=== PATIENT | female | born 1950 | race African-American/Black ===

== ENCOUNTER 2016-11-13 21:00 | Emergency (ER) | payer MEDICARE, MEDICAID ==
[2016-11-13 21:49] LABS: ABSOLUTE BASOPHILS # (AUTO) 0.1 10^3/uL (0.0-0.2); ABSOLUTE EOSINOPHILS # (AUTO) 0.1 10^3/uL (0.0-0.6); ABSOLUTE LYMPHOCYTES (AUTO) 2.6 10^3/uL (0.5-4.7); ABSOLUTE MONOCYTES (AUTO) 0.8 10^3/uL (0.1-1.4); ABSOLUTE NEUT (AUTO) 6.1 10^3/uL (1.7-8.2); BASOPHILS % (AUTO) 0.7 % (0-2); EOSINOPHILS % (AUTO) 1.4 % (0-6); HEMATOCRIT 36.4 % (36.0-47.0); HEMOGLOBIN 11.8 g/dL (12.0-15.5); LYMPHOCYTES % (AUTO) 27.2 % (13-45); MEAN CORPUSCULAR HEMOGLOBIN 26.7 pg (27.0-33.4); MEAN CORPUSCULAR HGB CONC 32.3 g/dL (32.0-36.0); MEAN CORPUSCULAR VOLUME 83 fl (80-97); MONOCYTES % (AUTO) 8.3 % (3-13); RED BLOOD COUNT 4.41 10^6/uL (3.72-5.28); RED CELL DISTRIBUTION WIDTH 15.8 % (11.5-14.0); SEGMENTED NEUTROPHILS % (AUTO) 62.4 % (42-78); WHITE BLOOD COUNT 9.7 10^3/uL (4.0-10.5)
[2016-11-13 21:55] LABS: ALANINE AMINOTRANSFERASE 22 U/L (9-52); ALBUMIN 4.6 g/dL (3.5-5.0); ALKALINE PHOSPHATASE 133 U/L (38-126); ANION GAP 15 (5-19); ASPARTATE AMINO TRANSFERASE 21 U/L (14-36); BILIRUBIN,DIRECT 0.2 mg/dL (0.0-0.4); BILIRUBIN,TOTAL 0.4 mg/dL (0.2-1.3); BLOOD UREA NITROGEN 21 mg/dL (7-20); CALCIUM 9.9 mg/dL (8.4-10.2); CARBON DIOXIDE 26 mmol/L (22-30); CHLORIDE 106 mmol/L (98-107); CREATINE KINASE 192 U/L (30-135); CREATININE RESULT 0.78 mg/dL (0.52-1.25); GLUCOSE 86 mg/dL (75-110); POTASSIUM 3.9 mmol/L (3.6-5.0); SODIUM 146.6 mmol/L (137-145); TOTAL PROTEIN 7.6 g/dL (6.3-8.2)
[2016-11-13 22:06] LABS: CREATINE KINASE MB 1.55 ng/mL (<4.55)
[2016-11-13 22:20] LABS: TROPONIN I < 0.012 ng/mL
[2016-11-13 22:25] LABS: APPEARANCE,URINE SLIGHTLY-CLOUDY; BILIRUBIN,URINE NEGATIVE (NEGATIVE); GLUCOSE, URINE NEGATIVE (NEGATIVE); KETONES,URINE NEGATIVE (NEGATIVE); LEUKOCYTE ESTERASE,URINE NEGATIVE (NEGATIVE); NITRITE,URINE NEGATIVE (NEGATIVE); PROTEIN,URINE NEGATIVE (NEGATIVE); UROBILINOGEN,URINE NEGATIVE mg/dL (<2.0)
[2016-11-13 22:37] LABS: URINE BARBITURATES SCREEN NEGATIVE; URINE METHADONE SCREEN NEGATIVE; URINE OPIATES LOW UNCONFIRMED POSITIVE; URINE PHENCYCLIDINE SCREEN NEGATIVE
[2016-11-13] MEDS ORDERED: CLONIDINE HCL 0.1 MG TABLET PO ONE (23:54)
--- NOTE | 2016-11-13 23:58 | ER Document Report ---
ED Cardiac - General Chief Complaint: Chest Pain > 30 Stated Complaint: CHEST PAIN Time seen by provider: 21:15 Information source: Patient Notes: Patient is a 66-year-old female who comes in complaining of some chest pressure and tightness. Patient also had a little bit of difficulty breathing. Patient has no history of coronary artery disease. Per records, patient has a history of fibromyalgia, gastritis, and schizophrenia. Patient was given aspirin and nitroglycerin prior to arrival. Patient also states that she is very anxious prior to arrival. TRAVEL OUTSIDE OF THE [place] IN LAST 30 DAYS: No - HPI Patient complains to provider of: Chest tightness Was the onset of pain: Gradual Is the pain a: Chronic problem Chest pain radiation location: None Severity now: None Severity at worst: Mild Associated symptoms: None Exacerbated by: Denies Relieved by: Rest Similar symptoms previously: Yes Recently seen / treated by doctor: Yes - Related Data Allergies/Adverse Reactions: lisinopril [Lisinopril] Allergy (Severe, Verified 11/13/16 23:14) Edema phenytoin sodium extended [From Dilantin] Allergy (Severe, Verified 11/13/16 23: 14) Unknown reaction risperidone [From Risperdal] Allergy (Intermediate, Verified 11/13/16 23:14) Hives venlafaxine HCl [From Effexor] Allergy (Intermediate, Verified 11/13/16 23:14) Hives Past Medical History - General Information source: Patient - Social History Smoking Status: Never Smoker Chew tobacco use (# tins/day): No Frequency of alcohol use: None Drug Abuse: None Family History: Reviewed & Not Pertinent - Past Medical History Cardiac Medical History: Reports: Hx Hypercholesterolemia, Hx Hypertension Denies: Hx Heart Attack Pulmonary Medical History: Reports: Hx Asthma, Hx COPD, Hx Pneumonia Denies: Hx Tuberculosis Neurological Medical History: Reports: Hx Seizures - 18-19 YEARS AGO. Denies: Hx Cerebrovascular Accident Endocrine Medical History: Reports: Hx Diabetes Mellitus Type 2 GI Medical History: Reports: Hx Gastroesophageal Reflux Disease. Denies: Hx Hepatitis, Hx Hiatal Hernia, Hx Ulcer Musculoskeltal Medical History: Reports Hx Arthritis, Reports Hx Fibromyalgia Psychiatric Medical History: Reports: Hx Depression - cybalta, Hx Post Traumatic Stress Disorder, Hx Schizophrenia Infectious Medical History: Denies: Hx Hepatitis Past Surgical History: Reports: Hx Section, Hx Cholecystectomy. Denies : Hx Mastectomy, Hx Open Heart Surgery, Hx Pacemaker - Immunizations Hx Diphtheria, Pertussis, Tetanus Vaccination: Yes Review of Systems - Review of Systems Constitutional: No symptoms reported EENT: No symptoms reported Cardiovascular: No symptoms reported Respiratory: See HPI Gastrointestinal: No symptoms reported Genitourinary: No symptoms reported Female Genitourinary: No symptoms reported Musculoskeletal: No symptoms reported Skin: No symptoms reported Hematologic/Lymphatic: No symptoms reported Neurological/Psychological: No symptoms reported Physical Exam - Vital signs Vitals: Resp BP Pulse Ox 25 H 144/99 H 100 11/13/16 21:19 11/13/16 21:19 11/13/16 21:19 Interpretation: Normal - General General appearance: Appears well, Alert - HEENT Head: Normocephalic, Atraumatic Eyes: Normal Pupils: PERRL - Respiratory Respiratory status: No respiratory distress Chest status: Nontender Breath sounds: Normal Chest palpation: Normal - Cardiovascular Rhythm: Regular Heart sounds: Normal auscultation Murmur: No - Abdominal Inspection: Normal Distension: No distension Bowel sounds: Normal Tenderness: Nontender Organomegaly: No organomegaly - Back Back: Normal, Nontender - Extremities General upper extremity: Normal inspection, Nontender, Normal color, Normal ROM , Normal temperature General lower extremity: Normal inspection, Nontender, Normal color, Normal ROM , Normal temperature, Normal weight bearing. No: Genesis's sign - Neurological Neuro grossly intact: Yes Cognition: Normal Orientation: AAOx4 Alec Coma Scale Eye Opening: Spontaneous Alec Coma Scale Verbal: Oriented Dodge Coma Scale Motor: Obeys Commands Alec Coma Scale Total: 15 Speech: Normal Motor strength normal: LUE, RUE, LLE, RLE Sensory: Normal - Psychological Associated symptoms: Normal affect, Normal mood - Skin Skin Temperature: Warm Skin Moisture: Dry Skin Color: Normal Course - Re-evaluation Re-evalutation: 11/13/16 Patient is a 66-year-old female who has a history of high blood pressure but no history of coronary artery disease. Patient had some chest tightness prior to arrival. Patient was very upset initially able to move herself onto the bed and then stated that she is very tired. Asked to evaluate patient by nurse. Patient states that she is tired but she is neurovascularly intact. Patient's speech is intact and she moves everything well. Patient's neighbor came to offer information and thinks that the patient was taking something at home. Patient is upset and told the neighbor to leave. Tells me that she does not take any pills that she is not supposed to and she only came in because she did not feel well. States that she has a lot to do and she wants to go home if everything looks normal. Per old records, The patient had a negative stress test and cardiac catheterization last year. 11/13/16 23:57 Patient's initial blood work and EKG within normal limits. Discussed with son states that the patient appears at her baseline. Patient does not have any chest pain at this time. Difficulty breathing. Vitals are stable except for some mild elevation of blood pressure. Patient is a little bit anxious. Will be given clonidine for both blood pressure and anxiety. Patient will be discharged home after second troponin. Patient is to follow-up with her doctor next week. - Vital Signs Vital signs: Temp Pulse Resp BP Pulse Ox 97.7 F 20 168/102 H 100 11/13/16 21:50 11/13/16 23:01 11/13/16 23:01 11/13/16 23:01 - Laboratory Result Diagrams: 11/13/16 21:25 11/13/16 21:25 Laboratory results interpreted by me: 11/13/16 11/13/16 11/13/16 21:25 21:25 22:00 Hgb 11.8 L MCH 26.7 L RDW 15.8 H Sodium 146.6 H BUN 21 H Alkaline Phosphatase 133 H Creatine Kinase 192 H Urine Blood SMALL H - Diagnostic Test Radiology reviewed: Reports reviewed - EKG Interpretation by Me EKG shows normal: Sinus rhythm Rate: Normal Rhythm: NSR Discharge - Discharge Clinical Impression: Atypical chest pain Condition: Stable Disposition: HOME, SELF-CARE Instructions: Chest Pain of Unclear Cause ([facility]) Additional Instructions: Please follow-up with your doctor next week. Forms: Elevated Blood Pressure
[2016-11-14 02:08] VITALS: BP 154/84
--- NOTE | 2016-11-14 09:12 | EKG REPORT ---
SEVERITY:- NORMAL ECG - SINUS RHYTHM : Confirmed by: Srinath Kwon MD 14-Nov-2016 09:11:48
== END 2016-11-14 02:00 | disposition home or self-care (01) ==
LOC: ER 21:00
DX: R07.9 Chest pain, unspecified (principal); R06.02 Shortness of breath
CPT/HCPCS: 93005; 99285; 36415; 82553; 82550; 84443; 85025; 80053; 81001; 84484; 80307; 71010; 93010; A9270

== ENCOUNTER 2016-12-26 04:55 | Emergency (ER) | payer MEDICARE, MEDICAID ==
[2016-12-26 05:38] LABS: ABSOLUTE EOSINOPHILS # (AUTO) 0.1 10^3/uL (0.0-0.6); ABSOLUTE LYMPHOCYTES (AUTO) 1.9 10^3/uL (0.5-4.7); ABSOLUTE MONOCYTES (AUTO) 0.6 10^3/uL (0.1-1.4); BASOPHILS % (AUTO) 0.3 % (0-2); EOSINOPHILS % (AUTO) 1.7 % (0-6); HEMATOCRIT 36.1 % (36.0-47.0); HEMOGLOBIN 11.9 g/dL (12.0-15.5); HGB HCT DIFFERENCE -0.4; LYMPHOCYTES % (AUTO) 22.2 % (13-45); MEAN CORPUSCULAR HEMOGLOBIN 27.4 pg (27.0-33.4); MEAN CORPUSCULAR VOLUME 83 fl (80-97); MONOCYTES % (AUTO) 6.7 % (3-13); RED BLOOD COUNT 4.34 10^6/uL (3.72-5.28); RED CELL DISTRIBUTION WIDTH 15.7 % (11.5-14.0); SEGMENTED NEUTROPHILS % (AUTO) 69.1 % (42-78); WHITE BLOOD COUNT 8.6 10^3/uL (4.0-10.5)
[2016-12-26 05:51] LABS: ALANINE AMINOTRANSFERASE 37 U/L (9-52); ALBUMIN 3.9 g/dL (3.5-5.0); ALKALINE PHOSPHATASE 123 U/L (38-126); ANION GAP 9 (5-19); ASPARTATE AMINO TRANSFERASE 89 U/L (14-36); BILIRUBIN,DIRECT 0.4 mg/dL (0.0-0.4); BILIRUBIN,TOTAL 0.6 mg/dL (0.2-1.3); BLOOD UREA NITROGEN 20 mg/dL (7-20); CALCIUM 9.6 mg/dL (8.4-10.2); CARBON DIOXIDE 30 mmol/L (22-30); CHLORIDE 105 mmol/L (98-107); CREATINE KINASE 136 U/L (30-135); GLUCOSE 140 mg/dL (75-110); POTASSIUM 3.5 mmol/L (3.6-5.0); SODIUM 143.8 mmol/L (137-145); TOTAL PROTEIN 6.8 g/dL (6.3-8.2)
[2016-12-26 06:02] LABS: CREATINE KINASE MB 1.21 ng/mL (<4.55)
[2016-12-26 06:03] LABS: TROPONIN I < 0.012 ng/mL
--- NOTE | 2016-12-26 06:06 | RADIOLOGY REPORT (SQ) ---
EXAM DESCRIPTION: CHEST SINGLE VIEW COMPLETED DATE/TIME: 12/26/2016 5:48 am REASON FOR STUDY: Chest pain COMPARISON: 11/13/2016 EXAM PARAMETERS: NUMBER OF VIEWS: One view. TECHNIQUE: Single frontal radiographic view of the chest acquired. RADIATION DOSE: NA LIMITATIONS: None. FINDINGS: LUNGS AND PLEURA: No opacities, masses or pneumothorax. No pleural effusion. MEDIASTINUM AND HILAR STRUCTURES: No masses. Contour normal. HEART AND VASCULAR STRUCTURES: Heart normal in size. Normal vasculature. BONES: No acute findings. HARDWARE: None in the chest. OTHER: No other significant finding. IMPRESSION: NO ACUTE RADIOGRAPHIC FINDING IN THE CHEST. TECHNICAL DOCUMENTATION: JOB ID: [id number]
[2016-12-26] MEDS ORDERED: NORMAL SALINE 1000 ML 1,000 ML IV ONE (08:05)
--- NOTE | 2016-12-26 08:46 | RADIOLOGY REPORT (SQ) ---
EXAM DESCRIPTION: CTA CHEST COMPLETED DATE/TIME: 12/26/2016 8:26 am REASON FOR STUDY: sob COMPARISON: 10/16/2015. TECHNIQUE: CT scan of the chest performed using helical scanning technique with dynamic intravenous contrast injection. Images reviewed with lung, soft tissue and bone windows. Reconstructed coronal and sagittal MPR images reviewed. Additional 3 dimensional post-processing performed to develop Maximal Intensity Projection images (NE P). All images stored on PACS. All CT scanners at this facility use dose modulation, iterative reconstruction, and/or weight based d osing when appropriate to reduce radiation dose to as low as reasonably achievable (ALARA). [facility]: Dose Right [facility]: CareDose [facility]: Dose Right [facility]: Teradose 4D [facility]: [email or web address] CONTRAST TYPE AND DOSE: 75 mL Isovue 370- low osmolar. RENAL FUNCTION: BUN 20 creatinine 0.8. RADIATION DOSE: 31.05 mGy. LIMITATIONS: None. FINDINGS: LUNGS AND PLEURA: Minimal pleural effusions. Scattered subpleural interstitial densities. No lobar infiltrates. No pneumothorax AORTA AND GREAT VESSELS: No aneurysm or dissection. HEART: No pericardial effusion. PULMONARY ARTERIES: No emboli visualized in the main pulmonary arteries or the segmental branches. HILAR AND MEDIASTINAL STRUCTURES: No identified masses or abnormal nodes. HARDWARE: None in the chest. UPPER ABDOMEN: No significant findings. Limited exam. THYROID AND OTHER SOFT TISSUES: No masses. No adenopathy. BONES: No acute or significant finding. 3D MIPS: Confirm above findings. OTHER: No other significant finding. IMPRESSION: 1. NORMAL CTA OF THE CHEST. NO PULMONARY EMBOLI. 2. MINIMAL PLEURAL EFFUSIONS WITH MILD ATELECTASIS/SCARRING. TECHNICAL DOCUMENTATION: JOB ID: [id number] Quality ID # [id number]: Final reports with documentation of one or more dose reduction techniques (e.g., Au tomated exposure control, adjustment of the mA and/or kV according to patient size, use of iterative reconstruction technique) 2010 [employer]- All Rights Reserved
--- NOTE | 2016-12-26 09:24 | EKG REPORT ---
SEVERITY:- NORMAL ECG - SINUS RHYTHM : Confirmed by: Srinath Kwon MD 26-Dec-2016 09:24:02
--- NOTE | 2016-12-26 10:21 | ER Document Report ---
ED General - General Chief Complaint: Chest Pain Stated Complaint: CHEST PAIN UNDER LEFT BREAST Time Seen by Provider: 12/26/16 06:14 TRAVEL OUTSIDE OF THE [place] IN LAST 30 DAYS: No - HPI Patient complains to provider of: Chest pain Notes: Patient is coming in for evaluation of chest pain. Patient apparently woke up this morning around 3:00 having chest pain. Patient states she was wearing her CPAP at the time. Patient was transported EMS. Patient states chest pain similar to chest pain she had prior patient was recently seen her corporate recycling manager office and has a scheduled stress test for January 04. Patient states negative stress test approximately 2 years ago also negative gastric catheterization 2 years ago. Patient states compliance with medications. Patient denies any drug abuse. Patient currently is chest pain-free. - Related Data Allergies/Adverse Reactions: lisinopril [Lisinopril] Allergy (Severe, Verified 12/26/16 05:57) Edema phenytoin sodium extended [From Dilantin] Allergy (Severe, Verified 12/26/16 05: 57) Unknown reaction risperidone [From Risperdal] Allergy (Intermediate, Verified 12/26/16 05:57) Hives venlafaxine HCl [From Effexor] Allergy (Intermediate, Verified 12/26/16 05:57) Hives Past Medical History - Social History Smoking Status: Unknown if Ever Smoked Chew tobacco use (# tins/day): No Frequency of alcohol use: None Drug Abuse: None Family History: Reviewed & Not Pertinent - Past Medical History Cardiac Medical History: Reports: Hx Hypercholesterolemia, Hx Hypertension Denies: Hx Heart Attack Pulmonary Medical History: Reports: Hx Asthma, Hx COPD, Hx Pneumonia Denies: Hx Tuberculosis Neurological Medical History: Reports: Hx Seizures - 18-19 YEARS AGO. Denies: Hx Cerebrovascular Accident Endocrine Medical History: Reports: Hx Diabetes Mellitus Type 2 GI Medical History: Reports: Hx Gastroesophageal Reflux Disease. Denies: Hx Hepatitis, Hx Hiatal Hernia, Hx Ulcer Musculoskeltal Medical History: Reports Hx Arthritis, Reports Hx Fibromyalgia Psychiatric Medical History: Reports: Hx Depression - cymbalta, Hx Post Traumatic Stress Disorder, Hx Schizophrenia Infectious Medical History: Denies: Hx Hepatitis Past Surgical History: Reports: Hx Section, Hx Cholecystectomy. Denies : Hx Mastectomy, Hx Open Heart Surgery, Hx Pacemaker - Immunizations Hx Diphtheria, Pertussis, Tetanus Vaccination: Yes Review of Systems - Review of Systems Constitutional: No symptoms reported EENT: No symptoms reported Cardiovascular: Chest pain Respiratory: No symptoms reported Gastrointestinal: No symptoms reported Genitourinary: No symptoms reported Female Genitourinary: No symptoms reported Musculoskeletal: No symptoms reported Skin: No symptoms reported Hematologic/Lymphatic: No symptoms reported Neurological/Psychological: No symptoms reported Physical Exam - Vital signs Vitals: Temp 97.7 F 12/26/16 05:00 Interpretation: Normal - General General appearance: Appears well, Alert - HEENT Head: Normocephalic, Atraumatic Eyes: Normal Pupils: PERRL - Respiratory Respiratory status: No respiratory distress Chest status: Nontender Breath sounds: Normal Chest palpation: Normal - Cardiovascular Rhythm: Regular Heart sounds: Normal auscultation Murmur: No - Abdominal Inspection: Normal Distension: No distension Bowel sounds: Normal Tenderness: Nontender Organomegaly: No organomegaly - Back Back: Normal, Nontender - Extremities General upper extremity: Normal inspection, Nontender, Normal color, Normal ROM , Normal temperature General lower extremity: Normal inspection, Nontender, Normal color, Normal ROM , Normal temperature, Normal weight bearing. No: Genesis's sign - Neurological Neuro grossly intact: Yes Cognition: Normal Orientation: AAOx4 Alec Coma Scale Eye Opening: Spontaneous Alec Coma Scale Verbal: Oriented Alec Coma Scale Motor: Obeys Commands Alec Coma Scale Total: 15 Speech: Normal Motor strength normal: LUE, RUE, LLE, RLE Sensory: Normal - Psychological Associated symptoms: Normal affect, Normal mood - Skin Skin Temperature: Warm Skin Moisture: Dry Skin Color: Normal Course - Re-evaluation Re-evalutation: 12/26/16 15:24 The patient has atypical chest pain as the patient's chest pain is not suggestive of pulmonary embolus, cardiac ischemia, aortic dissection, or other serious etiology. Given the extremely low risk of these diagnoses further testing and evaluation for these possibilities does not appear to be indicated at this time. The patient has been instructed to return if the symptoms worsen or change in any way. Discussed with corporate recycling manager and Talha Ott. Agrees with assessment and plan agrees with discharge home recommend starting patient on Imdur and to the patient has her stress test. Patient agrees with this plan troponins negative 2 no signs of critical etiology will be discharged - Vital Signs Vital signs: Temp Pulse Resp BP Pulse Ox 97.5 F 18 154/78 H 98 12/26/16 11:08 12/26/16 11:08 12/26/16 11:08 12/26/16 11:08 - Laboratory Result Diagrams: 12/26/16 05:28 12/26/16 05:28 Laboratory results interpreted by me: 12/26/16 12/26/16 12/26/16 05:28 05:28 05:28 Hgb 11.9 L RDW 15.7 H D-Dimer 0.56 H Potassium 3.5 L Glucose 140 H AST 89 H Creatine Kinase 136 H Discharge - Discharge Clinical Impression: Chest pain Qualifiers: Chest pain type: unspecified Qualified Code(s): R07.9 - Chest pain, unspecified Condition: Good Disposition: HOME, SELF-CARE Instructions: Chest Wall Pain ([facility]), Chest Pain of Unclear Cause ([facility]) Additional Instructions: Your workup here today shows a normal EKG and normal lab work and a normal CAT scan of her chest. I discussed her case with your corporate recycling manager elvira and Talha Ott. Recommended that we start you on Imdur 30 mg a day. We make sure that she follow-up for your stress test on the sixth. Return to the ER if any changes continue to take your previously prescribed medication. Prescriptions: Isosorbide Mononitrate [Imdur 30 mg Tablet.er] 30 mg PO DAILY #14 tab.er.24h Forms: Return to Work
[2016-12-26] MEDS ORDERED: POTASSIUM CHLORIDE 10 MEQ TABLET.SA PO ONE (10:41)
[2016-12-26 11:16] VITALS: BP 154/78
== END 2016-12-26 11:28 | disposition home or self-care (01) ==
LOC: ER 04:55
DX: R07.9 Chest pain, unspecified (principal)
CPT/HCPCS: 93005; 99285; 96360; 36415; 82553; 82550; 83735; 85025; 80053; 84484; 85379; 71010; 71275; 93010; J7030; A9270

== ENCOUNTER → 2017-01-03 | Outpatient (CLI) | payer MEDICARE, MEDICAID ==
--- NOTE | 2017-01-04 15:07 | CAROTID DOPPLER PRO FEE REPORT ---
CAROTID DUPLEX DOPPLER REPORT PATIENT NAME: KORY GALLO ROOM#: DATE OF STUDY: 01/03/2017 DATE OF : 1950 REFERRING MD: LINDSEY ABARCA M.D. ORDER NO: [id number] TECHNOLOGIST: Prasanth Norton INDICATION: CVA. STUDY: The color carotid duplex scan was performed with real time images and real time Doppler velocity measurements. Real time images indicated no plaque formation, either right or left carotid artery. Doppler velocity measurements were as follows: MEASUREMENT: RIGHT LEFT CCA PSV (prox/mid) 136 cm/sec 210 cm/sec CCA PSV (distal) 92 cm/sec 101 cm/sec CCA EDV (prox/mid) 19 cm/sec 36 cm/sec CCA EDV (distal) 24 cm/sec 20 cm/sec ICA PSV (proximal) 101 cm/sec 71 cm/sec ICA PSV (distal) 136 cm/sec 78 cm/sec ICA EDV (proximal) 26 cm/sec 19 cm/sec ICA EDV (distal) 40 cm/sec 23 cm/sec ECA 69 cm/sec 81 cm/sec ICA/CCA RATIO: 1.5 on the right and 0.7 on the left. Vertebrals are patent. Flow is cephalad. FINAL IMPRESSION: NO PLAQUE FORMATION, LESS THAN 50% STENOSIS. INTERPRETING PHYSICIAN: LINDSEY ABARCA M.D. /: NAGA TT: 1504 ID: [id number] /: [id number] TD: 1550 JOB: [id number] cc:LINDSEY ABARCA M.D. >
== END ==
LOC: SP 09:47
PROVIDERS: ATTEND Specialist
DX: I63.9 Cerebral infarction, unspecified (principal)
CPT/HCPCS: 93880

== ENCOUNTER 2017-04-06 20:21 | Emergency (ER) | payer MEDICARE, MEDICAID ==
[2017-04-06] MEDS ORDERED: NORMAL SALINE 500 ML IV ONE (22:53)
[2017-04-07 00:01] LABS: ABSOLUTE BASOPHILS # (AUTO) 0.1 10^3/uL (0.0-0.2); ABSOLUTE EOSINOPHILS # (AUTO) 0.3 10^3/uL (0.0-0.6); ABSOLUTE LYMPHOCYTES (AUTO) 1.8 10^3/uL (0.5-4.7); ABSOLUTE MONOCYTES (AUTO) 0.5 10^3/uL (0.1-1.4); ABSOLUTE NEUT (AUTO) 5.1 10^3/uL (1.7-8.2); EOSINOPHILS % (AUTO) 3.9 % (0-6); HEMATOCRIT 36.8 % (36.0-47.0); HEMOGLOBIN 12.2 g/dL (12.0-15.5); HGB HCT DIFFERENCE -0.2; MEAN CORPUSCULAR HEMOGLOBIN 27.9 pg (27.0-33.4); MEAN CORPUSCULAR HGB CONC 33.1 g/dL (32.0-36.0); MEAN CORPUSCULAR VOLUME 85 fl (80-97); MONOCYTES % (AUTO) 6.8 % (3-13); RED BLOOD COUNT 4.36 10^6/uL (3.72-5.28); RED CELL DISTRIBUTION WIDTH 15.9 % (11.5-14.0); SEGMENTED NEUTROPHILS % (AUTO) 65.3 % (42-78); WHITE BLOOD COUNT 7.8 10^3/uL (4.0-10.5)
--- NOTE | 2017-04-07 00:35 | RADIOLOGY REPORT (SQ) ---
EXAM DESCRIPTION: CT HEAD WITHOUT COMPLETED DATE/TIME: 04/07/2017 12:21 am REASON FOR STUDY: headache, R SIDE WEAKNESS COMPARISON: CT brain 04/09/2016, 07/11/2011. TECHNIQUE: Axial images acquired through the brain without intravenous contrast. Images reviewed wi th bone, brain and subdural windows. Images stored on PACS. All CT scanners at this facility use dose modulation, iterative reconstruction, and/or weight based d osing when appropriate to reduce radiation dose to as low as reasonably achievable (ALARA). [facility]: Dose Right [facility]: CareDose [facility]: Dose Right [facility]: Teradose 4D [facility]: [employer] RADIATION DOSE: Up-to-date CT equipment and radiation dose reduction techniques were employed. CTDIv ol: 67.0 mGy. DLP: 1316 mGy-cm. mGy. LIMITATIONS: None. FINDINGS: VENTRICLES: Normal size and contour. CEREBRUM: No mass effect. No hemorrhage. No midline shift. Normal beltran/white matter differentiatio n. No evidence for acute territorial infarction. CEREBELLUM: No mass effect. No hemorrhage. No alteration of density. No evidence for acute infarct ion. EXTRAAXIAL SPACES: No fluid collections. ORBITS AND GLOBE: Symmetrical contour of the globes. CALVARIUM: No depressed skull fracture. PARANASAL SINUSES: No air-fluid level. SOFT TISSUES: No hematoma. IMPRESSION: No acute intracranial hemorrhage or acute territorial infarct. COMMENT: Quality ID # [id number]: Final reports with documentation of one or more dose reduction techniques (e.g., Automated exposure control, adjustment of the mA and/or kV according to patient size, use of iterative reconstruction technique) TECHNICAL DOCUMENTATION: JOB ID: [id number] [place]-64 [employer]- All Rights Reserved
[2017-04-07 00:48] LABS: ANION GAP 11 (5-19); BLOOD UREA NITROGEN 14 mg/dL (7-20); CALCIUM 9.4 mg/dL (8.4-10.2); CARBON DIOXIDE 28 mmol/L (22-30); CHLORIDE 106 mmol/L (98-107); CREATININE RESULT 0.72 mg/dL (0.52-1.25); GLUCOSE 86 mg/dL (75-110); POTASSIUM 3.9 mmol/L (3.6-5.0); SODIUM 144.8 mmol/L (137-145)
--- NOTE | 2017-04-07 02:22 | RADIOLOGY REPORT (SQ) ---
EXAM DESCRIPTION: CTA HEAD COMPLETED DATE/TIME: 04/07/2017 2:08 am REASON FOR STUDY: headache COMPARISON: Noncontrast CT head 04/07/2017. TECHNIQUE: Post IV contrast scanning, thin section axial imaging through the brain to evaluate the a rterial structures. Source and MIP images are saved and reviewed on PACS. Advanced 3D imaging as volume-rendering, MIPs, SSD performed? yes All CT scanners at this facility use dose modulation, iterative reconstruction, and/or weight based d osing when appropriate to reduce radiation dose to as low as reasonably achievable (ALARA). [facility]: Dose Right [facility]: CareDose [facility]: Dose Right [facility]: Teradose 4D [facility]: [employer] CONTRAST TYPE AND DOSE: contrast/concentration: Isovue 370.00 mg/ml; Total Contrast Delivered: 80.0 ml; Total Saline Delivered: 63.9 ml RENAL FUNCTION: Creatinine 0.71 LIMITATIONS: None. FINDINGS: [place] RESERVATION OF FRIED[place]: The anterior, middle, posterior cerebral arteries are all patent. No ev idence of aneurysm or focal stenosis. POSTERIOR CIRCULATION: The distal vertebral arteries are patent as is the basilar artery. No aneurysm . BRAIN: No enhancing lesions visualized. BONES: No depressed calvarial fracture. SINUSES: No air-fluid level. IMPRESSION: No CTA evidence of stenosis or aneurysm of the hoopa of [place]. TECHNICAL DOCUMENTATION: JOB ID: [id number] [place]- Quality ID # [id number]: Final reports with documentation of one or more dose reduction techniques (e.g., Au tomated exposure control, adjustment of the mA and/or kV according to patient size, use of iterative reconstruction technique) 2010 [employer]- All Rights Reserved
[2017-04-07] MEDS ORDERED: METOCLOPRAMIDE HCL INJ/PF 10 MG/2 ML SDV IV ONE (02:28)
[2017-04-07] MEDS ORDERED: DIPHENHYDRAMINE HCL 50 MG/ML VIAL IV ONE (02:29)
--- NOTE | 2017-04-07 02:50 | ER Document Report ---
ED General - General Chief Complaint: Headache <24 hrs old Stated Complaint: HEADACHE Time Seen by Provider: 04/06/17 22:40 Notes: Patient is a 66-year-old female presents with complaint of a headache. Patient says headaches been ongoing since early afternoon. She says it gradually started come on when [place] the mall. Gradually worsened and now is more severe. She says she typically does not get headaches. Says that pain is mainly over the top of her head. Some slight pain going into her neck. Some nausea but no vomiting. No diarrhea. No fevers. No trauma. No focal weakness or numbness. No other complaints at this time. TRAVEL OUTSIDE OF THE [place] IN LAST 30 DAYS: No - Related Data Allergies/Adverse Reactions: lisinopril [Lisinopril] Allergy (Severe, Verified 04/06/17 20:53) Edema phenytoin sodium extended [From Dilantin] Allergy (Severe, Verified 04/06/17 20: 53) Unknown reaction risperidone [From Risperdal] Allergy (Intermediate, Verified 04/06/17 20:53) Hives venlafaxine HCl [From Effexor] Allergy (Intermediate, Verified 04/06/17 20:53) Hives Past Medical History - Social History Smoking Status: Never Smoker Chew tobacco use (# tins/day): No Frequency of alcohol use: None Drug Abuse: None Family History: Reviewed & Not Pertinent - Past Medical History Cardiac Medical History: Reports: Hx Hypercholesterolemia, Hx Hypertension Denies: Hx Heart Attack Pulmonary Medical History: Reports: Hx Asthma, Hx COPD, Hx Pneumonia Denies: Hx Tuberculosis Neurological Medical History: Reports: Hx Seizures - 18-19 YEARS AGO. Denies: Hx Cerebrovascular Accident Endocrine Medical History: Reports: Hx Diabetes Mellitus Type 2 Renal/ Medical History: Denies: Hx Peritoneal Dialysis GI Medical History: Reports: Hx Gastroesophageal Reflux Disease. Denies: Hx Hepatitis, Hx Hiatal Hernia, Hx Ulcer Musculoskeltal Medical History: Reports Hx Arthritis, Reports Hx Fibromyalgia Psychiatric Medical History: Reports: Hx Depression - cymbalta, Hx Post Traumatic Stress Disorder, Hx Schizophrenia Infectious Medical History: Denies: Hx Hepatitis Past Surgical History: Reports: Hx Section, Hx Cholecystectomy. Denies : Hx Mastectomy, Hx Open Heart Surgery, Hx Pacemaker - Immunizations Hx Diphtheria, Pertussis, Tetanus Vaccination: Yes Review of Systems - Review of Systems Notes: My Normal Review Basic REVIEW OF SYSTEMS: CONSTITUTIONAL : Denies fever, chills, or sweats. Denies recent illness.. RESPIRATORY: Denies cough, cold, or chest congestion. Denies shortness of breath, difficulty breathing, or wheezing. MUSCULOSKELETAL: Denies neck or back pain or joint pain or swelling. SKIN: Denies rash or skin lesions. NEUROLOGICAL: Denies altered mental status or loss of consciousness. Has a headache. Denies weakness or paralysis or loss of use of either side. Denies problems with gait or speech. Denies sensory or motor loss. ALL OTHER SYSTEMS REVIEWED AND NEGATIVE. Physical Exam - Vital signs Vitals: Temp Pulse Resp BP Pulse Ox 97.6 F 60 20 155/68 H 97 04/06/17 20:54 04/06/17 20:54 04/06/17 20:54 04/06/17 20:54 04/06/17 20:54 - Notes Notes: General Appearance: Well nourished, alert, cooperative, no acute distress, mild obvious discomfort. Vitals: reviewed, See vital signs table. Head: no swelling or tenderness to the head Eyes: PERRL, EOMI, Conjuctiva clear Mouth: No decreasd moisture Throat: No tonsillar inflammation, No airway obstruction, No lymphadenopathy Neck: Supple, no neck tenderness Lungs: No wheezing, No rales, No rhonci, No accessory muscle use, good air exchange bilaterally. Heart: Normal rate, Regular rythm, No murmur, no rub Abdomen: Normal BS, soft, No rigidity, No abdominal tenderness, No guarding, no rebound, no abdominal masses, no organomegaly Extremities: strength 5/5 in all extremities, good pulses in all extremities, no swelling or tenderness in the extremities, no edema. Skin: warm, dry, appropriate color, no rash Neuro: speech clear, oriented x 3, normal affect, responds appropriately to questions. Cranial nerves II through XII are intact. Distal sensation intact. Patient moves all extremities without difficulty. Normal gait. Course - Re-evaluation Re-evalutation: 04/07/17 06:24 Headache is now completely resolved. She is feeling improved. I did discuss with her the options of CTA versus lumbar puncture. We did do the CTA. I informed her that the CTA is sensitive for cerebral aneurysms but is not 100% and picking up subarachnoid hemorrhage. I informed her that the only test that would be 100% would be a lumbar puncture. At this time she is comfortable with the sensitivity of the CTA and does not want a lumbar puncture performed. After that discussion with her I did give her Benadryl and Reglan. Headache was completely resolved with that. She feels well and looks well. Patient will be discharged home but strongly encouraged to return to ER if she has recurrent headaches, headaches are sudden and severe in onset, or she feels unwell. Patient agrees with plan and was discharged home. Dictation of this chart was performed using voice recognition software; therefore, there may be some unintended grammatical errors. - Vital Signs Vital signs: Temp Pulse Resp BP Pulse Ox 97.6 F 57 L 18 143/68 H 97 04/06/17 20:54 04/06/17 23:48 04/07/17 05:01 04/07/17 05:01 04/07/17 05:01 - Laboratory Result Diagrams: 04/06/17 23:47 04/07/17 00:28 Laboratory results interpreted by me: 04/06/17 23:47 RDW 15.9 H - Transfer of Care Notes: 04/07/17 02:48 She says her headache is starting to improve. After a CT of her head I did discuss the option of lumbar puncture. At the time of discussion are not yet given her any type of sedating medications as I did not want this to affect her judgment. Informed the patient that a CTA is very sensitive for picking up cerebral aneurysms however it is not 100% sensitive in picking up subarachnoid bleeds. I informed her that the only thing is 100% sensitive would be a lumbar puncture. I did review with a lumbar puncture is with her and she is actually familiar with the procedure. She says that she does not want a lumbar puncture. She states she is comfortable with the CT alone. I will treat the patient with Benadryl and Reglan. I will reassess her to make sure that her headache is improving. Discharge - Discharge Clinical Impression: Headache Qualifiers: Headache type: unspecified Headache chronicity pattern: acute headache Intractability: not intractable Qualified Code(s): R51 - Headache Condition: Good Disposition: HOME, SELF-CARE Additional Instructions: Your headache improved with medication called Reglan. I have written a prescription for this medication. When you take i, please take it with 25 mg of Benadryl. Do not drive after taking this medication as it can make you sleepy. We did obtain a CT angiogram gram of your brain. This showed no evidence of cerebral aneurysm. This test is very sensitive for picking up cerebral aneurysms but as discussed with you it is not 100% and ruling out subarachnoid hemorrhage. If you develop any recurrent headaches or feel unwell then please return to ER so we can reevaluate you and discuss again the option of a lumbar puncture. Prescriptions: Metoclopramide HCl [Reglan 10 mg Tablet] 1 tab PO ASDIR PRN #25 tablet PRN Reason: Referrals: SELIN WATTS MD [Primary Care Provider] - Follow up in 3-5 days
[2017-04-07 05:25] VITALS: BP 143/68
== END 2017-04-07 05:25 | disposition home or self-care (01) ==
LOC: ER 20:21
DX: R51 Headache (principal); M54.2 Cervicalgia; R11.0 Nausea
CPT/HCPCS: 99284; 96361; 96374; 96375; 36415; 85025; 80048; 70450; 70496; J1200; J2765; J7040

== ENCOUNTER 2017-04-22 12:52 | Observation (INO) | payer MEDICARE, MEDICAID ==
[2017-04-22] MEDS ORDERED: ASPIRIN 81 MG TABLET, CHEWABLE PO ONE (12:58)
[2017-04-22 13:19] LABS: ABSOLUTE EOSINOPHILS # (AUTO) 0.1 10^3/uL (0.0-0.6); ABSOLUTE LYMPHOCYTES (AUTO) 1.6 10^3/uL (0.5-4.7); ABSOLUTE MONOCYTES (AUTO) 0.6 10^3/uL (0.1-1.4); ABSOLUTE NEUT (AUTO) 4.8 10^3/uL (1.7-8.2); BASOPHILS % (AUTO) 0.3 % (0-2); EOSINOPHILS % (AUTO) 1.1 % (0-6); HEMATOCRIT 33.1 % (36.0-47.0); HEMOGLOBIN 11.4 g/dL (12.0-15.5); HGB HCT DIFFERENCE 1.1; LYMPHOCYTES % (AUTO) 22.8 % (13-45); MEAN CORPUSCULAR HEMOGLOBIN 28.6 pg (27.0-33.4); MEAN CORPUSCULAR HGB CONC 34.4 g/dL (32.0-36.0); MEAN CORPUSCULAR VOLUME 83 fl (80-97); MONOCYTES % (AUTO) 9.1 % (3-13); RED BLOOD COUNT 3.98 10^6/uL (3.72-5.28); RED CELL DISTRIBUTION WIDTH 15.3 % (11.5-14.0); SEGMENTED NEUTROPHILS % (AUTO) 66.7 % (42-78); WHITE BLOOD COUNT 7.2 10^3/uL (4.0-10.5)
[2017-04-22 13:46] LABS: CREATINE KINASE MB 1.16 ng/mL (<4.55)
[2017-04-22 13:50] LABS: TROPONIN I < 0.012 ng/mL
[2017-04-22 14:06] LABS: ALANINE AMINOTRANSFERASE 22 U/L (9-52); ALBUMIN 3.9 g/dL (3.5-5.0); ALKALINE PHOSPHATASE 110 U/L (38-126); ANION GAP 9 (5-19); ASPARTATE AMINO TRANSFERASE 19 U/L (14-36); BILIRUBIN,DIRECT 0.3 mg/dL (0.0-0.4); BILIRUBIN,TOTAL 0.5 mg/dL (0.2-1.3); BLOOD UREA NITROGEN 13 mg/dL (7-20); CALCIUM 9.6 mg/dL (8.4-10.2); CARBON DIOXIDE 27 mmol/L (22-30); CHLORIDE 106 mmol/L (98-107); CREATINE KINASE 119 U/L (30-135); CREATININE RESULT 0.87 mg/dL (0.52-1.25); GLUCOSE 75 mg/dL (75-110); SODIUM 142.4 mmol/L (137-145); TOTAL PROTEIN 6.6 g/dL (6.3-8.2)
--- NOTE | 2017-04-22 14:24 | RADIOLOGY REPORT (SQ) ---
EXAM DESCRIPTION: CHEST SINGLE VIEW COMPLETED DATE/TIME: 04/22/2017 2:14 pm REASON FOR STUDY: cp COMPARISON: 12/26/2016 EXAM PARAMETERS: NUMBER OF VIEWS: One view. TECHNIQUE: Single frontal radiographic view of the chest acquired. RADIATION DOSE: NA LIMITATIONS: None. FINDINGS: LUNGS AND PLEURA: No opacities, masses or pneumothorax. No pleural effusion. MEDIASTINUM AND HILAR STRUCTURES: No masses. Contour normal. HEART AND VASCULAR STRUCTURES: Heart normal in size. Normal vasculature. BONES: No acute findings. HARDWARE: None in the chest. OTHER: No other significant finding. IMPRESSION: NO ACUTE RADIOGRAPHIC FINDING IN THE CHEST. TECHNICAL DOCUMENTATION: JOB ID: [id number]
--- NOTE | 2017-04-22 15:12 | ER Document Report ---
ED General - General Chief Complaint: Chest Pain Stated Complaint: CHEST PAIN Time Seen by Provider: 04/22/17 12:58 TRAVEL OUTSIDE OF THE [place] IN LAST 30 DAYS: No - HPI Patient complains to provider of: Chest pain Notes: Patient coming in for intermittent chest pain worse just prior to arrival states intermittent for the last 24 hours worse prior to arrival patient states relieved with nitro and nitro paste. Patient currently is asymptomatic. Patient states left-sided chest pain going down the left arm. States also is having nausea. Patient states that she called her medical records manager Dr. Hancock and Talha Ott was told to come to the nearest ER. Patient states last catheterization was approximately 3 years ago that was negative patient states she has had other cardiac testing however is unclear how recent this has been. Patient denies history of stents denies history of bypass surgery. Patient does state hypertension diabetes. Patient denies any trauma recent travel. Patient does endorse some shortness of breath with the short chest pain. Denies fevers chills vomiting diarrhea - Related Data Allergies/Adverse Reactions: lisinopril [Lisinopril] Allergy (Severe, Verified 04/06/17 20:53) Edema phenytoin sodium extended [From Dilantin] Allergy (Severe, Verified 04/06/17 20: 53) Unknown reaction risperidone [From Risperdal] Allergy (Intermediate, Verified 04/06/17 20:53) Hives venlafaxine HCl [From Effexor] Allergy (Intermediate, Verified 04/06/17 20:53) Hives Past Medical History - Social History Smoking Status: Former Smoker Chew tobacco use (# tins/day): No Frequency of alcohol use: None Drug Abuse: None Family History: Reviewed & Not Pertinent - Past Medical History Cardiac Medical History: Reports: Hx Hypercholesterolemia, Hx Hypertension Denies: Hx Heart Attack Pulmonary Medical History: Reports: Hx Asthma, Hx COPD, Hx Pneumonia Denies: Hx Tuberculosis Neurological Medical History: Reports: Hx Seizures - 18-19 YEARS AGO. Denies: Hx Cerebrovascular Accident Endocrine Medical History: Reports: Hx Diabetes Mellitus Type 2 Renal/ Medical History: Denies: Hx Peritoneal Dialysis GI Medical History: Reports: Hx Gastroesophageal Reflux Disease. Denies: Hx Hepatitis, Hx Hiatal Hernia, Hx Ulcer Musculoskeltal Medical History: Reports Hx Arthritis, Reports Hx Fibromyalgia Psychiatric Medical History: Reports: Hx Depression - cymbalta, Hx Post Traumatic Stress Disorder, Hx Schizophrenia Infectious Medical History: Denies: Hx Hepatitis Past Surgical History: Reports: Hx Section, Hx Cholecystectomy. Denies : Hx Mastectomy, Hx Open Heart Surgery, Hx Pacemaker - Immunizations Hx Diphtheria, Pertussis, Tetanus Vaccination: Yes Review of Systems - Review of Systems Constitutional: No symptoms reported EENT: No symptoms reported Cardiovascular: Chest pain Respiratory: No symptoms reported Gastrointestinal: No symptoms reported Genitourinary: No symptoms reported Female Genitourinary: No symptoms reported Musculoskeletal: No symptoms reported Skin: No symptoms reported Hematologic/Lymphatic: No symptoms reported Neurological/Psychological: No symptoms reported Physical Exam - Vital signs Vitals: Pulse Ox 100 04/22/17 12:58 Interpretation: Normal - General General appearance: Appears well, Alert - HEENT Head: Normocephalic, Atraumatic Eyes: Normal Pupils: PERRL - Respiratory Respiratory status: No respiratory distress Chest status: Nontender Breath sounds: Normal Chest palpation: Normal - Cardiovascular Rhythm: Regular Heart sounds: Normal auscultation Murmur: No - Abdominal Inspection: Normal Distension: No distension Bowel sounds: Normal Tenderness: Nontender Organomegaly: No organomegaly - Back Back: Normal, Nontender - Extremities General upper extremity: Normal inspection, Nontender, Normal color, Normal ROM , Normal temperature General lower extremity: Normal inspection, Nontender, Normal color, Normal ROM , Normal temperature, Normal weight bearing. No: Genesis's sign - Neurological Neuro grossly intact: Yes Cognition: Normal Orientation: AAOx4 Alec Coma Scale Eye Opening: Spontaneous Alec Coma Scale Verbal: Oriented [place] Coma Scale Motor: Obeys Commands Alec Coma Scale Total: 15 Speech: Normal Motor strength normal: LUE, RUE, LLE, RLE Sensory: Normal - Psychological Associated symptoms: Normal affect, Normal mood - Skin Skin Temperature: Warm Skin Moisture: Dry Skin Color: Normal Course - Vital Signs Vital signs: Temp Pulse Resp BP Pulse Ox 97.9 F 24 H 140/77 H 100 04/22/17 13:04 04/22/17 13:04 04/22/17 13:04 04/22/17 13:04 - Laboratory Result Diagrams: 04/22/17 13:02 04/22/17 13:02 Laboratory results interpreted by me: 04/22/17 13:02 Hgb 11.4 L Hct 33.1 L RDW 15.3 H Discharge - Discharge Clinical Impression: Chest pain Qualifiers: Chest pain type: unspecified Qualified Code(s): R07.9 - Chest pain, unspecified Condition: Good Disposition: ADMITTED OBSERVATION Admitting Provider: [facility] Admitted: Telemetry
--- NOTE | 2017-04-22 15:20 | RADIOLOGY REPORT (SQ) ---
EXAM DESCRIPTION: CTA CHEST COMPLETED DATE/TIME: 04/22/2017 3:01 pm REASON FOR STUDY: sob cp COMPARISON: 12/26/2016 TECHNIQUE: CT scan of the chest performed using helical scanning technique with dynamic intravenous contrast injection. Images reviewed with lung, soft tissue and bone windows. Reconstructed coronal and sagittal MPR images reviewed. Additional 3 dimensional post-processing performed to develop Maximal Intensity Projection images (NC P). All images stored on PACS. All CT scanners at this facility use dose modulation, iterative reconstruction, and/or weight based d osing when appropriate to reduce radiation dose to as low as reasonably achievable (ALARA). [facility]: Dose Right [facility]: CareDose [facility]: Dose Right [facility]: Teradose 4D [facility]: Luxodo CONTRAST TYPE AND DOSE: contrast/concentration: Isovue 370.00 mg/ml; Total Contrast Delivered: 69.0 ml; Total Saline Delivered: 104.0 ml Contrast bolus optimized for the pulmonary arteries. Not diagnostic for the aorta. RENAL FUNCTION: Creatinine 0.7 BUN 14 RADIATION DOSE: Up-to-date CT equipment and radiation dose reduction techniques were employed. CTDIv ol: 7.5 - 11.9 mGy. DLP: 426 mGy-cm. . LIMITATIONS: None. FINDINGS: LUNGS AND PLEURA: No masses, infiltrates, pneumothorax. No pleural effusions, calcificati ons. AORTA AND GREAT VESSELS: No aneurysm. Contrast bolus not optimized for the aorta. HEART: No pericardial effusion. No significant coronary artery calcifications. PULMONARY ARTERIES: No emboli visualized in the main pulmonary arteries or the segmental branches. HILAR AND MEDIASTINAL STRUCTURES: No identified masses or abnormal nodes. HARDWARE: None in the chest. UPPER ABDOMEN: No significant findings. Limited exam. THYROID AND OTHER SOFT TISSUES: There is a 12 mm cyst or low-density nodule in right lobe of the thyr oid. BONES: No acute or significant finding. 3D MIPS: Confirm above findings. OTHER: No other significant finding. IMPRESSION: 1. There is no evidence of pulmonary emboli. 2. There is a 12 mm lesion in the right lobe of the thyroid gland. COMMENT: Quality ID # [id number]: Final reports with documentation of one or more dose reduction techniques (e.g., Automated exposure control, adjustment of the mA and/or kV according to patient size, use of iterative reconstruction technique) TECHNICAL DOCUMENTATION: JOB ID: [id number]- All Rights Reserved
[2017-04-22] MEDS ORDERED: ONDANSETRON 4 MG TAB.RAPDIS PO PRN (16:24)
[2017-04-22] MEDS ORDERED: ACETAMINOPHEN 325 MG TABLET PO PRN (16:24)
[2017-04-22] MEDS ORDERED: NITROGLYCERIN 0.4 MG/TAB 25 TAB/BOTTLE SL PRN (17:10)
[2017-04-22] MEDS ORDERED: HYDRALAZINE HCL 50 MG TABLET PO PRN (17:12)
[2017-04-22] MEDS ORDERED: DEXTROSE 50%-WATER 25 GM/50 ML DISP.SYRIN IV PRN ×2 (17:18)
[2017-04-22] MEDS ORDERED: INSULIN LISPRO 100 UNIT/ML 3 ML VIAL SUBCUT PRN (17:18)
[2017-04-22] MEDS ORDERED: GLUCAGON,HUMAN RECOMB 1 MG INJ IM PRN (17:18)
[2017-04-22] MEDS ORDERED: DEXTROSE 40% GEL 15 GM TUBE PO PRN ×2 (17:18)
--- NOTE | 2017-04-22 17:32 | PDOC H&P ---
History of Present Illness Admission Date/PCP: 04/22/17 15:54 Patient complains of: Chest Pain History of Present Illness: KORY GALLO is a 66 year old female present with complaint of chest pain. Pt states that she had intermittent chest pain which started yesterday. Pt states that the pain was a 8 - 10. Pt states that she had shortness of breath and elevated blood pressure at home. Pt states that she took nitroglycerin at home which helped with her chest pain and blood pressure. Pt states that she had a stress test which was neg. Pt states that she was cathed 3-4 years which did not demonstrate any abnormalities. 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 Pt states that she has been having headaches at home and has felt nauseated. Pt states that she had sweating episode with chest pain last night. Past Medical History Cardiac Medical History: Reports: Hyperlipidema, Hypertension Denies: Myocardial Infarction Pulmonary Medical History: Reports: Asthma, Chronic Obstructive Pulmonary Disease (COPD), Pneumonia Denies: Tuberculosis Neurological Medical History: Reports: Seizures - 18-19 YEARS AGO Endocrine Medical History: Reports: Diabetes Mellitus Type 2 GI Medical History: Reports: Gastroesophageal Reflux Disease Denies: Hepatitis, Hiatal Hernia Musculoskeltal Medical History: Reports: Arthritis, Fibromyalgia Psychiatric Medical History: Reports: Depression - cymbalta, Post Traumatic Stress Disorder Hematology: Reports: Anemia Denies: Sickle Cell Disease Past Surgical History Past Surgical History: Reports: Section, Cholecystectomy Denies: Amputation, Mastectomy, Pacemaker Social History Smoking Status: Former Smoker Frequency of Alcohol Use: None Hx Recreational Drug Use: No Drugs: None Hx Prescription Drug Abuse: No Family History Family History: Reviewed & Not Pertinent Parental Family History Reviewed: Yes Children Family History Reviewed: Yes Sibling(s) Family History Reviewed.: Yes Medication/Allergy Home Medications: Amlodipine Besylate [Norvasc 5 mg Tablet] 5 mg PO DAILY 04/22/17 Aspirin [Ecotrin] 325 mg PO DAILY 04/22/17 Clonidine HCl [Catapres 0.1 mg Tablet] 0.1 mg PO Q12 04/22/17 Cyanocobalamin (Vitamin B-12) [Vitamin B-12 1000 mcg Tablet] 1,000 mcg PO SUTH@ 1000 04/22/17 Duloxetine HCl [Cymbalta] 60 mg PO DAILY 04/22/17 Ergocalciferol (Vitamin D2) [Drisdol 50,000 unit (1.25MG) Capsule] 50,000 unit PO MO@1000 04/22/17 Gabapentin [Neurontin 300 mg Capsule] 900 mg PO MEALS 04/22/17 Hydrocodone/Acetaminophen [Hydrocodon-Acetaminophen 5-325] 1 tab PO BIDPCBS Metoprolol Succinate [Toprol Xl 50 mg Tab.sr] 50 mg PO QHS 04/22/17 Montelukast Sodium [Singulair 10 mg Tablet] 10 mg PO QHS 04/22/17 Nitroglycerin [Nitrostat] 0.4 mg SL Q5MP PRN 04/22/17 Omeprazole 20 mg PO QHS 04/22/17 Pravastatin Sodium [Pravachol] 40 mg PO QPM 04/22/17 Prazosin HCl [Minipress] 2 mg PO QHS 04/22/17 Tizanidine HCl [Zanaflex] 2 mg PO Q8 04/22/17 Allergies/Adverse Reactions: lisinopril [Lisinopril] Allergy (Severe, Verified 04/06/17 20:53) Edema phenytoin sodium extended [From Dilantin] Allergy (Severe, Verified 04/06/17 20: 53) Unknown reaction risperidone [From Risperdal] Allergy (Intermediate, Verified 04/06/17 20:53) Hives venlafaxine HCl [From Effexor] Allergy (Intermediate, Verified 04/06/17 20:53) Hives Review of Systems Constitutional: ABSENT: chills, fever(s), headache(s), weight gain, weight loss Eyes: ABSENT: visual disturbances Ears: ABSENT: hearing changes Cardiovascular: PRESENT: chest pain, other - hypertension Respiratory: ABSENT: cough, hemoptysis Gastrointestinal: ABSENT: abdominal pain, constipation, diarrhea, hematemesis, hematochezia, nausea, vomiting Genitourinary: ABSENT: dysuria, hematuria Musculoskeletal: ABSENT: joint swelling Integumentary: ABSENT: rash, wounds Neurological: ABSENT: abnormal gait, abnormal speech, confusion, dizziness, focal weakness, syncope Psychiatric: ABSENT: anxiety, depression, homidical ideation, suicidal ideation Endocrine: ABSENT: cold intolerance, heat intolerance, polydipsia, polyuria Physical Exam Vital Signs: Temp Pulse Resp BP Pulse Ox 97.9 F 24 H 140/77 H 100 04/22/17 13:04 04/22/17 13:04 04/22/17 13:04 04/22/17 13:04 General appearance: PRESENT: no acute distress, well-developed, well-nourished Head exam: PRESENT: atraumatic, normocephalic Eye exam: PRESENT: conjunctiva pink, EOMI. ABSENT: scleral icterus Ear exam: PRESENT: normal external ear exam Mouth exam: PRESENT: moist, tongue midline Neck exam: ABSENT: carotid bruit, JVD, lymphadenopathy, thyromegaly Respiratory exam: PRESENT: clear to auscultation princess. ABSENT: rales, rhonchi, wheezes Cardiovascular exam: PRESENT: RRR. ABSENT: diastolic murmur, rubs, systolic murmur Pulses: PRESENT: normal dorsalis pedis pul Vascular exam: PRESENT: normal capillary refill GI/Abdominal exam: PRESENT: normal bowel sounds, soft. ABSENT: distended, guarding, mass, organolmegaly, rebound, tenderness Rectal exam: PRESENT: deferred Extremities exam: PRESENT: full ROM. ABSENT: calf tenderness, clubbing, pedal edema Neurological exam: PRESENT: alert, awake, oriented to person, oriented to place , oriented to time, oriented to situation, CN II-XII grossly intact. ABSENT: motor sensory deficit Psychiatric exam: PRESENT: appropriate affect, normal mood. ABSENT: homicidal ideation, suicidal ideation Skin exam: PRESENT: dry, intact, warm. ABSENT: cyanosis, rash Results Impressions: Chest X-Ray 04/22/17 12:58 IMPRESSION: NO ACUTE RADIOGRAPHIC FINDING IN THE CHEST. Chest/Abdomen CTA 04/22/17 13:20 IMPRESSION: 1. There is no evidence of pulmonary emboli. 2. There is a 12 mm lesion in the right lobe of the thyroid gland. Assessment & Plan - Diagnosis (1) Chest pain Qualifiers: Chest pain type: unspecified Qualified Code(s): R07.9 - Chest pain, unspecified Is this a current diagnosis for this admission?: Yes Plan: Will consult Cardiology. Will check troponins, EKG, Lipid profile, TSH, Free T4 , and HgbA1C. (2) Essential hypertension Is this a current diagnosis for this admission?: Yes Plan: Will continue pt's home medications. Pt has IRINA inhibitor allergy angioedema. (3) Diabetes mellitus Qualifiers: Diabetes mellitus type: type 2 Is this a current diagnosis for this admission?: Yes Plan: SSI. HgbA1C. (4) GERD (gastroesophageal reflux disease) Is this a current diagnosis for this admission?: Yes Plan: PPI (5) Obesity (BMI 30-39.9) Is this a current diagnosis for this admission?: Yes Plan: Discussed dietary changes. (6) Asthma Is this a current diagnosis for this admission?: Yes Plan: PRN breathing treatments (7) Fibromyalgia Is this a current diagnosis for this admission?: Yes Plan: Supportive care. (8) IBS (irritable bowel syndrome) Is this a current diagnosis for this admission?: Yes Plan: Supportive care. - Time Time Spent: 30 to 50 Minutes Anticipated discharge: Home
[2017-04-22 17:39] LABS: CREATINE KINASE MB 1.23 ng/mL (<4.55)
[2017-04-22 17:44] LABS: TROPONIN I < 0.012 ng/mL
[2017-04-22 17:47] LABS: APPEARANCE,URINE CLEAR; BILIRUBIN,URINE NEGATIVE (NEGATIVE); GLUCOSE, URINE NEGATIVE (NEGATIVE); KETONES,URINE NEGATIVE (NEGATIVE); LEUKOCYTE ESTERASE,URINE NEGATIVE (NEGATIVE); NITRITE,URINE NEGATIVE (NEGATIVE); PROTEIN,URINE NEGATIVE (NEGATIVE); URINE SPECIFIC GRAVITY 1.013
[2017-04-22] MEDS ORDERED: (PENDING PHARMACY ID) (Pravastatin Sodium [Pravachol] 40 MG) PO SCH (18:00)
[2017-04-22 18:01] LABS: URINE BARBITURATES SCREEN NEGATIVE; URINE METHADONE SCREEN NEGATIVE; URINE OPIATES LOW NEGATIVE; URINE PHENCYCLIDINE SCREEN NEGATIVE
--- NOTE | 2017-04-22 19:34 | EKG REPORT ---
SEVERITY:- ABNORMAL ECG - SINUS RHYTHM LEFT VENTRICULAR HYPERTROPHY : Confirmed by: Srinath Kwon MD 22-Apr-2017 19:33:40
--- NOTE | 2017-04-22 19:52 | PDOC CONSULTATION ---
Consultation Consult Date: 04/22/17 Attending physician:: SARA COLEMAN Consult reason:: Chest pain and shortness of breath History of Present Illness Admission Date/PCP: 04/22/17 16:24 Patient complains of: Chest pain and shortness of breath History of Present Illness: KORY GALLO is a 66 year old female present with complaint of chest pain. Pt states that she had intermittent chest pain which started yesterday. Pt states that the pain was a 8 - 10. Pt states that she had shortness of breath and elevated blood pressure at home. Pt states that she took nitroglycerin at home which helped with her chest pain and blood pressure. Pt states that she had a stress test which was neg. Pt states that she was cathed 3-4 years which did not demonstrate any abnormalities. Pt states that Dr. Hancock is her Bottom Presser. Pt states that she has been having headaches at home and has felt nauseated. Pt states that she had sweating episode with chest pain last night. So far cardiac enzymes has been negative. CTA chest negative for pulmonary embolism. 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 Patient main symptoms now is fatigue and tiredness and also some chest pain and shortness of breath. This history was reviewed, supplemented and confirmed. Patient's son to be interviewed later on when present. Past Medical History Cardiac Medical History: Reports: Hyperlipidema, Hypertension Denies: Myocardial Infarction Pulmonary Medical History: Reports: Asthma, Chronic Obstructive Pulmonary Disease (COPD), Pneumonia Denies: Tuberculosis Neurological Medical History: Reports: Seizures - 18-19 YEARS AGO Endocrine Medical History: Reports: Diabetes Mellitus Type 2 GI Medical History: Reports: Gastroesophageal Reflux Disease Denies: Hepatitis, Hiatal Hernia Musculoskeltal Medical History: Reports: Arthritis, Fibromyalgia Psychiatric Medical History: Reports: Depression, Post Traumatic Stress Disorder Hematology: Reports: Anemia Denies: Sickle Cell Disease Past Surgical History Past Surgical History: Reports: Section, Cholecystectomy Denies: Amputation, Mastectomy, Pacemaker Social History Information Source: Patient Smoking Status: Never Smoker Frequency of Alcohol Use: None Hx Recreational Drug Use: No Drugs: None Hx Prescription Drug Abuse: No - Advance Directive Resuscitation Status: Full Code Surrogate healthcare decision maker:: Patient's son is the surrogate decision-maker Family History Family History: Hypertension Parental Family History Reviewed: Yes Children Family History Reviewed: Yes Sibling(s) Family History Reviewed.: Yes Medication/Allergy Home Medications: Amlodipine Besylate [Norvasc 5 mg Tablet] 5 mg PO DAILY 04/22/17 Aspirin [Ecotrin] 325 mg PO DAILY 04/22/17 Clonidine HCl [Catapres 0.1 mg Tablet] 0.1 mg PO Q12 04/22/17 Cyanocobalamin (Vitamin B-12) [Vitamin B-12 1000 mcg Tablet] 1,000 mcg PO SUTH@ 1000 04/22/17 Duloxetine HCl [Cymbalta] 60 mg PO DAILY 04/22/17 Ergocalciferol (Vitamin D2) [Drisdol 50,000 unit (1.25MG) Capsule] 50,000 unit PO MO@1000 04/22/17 Gabapentin [Neurontin 300 mg Capsule] 900 mg PO MEALS 04/22/17 Hydrocodone/Acetaminophen [Hydrocodon-Acetaminophen 5-325] 1 tab PO BIDPCBS Metoprolol Succinate [Toprol Xl 50 mg Tab.sr] 50 mg PO QHS 04/22/17 Montelukast Sodium [Singulair 10 mg Tablet] 10 mg PO QHS 04/22/17 Nitroglycerin [Nitrostat] 0.4 mg SL Q5MP PRN 04/22/17 Omeprazole 20 mg PO QHS 04/22/17 Pravastatin Sodium [Pravachol] 40 mg PO QPM 04/22/17 Prazosin HCl [Minipress] 2 mg PO QHS 04/22/17 Tizanidine HCl [Zanaflex] 2 mg PO Q8 04/22/17 Allergies/Adverse Reactions: lisinopril [Lisinopril] Allergy (Severe, Verified 04/06/17 20:53) Edema phenytoin sodium extended [From Dilantin] Allergy (Severe, Verified 04/06/17 20: 53) Unknown reaction risperidone [From Risperdal] Allergy (Intermediate, Verified 04/06/17 20:53) Hives venlafaxine HCl [From Effexor] Allergy (Intermediate, Verified 04/06/17 20:53) Hives Review of Systems Review of Systems: Please see history of present illness and past medical history as wall. Constitutional: No fever or chills reported. Head : No recent chronic headaches, recent head injury. Eyes: No recent eye pain, diplopia, redness, discharge, acute visual changes. Ears: No recent chronic ear pain, acute hearing loss, ear discharge. Oral cavity: No recent ulcerations, bleeding, oral cavity discomfort. Neck: No recent acute neck pain reported. Hematologic: No recent easy bruising or bleeding or hematologic malignancy reported. Lymphatic: No recent lymphatic malignancy, chronic lymphadenopathy reported yet Cardiovascular system review: See history of present illness. Respiratory system review: No recent chronic cough, hemoptysis, blood clots in the lungs reported. Mild Shortness of breath on exertion Gastrointestinal system review: Negative for any recent acute or chronic abdominal pain, hematemesis, melena, recent change in bowel habits. Genitourinary system review: No recent acute or chronic hematuria, flank pain, UTI etc. reported. Skin system review: Negative for any recent abnormal bruising, no rash, no pruritus reported. Neurologic: Positive for history of strokes, mini strokes, negative for seizure disorder. Psychologic: No history of major psychosis or major depression reported. Patient does describe history of mild anxiety and depression. Musculoskeletal: Minor aches and pains reported. No acute joint swelling reported. Endocrine: No recent polyuria, polydipsia, recent heat or cold intolerance. Physical Exam Vital Signs: Temp Pulse Resp BP Pulse Ox 98.5 F 79 18 129/66 H 100 04/22/17 18:11 04/22/17 18:11 04/22/17 18:11 04/22/17 18:11 04/22/17 18:11 Intake & Output 04/21/17 04/22/17 04/23/17 06:59 06:59 06:59 Weight 83.9 kg Exam: GENERAL: well-nourished and in no acute distress. Alert and oriented x3 HEAD: Atraumatic, normocephalic. EYES: Pupils equal round and reactive to light, extraocular movements intact, sclera anicteric, conjunctiva are normal. ENT: TMs normal, nares patent, oropharynx clear without exudates. Moist mucous membranes. No oral ulcerations or bleeding gums noted NECK: supple without lymphadenopathy. Trachea is central. No cervical or axillary lymphadenopathy noted. Carotids are 2+, JVD WNL LUNGS: Respiration seems nonlabored, no significant accessory muscle action noted. Breath sounds clear to auscultation bilaterally and equal noted. No wheezes rales or rhonchi noted. No significant dullness noted on percussion. CHEST: Palpation of the chest wall shows no significant chest wall tenderness. No other significant abnormalities noted. 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 ABDOMEN: Soft, no significant tenderness appreciated, normoactive bowel sounds. No guarding, no rebound. No rigidity noted . No masses appreciated. EXTREMITIES: Pedal pulses are 1-2+, no calf tenderness noted. No clubbing or cyanosis.trace to 1+ pedal edema noted NEUROLOGICAL: Focused neurological exam showed no significant neurologic deficit. Normal speech, Slight dysphasia noted. Slight right upper extremity weakness noted PSYCH: Normal mood, normal affect. Judgment and insight within normal limits. SKIN: No significant ecchymosis, rash, ulcerations or signs of pruritus noted. MUSCULOSKELETAL EXAM: No significant joint swelling noted. Results Laboratory Results: 04/22/17 16:27 Urine Color YELLOW Urine Appearance CLEAR Urine pH 7.0 Ur Specific [place] 1.013 Urine Protein NEGATIVE Urine Glucose (UA) NEGATIVE Urine Ketones NEGATIVE Urine Blood NEGATIVE Urine Nitrite NEGATIVE Ur Leukocyte Esterase NEGATIVE Urine WBC (Auto) 1 04/22/17 16:55 CK-MB (CK-2) 1.23 Troponin I < 0.012 EKG Comments: Sinus rhythm, minor nonspecific T-wave changes noted Impressions: Chest X-Ray 04/22/17 12:58 IMPRESSION: NO ACUTE RADIOGRAPHIC FINDING IN THE CHEST. Chest/Abdomen CTA 04/22/17 13:20 IMPRESSION: 1. There is no evidence of pulmonary emboli. 2. There is a 12 mm lesion in the right lobe of the thyroid gland. Assessment & Plan - Diagnosis (1) Chest pain Qualifiers: Chest pain type: unspecified Qualified Code(s): R07.9 - Chest pain, unspecified Is this a current diagnosis for this admission?: Yes (2) Diabetes mellitus Qualifiers: Diabetes mellitus type: type 2 Is this a current diagnosis for this admission?: Yes (3) Essential hypertension Is this a current diagnosis for this admission?: Yes (4) Fibromyalgia Is this a current diagnosis for this admission?: Yes (5) GERD (gastroesophageal reflux disease) Is this a current diagnosis for this admission?: Yes (6) Obesity (BMI 30-39.9) Is this a current diagnosis for this admission?: Yes - Notes Notes: Chest pain: There are multiple differential diagnosis. This includes cardiac ischemic discomfort, musculoskeletal, gastroesophageal reflux, anxiety panic disorder. Patient describes having a stress test within the last 1 year. Will try reviewed that. Patient CTA reviewed. Diabetes: Recommend good control of blood sugar. However should avoid any hypoglycemia. Patient being expertly managed by primary care MJannieD. Hypertension: Reasonably well controlled. Blood pressure goal in this patient is 135/85 or less. This was discussed with the patient. Currently blood pressure under reasonable control. Better medication for this patient are IRINA inhibitor/ARB/beta dale etc. discussed side effects of uncontrolled hypertension and also severe hypotension. Fibromyalgia: This could be because of patient chest pain. Discussed that treatment of sleep apnea often helps fibromyalgia. Gastroesophageal reflux disease: Recommend double dose proton pump therapy. Obesity patient encouraged in weight loss. - Time Time Spent: 50 to 70 Minutes - CODE STATUS was discussed, patient remains full code. Surrogate decision-maker unchanged. Multiple medical problems were addressed. More than 50% of the time spent coordinating care, discussing management plans with involved caregivers. Management plans discussed with involved personnels. Medical decision making was of moderate to high complexity , patient's has multiple comorbidities. Medications reviewed and adjusted accordingly: Yes
[2017-04-22] MEDS ORDERED: (PENDING PHARMACY ID) (Prazosin Hcl [Minipress] 2 MG) PO SCH (22:00)
[2017-04-22] MEDS ORDERED: (PENDING PHARMACY ID) (Tizanidine Hcl [Zanaflex] 2 MG) PO SCH (22:00)
[2017-04-22] MEDS: GABAPENTIN 300 MG CAPSULE PO SCH (22:11)
[2017-04-22] MEDS: METOPROLOL SUCCINATE 50 MG TAB.SR.24H PO SCH (22:11)
[2017-04-22] MEDS: MONTELUKAST SODIUM 10 MG TABLET PO SCH (22:11)
[2017-04-22] MEDS: LANSOPRAZOLE 15 MG TAB.RAP.DR PO SCH (22:12)
[2017-04-22] MEDS: CLONIDINE HCL 0.1 MG TABLET PO SCH (22:12)
[2017-04-22] MEDS: NORMAL SALINE 1000 ML 1,000 ML IV PRN (22:12)
[2017-04-22] MEDS: HEPARIN SOD (PORCINE) 5,000 UNIT/ML 1 ML SYRINGE SUBCUT SCH (22:12)
[2017-04-22] MEDS: ATORVASTATIN CALCIUM 10 MG TABLET PO SCH (22:12)
[2017-04-22] MEDS: TIZANIDINE HCL 4 MG TABLET PO SCH (22:13)
[2017-04-22 23:16] LABS: CREATINE KINASE MB 1.19 ng/mL (<4.55)
[2017-04-22 23:23] LABS: TROPONIN I < 0.012 ng/mL
[2017-04-23 05:21] LABS: ABSOLUTE EOSINOPHILS # (AUTO) 0.2 10^3/uL (0.0-0.6); ABSOLUTE LYMPHOCYTES (AUTO) 1.8 10^3/uL (0.5-4.7); ABSOLUTE MONOCYTES (AUTO) 0.5 10^3/uL (0.1-1.4); ABSOLUTE NEUT (AUTO) 3.7 10^3/uL (1.7-8.2); BASOPHILS % (AUTO) 0.6 % (0-2); EOSINOPHILS % (AUTO) 3.1 % (0-6); HEMATOCRIT 34.3 % (36.0-47.0); HEMOGLOBIN 11.4 g/dL (12.0-15.5); HGB HCT DIFFERENCE -0.1; LYMPHOCYTES % (AUTO) 29.4 % (13-45); MEAN CORPUSCULAR HEMOGLOBIN 28.1 pg (27.0-33.4); MEAN CORPUSCULAR HGB CONC 33.3 g/dL (32.0-36.0); MEAN CORPUSCULAR VOLUME 84 fl (80-97); MONOCYTES % (AUTO) 7.8 % (3-13); RED BLOOD COUNT 4.07 10^6/uL (3.72-5.28); RED CELL DISTRIBUTION WIDTH 15.4 % (11.5-14.0); SEGMENTED NEUTROPHILS % (AUTO) 59.1 % (42-78); WHITE BLOOD COUNT 6.2 10^3/uL (4.0-10.5)
[2017-04-23 05:38] LABS: ALANINE AMINOTRANSFERASE 21 U/L (9-52); ALBUMIN 3.6 g/dL (3.5-5.0); ALKALINE PHOSPHATASE 112 U/L (38-126); ANION GAP 8 (5-19); ASPARTATE AMINO TRANSFERASE 16 U/L (14-36); BILIRUBIN,DIRECT 0.3 mg/dL (0.0-0.4); BILIRUBIN,TOTAL 0.4 mg/dL (0.2-1.3); BLOOD UREA NITROGEN 12 mg/dL (7-20); CALCIUM 9.2 mg/dL (8.4-10.2); CARBON DIOXIDE 29 mmol/L (22-30); CHLORIDE 109 mmol/L (98-107); CHOLESTEROL 138.85 mg/dL (0-200); CREATININE RESULT 0.81 mg/dL (0.52-1.25); Direct HDL 49 mg/dL (>40); GLUCOSE 100 mg/dL (75-110); POTASSIUM 4.4 mmol/L (3.6-5.0); SODIUM 146.3 mmol/L (137-145); TOTAL PROTEIN 6.2 g/dL (6.3-8.2); TRIGLYCERIDES 79 mg/dL (<150)
[2017-04-23 05:44] LABS: CREATINE KINASE MB 0.98 ng/mL (<4.55)
[2017-04-23 05:47] LABS: TROPONIN I < 0.012 ng/mL
[2017-04-23 05:49] LABS: DIRECT LDL 76 mg/dL (<100)
[2017-04-23] MEDS: HEPARIN SOD (PORCINE) 5,000 UNIT/ML 1 ML SYRINGE SUBCUT SCH ×3 (05:55→21:17)
[2017-04-23] MEDS: TIZANIDINE HCL 4 MG TABLET PO SCH ×3 (05:55→21:18)
[2017-04-23] MEDS: GABAPENTIN 300 MG CAPSULE PO SCH ×3 (05:55→21:17)
[2017-04-23] MEDS: LANSOPRAZOLE 30 MG TAB.RAP.DR PO SCH (05:55)
[2017-04-23 06:09] LABS: THYROID STIMULATING HORMONE 0.61 uIU/mL (0.47-4.68)
--- NOTE | 2017-04-23 06:18 | EKG REPORT ---
SEVERITY:- ABNORMAL ECG - SINUS RHYTHM LEFT VENTRICULAR HYPERTROPHY NONSPECIFIC T INVERSION ANTERIOR WALL. : Confirmed by: Srinath Kwon MD 23-Apr-2017 06:18:19
[2017-04-23] MEDS: HYDROCODONE/ACETAMINOPHEN 5-325 MG TABLET PO SCH ×3 (06:33→18:30)
[2017-04-23] MEDS: CLONIDINE HCL 0.1 MG TABLET PO SCH ×2 (09:40→23:56)
[2017-04-23] MEDS: DULOXETINE HCL 30 MG CAPSULE.DR PO SCH (09:43)
[2017-04-23] MEDS: AMLODIPINE BESYLATE 5 MG TABLET PO SCH (09:44)
[2017-04-23] MEDS: ASPIRIN 325 MG TABLET, ENT COATED PO SCH (09:45)
[2017-04-23] MEDS: NORMAL SALINE 1000 ML 1,000 ML IV PRN (09:50)
--- NOTE | 2017-04-23 15:39 | PDOC PROGRESS REPORT ---
Subjective Progress Note for:: 04/23/17 Subjective:: Nursing states that pt complained of chest pain at 6 am this morning. Pt states that her chest pain was left sided. Pt states that otherwise she has been doing well. Physical Exam Vital Signs: Temp Pulse Resp BP Pulse Ox 98.2 F 55 L 18 128/55 H 99 04/23/17 11:31 04/23/17 11:31 04/23/17 11:31 04/23/17 11:31 04/23/17 11:31 Intake & Output 04/22/17 04/23/17 04/24/17 06:59 06:59 06:59 Intake Total 240 Output Total 0 Balance 240 Weight 83.9 kg General appearance: PRESENT: no acute distress, well-developed, well-nourished Head exam: PRESENT: atraumatic, normocephalic Eye exam: PRESENT: conjunctiva pink, EOMI, PERRLA. ABSENT: scleral icterus Ear exam: PRESENT: normal external ear exam Mouth exam: PRESENT: moist, tongue midline Neck exam: ABSENT: carotid bruit, JVD, lymphadenopathy, thyromegaly Respiratory exam: PRESENT: clear to auscultation princess. ABSENT: rales, rhonchi, wheezes Cardiovascular exam: PRESENT: RRR. ABSENT: diastolic murmur, rubs, systolic murmur Pulses: PRESENT: normal dorsalis pedis pul Vascular exam: PRESENT: normal capillary refill GI/Abdominal exam: PRESENT: normal bowel sounds, soft. ABSENT: distended, guarding, mass, organolmegaly, rebound, tenderness Rectal exam: PRESENT: deferred Extremities exam: PRESENT: full ROM. ABSENT: calf tenderness, clubbing, pedal edema Neurological exam: PRESENT: alert, awake, oriented to person, oriented to place , oriented to time, oriented to situation, CN II-XII grossly intact. ABSENT: motor sensory deficit Psychiatric exam: PRESENT: appropriate affect, normal mood. ABSENT: homicidal ideation, suicidal ideation Skin exam: PRESENT: dry, intact, warm. ABSENT: cyanosis, rash Results Laboratory Results: 04/23/17 04:45 04/23/17 04:45 04/22/17 04/23/17 04/23/17 16:27 04:45 04:45 WBC 6.2 RBC 4.07 Hgb 11.4 L Hct 34.3 L MCV 84 MCH 28.1 MCHC 33.3 RDW 15.4 H Plt Count 230 Seg Neutrophils % 59.1 Lymphocytes % 29.4 Monocytes % 7.8 Eosinophils % 3.1 Basophils % 0.6 Absolute Neutrophils 3.7 Absolute Lymphocytes 1.8 Absolute Monocytes 0.5 Absolute Eosinophils 0.2 Absolute Basophils 0.0 Sodium 146.3 H Potassium 4.4 Chloride 109 H Carbon Dioxide 29 Anion Gap 8 BUN 12 Creatinine 0.81 Est GFR ( Amer) > 60 Est GFR (Non-Af Amer) > 60 Glucose 100 Calcium 9.2 Total Bilirubin 0.4 AST 16 ALT 21 Alkaline Phosphatase 112 Total Protein 6.2 L Albumin 3.6 Triglycerides 79 Cholesterol 138.85 LDL Cholesterol Direct 76 VLDL Cholesterol 16.0 HDL Cholesterol 49 TSH Free T4 Urine Color YELLOW Urine Appearance CLEAR Urine pH 7.0 Ur Specific [place] 1.013 Urine Protein NEGATIVE Urine Glucose (UA) NEGATIVE Urine Ketones NEGATIVE Urine Blood NEGATIVE Urine Nitrite NEGATIVE Ur Leukocyte Esterase NEGATIVE Urine WBC (Auto) 1 04/23/17 04:45 WBC RBC Hgb Hct MCV MCH MCHC RDW Plt Count Seg Neutrophils % Lymphocytes % Monocytes % Eosinophils % Basophils % Absolute Neutrophils Absolute Lymphocytes Absolute Monocytes Absolute Eosinophils Absolute Basophils Sodium Potassium Chloride Carbon Dioxide Anion Gap BUN Creatinine Est GFR ( Amer) Est GFR (Non-Af Amer) Glucose Calcium Total Bilirubin AST ALT Alkaline Phosphatase Total Protein Albumin Triglycerides Cholesterol LDL Cholesterol Direct VLDL Cholesterol HDL Cholesterol TSH 0.61 Free T4 0.82 Urine Color Urine Appearance Urine pH Ur Specific [place] Urine Protein Urine Glucose (UA) Urine Ketones Urine Blood Urine Nitrite Ur Leukocyte Esterase Urine WBC (Auto) 04/22/17 04/22/17 04/23/17 16:55 22:47 04:45 CK-MB (CK-2) 1.23 1.19 0.98 Troponin I < 0.012 < 0.012 < 0.012 Impressions: Chest X-Ray 04/22/17 12:58 IMPRESSION: NO ACUTE RADIOGRAPHIC FINDING IN THE CHEST. Chest/Abdomen CTA 04/22/17 13:20 IMPRESSION: 1. There is no evidence of pulmonary emboli. 2. There is a 12 mm lesion in the right lobe of the thyroid gland. Assessment & Plan - Diagnosis (1) Chest pain Qualifiers: Chest pain type: unspecified Qualified Code(s): R07.9 - Chest pain, unspecified Is this a current diagnosis for this admission?: Yes Plan: Troponins neg. Stress test scheduled for tomorrow. (2) Essential hypertension Is this a current diagnosis for this admission?: Yes Plan: Continue current medication. (3) Diabetes mellitus Qualifiers: Diabetes mellitus type: type 2 Is this a current diagnosis for this admission?: Yes Plan: SSI. HgbA1C 5.6 (4) GERD (gastroesophageal reflux disease) Is this a current diagnosis for this admission?: Yes Plan: PPI (5) Obesity (BMI 30-39.9) Is this a current diagnosis for this admission?: Yes Plan: Discussed dietary changes. (6) Asthma Is this a current diagnosis for this admission?: Yes Plan: PRN breathing treatments (7) Fibromyalgia Is this a current diagnosis for this admission?: Yes Plan: Supportive care. (8) IBS (irritable bowel syndrome) Is this a current diagnosis for this admission?: Yes Plan: Supportive care. - Time Time Spent with patient: 15-24 minutes
--- NOTE | 2017-04-23 19:13 | PDOC PROGRESS REPORT ---
Subjective Progress Note for:: 04/23/17 Subjective:: Patient seems to be doing better with gradual improvement. Pt is denying any chest arm or neck discomfort. Patient denying any PND, orthopnea. Patient denied any sustained palpitations, dizziness, syncope, near syncope. Patient denying any fever chills. Patient denying any other significant discomfort. Patient is maintaining sinus rhythm. Review of systems: Rest review of systems negative. Medications: Medications have been reviewed. Physical Exam Vital Signs: Temp Pulse Resp BP Pulse Ox 98.2 F 55 L 18 128/55 H 99 04/23/17 11:31 04/23/17 11:31 04/23/17 11:31 04/23/17 11:31 04/23/17 11:31 Intake & Output 04/22/17 04/23/17 04/24/17 06:59 06:59 06:59 Intake Total 240 Output Total 0 Balance 240 Weight 83.9 kg Exam: GENERAL: well-nourished and in no acute distress. Alert and oriented x3 HEAD: Atraumatic, normocephalic. EYES: Pupils equal round and reactive to light, extraocular movements intact, sclera anicteric, conjunctiva are normal. ENT: TMs normal, nares patent, oropharynx clear without exudates. Moist mucous membranes. No oral ulcerations or bleeding gums noted NECK: supple without lymphadenopathy. Trachea is central. No cervical or axillary lymphadenopathy noted. Carotids are 2+, JVD WNL LUNGS: Respiration seems nonlabored, no significant accessory muscle action noted. Breath sounds clear to auscultation bilaterally and equal noted. No wheezes rales or rhonchi noted. No significant dullness noted on percussion. CHEST: Palpation of the chest wall shows no significant chest wall tenderness. No other significant abnormalities noted. 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 ABDOMEN: Soft, no significant tenderness appreciated, normoactive bowel sounds. No guarding, no rebound. No rigidity noted . No masses appreciated. EXTREMITIES: Pedal pulses are 1-2+, no calf tenderness noted. No clubbing or cyanosis.trace to 1+ pedal edema noted NEUROLOGICAL: Focused neurological exam showed no significant neurologic deficit. Mild dysphasia noted, minimal right upper extremity weakness noted. PSYCH: Normal mood, normal affect. Judgment and insight within normal limits. SKIN: No significant ecchymosis, rash, ulcerations or signs of pruritus noted. MUSCULOSKELETAL EXAM: No significant joint swelling noted. Results Laboratory Results: 04/23/17 04:45 04/23/17 04:45 04/22/17 04/23/17 04/23/17 16:27 04:45 04:45 WBC 6.2 RBC 4.07 Hgb 11.4 L Hct 34.3 L MCV 84 MCH 28.1 MCHC 33.3 RDW 15.4 H Plt Count 230 Seg Neutrophils % 59.1 Lymphocytes % 29.4 Monocytes % 7.8 Eosinophils % 3.1 Basophils % 0.6 Absolute Neutrophils 3.7 Absolute Lymphocytes 1.8 Absolute Monocytes 0.5 Absolute Eosinophils 0.2 Absolute Basophils 0.0 Sodium 146.3 H Potassium 4.4 Chloride 109 H Carbon Dioxide 29 Anion Gap 8 BUN 12 Creatinine 0.81 Est GFR ( Amer) > 60 Est GFR (Non-Af Amer) > 60 Glucose 100 Calcium 9.2 Total Bilirubin 0.4 AST 16 ALT 21 Alkaline Phosphatase 112 Total Protein 6.2 L Albumin 3.6 Triglycerides 79 Cholesterol 138.85 LDL Cholesterol Direct 76 VLDL Cholesterol 16.0 HDL Cholesterol 49 TSH Free T4 Urine Color YELLOW Urine Appearance CLEAR Urine pH 7.0 Ur Specific [place] 1.013 Urine Protein NEGATIVE Urine Glucose (UA) NEGATIVE Urine Ketones NEGATIVE Urine Blood NEGATIVE Urine Nitrite NEGATIVE Ur Leukocyte Esterase NEGATIVE Urine WBC (Auto) 1 04/23/17 04:45 WBC RBC Hgb Hct MCV MCH MCHC RDW Plt Count Seg Neutrophils % Lymphocytes % Monocytes % Eosinophils % Basophils % Absolute Neutrophils Absolute Lymphocytes Absolute Monocytes Absolute Eosinophils Absolute Basophils Sodium Potassium Chloride Carbon Dioxide Anion Gap BUN Creatinine Est GFR ( Amer) Est GFR (Non-Af Amer) Glucose Calcium Total Bilirubin AST ALT Alkaline Phosphatase Total Protein Albumin Triglycerides Cholesterol LDL Cholesterol Direct VLDL Cholesterol HDL Cholesterol TSH 0.61 Free T4 0.82 Urine Color Urine Appearance Urine pH Ur Specific [place] Urine Protein Urine Glucose (UA) Urine Ketones Urine Blood Urine Nitrite Ur Leukocyte Esterase Urine WBC (Auto) 04/22/17 04/22/17 04/23/17 16:55 22:47 04:45 CK-MB (CK-2) 1.23 1.19 0.98 Troponin I < 0.012 < 0.012 < 0.012 Impressions: Chest X-Ray 04/22/17 12:58 IMPRESSION: NO ACUTE RADIOGRAPHIC FINDING IN THE CHEST. Chest/Abdomen CTA 04/22/17 13:20 IMPRESSION: 1. There is no evidence of pulmonary emboli. 2. There is a 12 mm lesion in the right lobe of the thyroid gland. Assessment & Plan - Diagnosis (1) Chest pain Qualifiers: Chest pain type: unspecified Qualified Code(s): R07.9 - Chest pain, unspecified Is this a current diagnosis for this admission?: Yes (2) Diabetes mellitus Qualifiers: Diabetes mellitus type: type 2 Is this a current diagnosis for this admission?: Yes (3) Essential hypertension Is this a current diagnosis for this admission?: Yes (4) Fibromyalgia Is this a current diagnosis for this admission?: Yes (5) GERD (gastroesophageal reflux disease) Is this a current diagnosis for this admission?: Yes (6) Obesity (BMI 30-39.9) Is this a current diagnosis for this admission?: Yes - Notes Notes: Patient's son in the room. We had a long discussion about further evaluation and management. They insist on having a stress test tomorrow. This was scheduled and will be performed. Other differential diagnosis of chest pain discussed. This could well be fibromyalgia, anxiety panic disorder, gastroesophageal reflux etc. Will also recommend a 2D echo to be done. But can be done as an outpatient. Discussed good control of diabetes, hypertension and other risk factor assessment. Discussed that fibromyalgia can get better with sleep apnea therapy. They are going to see me for this sleep apnea therapy as an outpatient. Patient also encouraged in regular exercise and weight loss. - Time Time with patient: 15-25 minutes - CODE STATUS was discussed, patient remains full code. Surrogate decision-maker unchanged. Multiple medical problems were addressed. More than 50% of the time spent coordinating care, discussing management plans with involved caregivers. Management plans discussed with involved personnels. Medical decision making was of moderate to high complexity , patient's has multiple comorbidities.
[2017-04-23] MEDS: MONTELUKAST SODIUM 10 MG TABLET PO SCH (21:17)
[2017-04-23] MEDS: LANSOPRAZOLE 15 MG TAB.RAP.DR PO SCH (21:18)
[2017-04-23] MEDS: ATORVASTATIN CALCIUM 10 MG TABLET PO SCH (21:18)
[2017-04-23] MEDS: METOPROLOL SUCCINATE 50 MG TAB.SR.24H PO SCH (23:56)
[2017-04-24] MEDS: TIZANIDINE HCL 4 MG TABLET PO SCH ×3 (05:38→22:30)
[2017-04-24] MEDS: GABAPENTIN 300 MG CAPSULE PO SCH ×3 (05:38→22:30)
[2017-04-24] MEDS: LANSOPRAZOLE 30 MG TAB.RAP.DR PO SCH (05:38)
[2017-04-24] MEDS: HEPARIN SOD (PORCINE) 5,000 UNIT/ML 1 ML SYRINGE SUBCUT SCH ×3 (05:38→22:30)
[2017-04-24] MEDS ORDERED: CYANOCOBALAMIN (VITAMIN B-12) 1,000 MCG TABLET PO SCH (10:00)
[2017-04-24] MEDS: HYDROCODONE/ACETAMINOPHEN 5-325 MG TABLET PO SCH ×2 (10:37→18:36)
[2017-04-24] MEDS: ASPIRIN 325 MG TABLET, ENT COATED PO SCH (10:38)
[2017-04-24] MEDS: AMLODIPINE BESYLATE 5 MG TABLET PO SCH (10:38)
[2017-04-24] MEDS: CLONIDINE HCL 0.1 MG TABLET PO SCH ×2 (10:38→22:30)
[2017-04-24] MEDS: DULOXETINE HCL 30 MG CAPSULE.DR PO SCH (10:39)
[2017-04-24] MEDS ORDERED: AMINOPHYLLINE INJ/PF 250 MG/10 ML SDV IV ONE (11:15)
[2017-04-24] MEDS ORDERED: REGADENOSON INJ 0.4 MG/5 ML DISP.SYRIN IV ONE (11:15)
--- NOTE | 2017-04-24 11:42 | DRAGON STRESS TEST REPORT ---
INTRAVENOUS LEXISCAN CARDIOLITE STRESS TEST USING SINGLE PHOTON EMMISION COMPUTERIZED TOMOGRAPHIC. DATE OF PROCEDURE: April 24, 2017 INDICATION : Chest pain CARDIAC RISK FACTORS: Diabetes, hypertension, dyslipidemia, family history of CAD RESTING EKG: Sinus rhythm without any baseline ST-T wave changes. STRESS EKG: No significant changes noted with LexiScan bolus REASON FOR TERMINATION: Protocol. PROCEDURE REPORT: Baseline heart rate 54 beats per minute with blood pressure of 128/61. Patient had no significant complaints. Heart rate at 2 minutes post bolus 96 with a blood pressure of 135/49. 3 minutes post bolus heart rate 72 with blood pressure of 140/54. No significant EKG changes were noted. Patient had no significant complaints during the procedure or postprocedure. Patient injected with Aminophyllin 75 mg at 3 minutes or later after Lexiscan bolus. CONCLUSIONS: Normal EKG and hemodynamic response to IV LexiScan. NUCLEAR DATA: At rest the patient was given 12.30 millicuries of technetium 99 sestamibi injected intravenously. As per protocol rest gated SPECT images were obtained. Subsequently the patient was given intravenous LexiScan at a dose of 0.4 mg in 5 mL intravenously, followed by flush with normal saline. Subsequently the stress dose of 35.9 millicuries of technetium 99 sestamibi was injected intravenously. As per protocol stress gated images were obtained. NUCLEAR INTERPRETATION: Both raw and processed data were used for interpretation. Visual, qualitative, computer-generated quantitative data was used. There was good myocardial uptake of technetium compound. Motion artifact and soft tissue attenuations were noted. Increased visceral uptake was noted. No definitive areas of transient perfusion defect noted except for borderline decreased uptake in the distal lateral wall. No definitive areas of fixed perfusion defect or scars noted. EKG gated imaging showed LV EF at 60 %, rest and stress gated EF similar visually. T. I D. ratio was 1.33. Lung heart ratio noted to be within normal limits 0.37. No significant extracardiac and abnormal radiotracer activities were noted. RV free wall uptake was noted to be WNL. IMPRESSION: Also refer to comments under nuclear interpretation. Also test results needs to be interpreted in the context of pretest probability. 1. Borderline decreased uptake noted in the distal lateral wall consistent with probable mild ischemia. SDS score at most is 1. 2. There is no definitive scintigraphic evidence of myocardial infarction/scar. 3. EKG gated imaging shows left ventricular ejection fraction of approximately 60 %. 4. Transient ischemic dilatation is noted, however could be related to LVH, microvascular ischemia. Most recent literature review does not suggest increased cardiovascular event risk in the absence of significant perfusion abnormalities. RECOMMENDATIONS: Aggressive risk factor modification, medical therapy optimization. If failure of medical therapy, may consider heart catheterization. Clinical correlation with echocardiogram derived ejection fraction. Inability to exercise by itself can lead to increased cardiovascular event risks. Consider cardiology consultation and or follow-up if clinically indicated. I AM AVAILABLE FOR CARDIOLOGY CONSULTATION AND FOLLOWUP IF REQUESTED BY PMD Pedrito Moon M.D., [employer]er staffing consultant, Board certified in cardiovascular diseases, Nuclear cardiology, Echocardiography Cardiac CT and cardiac MRI Ph. [phone] [facility] INSANERaad
--- NOTE | 2017-04-24 11:50 | PDOC PROGRESS REPORT ---
Subjective Progress Note for:: 04/24/17 Subjective:: Patient seems to be doing better with gradual improvement. Pt is denying any chest arm or neck discomfort. Patient denying any PND, orthopnea. Patient denied any sustained palpitations, dizziness, syncope, near syncope. Patient denying any fever chills. Patient denying any other significant discomfort. Patient is maintaining sinus rhythm. Patient did complain of some shortness of breath on exertion but she has been free of chest pain. Review of systems: Rest review of systems negative. Medications: Medications have been reviewed. Physical Exam Vital Signs: Temp Pulse Resp BP Pulse Ox 97.9 F 58 L 16 142/57 H 99 04/24/17 07:19 04/24/17 07:19 04/24/17 07:19 04/24/17 07:19 04/24/17 07:19 Intake & Output 04/23/17 04/24/17 04/25/17 06:59 06:59 06:59 Intake Total 240 1760 Output Total 0 Balance 240 1760 Weight 83.9 kg 88.5 kg Exam: GENERAL: well-nourished and in no acute distress. Alert and oriented x3 HEAD: Atraumatic, normocephalic. EYES: Pupils equal round and reactive to light, extraocular movements intact, sclera anicteric, conjunctiva are normal. ENT: TMs normal, nares patent, oropharynx clear without exudates. Moist mucous membranes. No oral ulcerations or bleeding gums noted NECK: supple without lymphadenopathy. Trachea is central. No cervical or axillary lymphadenopathy noted. Carotids are 2+, JVD WNL LUNGS: Respiration seems nonlabored, no significant accessory muscle action noted. Breath sounds clear to auscultation bilaterally and equal noted. No wheezes rales or rhonchi noted. No significant dullness noted on percussion. CHEST: Palpation of the chest wall shows no significant chest wall tenderness. No other significant abnormalities noted. 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 ABDOMEN: Soft, no significant tenderness appreciated, normoactive bowel sounds. No guarding, no rebound. No rigidity noted . No masses appreciated. EXTREMITIES: Pedal pulses are 1-2+, no calf tenderness noted. No clubbing or cyanosis.trace to 1+ pedal edema noted NEUROLOGICAL: Focused neurological exam showed no significant neurologic deficit. Slight dysphasia noted, slight right upper extremity weakness appreciated. PSYCH: Normal mood, normal affect. Judgment and insight within normal limits. SKIN: No significant ecchymosis, rash, ulcerations or signs of pruritus noted. MUSCULOSKELETAL EXAM: No significant joint swelling noted. Results Laboratory Results: 04/23/17 04:45 04/23/17 04:45 04/22/17 04/22/17 04/23/17 16:55 22:47 04:45 CK-MB (CK-2) 1.23 1.19 0.98 Troponin I < 0.012 < 0.012 < 0.012 EKG Comments: Telemetry strips reviewed shows mild sinus bradycardia Impressions: Chest X-Ray 04/22/17 12:58 IMPRESSION: NO ACUTE RADIOGRAPHIC FINDING IN THE CHEST. Chest/Abdomen CTA 04/22/17 13:20 IMPRESSION: 1. There is no evidence of pulmonary emboli. 2. There is a 12 mm lesion in the right lobe of the thyroid gland. Assessment & Plan - Diagnosis (1) Chest pain Qualifiers: Chest pain type: unspecified Qualified Code(s): R07.9 - Chest pain, unspecified Is this a current diagnosis for this admission?: Yes (2) Diabetes mellitus Qualifiers: Diabetes mellitus type: type 2 Is this a current diagnosis for this admission?: Yes (3) Essential hypertension Is this a current diagnosis for this admission?: Yes (4) Fibromyalgia Is this a current diagnosis for this admission?: Yes (5) GERD (gastroesophageal reflux disease) Is this a current diagnosis for this admission?: Yes (6) Obesity (BMI 30-39.9) Is this a current diagnosis for this admission?: Yes - Notes Notes: Chest pain: This was evaluated with a nuclear stress test. An area of borderline decreased uptake noted in the distal lateral wall. Mild transient ischemic dilatation was noted. Patient does have prior history of stroke. Troponin I's were all negative. Presented medical management and close cardiology follow-up as the preferred option given everything together to the patient. Patient encouraged to ambulate and see how she does. Discussed that should she fail medical management and heart catheterization would be a consideration but does carry a very a very small but distinct risk of stroke. Patient currently trying to decide. Diabetes mellitus: Have added Ranexa for better management of diabetes may also help if patient has some microvascular angina. Hypertension: Blood pressure intermittently elevated. Discussed that treatment of sleep apnea may help with both fibromyalgia and better control of blood pressure. Gastroesophageal reflux: Patient encouraged in weight loss, double dose proton pump inhibitor. Obesity: Currently stable Coronary artery disease: Patient is noted to have some calcification of the coronaries. Have recommended treatment with beta blockers, aspirin/Plavix or combination, nystatin statins, IRINA inhibitor/ARB's.. - Time Time with patient: Greater than 35 minutes - CODE STATUS was discussed, patient remains full code. Surrogate decision-maker unchanged. Multiple medical problems were addressed. More than 50% of the time spent coordinating care, discussing management plans with involved caregivers. Management plans discussed with involved personnels. Medical decision making was of moderate to high complexity, patient's has multiple comorbidities. Nuclear stress test results discussed in detail. Risk factor modifications discussed. Medical management of CAD optimized. Stress test results discussed in detail. Total time spent was approximately 45 minutes. Medications reviewed and adjusted accordingly: Yes
[2017-04-24] MEDS ORDERED: RANOLAZINE 500 MG TAB.SR.12H PO ONE (12:30)
--- NOTE | 2017-04-24 17:33 | PDOC PROGRESS REPORT ---
Subjective Progress Note for:: 04/24/17 Subjective:: Try to evaluate patient before stress test however patient was off floor. Patient was seen later during the day after her stress test. Has spoken to cardiology prior to see a patient who is stated that her stress test did demonstrate borderline decreased uptake of the distal lateral wall consistent with probable mild ischemia and transient ischemic dilatation which could be related to left ventricular hypertrophy or microvascular ischemia. Patient reported having mild chest pain during my encounter. Patient's son was present. Physical Exam Vital Signs: Temp Pulse Resp BP Pulse Ox 98.0 F 55 L 16 142/62 H 99 04/24/17 15:24 04/24/17 15:24 04/24/17 15:24 04/24/17 15:24 04/24/17 15:24 Intake & Output 04/23/17 04/24/17 04/25/17 06:59 06:59 06:59 Intake Total 240 1760 Output Total 0 Balance 240 1760 Weight 83.9 kg 88.5 kg General appearance: PRESENT: no acute distress, well-developed, well-nourished Head exam: PRESENT: atraumatic, normocephalic Eye exam: PRESENT: conjunctiva pink, EOMI. ABSENT: scleral icterus Ear exam: PRESENT: normal external ear exam Mouth exam: PRESENT: moist, tongue midline Neck exam: ABSENT: carotid bruit, JVD, lymphadenopathy, thyromegaly Respiratory exam: PRESENT: clear to auscultation princess. ABSENT: rales, rhonchi, wheezes Cardiovascular exam: PRESENT: RRR. ABSENT: diastolic murmur, rubs, systolic murmur Pulses: PRESENT: normal dorsalis pedis pul Vascular exam: PRESENT: normal capillary refill GI/Abdominal exam: PRESENT: normal bowel sounds, soft. ABSENT: distended, guarding, mass, organolmegaly, rebound, tenderness Rectal exam: PRESENT: deferred Extremities exam: PRESENT: full ROM. ABSENT: calf tenderness, clubbing, pedal edema Neurological exam: PRESENT: alert, awake, oriented to person, oriented to place , oriented to time, oriented to situation, CN II-XII grossly intact. ABSENT: motor sensory deficit Psychiatric exam: PRESENT: appropriate affect, normal mood. ABSENT: homicidal ideation, suicidal ideation Skin exam: PRESENT: dry, intact, warm. ABSENT: cyanosis, rash Results Laboratory Results: 04/23/17 04:45 04/23/17 04:45 04/22/17 04/22/17 04/23/17 16:55 22:47 04:45 CK-MB (CK-2) 1.23 1.19 0.98 Troponin I < 0.012 < 0.012 < 0.012 Impressions: Chest X-Ray 04/22/17 12:58 IMPRESSION: NO ACUTE RADIOGRAPHIC FINDING IN THE CHEST. Chest/Abdomen CTA 04/22/17 13:20 IMPRESSION: 1. There is no evidence of pulmonary emboli. 2. There is a 12 mm lesion in the right lobe of the thyroid gland. Assessment & Plan - Diagnosis (1) Chest pain Qualifiers: Chest pain type: unspecified Qualified Code(s): R07.9 - Chest pain, unspecified Is this a current diagnosis for this admission?: Yes Plan: stress test demonstrated distal lateral wall decreased uptake consistent with probable mild ischemia and transient ischemic dilatation noted which could be related to left ventricle hypertrophy or microvascular ischemia: Patient was placed on Ranexa and will continue medical management. If patient's chest pain continues will transfer patient to outside facility for evaluation for cardiac cath. (2) Essential hypertension Is this a current diagnosis for this admission?: Yes Plan: Continue current medication. (3) Diabetes mellitus Qualifiers: Diabetes mellitus type: type 2 Is this a current diagnosis for this admission?: Yes Plan: SSI. HgbA1C 5.6 (4) GERD (gastroesophageal reflux disease) Is this a current diagnosis for this admission?: Yes Plan: PPI (5) Obesity (BMI 30-39.9) Is this a current diagnosis for this admission?: Yes Plan: Discussed dietary changes. (6) Asthma Is this a current diagnosis for this admission?: Yes Plan: PRN breathing treatments (7) Fibromyalgia Is this a current diagnosis for this admission?: Yes Plan: Supportive care. (8) IBS (irritable bowel syndrome) Is this a current diagnosis for this admission?: Yes Plan: Supportive care. - Time Time Spent with patient: 15-24 minutes - This patient has chest pain tomorrow after being on Ranexa will transfer to outside facility for cardiac cath.
[2017-04-24] MEDS: RANOLAZINE 500 MG TAB.SR.12H PO SCH (22:30)
[2017-04-24] MEDS: MONTELUKAST SODIUM 10 MG TABLET PO SCH (22:30)
[2017-04-24] MEDS: METOPROLOL SUCCINATE 50 MG TAB.SR.24H PO SCH (22:30)
[2017-04-24] MEDS: LANSOPRAZOLE 15 MG TAB.RAP.DR PO SCH (22:30)
[2017-04-24] MEDS: ATORVASTATIN CALCIUM 10 MG TABLET PO SCH (22:30)
[2017-04-25 05:04] LABS: HEMATOCRIT 35.2 % (36.0-47.0); HEMOGLOBIN 11.8 g/dL (12.0-15.5); HGB HCT DIFFERENCE 0.2; MEAN CORPUSCULAR HEMOGLOBIN 27.8 pg (27.0-33.4); MEAN CORPUSCULAR HGB CONC 33.5 g/dL (32.0-36.0); MEAN CORPUSCULAR VOLUME 83 fl (80-97); RED BLOOD COUNT 4.25 10^6/uL (3.72-5.28); RED CELL DISTRIBUTION WIDTH 15.2 % (11.5-14.0)
[2017-04-25 05:17] LABS: ANION GAP 10 (5-19); BLOOD UREA NITROGEN 16 mg/dL (7-20); CALCIUM 9.2 mg/dL (8.4-10.2); CARBON DIOXIDE 26 mmol/L (22-30); CHLORIDE 109 mmol/L (98-107); CREATININE RESULT 0.89 mg/dL (0.52-1.25); GLUCOSE 116 mg/dL (75-110); POTASSIUM 4.2 mmol/L (3.6-5.0); SODIUM 144.8 mmol/L (137-145)
[2017-04-25] MEDS: TIZANIDINE HCL 4 MG TABLET PO SCH (05:59)
[2017-04-25] MEDS: HEPARIN SOD (PORCINE) 5,000 UNIT/ML 1 ML SYRINGE SUBCUT SCH (05:59)
[2017-04-25] MEDS: LANSOPRAZOLE 30 MG TAB.RAP.DR PO SCH (06:00)
[2017-04-25] MEDS: GABAPENTIN 300 MG CAPSULE PO SCH (06:00)
[2017-04-25] MEDS: CLONIDINE HCL 0.1 MG TABLET PO SCH (09:49)
[2017-04-25] MEDS: RANOLAZINE 500 MG TAB.SR.12H PO SCH (09:49)
[2017-04-25] MEDS: DULOXETINE HCL 30 MG CAPSULE.DR PO SCH (09:50)
[2017-04-25] MEDS: ASPIRIN 325 MG TABLET, ENT COATED PO SCH (09:51)
[2017-04-25] MEDS: HYDROCODONE/ACETAMINOPHEN 5-325 MG TABLET PO SCH (09:51)
[2017-04-25] MEDS: AMLODIPINE BESYLATE 5 MG TABLET PO SCH (09:54)
[2017-04-25] MEDS ORDERED: ERGOCALCIFEROL (VITAMIN D2) 50000 UNIT (1.25 MG) CAPSULE PO SCH (10:00)
[2017-04-25 12:47] VITALS: BP 141/61
--- NOTE | 2017-04-25 12:53 | XCELERA REPORT ---
[address] [address] Transthoracic Echocardiogram Report Name: KORY GALLO Age: 66 yrs Gender: Female : 1950 Patient Status: Inpatient Patient Location: [address] [place] [address] Study Date: 04/25/2017 10:04 AM Height: 63 in Weight: 195 lb BSA: 1.9 m2 Procedure: A complete two-dimensional transthoracic echocardiogram was performed (2D, M-mode, spectral and color flow Doppler). The study was technically adequate with some images being suboptimal in quality. Reason For Study: Chest pain Ordering Physician: SARA COLEMAN Performed By: Fanny Mon Interpretation Summary The left ventricular ejection fraction is normal. Doppler measurements suggest pseudonormalized left ventricular relaxation, which is associated with grade II/IV or mild to moderate diastolic dysfunction There is mild concentric left ventricular hypertrophy. The left ventricle is grossly normal size. Wall motion cannot be accurately commented on, but no definite regional wall motion abnormalities noted. The right ventricle is mildly dilated. The right ventricular systolic function is normal. The left atrium is mildly dilated. The right atrium is mildly dilated. There is a mild to moderate amount of mitral regurgitation There is no mitral valve stenosis. There is no aortic valve stenosis No aortic regurgitation is present. There is a mild to moderate amount of tricuspid regurgitation Right ventricular systolic pressure is estimated to be elevated at 50- 60mmHg. There is moderate pulmonary hypertension by echo There is no pericardial effusion. MMode/2D Measurements & Calculations RVDd: 3.4 cm LVIDd: 4.8 cm FS: 30.3 % Ao root diam: 2.6 cm IVSd: 0.95 cm LVIDs: 3.4 cm EDV(Teich): 109.7 ml LVPWd: 0.87 cm ESV(Teich): 46.6 ml Ao root area: 5.2 cm2 EF(Teich): 57.5 % Doppler Measurements & Calculations MV E max lidia: MV dec slope: Ao V2 max: LV V1 max P.8 cm/sec 123.9 cm/sec 3.6 mmHg MV A max lidia: 386.4 cm/sec2 Ao max PG: LV V1 max: 51.9 cm/sec MV dec time: 6.1 mmHg 95.1 cm/sec MV E/A: 1.7 0.22 sec MR max lidia: PA V2 max: PI end-d lidia: TR max lidia: 523.5 cm/sec 75.7 cm/sec 91.7 cm/sec 323.3 cm/sec MR max PG: PA max P.3 mmHg TR max P.6 mmHg 42.5 mmHg Left Ventricle The left ventricle is grossly normal size. There is mild concentric left ventricular hypertrophy. The left ventricular ejection fraction is normal. Doppler measurements suggest pseudonormalized left ventricular relaxation, which is associated with grade II/IV or mild to moderate diastolic dysfunction. Wall motion cannot be accurately commented on, but no definite regional wall motion abnormalities noted. Right Ventricle The right ventricle is mildly dilated. There is normal right ventricular wall thickness. The right ventricular systolic function is normal. Atria The right atrium is mildly dilated. The left atrium is mildly dilated. Interarterial septum not well visualized and not well dopplered. Cannot comment on ASD/PFO presence. Mitral Valve The mitral valve leaflets are sclerotic, but show no functional abnormalities. There is no mitral valve stenosis. There is a mild to moderate amount of mitral regurgitation. Aortic Valve The aortic valve is grossly normal. There is no aortic valve stenosis. No aortic regurgitation is present. Tricuspid Valve The tricuspid valve is not well visualized, but is grossly normal. There is no tricuspid stenosis. There is a mild to moderate amount of tricuspid regurgitation. There is moderate pulmonary hypertension by echo. Right ventricular systolic pressure is estimated to be elevated at 50-60mmHg. Pulmonic Valve The pulmonic valve is not well visualized. Great Vessels The aortic root is not well visualized but is probably normal size. The inferior vena cava appeared normal and decreased > 50% with respiration (RAP 5-10 mmHg). Effusions There is no pericardial effusion. : SARA COLEMAN > Pedrito Moon
[2017-04-25] MEDS ORDERED: ONDANSETRON 4 MG TAB.RAPDIS PO PRN (13:00)
--- NOTE | 2017-04-25 13:14 | PDOC DISCHARGE SUMMARY ---
General - Admit/Disc Date/PCP Admission Date/Primary Care Provider: 04/22/17 16:24 Discharge Date: 04/25/17 - Discharge Diagnosis (1) Chest pain Is this a current diagnosis for this admission?: Yes Summary: Nuclear stress test demonstrated distal lateral wall decreased uptake consistent with probable mild ischemia and transient ischemic dilatation noted which could be related to left ventricular hypertrophy or micro-vascular ischemia: Cardiology recommended placing patient on Ranexa patient has been chest pain-free after starting Ranexa. Patient has been instructed to follow with Dr. Hancock in [place] for continuation of care. She was also told that if she has chest pain again to return to the hospital. (2) Essential hypertension Is this a current diagnosis for this admission?: Yes Summary: Continue home medication. (3) Diabetes mellitus Is this a current diagnosis for this admission?: Yes Summary: DENICE globin A1c of 5.6 (4) GERD (gastroesophageal reflux disease) Is this a current diagnosis for this admission?: Yes Summary: Cardiology recommended increasing patient's PPI to twice daily. (5) Obesity (BMI 30-39.9) Is this a current diagnosis for this admission?: Yes Summary: Encourage dietary changes (6) Asthma Is this a current diagnosis for this admission?: Yes Summary: Continue patient's home medications. (7) Fibromyalgia Is this a current diagnosis for this admission?: Yes Summary: Supportive care. (8) IBS (irritable bowel syndrome) Is this a current diagnosis for this admission?: Yes (9) Right thyroid nodule Is this a current diagnosis for this admission?: Yes Summary: Patient will need to follow-up with PCP for further evaluation of 12 mm lesion in the right lobe of thyroid gland. - Additional Information Resuscitation Status: Full Code Discharge Diet: Cardiac, Diabetic Discharge Activity: Activity As Tolerated Home Medications: Amlodipine Besylate [Norvasc 5 mg Tablet] 5 mg PO DAILY 04/22/17 Aspirin [Ecotrin] 325 mg PO DAILY 04/22/17 Clonidine HCl [Catapres 0.1 mg Tablet] 0.1 mg PO Q12 04/22/17 Cyanocobalamin (Vitamin B-12) [Vitamin B-12 1000 mcg Tablet] 1,000 mcg PO SUTH@ 1000 04/22/17 Duloxetine HCl [Cymbalta] 60 mg PO DAILY 04/22/17 Ergocalciferol (Vitamin D2) [Drisdol 50,000 unit (1.25MG) Capsule] 50,000 unit PO MO@1000 04/22/17 Gabapentin [Neurontin 300 mg Capsule] 900 mg PO MEALS 04/22/17 Hydrocodone/Acetaminophen [Hydrocodon-Acetaminophen 5-325] 1 tab PO BIDPCBS Metoprolol Succinate [Toprol Xl 50 mg Tab.sr] 50 mg PO QHS 04/22/17 Montelukast Sodium [Singulair 10 mg Tablet] 10 mg PO QHS 04/22/17 Nitroglycerin [Nitrostat] 0.4 mg SL Q5MP PRN 04/22/17 Pravastatin Sodium [Pravachol] 40 mg PO QPM 04/22/17 Prazosin HCl [Minipress] 2 mg PO QHS 04/22/17 Tizanidine HCl [Zanaflex] 2 mg PO Q8 04/22/17 Omeprazole 20 mg PO QHS #60 capsule. 04/25/17 Ranolazine [Ranexa 500 mg Tab.sr] 500 mg PO Q12 #60 tab.sr.12h 04/25/17 History of Present Illness Patient complains of: Chest pain History of Present Illness: KORY GALLO is a 66 year old female present with complaint of chest pain. Pt states that she had intermittent chest pain which started yesterday. Pt states that the pain was a 8 - 10. Pt states that she had shortness of breath and elevated blood pressure at home. Pt states that she took nitroglycerin at home which helped with her chest pain and blood pressure. Pt states that she had a stress test which was neg. Pt states that she was cathed 3-4 years which did not demonstrate any abnormalities. Pt states that Dr. Hancock is her [employer]. Pt states that she has been having headaches at home and has felt nauseated. Pt states that she had sweating episode with chest pain last night. Hospital Course Hospital Course: Patient is a 66-year-old female that was admitted to our hospital due to complaint of chest pain. Patient underwent a nuclear stress test that demonstrated distal lateral wall decreased uptake consistent with probable mild ischemia and transient ischemic dilation which could be related to patient's left ventricular hypertrophy or microvascular ischemia. Cardiology recommended that patient be placed on Ranexa. Patient was monitored in the hospital to see if she had any recurrence of chest pain and on morning of discharge patient denied chest pain. Patient did have a CTA that demonstrated no evidence of PE however on CTA the noted a 12 mm lesion of the right lobe of the thyroid gland. This will need to be evaluated further as outpatient by PCP. Physical Exam Vital Signs: Temp Pulse Resp BP Pulse Ox 97.6 F 55 L 16 117/59 L 100 04/25/17 07:29 04/25/17 07:29 04/25/17 07:29 04/25/17 07:29 04/25/17 07:29 Intake & Output 04/24/17 04/25/17 04/26/17 06:59 06:59 06:59 Intake Total 1760 2545 Balance 1760 2545 Weight 88.5 kg 89.2 kg General appearance: PRESENT: no acute distress, well-developed, well-nourished Head exam: PRESENT: atraumatic, normocephalic Eye exam: PRESENT: conjunctiva pink, EOMI. ABSENT: scleral icterus Ear exam: PRESENT: normal external ear exam Mouth exam: PRESENT: moist, tongue midline Neck exam: ABSENT: carotid bruit, JVD, lymphadenopathy, thyromegaly Respiratory exam: PRESENT: clear to auscultation princess. ABSENT: rales, rhonchi, wheezes Cardiovascular exam: PRESENT: RRR. ABSENT: diastolic murmur, rubs, systolic murmur Pulses: PRESENT: normal dorsalis pedis pul Vascular exam: PRESENT: normal capillary refill GI/Abdominal exam: PRESENT: normal bowel sounds, soft. ABSENT: distended, guarding, mass, organolmegaly, rebound, tenderness Rectal exam: PRESENT: deferred Extremities exam: PRESENT: full ROM. ABSENT: calf tenderness, clubbing, pedal edema Neurological exam: PRESENT: alert, awake, oriented to person, oriented to place , oriented to time, oriented to situation, CN II-XII grossly intact. ABSENT: motor sensory deficit Psychiatric exam: PRESENT: appropriate affect, normal mood. ABSENT: homicidal ideation, suicidal ideation Skin exam: PRESENT: dry, intact, warm. ABSENT: cyanosis, rash Results Laboratory Results: 04/25/17 04:35 04/25/17 04:35 04/25/17 04/25/17 04:35 04:35 WBC 7.0 RBC 4.25 Hgb 11.8 L Hct 35.2 L MCV 83 MCH 27.8 MCHC 33.5 RDW 15.2 H Plt Count 211 Sodium 144.8 Potassium 4.2 Chloride 109 H Carbon Dioxide 26 Anion Gap 10 BUN 16 Creatinine 0.89 Est GFR ( Amer) > 60 Est GFR (Non-Af Amer) > 60 Glucose 116 H Calcium 9.2 04/22/17 04/22/17 04/23/17 16:55 22:47 04:45 CK-MB (CK-2) 1.23 1.19 0.98 Troponin I < 0.012 < 0.012 < 0.012 04/25/17 04:35 CK-MB (CK-2) Troponin I < 0.012 Impressions: Chest X-Ray 04/22/17 12:58 IMPRESSION: NO ACUTE RADIOGRAPHIC FINDING IN THE CHEST. Chest/Abdomen CTA 04/22/17 13:20 IMPRESSION: 1. There is no evidence of pulmonary emboli. 2. There is a 12 mm lesion in the right lobe of the thyroid gland.
--- NOTE | 2017-04-25 19:59 | PDOC PROGRESS REPORT ---
Subjective Progress Note for:: 04/25/17 Subjective:: Patient seems to be doing better with gradual improvement. Pt is denying any chest arm or neck discomfort. Patient denying any PND, orthopnea. Patient denied any sustained palpitations, dizziness, syncope, near syncope. Patient denying any fever chills. Patient denying any other significant discomfort. Patient is maintaining sinus rhythm. Patient did complain of some shortness of breath on exertion but she has been free of chest pain. Patient generally feels better and is looking forward to be discharged. Review of systems: Rest review of systems negative. Medications: Medications have been reviewed. Physical Exam Vital Signs: Temp Pulse Resp BP Pulse Ox 97.6 F 55 L 16 145/61 H 100 04/25/17 12:25 04/25/17 12:25 04/25/17 12:25 04/25/17 12:25 04/25/17 12:25 Intake & Output 04/24/17 04/25/17 04/26/17 06:59 06:59 06:59 Intake Total 1760 2545 Balance 1760 2545 Weight 88.5 kg 89.2 kg Exam: GENERAL: well-nourished and in no acute distress. Alert and oriented x3 HEAD: Atraumatic, normocephalic. EYES: Pupils equal round and reactive to light, extraocular movements intact, sclera anicteric, conjunctiva are normal. ENT: TMs normal, nares patent, oropharynx clear without exudates. Moist mucous membranes. No oral ulcerations or bleeding gums noted NECK: supple without lymphadenopathy. Trachea is central. No cervical or axillary lymphadenopathy noted. Carotids are 2+, JVD WNL LUNGS: Respiration seems nonlabored, no significant accessory muscle action noted. Breath sounds clear to auscultation bilaterally and equal noted. No wheezes rales or rhonchi noted. No significant dullness noted on percussion. CHEST: Palpation of the chest wall shows no significant chest wall tenderness. No other significant abnormalities noted. HEART: [place] [employer], No PSH, 1/6 LEEANN aortic area, 1/6 burrows systolic murmur mitral area, no rubs, no gallops. ABDOMEN: Soft, no significant tenderness appreciated, normoactive bowel sounds. No guarding, no rebound. No rigidity noted . No masses appreciated. EXTREMITIES: Pedal pulses are 1-2+, no calf tenderness noted. No clubbing or cyanosis.trace to 1+ pedal edema noted NEUROLOGICAL: Focused neurological exam showed no significant neurologic deficit. Minimal dysphasia noted, minimal right upper extremity weakness appreciated. PSYCH: Normal mood, normal affect. Judgment and insight within normal limits. SKIN: No significant ecchymosis, rash, ulcerations or signs of pruritus noted. MUSCULOSKELETAL EXAM: No significant joint swelling noted. Results Laboratory Results: 04/25/17 04:35 04/25/17 04:35 04/25/17 04/25/17 04:35 04:35 WBC 7.0 RBC 4.25 Hgb 11.8 L Hct 35.2 L MCV 83 MCH 27.8 MCHC 33.5 RDW 15.2 H Plt Count 211 Sodium 144.8 Potassium 4.2 Chloride 109 H Carbon Dioxide 26 Anion Gap 10 BUN 16 Creatinine 0.89 Est GFR ( Amer) > 60 Est GFR (Non-Af Amer) > 60 Glucose 116 H Calcium 9.2 04/22/17 04/22/17 04/23/17 16:55 22:47 04:45 CK-MB (CK-2) 1.23 1.19 0.98 Troponin I < 0.012 < 0.012 < 0.012 04/25/17 04:35 CK-MB (CK-2) Troponin I < 0.012 Impressions: Chest X-Ray 04/22/17 12:58 IMPRESSION: NO ACUTE RADIOGRAPHIC FINDING IN THE CHEST. Chest/Abdomen CTA 04/22/17 13:20 IMPRESSION: 1. There is no evidence of pulmonary emboli. 2. There is a 12 mm lesion in the right lobe of the thyroid gland. Assessment & Plan - Diagnosis (1) Chest pain Qualifiers: Chest pain type: unspecified Qualified Code(s): R07.9 - Chest pain, unspecified Is this a current diagnosis for this admission?: Yes (2) Diabetes mellitus Qualifiers: Diabetes mellitus type: type 2 Is this a current diagnosis for this admission?: Yes (3) Essential hypertension Is this a current diagnosis for this admission?: Yes (4) Fibromyalgia Is this a current diagnosis for this admission?: Yes (5) GERD (gastroesophageal reflux disease) Is this a current diagnosis for this admission?: Yes (6) Obesity (BMI 30-39.9) Is this a current diagnosis for this admission?: Yes - Notes Notes: Chest pain: There has been no recurrence. Patient tolerating Ranexa. Patient may have single-vessel disease. Medical management is currently working. Therefore will continue with it. Informed that should medical management fails then heart catheterization may become indicated but there was some increased risk because of prior history of stroke. Diabetes: Currently stable. Hypertension: Currently stable. Fibromyalgia: Discussed association of fibromyalgia with sleep apnea and insomnia. Patient has been recommended to undergo a sleep study especially also in view of prior history of stroke. Obesity: Patient has been encouraged in regular walking program and weight loss. Nuclear stress test results were reviewed. 2D echocardiogram obtained today, results were noted to be satisfactory. Discussed with patient, her son and hospitalist. Patient does wish to follow-up with me for her sleep related issues. - Time Time with patient: Greater than 35 minutes - CODE STATUS was discussed, patient remains full code. Surrogate decision-maker unchanged. Multiple medical problems were addressed. More than 50% of the time spent coordinating care, discussing management plans with involved caregivers. Management plans discussed with involved personnels. Medical decision making was of moderate to high complexity, patient's has multiple comorbidities. Medications reviewed and adjusted accordingly: Yes
[2017-04-25] MEDS ORDERED: RANOLAZINE 500 MG TAB.SR.12H PO SCH (22:00)
== END 2017-04-25 13:30 | disposition home or self-care (01) ==
LOC: ER 12:52 → EH 15:54 → UNDOADMOB 15:54 → EH 16:24 → 5 18:07
DX: R07.9 Chest pain, unspecified (principal); I10 Essential (primary) hypertension; E11.9 Type 2 diabetes mellitus without complications; K21.9 Gastro-esophageal reflux disease without esophagitis; E66.9 Obesity, unspecified; J45.909 Unspecified asthma, uncomplicated; M79.7 Fibromyalgia; K58.9 Irritable bowel syndrome, unspecified; E04.1 Nontoxic single thyroid nodule; R51 Headache; R53.83 Other fatigue; I69.328 Other speech and language deficits following cerebral infarction; I69.351 Hemiplegia and hemiparesis following cerebral infarction affecting right dominant side; F32.9 Major depressive disorder, single episode, unspecified; R00.1 Bradycardia, unspecified; R47.02 Dysphasia; Z87.891 Personal history of nicotine dependence; Z79.82 Long term (current) use of aspirin; Z79.899 Other long term (current) drug therapy; Z90.49 Acquired absence of other specified parts of digestive tract; Z82.49 Family history of ischemic heart disease and other diseases of the circulatory system; Z88.8 Allergy status to other drugs, medicaments and biological substances; Z68.34 Body mass index [BMI] 34.0-34.9, adult
CPT/HCPCS: 36415; 71010; 71275; 78452; 80048; 80053; 80061; 80307; 81001; 82550; 82553; 82962; 83036; 83880; 84439; 84443; 84484; 85025; 85027; 93005; 93010; 93017; 93306; 99285; A9500; G0378; J0280; J1644; J2785; J3490; J7030; Q9969; S0119

== ENCOUNTER 2017-09-26 14:58 | Emergency (ER) | payer MEDICARE, MEDICAID ==
[2017-09-26 15:03] VITALS: BP 139/102
== END 2017-09-26 16:00 | disposition left against medical advice (07) ==
LOC: ER 14:58
DX: Z53.21 Procedure and treatment not carried out due to patient leaving prior to being seen by health care provider (principal)

== ENCOUNTER 2017-09-26 16:33 | Emergency (ER) | payer MEDICARE, MEDICAID ==
[2017-09-26] MEDS ORDERED: MAG HYDROX/AL HYDROX/SIMETH SUSP 30 ML UDCUP PO STA (17:22)
--- NOTE | 2017-09-26 17:24 | ER Document Report ---
ED Medical Screen (RME) - General Chief Complaint: Abdominal Pain Stated Complaint: ABDOMINAL PAIN Time Seen by Provider: 09/26/17 16:46 Notes: sent from urgent care with bilat chest pressure. had neg cath one yr ago. pt believes she may have flu TRAVEL OUTSIDE OF THE [place] IN LAST 30 DAYS: No - Related Data Allergies/Adverse Reactions: lisinopril [Lisinopril] Allergy (Severe, Verified 09/26/17 16:35) Edema phenytoin sodium extended [From Dilantin] Allergy (Severe, Verified 09/26/17 16: 35) Unknown reaction risperidone [From Risperdal] Allergy (Intermediate, Verified 09/26/17 16:35) Hives venlafaxine HCl [From Effexor] Allergy (Intermediate, Verified 09/26/17 16:35) Hives Past Medical History - Social History Chew tobacco use (# tins/day): No Frequency of alcohol use: None Drug Abuse: None - Past Medical History Cardiac Medical History: Reports: Hx Hypercholesterolemia, Hx Hypertension Denies: Hx Heart Attack Pulmonary Medical History: Reports: Hx Asthma, Hx COPD, Hx Pneumonia Denies: Hx Tuberculosis Neurological Medical History: Reports: Hx Seizures - 18-19 YEARS AGO. Denies: Hx Cerebrovascular Accident Endocrine Medical History: Reports: Hx Diabetes Mellitus Type 2 Renal/ Medical History: Denies: Hx Peritoneal Dialysis GI Medical History: Reports: Hx Gastroesophageal Reflux Disease. Denies: Hx Hepatitis, Hx Hiatal Hernia, Hx Ulcer Musculoskeltal Medical History: Reports Hx Arthritis, Reports Hx Fibromyalgia Psychiatric Medical History: Reports: Hx Depression, Hx Post Traumatic Stress Disorder, Hx Schizophrenia Infectious Medical History: Denies: Hx Hepatitis Past Surgical History: Reports: Hx Section, Hx Cholecystectomy, Hx Orthopedic Surgery - Toe. Denies: Hx Mastectomy, Hx Open Heart Surgery, Hx Pacemaker - Immunizations Hx Diphtheria, Pertussis, Tetanus Vaccination: Yes Physical Exam - Vital signs Vitals: Temp Pulse Resp BP Pulse Ox 98.5 F 60 18 147/69 H 99 09/26/17 16:37 09/26/17 16:37 09/26/17 16:37 09/26/17 16:37 09/26/17 16:37 Course - Vital Signs Vital signs: Temp Pulse Resp BP Pulse Ox 98.5 F 60 18 147/69 H 99 09/26/17 16:37 09/26/17 16:37 09/26/17 16:37 09/26/17 16:37 09/26/17 16:37
--- NOTE | 2017-09-26 18:48 | RADIOLOGY REPORT (SQ) ---
EXAM DESCRIPTION: CHEST PA/LAT COMPLETED DATE/TIME: 09/26/2017 5:49 pm REASON FOR STUDY: bilat cp COMPARISON: 10/24/2015 EXAM PARAMETERS: NUMBER OF VIEWS: two views TECHNIQUE: Digital Frontal and Lateral radiographic views of the chest acquired. RADIATION DOSE: NA LIMITATIONS: none FINDINGS: LUNGS AND PLEURA: No opacities, masses or pneumothorax. No pleural effusion. MEDIASTINUM AND HILAR STRUCTURES: No masses or contour abnormalities. HEART AND VASCULAR STRUCTURES: Heart normal size. No evidence for failure. BONES: No acute findings. HARDWARE: None in the chest. OTHER: No other significant finding. IMPRESSION: NO SIGNIFICANT RADIOGRAPHIC FINDING IN THE CHEST. TECHNICAL DOCUMENTATION: JOB ID: [id number] [employer]- All Rights Reserved Reading location - IP/workstation name: [email or web address]
--- NOTE | 2017-09-26 19:15 | EKG REPORT ---
SEVERITY:- NORMAL ECG - SINUS RHYTHM : Confirmed by: Srinath Kwon MD 26-Sep-2017 19:15:06
[2017-09-26 19:23] LABS: ABSOLUTE EOSINOPHILS # (AUTO) 0.2 10^3/uL (0.0-0.6); ABSOLUTE LYMPHOCYTES (AUTO) 2.2 10^3/uL (0.5-4.7); ABSOLUTE MONOCYTES (AUTO) 0.6 10^3/uL (0.1-1.4); ABSOLUTE NEUT (AUTO) 5.6 10^3/uL (1.7-8.2); BASOPHILS % (AUTO) 0.4 % (0-2); EOSINOPHILS % (AUTO) 2.7 % (0-6); HEMATOCRIT 33.7 % (36.0-47.0); HEMOGLOBIN 11.5 g/dL (12.0-15.5); LYMPHOCYTES % (AUTO) 25.3 % (13-45); MEAN CORPUSCULAR HEMOGLOBIN 28.5 pg (27.0-33.4); MEAN CORPUSCULAR HGB CONC 34.1 g/dL (32.0-36.0); MEAN CORPUSCULAR VOLUME 84 fl (80-97); MONOCYTES % (AUTO) 7.3 % (3-13); PLATELET COUNT 243 10^3/uL (150-450); RED BLOOD COUNT 4.04 10^6/uL (3.72-5.28); SEGMENTED NEUTROPHILS % (AUTO) 64.3 % (42-78); TOTAL CELLS COUNTED % (AUTO) 100 %; WHITE BLOOD COUNT 8.6 10^3/uL (4.0-10.5)
[2017-09-26 19:52] LABS: ALANINE AMINOTRANSFERASE 18 U/L (9-52); ALBUMIN 4.1 g/dL (3.5-5.0); ALKALINE PHOSPHATASE 106 U/L (38-126); ANION GAP 11 (5-19); ASPARTATE AMINO TRANSFERASE 19 U/L (14-36); BILIRUBIN,DIRECT 0.1 mg/dL (0.0-0.4); BILIRUBIN,TOTAL 0.2 mg/dL (0.2-1.3); BLOOD UREA NITROGEN 14 mg/dL (7-20); CALCIUM 9.5 mg/dL (8.4-10.2); CARBON DIOXIDE 29 mmol/L (22-30); CHLORIDE 104 mmol/L (98-107); GLUCOSE 115 mg/dL (75-110); LIPASE 60.4 U/L (23-300); POTASSIUM 3.8 mmol/L (3.6-5.0); SODIUM 143.7 mmol/L (137-145); TOTAL PROTEIN 6.5 g/dL (6.3-8.2)
[2017-09-26] MEDS ORDERED: FAMOTIDINE 20 MG TABLET PO ONE (20:03)
--- NOTE | 2017-09-26 20:06 | ER Document Report ---
ED General - General Chief Complaint: Abdominal Pain Stated Complaint: ABDOMINAL PAIN Time Seen by Provider: 09/26/17 16:46 Notes: Patient is a 67-year-old female with a past medical history of hypertension, hyperlipidemia, diabetes who presents with epigastric abdominal discomfort with intermittent radiation into her lower chest. Patient states the symptoms started shortly after waking this morning and have been unchanged since that time. She has not tried anything to improve the symptoms and nothing seems to worsen them. She describes it as a burning, throbbing pain that starts in the central abdomen and radiates underneath her rib cages bilaterally. She notes that there has been associated nausea and burping of a acid-like substance in her mouth. She notes that she has a history of esophageal reflux disease and does believe that this is an exacerbation of the underlying illness. She denies any distinct chest pain, shortness of breath, or pain radiating into her arms, jaw or back. She has not seen her primary doctor regarding today's concerns. At time of my assessment the patient states she feels well and would like to go home. TRAVEL OUTSIDE OF THE [place] IN LAST 30 DAYS: No - Related Data Allergies/Adverse Reactions: lisinopril [Lisinopril] Allergy (Severe, Verified 09/26/17 16:35) Edema phenytoin sodium extended [From Dilantin] Allergy (Severe, Verified 09/26/17 16: 35) Unknown reaction risperidone [From Risperdal] Allergy (Intermediate, Verified 09/26/17 16:35) Hives venlafaxine HCl [From Effexor] Allergy (Intermediate, Verified 09/26/17 16:35) Hives Past Medical History - General Information source: Patient - Social History Smoking Status: Never Smoker Chew tobacco use (# tins/day): No Frequency of alcohol use: None Drug Abuse: None Lives with: Family Family History: Reviewed & Not Pertinent, Hypertension Patient has suicidal ideation: No Patient has homicidal ideation: No - Past Medical History Cardiac Medical History: Reports: Hx Hypercholesterolemia, Hx Hypertension Denies: Hx Heart Attack Pulmonary Medical History: Reports: Hx Asthma, Hx COPD, Hx Pneumonia Denies: Hx Tuberculosis Neurological Medical History: Reports: Hx Seizures - 18-19 YEARS AGO. Denies: Hx Cerebrovascular Accident Endocrine Medical History: Reports: Hx Diabetes Mellitus Type 2 Renal/ Medical History: Denies: Hx Peritoneal Dialysis GI Medical History: Reports: Hx Gastroesophageal Reflux Disease. Denies: Hx Hepatitis, Hx Hiatal Hernia, Hx Ulcer Musculoskeltal Medical History: Reports Hx Arthritis, Reports Hx Fibromyalgia Psychiatric Medical History: Reports: Hx Depression, Hx Post Traumatic Stress Disorder, Hx Schizophrenia Infectious Medical History: Denies: Hx Hepatitis Past Surgical History: Reports: Hx Section, Hx Cholecystectomy, Hx Orthopedic Surgery - Toe. Denies: Hx Mastectomy, Hx Open Heart Surgery, Hx Pacemaker - Immunizations Hx Diphtheria, Pertussis, Tetanus Vaccination: Yes Review of Systems - Review of Systems Notes: Constitutional: Negative for fever. HENT: Negative for sore throat. Eyes: Negative for visual changes. Cardiovascular: Negative for chest pain. Respiratory: Negative for shortness of breath. Gastrointestinal: Positive for epigastric abdominal pain and nausea Genitourinary: Negative for dysuria. Musculoskeletal: Negative for back pain. Skin: Negative for rash. Neurological: Negative for headaches, weakness or numbness. 10 point ROS negative except as marked above and in HPI. Physical Exam - Vital signs Vitals: Temp Pulse Resp BP Pulse Ox 98.5 F 60 18 147/69 H 99 09/26/17 16:37 09/26/17 16:37 09/26/17 16:37 09/26/17 16:37 09/26/17 16:37 Interpretation: Normal Notes: PHYSICAL EXAMINATION: GENERAL: Well-appearing, well-nourished and in no acute distress. HEAD: Atraumatic, normocephalic. EYES: Pupils equal round and reactive to light, extraocular movements intact, sclera anicteric, conjunctiva are normal. ENT: nares patent, oropharynx clear without exudates. Moist mucous membranes. NECK: Normal range of motion, supple without lymphadenopathy LUNGS: Breath sounds clear to auscultation bilaterally and equal. No wheezes rales or rhonchi. HEART: Regular rate and rhythm without murmurs ABDOMEN: Soft, nontender, normoactive bowel sounds. No guarding, no rebound. No masses appreciated. EXTREMITIES: Normal range of motion, no pitting or edema. No cyanosis. NEUROLOGICAL: No focal neurological deficits. Moves all extremities spontaneously and on command. PSYCH: Normal mood, normal affect. SKIN: Warm, Dry, normal turgor, no rashes or lesions noted. Course - Re-evaluation Re-evalutation: 09/26/17 20:03 Patient presents with epigastric abdominal pain with associated reflux symptoms most consistent with likely gastritis. Patient has no focal abdominal tenderness on examination. Patient status post cholecystectomy. Lipase is normal. No LFT changes. Based on history and exam, I do not suspect ACS, pulmonary embolus, SBO, mesenteric ischemia, acute pancreatitis, biliary pathology, or an abdominal aortic dissection. EKG and troponin are normal. Patient has had improvement of symptoms here with famotidine and a GI cocktail. She is requesting to go home and states she does not wish to remain in the emergency department for additional troponin testing to further exclude ACS. She has capacity and verbalized understanding that this is not a complete workup. She states the reason she would like to go home as she needs go to work in the morning. She understands the risks of this decision including missed NE although I think this is unlikely given history and current workup. At this time will discharge with return precautions and follow-up recommendations. Verbal discharge instructions given a the bedside and opportunity for questions given. Medication warnings reviewed. Patient is in agreement with this plan and has verbalized understanding of return precautions and the need for primary care follow-up in the next 24-72 hours. - Vital Signs Vital signs: Temp Pulse Resp BP Pulse Ox 98.2 F 54 L 18 135/59 H 97 09/26/17 19:54 09/26/17 19:54 09/26/17 20:27 09/26/17 20:27 09/26/17 20:27 - Laboratory Result Diagrams: 09/26/17 19:11 09/26/17 19:11 Laboratory results interpreted by me: 09/26/17 09/26/17 19:11 19:11 Hgb 11.5 L Hct 33.7 L RDW 15.0 H Glucose 115 H - Diagnostic Test Radiology reviewed: Image reviewed, Reports reviewed Radiology results interpreted by me: 09/26/17 20:03 Chest x-ray: No acute infiltrate or pneumothorax - EKG Interpretation by Me Additional EKG results interpreted by me: 09/26/17 20:05 Sinus bradycardia. Rate 52. No ST elevations or depressions. QTC is 406. Discharge - Discharge Clinical Impression: Chest pain Qualifiers: Chest pain type: unspecified Qualified Code(s): R07.9 - Chest pain, unspecified Gastroesophageal reflux Qualifiers: Esophagitis presence: esophagitis presence not specified Qualified Code(s): K21.9 - Gastro-esophageal reflux disease without esophagitis Disposition: HOME, SELF-CARE Additional Instructions: Your symptoms appear to be most consistent with stomach or upper intestinal irritation. Please begin taking famotidine 40 mg in the morning and 40 mg at night. This medicine can be purchased directly [id number]. You may also take medicine such as Pepto-Bismol or Tums to assist with your pain. Please return to emergency department immediately if you have worsening of your pain, shortness of breath, vomiting, become unable to exert yourself due to pain or difficulty breathing, you pass out, or have any pain that radiates into your arms, jaw, or back. Please also return if you have any additional symptoms that are concerning to you. Referrals: RODGER MOROCHO MD [Primary Care Provider] - Follow up as needed
[2017-09-26 20:33] VITALS: BP 135/59
== END 2017-09-26 20:33 | disposition home or self-care (01) ==
LOC: ER 16:33
DX: K21.9 Gastro-esophageal reflux disease without esophagitis (principal); R07.9 Chest pain, unspecified; R10.9 Unspecified abdominal pain; I10 Essential (primary) hypertension; E78.5 Hyperlipidemia, unspecified; E11.9 Type 2 diabetes mellitus without complications; R10.13 Epigastric pain; R11.0 Nausea
CPT/HCPCS: 93005; 99284; 36415; 83690; 85025; 80053; 84484; 71046; 93010; A9270

== ENCOUNTER → 2017-12-21 | Outpatient (CLI) | payer MEDICARE, MEDICAID ==
--- NOTE | 2017-12-21 16:47 | RADIOLOGY REPORT (SQ) ---
EXAM DESCRIPTION: MRI CERVICAL SPINE WITHOUT COMPLETED DATE/TIME: 12/21/2017 4:21 pm REASON FOR STUDY: M54.12 RADICULOPATHY, CERVICAL REGION M54.12 RADICULOPATHY, CERVICAL REGION M54.1 6 RADICULOPATHY, LUMBAR REGION COMPARISON: MRI cervical spine 06/09/2016 Cervical spine plain films 07/29/2010, 04/27/2010 CT cervical spine 02/19/2008 TECHNIQUE: Sagittal and Axial imaging includes T1, T2, STIR and gradient echo sequences. LIMITATIONS: None. FINDINGS: ALIGNMENT: Normal. VERTEBRAE: Intact. BONE MARROW: Normal. No marrow replacement or reactive changes. DISCS: Diffuse decreased T2 weighted intervertebral disc signal. HARDWARE: None in the spine. CORD AND BASE OF BRAIN: Normal in size and signal intensity. SOFT TISSUES: 1.5 cm cyst right lobe thyroid. Ultrasound recommended for further evaluation. C1-C2: No significant spinal stenosis. C2-C3: No significant spinal stenosis or exit foraminal stenosis. C3-C4: Mild diffuse posterior disc bulge and bony spurring is present without central or foraminal st enosis. C4-C5: Minimal posterior disc bulge without central or foraminal stenosis. C5-C6: Minimal posterior disc bulge without central or foraminal stenosis. C6-C7: Mild posterior disc bulging is present without central or right foraminal narrowing. Mild lef t foraminal stenosis from facet and uncovertebral hypertrophy. C7-T1: No significant spinal stenosis or exit foraminal stenosis. OTHER: No other significant finding. IMPRESSION: Mild posterior disc bulging is present without high-grade central or foraminal encroachm ent. Incidental finding of a probable right thyroid cyst 1.5 cm in size for which thyroid ultrasound is re commended for followup TECHNICAL DOCUMENTATION: JOB ID: [id number] All Rights Reserved Reading location - IP/workstation name: [email or web address]
--- NOTE | 2017-12-21 16:53 | RADIOLOGY REPORT (SQ) ---
EXAM DESCRIPTION: MRI LUMBAR SPINE WITHOUT COMPLETED DATE/TIME: 12/21/2017 4:23 pm REASON FOR STUDY: M54.12 RADICULOPATHY, LUMBAR REGION M54.12 RADICULOPATHY, CERVICAL REGION M54.16 RADICULOPATHY, LUMBAR REGION COMPARISON: CT abdomen pelvis 05/27/2014 TECHNIQUE: Sagittal and Axial imaging includes T1, T2, STIR and gradient echo sequences. Coronal T2/ HASTE imaging. LIMITATIONS: None. FINDINGS: VISUALIZED UPPER ABDOMEN: Limited evaluation. No acute or suspicious findings suggested. SEGMENTATION: Small L5-S1 disc space. ALIGNMENT: Anatomic. VERTEBRAE: Intact. BONE MARROW: Hemangioma in the T12 vertebral body. DISC SIGNAL: Decreased T2 weighted intervertebral disc signal at L1-2, L2-3, L3-4, and L4-5 POSTERIOR ELEMENTS: Generally intact. No pars defect evident. HARDWARE: None in the spine. CORD AND CONUS: Normal in size and signal intensity. Conus at the L1-2 level. SOFT TISSUES: No aortic aneurysm seen. No bulky retroperitoneal adenopathy or mass. No paraspinal mas s or fluid. T11-12: At the upper edge of the field of view. No central or foraminal stenosis. T12-L1: No central or foraminal stenosis. L1-L2: No central or foraminal stenosis. Moderate bilateral facet hypertrophy. L2-L3: Mild posterior disc bulging, bulky bilateral facet and ligament hypertrophy cause borderline c entral canal narrowing, best shown on axial T2 image 12. No foraminal stenosis. L3-L4: Mild to moderate central canal stenosis results from broad diffuse posterior disc bulge and ve ry bulky bilateral facet and ligament hypertrophy. Partial effacement of the CSF around the lumbar n erve roots. This is best shown on axial T2 image 19. There is mild bilateral foraminal narrowing wi thout exiting L3 nerve root impingement. L4-L5: Broad diffuse posterior disc bulge and very bulky bilateral facet and ligament hypertrophy cau ses mild central canal narrowing, best shown on axial T2 image 25. Mild bilateral inferior foraminal narrowing without exiting L4 nerve root impingement. Small disc space. Moderate facet hypertrophy. No central or foraminal stenosis. L5-S1: No significant spinal stenosis or exit foraminal stenosis. SACRUM: Visualized upper sacrum intact. OTHER: No other significant findings. IMPRESSION: Multilevel facet arthropathy with [id number] central canal stenosis at L3-4, mild central canal stenosis at L4-5, borderline central canal narrowing at L2-3. TECHNICAL DOCUMENTATION: JOB ID: [id number] [employer]- All Rights Reserved Reading location - IP/workstation name: [facility]
== END ==
LOC: RAD 16:40
PROVIDERS: ATTEND Physician Assistant
DX: M54.12 Radiculopathy, cervical region (principal); M54.16 Radiculopathy, lumbar region
CPT/HCPCS: 72141; 72148

== ENCOUNTER 2018-02-07 19:21 | Emergency (ER) | payer MEDICARE, MEDICAID ==
--- NOTE | 2018-02-07 19:29 | ER Document Report ---
ED Medical Screen (RME) - General Chief Complaint: S/S of Possible Stroke Stated Complaint: RIGHT SIDE PAIN AND MOUTH PAIN Time Seen by Provider: 02/07/18 19:26 Notes: 67-year-old female, past medical history prior CVA with residual mild right- sided arm and leg weakness, presents with increased right arm and leg weakness since 18:45 today. Denies sensory changes, headache or difficulty seeing. PE: 3/5 strength in RUE and RLE. 5/5 strength in LUE and LLE. CN II-XII intact. Sensation intact. Stroke Alert activated, although unclear if her right-sided weakness is acute or chronic. She says it feels more weak than normal. I have greeted and performed a rapid initial assessment of this patient. A comprehensive ED assessment and evaluation of the patient, analysis of test results and completion of the medical decision making process will be conducted by additional ED providers. TRAVEL OUTSIDE OF THE [place] IN LAST 30 DAYS: No - Related Data Allergies/Adverse Reactions: lisinopril [Lisinopril] Allergy (Severe, Verified 09/26/17 16:35) Edema phenytoin sodium extended [From Dilantin] Allergy (Severe, Verified 09/26/17 16: 35) Unknown reaction risperidone [From Risperdal] Allergy (Intermediate, Verified 09/26/17 16:35) Hives venlafaxine HCl [From Effexor] Allergy (Intermediate, Verified 09/26/17 16:35) Hives Past Medical History - Past Medical History Cardiac Medical History: Reports: Hx Hypercholesterolemia, Hx Hypertension Denies: Hx Heart Attack Pulmonary Medical History: Reports: Hx Asthma, Hx COPD, Hx Pneumonia Denies: Hx Tuberculosis Neurological Medical History: Reports: Hx Seizures - 18-19 YEARS AGO. Denies: Hx Cerebrovascular Accident Endocrine Medical History: Reports: Hx Diabetes Mellitus Type 2 Renal/ Medical History: Denies: Hx Peritoneal Dialysis GI Medical History: Reports: Hx Gastroesophageal Reflux Disease. Denies: Hx Hepatitis, Hx Hiatal Hernia, Hx Ulcer Musculoskeltal Medical History: Reports Hx Arthritis, Reports Hx Fibromyalgia Psychiatric Medical History: Reports: Hx Depression, Hx Post Traumatic Stress Disorder, Hx Schizophrenia Infectious Medical History: Denies: Hx Hepatitis Past Surgical History: Reports: Hx Section, Hx Cholecystectomy, Hx Orthopedic Surgery - Toe. Denies: Hx Mastectomy, Hx Open Heart Surgery, Hx Pacemaker - Immunizations Hx Diphtheria, Pertussis, Tetanus Vaccination: Yes Doctor's Discharge - Discharge Referrals: RODGER MOROCHO MD [Primary Care Provider] - Follow up as needed
[2018-02-07 19:47] LABS: ABSOLUTE BASOPHILS # (AUTO) 0.1 10^3/uL (0.0-0.2); ABSOLUTE EOSINOPHILS # (AUTO) 0.3 10^3/uL (0.0-0.6); ABSOLUTE LYMPHOCYTES (AUTO) 2.8 10^3/uL (0.5-4.7); ABSOLUTE MONOCYTES (AUTO) 0.8 10^3/uL (0.1-1.4); ABSOLUTE NEUT (AUTO) 6.6 10^3/uL (1.7-8.2); BASOPHILS % (AUTO) 0.8 % (0-2); EOSINOPHILS % (AUTO) 2.7 % (0-6); HEMATOCRIT 36.1 % (36.0-47.0); HEMOGLOBIN 12.3 g/dL (12.0-15.5); LYMPHOCYTES % (AUTO) 26.4 % (13-45); MEAN CORPUSCULAR HEMOGLOBIN 28.8 pg (27.0-33.4); MEAN CORPUSCULAR HGB CONC 34.1 g/dL (32.0-36.0); MEAN CORPUSCULAR VOLUME 85 fl (80-97); MONOCYTES % (AUTO) 7.7 % (3-13); RED BLOOD COUNT 4.28 10^6/uL (3.72-5.28); RED CELL DISTRIBUTION WIDTH 14.8 % (11.5-14.0); SEGMENTED NEUTROPHILS % (AUTO) 62.4 % (42-78); TOTAL CELLS COUNTED % (AUTO) 100 %; WHITE BLOOD COUNT 10.6 10^3/uL (4.0-10.5)
--- NOTE | 2018-02-07 19:49 | ER Document Report ---
ED General - General Chief Complaint: S/S of Possible Stroke Stated Complaint: RIGHT SIDE PAIN AND MOUTH PAIN Time Seen by Provider: 02/07/18 19:26 Mode of Arrival: Ambulatory Information source: Patient Notes: 67-year-old female with coronary artery disease, COPD, type 2 diabetes, previous CVA presents with complaint of right shoulder pain and pressure that started just prior to arrival as well as lip paresthesias. Patient states that she had a stroke a few years ago which left her with right-sided weakness. She is unsure if she feels weaker at this time. She states over and over that she does not think she is having a stroke. Patient complaining of right upper back and neck pain as well. She denies any recent illness. TRAVEL OUTSIDE OF THE [place] IN LAST 30 DAYS: No - HPI Onset: Just prior to arrival - Related Data Allergies/Adverse Reactions: lisinopril [Lisinopril] Allergy (Severe, Verified 09/26/17 16:35) Edema phenytoin sodium extended [From Dilantin] Allergy (Severe, Verified 09/26/17 16: 35) Unknown reaction risperidone [From Risperdal] Allergy (Intermediate, Verified 09/26/17 16:35) Hives venlafaxine HCl [From Effexor] Allergy (Intermediate, Verified 09/26/17 16:35) Hives Past Medical History - General Information source: Patient, Relative, Emergency Med Personnel, [facility] Records - Social History Smoking Status: Unknown if Ever Smoked Frequency of alcohol use: None Drug Abuse: None Lives with: Family Family History: Reviewed & Not Pertinent, Hypertension - Past Medical History Cardiac Medical History: Reports: Hx Hypercholesterolemia, Hx Hypertension Denies: Hx Heart Attack Pulmonary Medical History: Reports: Hx Asthma, Hx COPD, Hx Pneumonia Denies: Hx Tuberculosis Neurological Medical History: Reports: Hx Seizures - 18-19 YEARS AGO. Denies: Hx Cerebrovascular Accident Endocrine Medical History: Reports: Hx Diabetes Mellitus Type 2 Renal/ Medical History: Denies: Hx Peritoneal Dialysis GI Medical History: Reports: Hx Gastroesophageal Reflux Disease. Denies: Hx Hepatitis, Hx Hiatal Hernia, Hx Ulcer Musculoskeltal Medical History: Reports Hx Arthritis, Reports Hx Fibromyalgia Psychiatric Medical History: Reports: Hx Depression, Hx Post Traumatic Stress Disorder, Hx Schizophrenia Infectious Medical History: Denies: Hx Hepatitis Past Surgical History: Reports: Hx Section, Hx Cholecystectomy, Hx Orthopedic Surgery - Toe. Denies: Hx Mastectomy, Hx Open Heart Surgery, Hx Pacemaker - Immunizations Hx Diphtheria, Pertussis, Tetanus Vaccination: Yes Review of Systems - Review of Systems Constitutional: Weakness. denies: Fever EENT: denies: Blurred vision Cardiovascular: denies: Chest pain, Lightheaded Respiratory: denies: Cough, Short of breath Gastrointestinal: denies: Abdominal pain Genitourinary: denies: Dysuria Female Genitourinary: No symptoms reported Musculoskeletal: Back pain, Joint pain Skin: denies: Rash Hematologic/Lymphatic: No symptoms reported Neurological/Psychological: Weakness, Numbness. denies: Headaches -: Yes All other systems reviewed and negative Physical Exam - Vital signs Vitals: Resp Pulse Ox 18 96 02/07/18 19:43 02/07/18 19:43 - Notes Notes: PHYSICAL EXAMINATION: GENERAL: Well-appearing, well-nourished and in no acute distress. HEAD: Atraumatic, normocephalic. EYES: Pupils equal round and reactive to light, extraocular movements intact, conjunctiva are normal. ENT: Nares patent, oropharynx clear without exudates. Moist mucous membranes. NECK: Normal range of motion, supple without lymphadenopathy LUNGS: Breath sounds clear to auscultation bilaterally and equal. No wheezes rales or rhonchi. HEART: Regular rate and rhythm without murmurs ABDOMEN: Soft, nontender, nondistended abdomen. No guarding, no rebound. No masses appreciated. Female : deferred Musculoskeletal: Normal range of motion, no pitting or edema. No cyanosis. NEUROLOGICAL: Cranial nerves grossly intact. Normal speech, normal gait. Normal sensory, motor exams. NIH-3 for right upper extremity drift and bilateral lower extremity drift PSYCH: Normal mood, normal affect. SKIN: Warm, Dry, normal turgor, no rashes or lesions noted. Course - Re-evaluation Re-evalutation: Laboratory 02/07/18 02/07/18 02/07/18 19:35 19:35 19:35 WBC 10.6 H RBC 4.28 Hgb 12.3 Hct 36.1 MCV 85 MCH 28.8 MCHC 34.1 RDW 14.8 H Plt Count 283 Seg Neutrophils % 62.4 Lymphocytes % 26.4 Monocytes % 7.7 Eosinophils % 2.7 Basophils % 0.8 Absolute Neutrophils 6.6 Absolute Lymphocytes 2.8 Absolute Monocytes 0.8 Absolute Eosinophils 0.3 Absolute Basophils 0.1 PT 12.7 INR 0.91 APTT 26.9 Sodium 144.0 Potassium 4.4 Chloride 103 Carbon Dioxide 26 Anion Gap 15 BUN 17 Creatinine 0.78 Est GFR ( Amer) > 60 Est GFR (Non-Af Amer) > 60 Glucose 101 Calcium 9.7 Total Bilirubin 0.4 Direct Bilirubin 0.4 Neonat Total Bilirubin Not Reportable Neonat Direct Bilirubin Not Reportable Neonat Indirect Bili Not Reportable AST 23 ALT 21 Alkaline Phosphatase 123 Creatine Kinase 131 CK-MB (CK-2) Troponin I Total Protein 8.0 Albumin 4.5 02/07/18 19:35 WBC RBC Hgb Hct MCV MCH MCHC RDW Plt Count Seg Neutrophils % Lymphocytes % Monocytes % Eosinophils % Basophils % Absolute Neutrophils Absolute Lymphocytes Absolute Monocytes Absolute Eosinophils Absolute Basophils PT INR APTT Sodium Potassium Chloride Carbon Dioxide Anion Gap BUN Creatinine Est GFR ( Amer) Est GFR (Non-Af Amer) Glucose Calcium Total Bilirubin Direct Bilirubin Neonat Total Bilirubin Neonat Direct Bilirubin Neonat Indirect Bili AST ALT Alkaline Phosphatase Creatine Kinase CK-MB (CK-2) 1.31 Troponin I < 0.012 Total Protein Albumin Chest X-Ray 02/07/18 19:26 IMPRESSION: Borderline cardiomegaly without failure. Cannot exclude very limited left lower lobe infiltrate. Head CT 02/07/18 19:26 IMPRESSION: NORMAL BRAIN CT WITHOUT CONTRAST. EVIDENCE OF ACUTE STROKE: NO. Head MRI 02/07/18 19:58 IMPRESSION: There is a small area of abnormal diffusion in the right temporal lobe. This spares the cortex. Cannot entirely exclude acute infarction. EVIDENCE OF ACUTE STROKE: Possible 67-year-old female with coronary artery disease, COPD, type 2 diabetes, previous CVA presents with complaint of right shoulder pain and pressure that started just prior to arrival as well as lip paresthesias. Patient states that she had a stroke a few years ago which left her with right-sided weakness. She is unsure if she feels weaker at this time. She states over and over that she does not think she is having a stroke. Patient complaining of right upper back and neck pain as well. She denies any recent illness. Patient was seen by myself upon arrival. Vital signs were reviewed. Patient is afebrile, normotensive and not hypoxic. Patient does not appear toxic or dehydrated. They are in no acute distress. Previous medical records and nursing notes reviewed. Patient's initial NIH stroke scale is 3 for right upper extremity drift and bilateral lower extremity drift. 02/07/18 23:03 [facility] contacted for neurology consult. 02/07/18 23:[address] Marmolejo neurology from [facility] and discussed the MRI findings. He agrees that the patient should not receive TPA with an improving NIH score which is now 2. 02/07/18 23:44 02/08/18 00:[address] Renee neurologist at [facility] 02/08/18 00:16 Contacted the patient's son Julius Ramos to make him aware that his mother will be transferred. [phone] 02/08/18 03:18 02/08/18 03:18 - Vital Signs Vital signs: Temp Pulse Resp BP Pulse Ox 97.8 F 57 L 28 H 168/80 H 96 02/08/18 01:01 02/08/18 01:21 02/08/18 01:21 02/08/18 01:21 02/08/18 01:21 - Laboratory Result Diagrams: 02/07/18 19:35 02/07/18 19:35 Laboratory results interpreted by me: 02/07/18 19:35 WBC 10.6 H RDW 14.8 H - Diagnostic Test Radiology reviewed: Image reviewed, Reports reviewed Discharge - Discharge Clinical Impression: Numbness around mouth CVA (cerebral vascular accident) Qualifiers: CVA mechanism: unspecified Qualified Code(s): I63.9 - Cerebral infarction, unspecified Condition: Good Disposition: [facility] Referrals: RODGER MOROCHO MD [Primary Care Provider] - Follow up as needed ED NIH Stroke Scale - NIH Stroke Scale When completed:: Before Alteplase *: 1. NIH scale should be completed with appropriate accompanying assessment tools. *: 2. The NIH should reflect what the patient is capable of doing and should not be coached by the clinician. 1a. Level of Consciousness: 0=Alert;keenly responsive -: 1=Drowsy -: 2=Obtunded -: 3=Coma/unresponsive or reflex to noxious stimuli. 1a. Responses: 0 1b. Orientation Questions: a. What month is it? -: b. How old are you? -: 0=Answers both questions correctly. -: 1=Answers one question correctly or patient is intubated or has orotracheal trauma. -: 2=Answers neither question correctly. 1b. Responses: 0 1c. Response to commands: a. Open and close eyes? -: b. Electrical Project Manager and release hand? -: Credit is given despite weakness. Demonstration of task is permitted. Substitute command if hands cannot be used. -: 0=Performs both tasks correctly -: 1=Performs one task correctly -: 2=Performs neither task correctly 1c. Responses: 0 2. Gaze: Establish eye contact and instruct patient to "Follow my finger" -: 0=Normal -: 1=Partial gaze palsy. Gaze is abnormal in one or both eyes, but where forced deviation or total gaze paresis is not present. -: 2=Forced deviation or total gaze paresis. 2. Responses: 0 3. Visual Grimes: Sees fingers in all four quadrants. -: 0=No visual loss. -: 1=Partial hemianopsia. -: 2=Complete hemianopsia. -: 3=Bilateral hemianopsia (including Cortical blindness) 3. Responses: 0 4. Facial Movement: Instruct patient to: -: a. Show me your teeth -: b. Raise your eyebrows -: c. Close your eyes -: d. Smile -: 0=Normal symmetrical movement -: 1=Minor paralysis (flattened nasolabial fold, asymmetry on smiling). -: 2=Partial paralysis (total or near total paralysis of lower face). -: 3=Complete paralysis of upper and lower face 4. Responses: 0 5. Motor functions (left arm): Alternate sides and extend each arm with palms down (90 degrees if sitting or 45 degrees for supine). -: 0=No drift;limb holds for full 10 seconds. -: 1=Drift; limb holds but drifts down before full 10 seconds, but does not hit bed. -: 2=Some effort against gravity; limb cannot get to or maintain position. -: 3=No effort against gravity; limb falls. -: 4=No movement. -: UN=Amputation, joint fusion, explain in comments. 5. Responses (left arm): 0 5. Motor Functions (right arm): Alternate sides and extend each arm with palms down (90 degrees if sitting or 45 degrees for supine). -: 0=No drift;limb holds for full 10 seconds. -: 1=Drift; limb holds but drifts down before full 10 seconds, but does not hit bed. -: 2=Some effort against gravity; limb cannot get to or maintain position. -: 3=No effort against gravity; limb falls. -: 4=No movement. -: UN=Amputation, joint fusion, explain in comments. 5. Responses (right arm): 0 6. Motor Functions (left leg): With patient lying supine, alternate sides and extend each leg (30 degrees always while supine). -: 0=No drift, leg holds position for full 5 seconds -: 1=Drift; leg falls before full 5 seconds but does not hit bed. -: 2=Some effort against gravity, leg falls to bed but some effort against gravity. -: 3=No effort against gravity, leg falls to bed immediately. -: 4=No movement. -: UN=Amputation, joint fusion; explain in comments. 6. Responses (left leg): 0 6. Motor Functions (right leg): With patient lying supine, alternate sides and extend each leg (30 degrees always while supine). -: 0=No drift, leg holds position for full 5 seconds -: 1=Drift; leg falls before full 5 seconds but does not hit bed. -: 2=Some effort against gravity, leg falls to bed but some effort against gravity. -: 3=No effort against gravity, leg falls to bed immediately. -: 4=No movement. -: UN=Amputation, joint fusion; explain in comments. 6. Responses (right leg): 0 7. Limb Ataxia: With eyes open instruct patient to: -: a. "Touch your finger to your nose". -: b. "Touch your heel to your king" -: 0=Absent -: 1=Present in one limb. -: 2=Present in two limbs. -: UN=Amputation or joint fusion; explain in comments. 7. Responses: 0 8. Sensory: Test sensation using pinprick or noxious stimuli. Test as many body parts as possible. -: 0=Normal;no sensory loss -: 1=Mile to moderate sensory loss (patient feels pin prick but is less sharp on affected side). -: 2=Severe or total sensory loss. 8. Responses: 0 9. Best Language: Instruct patient to: -: a. "Describe what you see in this picture." -: b. "Name the items in this picture." -: c. "Read these sentences." -: 0=No aphasia, normal -: 1=Mild to moderate aphasia. -: 2=Severe aphasia -: 3=Mute, global aphasia, no usable speech or auditory comprehension. 10. Articulation, Dysarthia: Instruct patient to: -: "Read these words" or "Repeat these words" -: 0=Normal -: 1=Mild to moderate; patient may slur some words but can be understood without difficulty. -: 2=Severe; patients speech so slurred as to be unintelligible in the absence of dysphasia. -: UN=Intubated or other physical barrier, explain in comments. 11. Extinction or inattention: 0=No abnormality -: 1= Visual, tactile, auditory, spatial, or personal inattention or extinction to bilateral simulation in one or the sensory modalities. -: 2=Profound jacquelyn-inattention or jacquelyn-inattention to more than one modality; does not recognize own hand. Total Score: 0
[2018-02-07 19:51] LABS: INTERNATIONAL RATION (INR) 0.91; PROTHROMBIN TIME 12.7 SEC (11.4-15.4)
[2018-02-07 19:52] LABS: PARTIAL THROMBOPLASTIN TIME 26.9 SEC (23.5-35.8)
--- NOTE | 2018-02-07 19:59 | RADIOLOGY REPORT (SQ) ---
EXAM DESCRIPTION: CT HEAD WITHOUT COMPLETED DATE/TIME: 02/07/2018 7:34 pm REASON FOR STUDY: right-sided weakness COMPARISON: 04/07/2017 TECHNIQUE: Axial images acquired through the brain without intravenous contrast. Images reviewed wi th bone, brain and subdural windows. Additional sagittal and coronal reconstructions were generated. Images stored on PACS. All CT scanners at this facility use dose modulation, iterative reconstruction, and/or weight based d osing when appropriate to reduce radiation dose to as low as reasonably achievable (ALARA). [facility]: Dose Right [facility]: CareDose [facility]: Dose Right [facility]: Teradose 4D [facility]: Smart Sossee RADIATION DOSE: CT Rad equipment meets quality standard of care and radiation dose reduction techniq ues were employed. CTDIvol: 53.2 mGy. DLP: 1529 mGy-cm. mGy. LIMITATIONS: None. FINDINGS: VENTRICLES: Normal size and contour. CEREBRUM: No masses. No hemorrhage. No midline shift. No evidence for acute infarction. Normal gra y/white matter differentiation. No areas of low density in the white matter. CEREBELLUM: No masses. No hemorrhage. No alteration of density. No evidence for acute infarction. EXTRAAXIAL SPACES: No fluid collections. No masses. ORBITS AND GLOBE: No intra- or extraconal masses. Normal contour of globe without masses. CALVARIUM: No fracture. PARANASAL SINUSES: No fluid or mucosal thickening. SOFT TISSUES: No mass or hematoma. OTHER: No other significant finding. IMPRESSION: NORMAL BRAIN CT WITHOUT CONTRAST. EVIDENCE OF ACUTE STROKE: NO. COMMENT: Findings were discussed with the ordering physician at 1954 hours on this date. Quality ID # [id number]: Final reports with documentation of one or more dose reduction techniques (e.g., Au tomated exposure control, adjustment of the mA and/or kV according to patient size, use of iterative reconstruction technique) TECHNICAL DOCUMENTATION: JOB ID: [id number] [employer]- All Rights Reserved Reading location - IP/workstation name: [email or web address]
--- NOTE | 2018-02-07 20:01 | RADIOLOGY REPORT (SQ) ---
EXAM DESCRIPTION: CHEST SINGLE VIEW COMPLETED DATE/TIME: 02/07/2018 7:35 pm REASON FOR STUDY: right-sided weakness COMPARISON: 09/26/2017 EXAM PARAMETERS: NUMBER OF VIEWS: One view. TECHNIQUE: Single frontal radiographic view of the chest acquired. RADIATION DOSE: NA LIMITATIONS: None. FINDINGS: LUNGS AND PLEURA: There is slight haziness in the left base is slightly blurs the left hem idiaphragm. MEDIASTINUM AND HILAR STRUCTURES: No masses. Contour normal. HEART AND VASCULAR STRUCTURES: Heart size is borderline. No evidence of failure. BONES: No acute findings. HARDWARE: None in the chest. OTHER: No other significant finding. IMPRESSION: Borderline cardiomegaly without failure. Cannot exclude very limited left lower lobe in filtrate. TECHNICAL DOCUMENTATION: JOB ID: [id number] [employer]- All Rights Reserved Reading location - IP/workstation name: [email or web address]
[2018-02-07 20:07] LABS: ALANINE AMINOTRANSFERASE 21 U/L (9-52); ALBUMIN 4.5 g/dL (3.5-5.0); ALKALINE PHOSPHATASE 123 U/L (38-126); ANION GAP 15 (5-19); ASPARTATE AMINO TRANSFERASE 23 U/L (14-36); BILIRUBIN,DIRECT 0.4 mg/dL (0.0-0.4); BILIRUBIN,TOTAL 0.4 mg/dL (0.2-1.3); BLOOD UREA NITROGEN 17 mg/dL (7-20); CALCIUM 9.7 mg/dL (8.4-10.2); CARBON DIOXIDE 26 mmol/L (22-30); CHLORIDE 103 mmol/L (98-107); CREATINE KINASE 131 U/L (30-135); GLUCOSE 101 mg/dL (75-110); PLATELET COUNT 283 10^3/uL (150-450); POTASSIUM 4.4 mmol/L (3.6-5.0)
[2018-02-07 20:17] LABS: CREATINE KINASE MB 1.31 ng/mL (<4.55)
[2018-02-07 20:18] LABS: TROPONIN I < 0.012 ng/mL
--- NOTE | 2018-02-07 20:45 | EKG REPORT ---
SEVERITY:- BORDERLINE ECG - SINUS RHYTHM LVH BY VOLTAGE : Confirmed by: Doris Yeboah MD 07-Feb-2018 20:44:30
--- NOTE | 2018-02-07 22:27 | RADIOLOGY REPORT (SQ) ---
EXAM DESCRIPTION: MRI HEAD WITHOUT COMPLETED DATE/TIME: 02/07/2018 9:33 pm REASON FOR STUDY: oral parasthesia COMPARISON: None. TECHNIQUE: Multiplanar imaging includes non-contrasted T1, T2, FLAIR, and diffusion with ADC map seq uences. Images stored on PACS. LIMITATIONS: None. FINDINGS: ANATOMY: No anomalies. Normal vascular flow voids. Pituitary fossa normal. CSF SPACES: Normal in size and contour. No hemorrhage. CEREBRUM: Sulci and gyri normal in size and contour. Normal white matter signal on FLAIR imaging. No evidence of hemorrhage, mass, or extraaxial fluid collection. POSTERIOR FOSSA: No signal alteration. No hemorrhage. No edema, masses or mass effect. Internal twyla tory canals, cerebello-pontine angles, mastoids normal. DIFFUSION IMAGING: There is a small area abnormal diffusion in the right temporal lobe. ORBITS: No masses. Globes normal. PARANASAL SINUSES: No fluid levels. Mucosa normal. OTHER: No other significant finding. IMPRESSION: There is a small area of abnormal diffusion in the right temporal lobe. This spares the cortex. Cannot entirely exclude acute infarction. EVIDENCE OF ACUTE STROKE: Possible COMMENT: Findings were discussed with the ordering physician at 2221 hours on this date. TECHNICAL DOCUMENTATION: JOB ID: [id number] [employer]- All Rights Reserved Reading location - IP/workstation name: [email or web address]
[2018-02-07] MEDS ORDERED: OXYCODONE-ACETAMINOPHEN 5-325 MG TABLET PO ONE (23:36)
[2018-02-08 02:02] VITALS: BP 163/75
== END 2018-02-08 01:35 | disposition short-term general hospital (02) ==
LOC: ER 19:21
DX: I63.9 Cerebral infarction, unspecified (principal); R20.0 Anesthesia of skin; I69.351 Hemiplegia and hemiparesis following cerebral infarction affecting right dominant side; I10 Essential (primary) hypertension; I25.10 Atherosclerotic heart disease of native coronary artery without angina pectoris; E11.9 Type 2 diabetes mellitus without complications; J44.9 Chronic obstructive pulmonary disease, unspecified; M25.511 Pain in right shoulder; M54.89 Other dorsalgia; M54.2 Cervicalgia; Z88.8 Allergy status to other drugs, medicaments and biological substances
CPT/HCPCS: 93005; 99285; 36415; 82553; 82550; 85025; 85610; 85730; 80053; 84484; 70551; 71045; 70450; 93010; A9270

== ENCOUNTER 2018-02-16 18:56 | Observation (INO) | payer MEDICARE, MEDICAID ==
[~2018-02-16 18:56] MED LIST: REGADENOSON INJ 0.4 MG/5 ML DISP.SYRIN IV ONE
--- NOTE | 2018-02-16 19:21 | RADIOLOGY REPORT (SQ) ---
EXAM DESCRIPTION: CHEST SINGLE VIEW COMPLETED DATE/TIME: 02/16/2018 7:12 pm REASON FOR STUDY: bed 10 cp COMPARISON: 02/07/2018 EXAM PARAMETERS: NUMBER OF VIEWS: One view. TECHNIQUE: Single frontal radiographic view of the chest acquired. RADIATION DOSE: NA LIMITATIONS: None. FINDINGS: LUNGS AND PLEURA: No acute opacities, masses or pneumothorax. No pleural effusion. MEDIASTINUM AND HILAR STRUCTURES: State HEART AND VASCULAR STRUCTURES: Heart upper limits of normal in size. Normal vasculature. BONES: No acute findings. HARDWARE: None in the chest. OTHER: No other significant finding. IMPRESSION: NO ACUTE RADIOGRAPHIC FINDING IN THE CHEST. TECHNICAL DOCUMENTATION: JOB ID: [id number] [employer]- All Rights Reserved Reading location - IP/workstation name: [email or web address]
--- NOTE | 2018-02-16 19:28 | ER Document Report ---
ED General - General Stated Complaint: CHEST PAIN Time Seen by Provider: 02/16/18 19:21 Mode of Arrival: Medic Information source: Patient Notes: 67-year-old female who had recent CVA and was admitted at [facility] presents with complaints of chest pressure sensation. Patient notes she had a stress test 1 years ago denies any previous chest pain syndromes denies having a heart cath, patient denies any fevers or chills notes it is a pressure sensation midsternal radiating to her back. She denies any nausea or vomiting associated with it EMS on the rhythm strip had a possible Mepry-Onhdqnboh-Kmusb syndrome however that strip is now missing TRAVEL OUTSIDE OF THE [place] IN LAST 30 DAYS: No - HPI Onset: Just prior to arrival Onset/Duration: Sudden Quality of pain: Pressure Severity: Mild Pain Level: 1 Associated symptoms: Chest pain Exacerbated by: Denies Relieved by: Denies Similar symptoms previously: No Recently seen / treated by doctor: Yes - Related Data Allergies/Adverse Reactions: lisinopril [Lisinopril] Allergy (Severe, Verified 09/26/17 16:35) Edema phenytoin sodium extended [From Dilantin] Allergy (Severe, Verified 09/26/17 16: 35) Unknown reaction risperidone [From Risperdal] Allergy (Intermediate, Verified 09/26/17 16:35) Hives venlafaxine HCl [From Effexor] Allergy (Intermediate, Verified 09/26/17 16:35) Hives Past Medical History - Social History Smoking Status: Never Smoker Cigarette use (# per day): No Chew tobacco use (# tins/day): No Smoking Education Provided: No Family History: Reviewed & Not Pertinent, Hypertension - Past Medical History Cardiac Medical History: Reports: Hx Hypercholesterolemia, Hx Hypertension Denies: Hx Heart Attack Pulmonary Medical History: Reports: Hx Asthma, Hx COPD, Hx Pneumonia Denies: Hx Tuberculosis Neurological Medical History: Reports: Hx Seizures - 18-19 YEARS AGO. Denies: Hx Cerebrovascular Accident Endocrine Medical History: Reports: Hx Diabetes Mellitus Type 2 Renal/ Medical History: Denies: Hx Peritoneal Dialysis GI Medical History: Reports: Hx Gastroesophageal Reflux Disease. Denies: Hx Hepatitis, Hx Hiatal Hernia, Hx Ulcer Musculoskeletal Medical History: Reports Hx Arthritis, Reports Hx Fibromyalgia Psychiatric Medical History: Reports: Hx Depression, Hx Post Traumatic Stress Disorder, Hx Schizophrenia Infectious Medical History: Denies: Hx Hepatitis Past Surgical History: Reports: Hx Section, Hx Cholecystectomy, Hx Orthopedic Surgery - Toe. Denies: Hx Mastectomy, Hx Open Heart Surgery, Hx Pacemaker - Immunizations Hx Diphtheria, Pertussis, Tetanus Vaccination: Yes Review of Systems - Review of Systems Notes: REVIEW OF SYSTEMS: CONSTITUTIONAL : Denies fever, chills, or sweats. Denies recent illness. EENT: Denies eye, ear, throat, or mouth pain or symptoms. Denies nasal or sinus congestion or discharge. Denies throat, tongue, or mouth swelling or difficulty swallowing. CARDIOVASCULAR: Admits chest pain RESPIRATORY: Denies cough, cold, or chest congestion. Denies shortness of breath, difficulty breathing, or wheezing. GASTROINTESTINAL: Denies abdominal pain or distention. Denies nausea, vomiting , or diarrhea. Denies blood in vomitus, stools, or per rectum. Denies black, tarry stools. Denies constipation. GENITOURINARY: Denies difficulty urinating, painful urination, burning, frequency, blood in urine, or discharge. FEMALE GENITOURINARY: Denies vaginal bleeding, heavy or abnormal periods, irregular periods. Denies vaginal discharge or odor. MUSCULOSKELETAL: Denies back or neck pain or stiffness. Denies joint pain or swelling. SKIN: Denies rash, lesions or sores. HEMATOLOGIC : Denies easy bruising or bleeding. LYMPHATIC: Denies swollen, enlarged glands. NEUROLOGICAL: Denies confusion or altered mental status. Denies passing out or loss of consciousness. Denies dizziness or lightheadedness. Denies headache. Denies weakness or paralysis or loss of use of either side. Denies problems with gait or speech. Denies sensory loss, numbness, or tingling. Denies seizures. PSYCHIATRIC: Denies anxiety or stress. Denies depression, suicidal ideation, or homicidal ideation. ALL OTHER SYSTEMS REVIEWED AND NEGATIVE. PHYSICAL EXAMINATION: GENERAL: Well-appearing, well-nourished and in no acute distress. HEAD: Atraumatic, normocephalic. EYES: Pupils equal round and reactive to light, extraocular movements intact, conjunctiva are normal. ENT: Nares patent, oropharynx clear without exudates. Moist mucous membranes. NECK: Normal range of motion, supple without lymphadenopathy LUNGS: Breath sounds clear to auscultation bilaterally and equal. No wheezes rales or rhonchi. HEART: Regular rate and rhythm without murmurs ABDOMEN: Soft, nontender, nondistended abdomen. No guarding, no rebound. No masses appreciated. Female : deferred Musculoskeletal: Normal range of motion, no pitting or edema. No cyanosis. NEUROLOGICAL: Cranial nerves grossly intact. Normal speech, normal gait. Normal sensory, motor exams PSYCH: Normal mood, normal affect. SKIN: Warm, Dry, normal turgor, no rashes or lesions noted. Dictation was performed using [employer] Display System voice recognition software Physical Exam - Vital signs Vitals: Resp 16 02/16/18 19:12 Course - Re-evaluation Re-evalutation: 02/16/18 19:34 The nurse was able to find the strip, a delta wave is noted in aVF otherwise I do not see any other signs of Wpesr-Rmyrickqy-Uowvr syndrome, patient overall looks well lab work pending - Vital Signs Vital signs: Temp Pulse Resp BP Pulse Ox 97.8 F 18 130/68 H 97 02/16/18 19:13 02/16/18 19:13 02/16/18 19:13 02/16/18 19:13 - Laboratory Result Diagrams: 02/16/18 20:08 02/16/18 20:08 Laboratory results interpreted by me: 02/16/18 02/16/18 20:08 20:08 Hct 35.0 L RDW 14.8 H Sodium 145.2 H AST 43 H Discharge - Discharge Clinical Impression: Chest pain Qualifiers: Chest pain type: unspecified Qualified Code(s): R07.9 - Chest pain, unspecified Condition: Stable Disposition: ADMITTED OBSERVATION Admitting Provider: Hospitalist Unit Admitted: Telemetry Referrals: RODGER MOROCHO MD [Primary Care Provider] - Follow up as needed
[2018-02-16] MEDS ORDERED: NITROGLYCERIN 0.4 MG/TAB 25 TAB/BOTTLE SL PRN (19:33)
[2018-02-16 20:22] LABS: ABSOLUTE BASOPHILS # (AUTO) 0.1 10^3/uL (0.0-0.2); ABSOLUTE EOSINOPHILS # (AUTO) 0.4 10^3/uL (0.0-0.6); ABSOLUTE LYMPHOCYTES (AUTO) 2.1 10^3/uL (0.5-4.7); ABSOLUTE MONOCYTES (AUTO) 0.8 10^3/uL (0.1-1.4); ABSOLUTE NEUT (AUTO) 7.1 10^3/uL (1.7-8.2); BASOPHILS % (AUTO) 0.9 % (0-2); EOSINOPHILS % (AUTO) 3.8 % (0-6); LYMPHOCYTES % (AUTO) 19.8 % (13-45); MEAN CORPUSCULAR HEMOGLOBIN 28.4 pg (27.0-33.4); MEAN CORPUSCULAR HGB CONC 34.2 g/dL (32.0-36.0); MEAN CORPUSCULAR VOLUME 83 fl (80-97); MONOCYTES % (AUTO) 7.4 % (3-13); RED BLOOD COUNT 4.22 10^6/uL (3.72-5.28); RED CELL DISTRIBUTION WIDTH 14.8 % (11.5-14.0); SEGMENTED NEUTROPHILS % (AUTO) 68.1 % (42-78); TOTAL CELLS COUNTED % (AUTO) 100 %; WHITE BLOOD COUNT 10.4 10^3/uL (4.0-10.5)
[2018-02-16 20:36] LABS: ALANINE AMINOTRANSFERASE 21 U/L (9-52); ALBUMIN 4.2 g/dL (3.5-5.0); ALKALINE PHOSPHATASE 119 U/L (38-126); ANION GAP 10 (5-19); ASPARTATE AMINO TRANSFERASE 43 U/L (14-36); BILIRUBIN,DIRECT 0.4 mg/dL (0.0-0.4); BILIRUBIN,TOTAL 0.4 mg/dL (0.2-1.3); BLOOD UREA NITROGEN 20 mg/dL (7-20); CALCIUM 9.2 mg/dL (8.4-10.2); CARBON DIOXIDE 29 mmol/L (22-30); CHLORIDE 106 mmol/L (98-107); CREATINE KINASE 127 U/L (30-135); GLUCOSE 98 mg/dL (75-110); POTASSIUM 3.9 mmol/L (3.6-5.0); SODIUM 145.2 mmol/L (137-145); TOTAL PROTEIN 7.9 g/dL (6.3-8.2)
[2018-02-16 20:39] LABS: PLATELET COUNT 291 10^3/uL (150-450)
[2018-02-16 20:47] LABS: CREATINE KINASE MB 1.17 ng/mL (<4.55)
[2018-02-16 20:48] LABS: TROPONIN I < 0.012 ng/mL
--- NOTE | 2018-02-16 23:10 | EKG REPORT ---
SEVERITY:- NORMAL ECG - SINUS RHYTHM : Confirmed by: Pedrito Moon 16-Feb-2018 23:09:30
[2018-02-17] MEDS ORDERED: DEXTROSE 40% GEL 15 GM TUBE PO PRN ×2 (00:02)
[2018-02-17] MEDS ORDERED: ONDANSETRON HCL INJ/PF 4 MG/2 ML SDV IV PRN (00:02)
[2018-02-17] MEDS ORDERED: ACETAMINOPHEN 325 MG TABLET PO PRN (00:02)
[2018-02-17] MEDS ORDERED: GLUCAGON,HUMAN RECOMB 1 MG INJ SUBCUT PRN (00:02)
[2018-02-17] MEDS ORDERED: DEXTROSE 50%-WATER 25 GM/50 ML DISP.SYRIN IV PRN ×2 (00:02)
[2018-02-17] MEDS ORDERED: MAG HYDROX/AL HYDROX/SIMETH SUSP 30 ML UDCUP PO PRN (00:02)
[2018-02-17] MEDS ORDERED: NORMAL SALINE 1000 ML 1,000 ML IV PRN (00:02)
[2018-02-17] MEDS ORDERED: MAGNESIUM HYDROXIDE SUSP 30 ML UDCUP PO PRN (00:02)
[2018-02-17 02:50] LABS: ABSOLUTE BASOPHILS # (AUTO) 0.1 10^3/uL (0.0-0.2); ABSOLUTE EOSINOPHILS # (AUTO) 0.3 10^3/uL (0.0-0.6); ABSOLUTE LYMPHOCYTES (AUTO) 1.8 10^3/uL (0.5-4.7); ABSOLUTE MONOCYTES (AUTO) 0.7 10^3/uL (0.1-1.4); ABSOLUTE NEUT (AUTO) 4.8 10^3/uL (1.7-8.2); BASOPHILS % (AUTO) 0.7 % (0-2); EOSINOPHILS % (AUTO) 3.8 % (0-6); HEMATOCRIT 33.8 % (36.0-47.0); HEMOGLOBIN 11.5 g/dL (12.0-15.5); LYMPHOCYTES % (AUTO) 23.6 % (13-45); MEAN CORPUSCULAR HEMOGLOBIN 28.5 pg (27.0-33.4); MEAN CORPUSCULAR VOLUME 84 fl (80-97); MONOCYTES % (AUTO) 9.2 % (3-13); PLATELET COUNT 248 10^3/uL (150-450); RED BLOOD COUNT 4.03 10^6/uL (3.72-5.28); RED CELL DISTRIBUTION WIDTH 14.9 % (11.5-14.0); SEGMENTED NEUTROPHILS % (AUTO) 62.7 % (42-78); TOTAL CELLS COUNTED % (AUTO) 100 %; WHITE BLOOD COUNT 7.7 10^3/uL (4.0-10.5)
[2018-02-17 03:04] LABS: ANION GAP 9 (5-19); BLOOD UREA NITROGEN 18 mg/dL (7-20); CARBON DIOXIDE 30 mmol/L (22-30); CHLORIDE 111 mmol/L (98-107); CREATINE KINASE 97 U/L (30-135); GLUCOSE 95 mg/dL (75-110); LIPASE 92.3 U/L (23-300); POTASSIUM 3.9 mmol/L (3.6-5.0); SODIUM 149.6 mmol/L (137-145)
[2018-02-17 03:16] LABS: CREATINE KINASE MB 0.95 ng/mL (<4.55)
[2018-02-17 03:19] LABS: TROPONIN I < 0.012 ng/mL
[2018-02-17] MEDS: TIZANIDINE HCL 4 MG TABLET PO SCH ×3 (05:27→21:46)
[2018-02-17] MEDS: HYDROCODONE/ACETAMINOPHEN 5-325 MG TABLET PO SCH ×3 (05:27→21:50)
[2018-02-17] MEDS: LANSOPRAZOLE 30 MG TAB.RAP.DR PO SCH (05:28)
--- NOTE | 2018-02-17 05:39 | PDOC H&P ---
History of Present Illness Admission Date/PCP: 02/17/18 00:02 RODGER MOROCHO MD Patient complains of: Chest pain History of Present Illness: KORY GALLO is a 67 year old female with history of multiple medical problems that would be mentioned below presented to the emergency room with acute onset of midsternal chest pain felt as pressure and graded 8/10 in severity with no nausea vomiting or diaphoresis. She admitted to [facility] but did not feel clammy. She denies any dyspnea or palpitations or radiation with her pain. No leg pain or edema or recent travels or surgeries. She was just discharged yesterday from by the [facility] after being admitted there for acute CVA with right-sided hemiparesis for which she was seen here in the ER about a week ago and transferred there. When she came to the emergency room, EKG showed normal sinus rhythm with a rate of 63. She was given 1 sublingual nitroglycerin by EMS with remarkable improvement of her chest pain. Her vital signs were within normal here. Labs were remarkable for minimal height 33 minute and an AST of 43 with negative cardiac enzymes. She takes aspirin for her CVA. Chest x-ray showed no acute cardiopulmonary disease. She will be admitted to an observation telemetry bed for further evaluation and management. Past Medical History Cardiac Medical History: Reports: Hyperlipidema, Hypertension Denies: Myocardial Infarction Pulmonary Medical History: Reports: Asthma, Chronic Obstructive Pulmonary Disease (COPD), Pneumonia Denies: Tuberculosis Neurological Medical History: Reports: Ischemic CVA, Seizures - 18-19 YEARS AGO Endocrine Medical History: Reports: Diabetes Mellitus Type 2 GI Medical History: Reports: Gastroesophageal Reflux Disease Denies: Hepatitis, Hiatal Hernia Musculoskeltal Medical History: Reports: Arthritis, Fibromyalgia Psychiatric Medical History: Reports: Depression, Post Traumatic Stress Disorder Hematology: Reports: Anemia Denies: Sickle Cell Disease Past Surgical History Past Surgical History: Reports: Section, Cholecystectomy, Orthopedic Surgery - Toe Denies: Amputation, Mastectomy, Pacemaker Social History Smoking Status: Never Smoker Frequency of Alcohol Use: None Hx Recreational Drug Use: No Drugs: None Hx Prescription Drug Abuse: No - Advance Directive Resuscitation Status: Full Code Family History Family History: CAD, CVA, DM, Hypertension, Malignancy Parental Family History Reviewed: Yes Children Family History Reviewed: Yes Sibling(s) Family History Reviewed.: Yes Medication/Allergy Home Medications: Amlodipine Besylate [Norvasc 5 mg Tablet] 5 mg PO DAILY 02/16/18 Aspirin [Ecotrin 325 mg EC Tablet] 325 mg PO DAILY 02/16/18 Cephalexin Monohydrate [Keflex 500 mg Capsule] 500 mg PO Q12 02/16/18 Duloxetine HCl [Cymbalta] 60 mg PO DAILY 02/16/18 Gabapentin [Neurontin 400 mg Capsule] 400 mg PO TID 02/16/18 Hydrocodone/Acetaminophen [[place] 5-325 mg Tablet] 1 tab PO Q8 02/16/18 Metoprolol Succinate [Toprol Xl 50 mg Tab.sr] 50 mg PO QHS 02/16/18 Montelukast Sodium [Singulair 10 mg Tablet] 10 mg PO DAILY 02/16/18 Omeprazole 20 mg PO QHS 02/16/18 Pravastatin Sodium [Pravachol] 40 mg PO QHS 02/16/18 Prazosin HCl [Minipress] 2 mg PO QHS 02/16/18 Tizanidine HCl [Zanaflex] 2 mg PO Q8 02/16/18 Allergies/Adverse Reactions: lisinopril [Lisinopril] Allergy (Severe, Verified 09/26/17 16:35) Edema phenytoin sodium extended [From Dilantin] Allergy (Severe, Verified 09/26/17 16: 35) Unknown reaction risperidone [From Risperdal] Allergy (Intermediate, Verified 09/26/17 16:35) Hives venlafaxine HCl [From Effexor] Allergy (Intermediate, Verified 09/26/17 16:35) Hives Review of Systems Review of Systems: As per history of present illness. All pertinent systems were reviewed above. Constitutional, HEENT, cardiovascular, respiratory, GI, , musculoskeletal, neuro, psychiatric, endocrine, integumentary and hematologic systems were reviewed and are otherwise negative/unremarkable except for positive findings mentioned above in the HPI. Physical Exam Vital Signs: Temp Pulse Resp BP Pulse Ox 97.8 F 70 17 132/76 H 97 02/16/18 19:13 02/17/18 02:00 02/16/18 23:01 02/16/18 23:01 02/16/18 23:01 Exam: Generally: Very pleasant elderly -Syrian female in no acute distress Vital signs-as listed Head - atraumatic, normocephalic. Pupils - equal, round and reactive to light and accommodation. Extraocular movements are intact. No scleral icterus. Oropharynx - moist mucous membranes and tongue. No pharyngeal erythema or exudate. Neck - supple. No JVD. Carotid pulses 2+ bilaterally. No carotid bruits. No palpable thyromegaly or lymphadenopathy. Cardiovascular - regular rate and rhythm. Normal S1 and S2. No murmurs, gallops or rubs. Lungs - clear to auscultation bilaterally. Abdomen - soft and nontender. Positive bowel sounds. No palpable organomegaly or masses. Extremities - no pitting edema, clubbing or cyanosis. Neuro -nerves II through XII grossly intact. Muscle strength were 4/5 on the right upper and lower extremities compared to 5/5 in the left upper and lower extremities. Gait was not tested Skin - no rashes. Breast, pelvic and rectal - deferred Results Laboratory Results: 02/17/18 02:30 02/17/18 02:30 02/17/18 02/17/18 02:30 02:30 WBC 7.7 RBC 4.03 Hgb 11.5 L Hct 33.8 L MCV 84 MCH 28.5 MCHC 34.0 RDW 14.9 H Plt Count 248 Seg Neutrophils % 62.7 Lymphocytes % 23.6 Monocytes % 9.2 Eosinophils % 3.8 Basophils % 0.7 Absolute Neutrophils 4.8 Absolute Lymphocytes 1.8 Absolute Monocytes 0.7 Absolute Eosinophils 0.3 Absolute Basophils 0.1 Sodium 149.6 H Potassium 3.9 Chloride 111 H Carbon Dioxide 30 Anion Gap 9 BUN 18 Creatinine 0.93 Est GFR ( Amer) > 60 Est GFR (Non-Af Amer) > 60 Glucose 95 Calcium 9.0 Lipase 92.3 02/16/18 02/17/18 02/17/18 22:40 02:30 02:30 Creatine Kinase 97 CK-MB (CK-2) 0.95 Troponin I < 0.012 < 0.012 Impressions: Chest X-Ray 02/16/18 18:58 IMPRESSION: NO ACUTE RADIOGRAPHIC FINDING IN THE CHEST. Assessment & Plan - Diagnosis (1) Chest pain Qualifiers: Chest pain type: unspecified Qualified Code(s): R07.9 - Chest pain, unspecified Is this a current diagnosis for this admission?: Yes Plan: Chest pain, rule out acute coronary syndrome. The patient will be admitted to an observation telemetry bed. Will follow serial cardiac enzymes and EKGs. We will obtain a cardiology consult in a.m. for further cardiac risk stratification. The patient will be placed on aspirin as well as p.r.n. sublingual nitroglycerin and morphine sulfate for pain. (2) Essential hypertension Is this a current diagnosis for this admission?: Yes Plan: The patient Toprol-XL and Norvasc will be resumed. (3) Recent cerebrovascular accident (CVA) Is this a current diagnosis for this admission?: Yes Plan: The patient will be continued on aspirin as well as aspirin therapy and will continue physical therapy. (4) Type 2 diabetes mellitus Qualifiers: Diabetes mellitus complication detail: with unspecified neuropathy Is this a current diagnosis for this admission?: Yes Plan: The patient will be placed on supplemental coverage with NovoLog and will resume her Neurontin (5) DVT prophylaxis Is this a current diagnosis for this admission?: Yes Plan: Subcutaneous Lovenox - Plan Summary Plan Summary: The plan of care was discussed in details with the patient. I answered all questions. The patient agreed to proceed with the above-mentioned plan. The patient is presumably full code. This note was created by [employer] software and may contain typo errors that may have not been proofread.
[2018-02-17] MEDS ORDERED: INSULIN LISPRO 100 UNIT/ML 3 ML VIAL SUBCUT PRN (05:44)
[2018-02-17 09:01] LABS: CREATINE KINASE MB 0.76 ng/mL (<4.55)
[2018-02-17 09:05] LABS: TROPONIN I < 0.012 ng/mL
[2018-02-17] MEDS: DULOXETINE HCL 30 MG CAPSULE.DR PO SCH (10:24)
[2018-02-17] MEDS: ASPIRIN 325 MG TABLET, ENT COATED PO SCH (10:25)
[2018-02-17] MEDS: GABAPENTIN 400 MG CAPSULE PO SCH ×3 (10:25→17:09)
[2018-02-17] MEDS: MONTELUKAST SODIUM 10 MG TABLET PO SCH (10:25)
[2018-02-17] MEDS: AMLODIPINE BESYLATE 5 MG TABLET PO SCH (10:25)
[2018-02-17] MEDS: ENOXAPARIN SODIUM INJ 40 MG/0.4 ML DISP.SYRIN SUBCUT SCH (10:26)
[2018-02-17 17:02] LABS: CREATINE KINASE MB 0.66 ng/mL (<4.55)
[2018-02-17 17:04] LABS: TROPONIN I < 0.012 ng/mL
--- NOTE | 2018-02-17 20:50 | Progress Note ---
Provider Note Provider Note: This is a 67-year-old woman who was admitted to the hospital with midsternal chest pain/pressure. She has recently been discharged from a local [facility] where she was treated for stroke. She was discharged home for rehab. She had been home for 1 day and then came back into the ER with this chest pain. She had evaluation by dye penetrant testing technician today. She states that she is feeling much better. Youngest son is at her bedside. Has not had recurrence of the chest pain. Does not have any shortness of breath. No nausea vomiting constipation or diarrhea. She reports that her post stroke right-sided weakness is improving. He is able to walk. No dysuria. No abdominal pain. On exam she is awake alert and oriented no acute distress. Regular rate and rhythm without murmurs.'s are clear to auscultation bilaterally. Abdomen is soft nontender nondistended with normal bowel sounds. No lower extremity edema. Assessment/plan: Patient is stable. She has been seen by the dye penetrant testing technician. Echocardiogram and stress test are ordered as troponins 3 are negative. We will continue her aspirin for her recent stroke. If stress test is negative she will be discharged back to home to continue her physical therapy. For now we will continue telemetry medications as ordered.
[2018-02-17] MEDS ORDERED: DOXAZOSIN MESYLATE 4 MG TABLET PO SCH (22:00)
[2018-02-17] MEDS ORDERED: ATORVASTATIN CALCIUM 10 MG TABLET PO SCH (22:00)
--- NOTE | 2018-02-17 22:13 | EKG REPORT ---
SEVERITY:- BORDERLINE ECG - SINUS RHYTHM BORDERLINE T ABNORMALITIES, ANTERIOR LEADS : Confirmed by: Pedrito Moon 17-Feb-2018 22:13:10
[2018-02-18] MEDS: LANSOPRAZOLE 30 MG TAB.RAP.DR PO SCH (06:15)
[2018-02-18] MEDS: HYDROCODONE/ACETAMINOPHEN 5-325 MG TABLET PO SCH ×2 (06:15→11:08)
[2018-02-18] MEDS: TIZANIDINE HCL 4 MG TABLET PO SCH ×2 (06:15→14:30)
--- NOTE | 2018-02-18 09:44 | EKG REPORT ---
SEVERITY:- BORDERLINE ECG - SINUS RHYTHM BORDERLINE T ABNORMALITIES, DIFFUSE LEADS : Confirmed by: Pedrito Moon 18-Feb-2018 09:43:36
[2018-02-18] MEDS: MONTELUKAST SODIUM 10 MG TABLET PO SCH (10:59)
[2018-02-18] MEDS: DULOXETINE HCL 30 MG CAPSULE.DR PO SCH (10:59)
[2018-02-18] MEDS: GABAPENTIN 400 MG CAPSULE PO SCH ×3 (10:59→17:39)
[2018-02-18] MEDS: ENOXAPARIN SODIUM INJ 40 MG/0.4 ML DISP.SYRIN SUBCUT SCH (10:59)
[2018-02-18] MEDS: ASPIRIN 325 MG TABLET, ENT COATED PO SCH (11:00)
[2018-02-18] MEDS: AMLODIPINE BESYLATE 5 MG TABLET PO SCH (11:00)
--- NOTE | 2018-02-18 12:18 | DRAGON STRESS TEST REPORT ---
INTRAVENOUS LEXISCAN CARDIOLITE STRESS TEST USING SINGLE PHOTON EMMISION COMPUTERIZED TOMOGRAPHIC. DATE OF PROCEDURE: February 18, 2018, INDICATION : Chest pain CARDIAC RISK FACTORS: Diabetes, hypertension, dyslipidemia RESTING EKG: Sinus rhythm, no baseline ST-T wave changes noted STRESS EKG: No significant ST segment changes noted with LexiScan bolus REASON FOR TERMINATION: Protocol. PROCEDURE REPORT: Baseline heart rate 67 beats per minute with blood pressure of 140/59. Patient had no significant complaints. Patient was bolused with Lexiscan 0.4 mg intravenously followed by saline bolus. Heart rate at 2 minutes post bolus 111 with a blood pressure of 142/51. 3 minutes post bolus heart rate 103 with blood pressure of 149/55. No significant EKG changes were noted. Patient had no significant complaints during the procedure or postprocedure. CONCLUSIONS: Normal EKG and hemodynamic response to IV LexiScan. NUCLEAR DATA: At rest the patient was given 13.90 millicuries of technetium 99 sestamibi injected intravenously. As per protocol rest gated SPECT images were obtained. On day of stress test, the patient was given intravenous LexiScan at a dose of 0.4 mg in 5 mL intravenously, followed by flush with normal saline. Subsequently the stress dose of 41.2 millicuries of technetium 99 sestamibi was injected intravenously. As per protocol stress gated images were obtained. NUCLEAR INTERPRETATION: Both raw and processed data were used for interpretation. Visual, qualitative, computer-generated quantitative data was used. There was good myocardial uptake of technetium compound. Motion artifact and soft tissue attenuations were noted. Increased visceral uptake was noted. No definitive areas of transient perfusion defect noted, No definitive areas of fixed perfusion defect or scars noted. Borderline decreased uptake was noted in the distal anterior septum, this is felt to be related to soft tissue attenuation/breast attenuation. EKG gated imaging showed LV EF at 65 %, rest and stress gated EF similar visually. T. I D. ratio was 1.28. Lung heart ratio noted to be within normal limits 0.50. No significant extracardiac and abnormal radiotracer activities were noted. RV free wall uptake was noted to be WNL. IMPRESSION: Also refer to comments under nuclear interpretation. Also test results needs to be interpreted in the context of pretest probability. 1. No definitive areas of transient perfusion defect noted. 2. There is no definitive scintigraphic evidence of myocardial infarction/scar. 3. EKG gated imaging shows left ventricular ejection fraction of approx. 65 %. No wall motion abnormalities were noted. 4. Lung uptake was noted to be significantly increased. Consider parenchymal or other lung disease, CHF. Patient also noted to have borderline transient ischemic dilatation. Clinical correlation requested as occasionally single vessel disease or balanced ischemia could be missed. In approximately 10% of the cases Lexiscan may not cause adequate vasodilatory stress. RECOMMENDATIONS: Aggressive risk factor modification and medical management. Further evaluation may be needed if continued symptoms or other high risk indicators are noted on clinical evaluation. Recommend high resolution lung CT / if not allergic to contrast agent may consider CTA of the chest. Close cardiology follow-up is also recommended. Clinical correlation with echocardiogram derived ejection fraction. Inability to exercise by itself can lead to increased cardiovascular event risks. Consider cardiology consultation and or follow-up if clinically indicated. I am available for cardiology evaluation and consultation if requested by the lpn medical assistant, unless patient already has a cloth weigher. Dr. John Moon. MRCP Board certified in cardiology and sleep medicine. Board certified in nuclear cardiology, adult echocardiography. VARINDER
--- NOTE | 2018-02-18 12:53 | XCELERA REPORT ---
[address] [address] Transthoracic Echocardiogram Report Name: KORY GALLO Age: 67 yrs Gender: Female : 1950 Patient Status: Inpatient Patient Location: [address] [place] [address] Study Date: 02/17/2018 03:03 PM Height: 24 in Weight: 192 lb BSA: 0.94 m2 Procedure: A complete two-dimensional transthoracic echocardiogram was performed (2D, M-mode, spectral and color flow Doppler). The study was technically adequate with some images being suboptimal in quality. Reason For Study: chest pain in the ER Ordering Physician: PEDRITO TRUONG Performed By: Mitali Giordano Interpretation Summary The left ventricular ejection fraction is normal. There is borderline concentric left ventricular hypertrophy. The left ventricle is grossly normal size. Doppler measurements suggest pseudonormalized left ventricular relaxation, which is associated with grade II/IV or mild to moderate diastolic dysfunction Wall motion cannot be accurately commented on, but no definite regional wall motion abnormalities noted. The right ventricle is mildly dilated. The right ventricular systolic function is normal. The right atrium is borderline dilated. Borderline left atrial enlargement. There is no mitral valve stenosis. There is a mild amount of mitral regurgitation No aortic regurgitation is present. There is no aortic valve stenosis There is a mild amount of tricuspid regurgitation There is mild pulmonary hypertension by echo Best estimated RVSP is approximately 40 mm/Hg. The aortic root is not well visualized but is probably normal size. The inferior vena cava was not well visualized Minimal pericardial effusion. MMode/2D Measurements & Calculations RVDd: 2.6 cm LVIDd: 5.5 cm FS: 35.8 % Ao root diam: 2.8 cm IVSd: 0.84 cm LVIDs: 3.5 cm EDV(Teich): 145.2 ml LVPWd: 0.89 cm ESV(Teich): 51.1 ml Ao root area: 5.9 cm2 EF(Teich): 64.8 % LA dimension: 3.5 cm Doppler Measurements & Calculations MV E max lidia: MV P1/2t max lidia: Ao V2 max: LV V1 max P.7 cm/sec 79.6 cm/sec 165.3 cm/sec 5.0 mmHg MV A max lidia: MV P1/2t: 70.2 msec Ao max PG: LV V1 max: 95.3 cm/sec 10.9 mmHg 111.9 cm/sec MV E/A: 1.3 MVA(P1/2t): 3.1 cm2 MV dec slope: 332.1 cm/sec2 MV dec time: 0.24 sec PA V2 max: TR max lidia: 107.5 cm/sec 297.4 cm/sec PA max P.7 mmHgTR max P.4 mmHg Left Ventricle The left ventricle is grossly normal size. There is borderline concentric left ventricular hypertrophy. The left ventricular ejection fraction is normal. Doppler measurements suggest pseudonormalized left ventricular relaxation, which is associated with grade II/IV or mild to moderate diastolic dysfunction. Wall motion cannot be accurately commented on, but no definite regional wall motion abnormalities noted. Right Ventricle The right ventricle is mildly dilated. The right ventricular systolic function is normal. Atria The right atrium is borderline dilated. Borderline left atrial enlargement. Interarterial septum not well visualized and not well dopplered. Cannot comment on ASD/PFO presence. Mitral Valve The mitral valve is grossly normal. There is no mitral valve stenosis. There is a mild amount of mitral regurgitation. Aortic Valve The aortic valve is grossly normal. There is no aortic valve stenosis. No aortic regurgitation is present. Tricuspid Valve The tricuspid valve is not well visualized, but is grossly normal. There is no tricuspid stenosis. There is a mild amount of tricuspid regurgitation. There is mild pulmonary hypertension by echo. Best estimated RVSP is approximately 40 mm/Hg. Pulmonic Valve The pulmonic valve is not well visualized. Great Vessels The aortic root is not well visualized but is probably normal size. The inferior vena cava was not well visualized. Effusions Minimal pericardial effusion. : PEDRITO TRUONG > Pedrito Truong
--- NOTE | 2018-02-18 15:50 | PDOC DISCHARGE SUMMARY ---
General - Admit/Disc Date/PCP Admission Date/Primary Care Provider: 02/16/18 21:30 RODGER MOROCHO MD Discharge Date: 02/18/18 - Discharge Diagnosis (1) Chest pain Is this a current diagnosis for this admission?: Yes Summary: Patient was evaluated for substernal chest pain. It has completely resolved. Not entirely clear etiology and Lexiscan was negative for ischemia. Patient had high uptake in the lungs and it was recommended by the lace inspector that she had CT scanning to evaluate for interstitial lung disease. She climbed her CAT scans of the chest today stating that she would have them done as an outpatient with her doctor and her specialist. She is just really tired and wants to get home. She is feeling back to normal. She is being discharged in stable condition. She will speak with her doctor further about possible etiologies of the chest pain. (2) DVT prophylaxis Is this a current diagnosis for this admission?: Yes Summary: Patient was on Lovenox 40 mg subcu daily for DVT prophylaxis. (3) Recent cerebrovascular accident (CVA) Is this a current diagnosis for this admission?: Yes Summary: The day before admission to the hospital for the chest pain patient had been discharged home from a local hospital after having had a stroke. She did not go to rehab for therapy but was going to receive the therapy at home, this has not yet started and I recommended that the patient follow through with the therapy and she plans to do so. She has right-sided weakness at this point. She is able to walk on her own. She has family support. She knows to return to medical care with concerning symptoms. She is on a statin and an aspirin. sHe is also on a beta-lenore. (4) Asthma Is this a current diagnosis for this admission?: Yes Summary: Patient states her asthma is well controlled. She has good outpatient care for this. No changes to be made to her regimen today. (5) Diastolic heart failure Is this a current diagnosis for this admission?: Yes Summary: Patient has been informed about this finding on her echocardiogram. She states that she will follow with her outpatient doctors. She is already on a beta- lenore. She has an IRINA inhibitor allergy with a history of angioedema. - Additional Information Resuscitation Status: Full Code Discharge Diet: Cardiac Discharge Activity: Other - Activity should be guided by post stroke therapy recommendations Home Medications: Amlodipine Besylate [Norvasc 5 mg Tablet] 5 mg PO DAILY 02/16/18 Aspirin [Ecotrin 325 mg EC Tablet] 325 mg PO DAILY 02/16/18 Cephalexin Monohydrate [Keflex 500 mg Capsule] 500 mg PO Q12 02/16/18 Duloxetine HCl [Cymbalta] 60 mg PO DAILY 02/16/18 Gabapentin [Neurontin 400 mg Capsule] 400 mg PO TID 02/16/18 Hydrocodone/Acetaminophen [[place] 5-325 mg Tablet] 1 tab PO Q8 02/16/18 Metoprolol Succinate [Toprol Xl 50 mg Tab.sr] 50 mg PO QHS 02/16/18 Montelukast Sodium [Singulair 10 mg Tablet] 10 mg PO DAILY 02/16/18 Omeprazole 20 mg PO QHS 02/16/18 Pravastatin Sodium [Pravachol] 40 mg PO QHS 02/16/18 Prazosin HCl [Minipress] 2 mg PO QHS 02/16/18 Tizanidine HCl [Zanaflex] 2 mg PO Q8 02/16/18 History of Present Illness History of Present Illness: KORY GALLO is a 67 year old woman with history of multiple medical problems presented to the emergency room with acute onset of midsternal chest pain felt as pressure and graded 8/10 in severity with no nausea vomiting or diaphoresis. She admitted to lightheadedness but did not feel clammy. She denies any dyspnea or palpitations or radiation with her pain. No leg pain or edema or recent travels or surgeries. She was just discharged yesterday from by the [facility] after being admitted there for acute CVA with right-sided hemiparesis for which she was seen here in the ER about a week ago and transferred there. When she came to the emergency room, EKG showed normal sinus rhythm with a rate of 63. She was given 1 sublingual nitroglycerin by EMS with remarkable improvement of her chest pain. Her vital signs were within normal here. Labs were remarkable for minimal height 33 minute and an AST of 43 with negative cardiac enzymes. She takes aspirin for her CVA. Chest x-ray showed no acute cardiopulmonary disease. She was admitted to the hospitalist service, on observation, for chest pain evaluation. Hospital Course Hospital Course: Please see problem list for hospital course. Physical Exam Vital Signs: Temp Pulse Resp BP Pulse Ox 97.8 F 68 16 123/60 98 02/18/18 07:17 02/18/18 07:17 02/18/18 07:17 02/18/18 07:17 02/18/18 07:17 Intake & Output 02/17/18 02/18/18 02/19/18 06:59 06:59 06:59 Intake Total 0 1198 Output Total 850 2500 Balance -850 -1302 Weight 87.1 kg 89.8 kg General appearance: PRESENT: no acute distress, cooperative Head exam: PRESENT: atraumatic, normocephalic Eye exam: ABSENT: conjunctival injection, scleral icterus Ear exam: PRESENT: normal external ear exam Mouth exam: PRESENT: moist Respiratory exam: PRESENT: clear to auscultation princess, unlabored. ABSENT: rales , rhonchi, wheezes Cardiovascular exam: PRESENT: RRR, systolic murmur Pulses: PRESENT: normal radial pulses GI/Abdominal exam: PRESENT: normal bowel sounds, soft. ABSENT: distended, guarding, tenderness Rectal exam: PRESENT: deferred Gentrourinary exam: ABSENT: indwelling catheter Extremities exam: ABSENT: pedal edema Musculoskeletal exam: PRESENT: normal inspection Neurological exam: PRESENT: alert, awake, oriented to person, oriented to place , oriented to situation, other - Patient has right jacquelyn-weakness, 4 out of 5 versus left-sided 5 out of 5 normal strength. She also has very mild dysarthria. Psychiatric exam: PRESENT: appropriate affect. ABSENT: anxious Skin exam: PRESENT: dry, intact, warm Results Laboratory Results: 02/17/18 02:30 02/17/18 02:30 02/16/18 02/17/18 02/17/18 22:40 02:30 02:30 Creatine Kinase 97 CK-MB (CK-2) 0.95 Troponin I < 0.012 < 0.012 02/17/18 02/17/18 02/17/18 08:06 08:06 16:00 Creatine Kinase 92 72 CK-MB (CK-2) 0.76 Troponin I < 0.012 02/17/18 16:00 Creatine Kinase CK-MB (CK-2) 0.66 Troponin I < 0.012 Impressions: Chest X-Ray 02/16/18 18:58 IMPRESSION: NO ACUTE RADIOGRAPHIC FINDING IN THE CHEST. Qualifiers - * PATIENT BEING DISCHARGED WITH ANY OF THE FOLLOWING DIAGNOSIS: Stroke, Heart Failure Stroke Pt being discharged on Anti-thrombolytic therapy?: Yes Stroke Pt being discharged on Anti-coagulation therapy?: No Reason(s) for not prescribing Anti-coagulation therapy:: Not indicated Stroke Pt being discharged on Statins?: Yes HF Pt being discharged on ACEI for LVEF less than 40%?: No Reason(s) for not prescribing ACEI:: Not indicated HF Pt being discharged on ARBS for LVEF less than 40%?: No Reason(s) for not prescribing ARBS:: Not indicated HF Pt with Afib discharged with Warfarin?: No Reason(s) for not prescribing Warfarin:: Not indicated HF Pt discharged on evidence-based Beta Lenore:: Yes
--- NOTE | 2018-02-18 16:50 | PDOC CONSULTATION ---
Consultation Consult Date: 02/17/18 Attending physician:: MONICA SMITH Consult reason:: Chest pain History of Present Illness Admission Date/PCP: 02/16/18 21:30 RODGER MOROCHO MD Patient complains of: Chest pain History of Present Illness: KORY GALLO is a 67 year old female with history of multiple medical problems that would be mentioned below presented to the emergency room with acute onset of midsternal chest pain felt as pressure and graded 8/10 in severity with no nausea vomiting or diaphoresis. She admitted to [facility] but did not feel clammy. She denies any dyspnea or palpitations or radiation with her pain. No leg pain or edema or recent travels or surgeries. [facility] being [facility] for acute CVA with right-sided hemiparesis for which she was seen here in the ER about a week ago and transferred there. When she came to the emergency room, EKG showed normal sinus rhythm with a rate of 63. She was given 1 sublingual nitroglycerin by EMS with remarkable improvement of her chest pain. Her vital signs were within normal here. Labs were remarkable for minimal height 33 minute and an AST of 43 with negative cardiac enzymes. She takes aspirin for her CVA. Chest x-ray showed no acute cardiopulmonary disease. This history was reviewed and confirmed with the patient. Since admission patient has had no chest pain. Patient does describe history of being followed by a patient advocate. She claims she had a heart catheterization 2 years ago which apparently was negative for any significant disease. Discussed evaluation with a nuclear stress test. Patient is agreeable to pursue this. A 2D echocardiogram was also ordered and patient was agreeable. Past Medical History Cardiac Medical History: Reports: Hyperlipidema, Hypertension Denies: Myocardial Infarction Pulmonary Medical History: Reports: Asthma, Chronic Obstructive Pulmonary Disease (COPD), Pneumonia Denies: Tuberculosis Neurological Medical History: Reports: Ischemic CVA, Seizures - 18-19 YEARS AGO Endocrine Medical History: Reports: Diabetes Mellitus Type 2 GI Medical History: Reports: Gastroesophageal Reflux Disease Denies: Hepatitis, Hiatal Hernia Musculoskeltal Medical History: Reports: Arthritis, Fibromyalgia Psychiatric Medical History: Reports: Depression, Post Traumatic Stress Disorder Hematology: Reports: Anemia Denies: Sickle Cell Disease Past Surgical History Past Surgical History: Reports: Section, Cholecystectomy, Orthopedic Surgery - Toe Denies: Amputation, Mastectomy, Pacemaker Social History Information Source: Patient Smoking Status: Never Smoker Frequency of Alcohol Use: None Hx Recreational Drug Use: No Drugs: None Hx Prescription Drug Abuse: No - Advance Directive Resuscitation Status: Full Code Surrogate healthcare decision maker:: Rohan Ramos is the surrogate decision-maker Family History Family History: CAD, CVA, DM, Hypertension, Malignancy Parental Family History Reviewed: Yes Children Family History Reviewed: Yes Sibling(s) Family History Reviewed.: Yes Medication/Allergy Home Medications: Amlodipine Besylate [Norvasc 5 mg Tablet] 5 mg PO DAILY 02/16/18 Aspirin [Ecotrin 325 mg EC Tablet] 325 mg PO DAILY 02/16/18 Cephalexin Monohydrate [Keflex 500 mg Capsule] 500 mg PO Q12 02/16/18 Duloxetine HCl [Cymbalta] 60 mg PO DAILY 02/16/18 Gabapentin [Neurontin 400 mg Capsule] 400 mg PO TID 02/16/18 Hydrocodone/Acetaminophen [[place] 5-325 mg Tablet] 1 tab PO Q8 02/16/18 Metoprolol Succinate [Toprol Xl 50 mg Tab.sr] 50 mg PO QHS 02/16/18 Montelukast Sodium [Singulair 10 mg Tablet] 10 mg PO DAILY 02/16/18 Omeprazole 20 mg PO QHS 02/16/18 Pravastatin Sodium [Pravachol] 40 mg PO QHS 02/16/18 Prazosin HCl [Minipress] 2 mg PO QHS 02/16/18 Tizanidine HCl [Zanaflex] 2 mg PO Q8 02/16/18 Allergies/Adverse Reactions: lisinopril [Lisinopril] Allergy (Severe, Verified 09/26/17 16:35) Edema phenytoin sodium extended [From Dilantin] Allergy (Severe, Verified 09/26/17 16: 35) Unknown reaction risperidone [From Risperdal] Allergy (Intermediate, Verified 09/26/17 16:35) Hives venlafaxine HCl [From Effexor] Allergy (Intermediate, Verified 09/26/17 16:35) Hives Review of Systems Review of Systems: Please see history of present illness and past medical history as wall. Constitutional: No fever or chills reported. Head : No recent chronic headaches, recent head injury. Eyes: No recent eye pain, diplopia, redness, discharge, acute visual changes. Ears: No recent chronic ear pain, acute hearing loss, ear discharge. Oral cavity: No recent ulcerations, bleeding, oral cavity discomfort. Neck: No recent acute neck pain reported. Hematologic: No recent easy bruising or bleeding. Lymphatic: No recent lymph node enlargement reported. Cardiovascular system review: See history of present illness. Respiratory system review: No hemoptysis or blood clots in the lungs reported. Mild Shortness of breath on exertion Gastrointestinal system review: Negative for any recent acute hematemesis, melena. Genitourinary system review: No recent acute or chronic hematuria, flank pain, UTI etc. reported. Skin system review: Negative for any recent abnormal bruising, no rash, no pruritus reported. Neurologic: No prior history of strokes, mini strokes, seizure disorder. Psychologic: No history of major psychosis or major depression reported. Musculoskeletal: Minor aches and pains reported. No acute joint swelling reported. Endocrine: No recent polyuria, polydipsia, recent heat or cold intolerance. Physical Exam Vital Signs: Temp Pulse Resp BP Pulse Ox 98.4 F 73 19 126/51 H 96 02/17/18 15:56 02/17/18 15:56 02/17/18 15:56 02/17/18 15:56 02/17/18 15:56 Intake & Output 02/16/18 02/17/18 02/18/18 06:59 06:59 06:59 Intake Total 0 488 Output Total 850 1200 Balance -850 -712 Weight 87.1 kg Exam: GENERAL: well-nourished and in no acute distress. Alert and oriented x3 HEAD: Atraumatic, normocephalic. EYES: Pupils equal round and reactive to light, extraocular movements intact, sclera anicteric, conjunctiva are normal. ENT: TMs normal, nares patent, oropharynx clear without exudates. Moist mucous membranes. No oral ulcerations or bleeding gums noted NECK: supple without lymphadenopathy. Trachea is central. No cervical or axillary lymphadenopathy noted. Carotids are 2+, JVD WNL LUNGS: Respiration seems nonlabored, no significant accessory muscle action noted. Breath sounds clear to auscultation bilaterally and equal noted. No wheezes rales or rhonchi noted. No significant dullness noted on percussion. CHEST: Palpation of the chest wall shows no significant chest wall tenderness. HEART: [employer], No PSH, 1/6 LEEANN aortic area, 1/6 burrows systolic murmur mitral area, no rubs, no gallops. ABDOMEN: Soft, no significant tenderness appreciated, normoactive bowel sounds. No guarding, no rebound. No rigidity noted . No masses appreciated. EXTREMITIES: Pedal pulses are 1-2+, no calf tenderness noted. No clubbing or cyanosis. negative pedal edema noted NEUROLOGICAL: Focused neurological exam showed no significant neurologic deficit. Normal speech, no focal weakness appreciated. PSYCH: Normal mood, normal affect. Judgment and insight within normal limits. SKIN: No significant ecchymosis, skin is noted to be warm. MUSCULOSKELETAL EXAM: No significant acute joint swelling noted. Results Laboratory Results: 02/17/18 02:30 02/17/18 02:30 02/17/18 02/17/18 02:30 02:30 WBC 7.7 RBC 4.03 Hgb 11.5 L Hct 33.8 L MCV 84 MCH 28.5 MCHC 34.0 RDW 14.9 H Plt Count 248 Seg Neutrophils % 62.7 Lymphocytes % 23.6 Monocytes % 9.2 Eosinophils % 3.8 Basophils % 0.7 Absolute Neutrophils 4.8 Absolute Lymphocytes 1.8 Absolute Monocytes 0.7 Absolute Eosinophils 0.3 Absolute Basophils 0.1 Sodium 149.6 H Potassium 3.9 Chloride 111 H Carbon Dioxide 30 Anion Gap 9 BUN 18 Creatinine 0.93 Est GFR ( Amer) > 60 Est GFR (Non-Af Amer) > 60 Glucose 95 Calcium 9.0 Lipase 92.3 02/16/18 02/17/18 02/17/18 22:40 02:30 02:30 Creatine Kinase 97 CK-MB (CK-2) 0.95 Troponin I < 0.012 < 0.012 02/17/18 02/17/18 02/17/18 08:06 08:06 16:00 Creatine Kinase 92 72 CK-MB (CK-2) 0.76 Troponin I < 0.012 02/17/18 16:00 Creatine Kinase CK-MB (CK-2) 0.66 Troponin I < 0.012 EKG Comments: Sinus rhythm, no acute ST-T wave changes are noted Impressions: Chest X-Ray 02/16/18 18:58 IMPRESSION: NO ACUTE RADIOGRAPHIC FINDING IN THE CHEST. Assessment & Plan - Diagnosis (1) Chest pain Qualifiers: Chest pain type: unspecified Qualified Code(s): R07.9 - Chest pain, unspecified Is this a current diagnosis for this admission?: Yes (2) Type 2 diabetes mellitus Qualifiers: Diabetes mellitus halfway insulin use: unspecified manager intermediate insulin use status Diabetes mellitus complication detail: with unspecified neuropathy Is this a current diagnosis for this admission?: Yes (3) Asthma Qualifiers: Asthma persistence: unspecified Asthma complication type: unspecified Is this a current diagnosis for this admission?: Yes (4) Essential hypertension Is this a current diagnosis for this admission?: Yes (5) Right thyroid nodule Is this a current diagnosis for this admission?: Yes - Notes Notes: Chest pain: Patient has multiple cardiac risk factors. This includes diabetes, hypertension and also her age. Feel that patient will benefit from a nuclear stress test. Risk benefits were discussed and this was scheduled. Diabetes: Recommend good control of blood sugar. However should avoid any hypoglycemia and hyperglycemia. Patient being expertly managed by primary care M.D/hospitalist Asthma: Patient encouraged to avoid first-hand and secondhand smoking. Patient also advised to avoid environmental pollutants. Patient to use bronchodilator and steroid therapy as has been prescribed by PMD and other specialists. This is under satisfactory control. Hypertension: Reasonably well controlled. Blood pressure goal in this patient is 135/85 or less. This was discussed with the patient. Thyroid problems. Patient has a history of right thyroid nodule. Will leave management plans to patient's primary care physician and other specialist. - Time Time Spent: 30 to 50 Minutes - CODE STATUS was discussed, patient remains full code. Surrogate decision-maker unchanged. Multiple medical problems were addressed. More than 50% of the time spent coordinating care, discussing management plans with involved caregivers. Management plans discussed with involved personnels. Medical decision making was of moderate to high complexity , patient's has multiple comorbidities. Medications reviewed and adjusted accordingly: Yes
--- NOTE | 2018-02-18 16:56 | PDOC PROGRESS REPORT ---
Subjective Progress Note for:: 02/18/18 Subjective:: Patient seems to be doing better with gradual improvement. Pt is denying any chest arm or neck discomfort. Patient denying any PND, orthopnea. Patient denied any sustained palpitations, dizziness, syncope, near syncope. Patient denying any fever chills. Patient denying any other significant discomfort. Patient is maintaining sinus rhythm. Review of systems: Rest review of systems negative. Medications: Medications have been reviewed. Reason For Visit: CHEST PAIN Physical Exam Vital Signs: Temp Pulse Resp BP Pulse Ox 97.8 F 68 16 123/60 98 02/18/18 07:17 02/18/18 07:17 02/18/18 07:17 02/18/18 07:17 02/18/18 07:17 Intake & Output 02/17/18 02/18/18 02/19/18 06:59 06:59 06:59 Intake Total 0 1198 Output Total 850 2500 Balance -850 -1302 Weight 87.1 kg 89.8 kg Exam: GENERAL: well-nourished and in no acute distress. Alert and oriented x3 HEAD: Atraumatic, normocephalic. EYES: Pupils equal round and reactive to light, extraocular movements intact, sclera anicteric, conjunctiva are normal. ENT: TMs normal, nares patent, oropharynx clear without exudates. Moist mucous membranes. No oral ulcerations or bleeding gums noted NECK: supple without lymphadenopathy. Trachea is central. No cervical or axillary lymphadenopathy noted. Carotids are 2+, JVD WNL LUNGS: Respiration seems nonlabored, no significant accessory muscle action noted. Breath sounds clear to auscultation bilaterally and equal noted. No wheezes rales or rhonchi noted. No significant dullness noted on percussion. CHEST: Palpation of the chest wall shows no significant chest wall tenderness. HEART: [employer], No PSH, 1/6 LEEANN aortic area, 1/6 burrows systolic murmur mitral area, no rubs, no gallops. ABDOMEN: Soft, no significant tenderness appreciated, normoactive bowel sounds. No guarding, no rebound. No rigidity noted . No masses appreciated. EXTREMITIES: Pedal pulses are 1-2+, no calf tenderness noted. No clubbing or cyanosis. negative pedal edema noted NEUROLOGICAL: Focused neurological exam showed no significant neurologic deficit. Normal speech, no focal weakness appreciated. PSYCH: Normal mood, normal affect. Judgment and insight within normal limits. SKIN: No significant ecchymosis, skin is noted to be warm. MUSCULOSKELETAL EXAM: No significant acute joint swelling noted. Results Laboratory Results: 02/17/18 02:30 02/17/18 02:30 02/16/18 02/17/18 02/17/18 22:40 02:30 02:30 Creatine Kinase 97 CK-MB (CK-2) 0.95 Troponin I < 0.012 < 0.012 02/17/18 02/17/18 02/17/18 08:06 08:06 16:00 Creatine Kinase 92 72 CK-MB (CK-2) 0.76 Troponin I < 0.012 02/17/18 16:00 Creatine Kinase CK-MB (CK-2) 0.66 Troponin I < 0.012 EKG Comments: Twelve-lead EKG shows sinus rhythm without any acute ST-T wave changes. Telemetry strips reviewed showed sinus rhythm, no sustained tachycardia or bradycardia noted. Impressions: Chest X-Ray 02/16/18 18:58 IMPRESSION: NO ACUTE RADIOGRAPHIC FINDING IN THE CHEST. Assessment & Plan - Diagnosis (1) Chest pain Qualifiers: Chest pain type: unspecified Qualified Code(s): R07.9 - Chest pain, unspecified Is this a current diagnosis for this admission?: Yes (2) Type 2 diabetes mellitus Qualifiers: Diabetes mellitus ocean transportation intermediary insulin use: unspecified ocean transportation intermediary insulin use status Diabetes mellitus complication detail: with unspecified neuropathy Is this a current diagnosis for this admission?: Yes (3) Asthma Qualifiers: Asthma persistence: unspecified Asthma complication type: unspecified Is this a current diagnosis for this admission?: Yes (4) Essential hypertension Is this a current diagnosis for this admission?: Yes (5) Right thyroid nodule Is this a current diagnosis for this admission?: Yes (6) Gastroesophageal reflux disease Qualifiers: Esophagitis presence: esophagitis presence not specified Qualified Code(s) : K21.9 - Gastro-esophageal reflux disease without esophagitis Is this a current diagnosis for this admission?: Yes - Notes Notes: Chest pain: This was evaluated with a nuclear stress test. It showed no evidence of ischemia but was noted to show increased lung uptake. This could be related to asthma, COPD, or other parenchymal lung disease. So far other evaluation do not suggest a cardiac cause. Patient however will benefit from close cardiology follow-up as well as pulmonary follow-up. This was recommended. Also recommended that she undergoes a high-resolution CT scan, may be a CTA of the chest but she declined. Diabetes: Recommend good control of blood sugar. However should avoid any hypoglycemia and hyperglycemia. Patient being expertly managed by primary care M.D/hospitalist Asthma: Patient encouraged to avoid first-hand and secondhand smoking. Patient also advised to avoid environmental pollutants. Patient to use bronchodilator and steroid therapy as has been prescribed by PMD and other specialists. This is under satisfactory control. Hypertension: Reasonably well controlled. Blood pressure goal in this patient is 135/85 or less. This was discussed with the patient. Thyroid problems. Patient has a history of right thyroid nodule. Will leave management plans to patient's primary care physician and other specialist. Gastroesophageal reflux disease: This is in the differential diagnosis of chest pain. Patient does have history of sleep apnea. Treatment of sleep apnea tends to have this condition. Patient will also benefit from avoiding food intake within 3 hours of bedtime and with small meals. - Time Time with patient: Greater than 35 minutes - Patient was seen multiple times. Total time exceeds 40 minutes. In the morning nuclear stress test procedure, risks benefits, alternatives were discussed. Patient seen during the stress test. Patient also seen after stress test when results were discussed with the patient in detail. Patient's questions were answered. Nuclear stress test results were discussed with the patient. Patient was informed that no definitive evidence of pharmacologic stress-induced ischemia noted. No definite fixed defects were noted. Patient informed that occasionally significant single vessel disease or balanced ischemia could be missed. However based on the current study results, would recommend aggressive risk factor modification and medical therapy. It may also be worthwhile to consider evaluation or empiric management of other causes of chest pain. Should no other cause be found and if persistent in having chest pain, then cardiac catheterization should be considered. Right now, recommendations are for aggressive risk factor modification and medical management. 2D echo results also reviewed. Medications reviewed and adjusted accordingly: Yes
[2018-02-18 17:32] VITALS: BP 109/47
== END 2018-02-18 18:00 | disposition home or self-care (01) ==
LOC: ER 18:56 → EH 21:30 → 4N 02-17 00:45
PROVIDERS: ADMIT Family Medicine; ATTEND Family Medicine
DX: R07.2 Precordial pain (principal); I69.351 Hemiplegia and hemiparesis following cerebral infarction affecting right dominant side; I69.322 Dysarthria following cerebral infarction; J45.909 Unspecified asthma, uncomplicated; I11.0 Hypertensive heart disease with heart failure; I50.30 Unspecified diastolic (congestive) heart failure; R42 Dizziness and giddiness; E78.5 Hyperlipidemia, unspecified; E11.40 Type 2 diabetes mellitus with diabetic neuropathy, unspecified; E04.1 Nontoxic single thyroid nodule; K21.9 Gastro-esophageal reflux disease without esophagitis; Z79.899 Other long term (current) drug therapy; Z79.82 Long term (current) use of aspirin; Z90.49 Acquired absence of other specified parts of digestive tract; Z82.49 Family history of ischemic heart disease and other diseases of the circulatory system; Z82.3 Family history of stroke
CPT/HCPCS: 93005 ×3; 99285; 36415 ×2; 82553 ×2; 82962 ×2; 82550 ×2; 83690; 85025 ×2; 80048; 80053; 84484 ×2; 93306; 93017; 71045; 78452; 93010 ×3; A9500; J2785; A9270 ×17; J1650 ×2; J7030; Q9969; G0378; J3490

== ENCOUNTER 2018-02-24 16:05 | Emergency (ER) | payer MEDICARE, MEDICAID ==
--- NOTE | 2018-02-24 16:27 | RADIOLOGY REPORT (SQ) ---
EXAM DESCRIPTION: CHEST SINGLE VIEW COMPLETED DATE/TIME: 02/24/2018 4:18 pm REASON FOR STUDY: STROKE ALERT COMPARISON: 02/16/2018 NUMBER OF VIEWS: One view. TECHNIQUE: Single frontal radiographic view of the chest acquired. LIMITATIONS: None. FINDINGS: LUNGS AND PLEURA: No opacities, masses or pneumothorax. Left pleural effusion. MEDIASTINUM AND HILAR STRUCTURES: No masses or contour abnormality. HEART AND VASCULATURE: Cardiac enlargement. Vascular congestion. BONES: No acute findings. HARDWARE: None in the chest. OTHER: No other significant finding. IMPRESSION: CARDIAC ENLARGEMENT. VASCULAR CONGESTION. Left pleural effusion luis TECHNICAL DOCUMENTATION: JOB ID: [id number] [employer]- All Rights Reserved Reading location - IP/workstation name: [email or web address]
--- NOTE | 2018-02-24 16:29 | RADIOLOGY REPORT (SQ) ---
EXAM DESCRIPTION: CT HEAD WITHOUT COMPLETED DATE/TIME: 02/24/2018 4:15 pm REASON FOR STUDY: STROKE COMPARISON: 02/07/2018 TECHNIQUE: Axial images acquired through the brain without intravenous contrast. Images reviewed wi th bone, brain and subdural windows. Images stored on PACS. All CT scanners at this facility use dose modulation, iterative reconstruction, and/or weight based d osing when appropriate to reduce radiation dose to as low as reasonably achievable (ALARA). [facility]: Dose Right [facility]: CareDose [facility]: Dose Right [facility]: Teradose 4D [facility]: [employer] RADIATION DOSE: mGy. LIMITATIONS: None. FINDINGS: VENTRICLES: Normal size and contour. CEREBRUM: No masses. No hemorrhage. No midline shift. No evidence for acute infarction. Normal gra y/white matter differentiation. No areas of low density in the white matter. CEREBELLUM: No masses. No hemorrhage. No alteration of density. No evidence for acute infarction. EXTRAAXIAL SPACES: No fluid collections. No masses. ORBITS AND GLOBE: No intra- or extraconal masses. Normal contour of globe without masses. CALVARIUM: No fracture. PARANASAL SINUSES: No fluid or mucosal thickening. SOFT TISSUES: No mass or hematoma. OTHER: No other significant finding. IMPRESSION: No acute intracranial findings. EVIDENCE OF ACUTE STROKE: NO. COMMENT: Results called to the ordering physician at 1623 hours. Quality ID # [id number]: Final reports with documentation of one or more dose reduction techniques (e.g., Au tomated exposure control, adjustment of the mA and/or kV according to patient size, use of iterative reconstruction technique) TECHNICAL DOCUMENTATION: JOB ID: [id number] [place]-72 2010 [employer]- All Rights Reserved Reading location - IP/workstation name: [email or web address]
--- NOTE | 2018-02-24 16:45 | ER Document Report ---
ED General - General Chief Complaint: S/S of Possible Stroke Stated Complaint: POSSIBLE STROKE Time Seen by Provider: 02/24/18 16:17 Mode of Arrival: Medic Information source: Patient Notes: 67-year-old female who was recently transferred to [facility] for possible CVA presents with complaints of sudden episode of difficulty with speech. Patient notes 30 minutes prior to arrival she had difficulty with her speech. Is also noted the patient just took Haldol 30 minutes ago, TRAVEL OUTSIDE OF THE [place] IN LAST 30 DAYS: No - HPI Onset: Just prior to arrival Onset/Duration: Sudden Quality of pain: No pain Severity: Mild Pain Level: Denies Associated symptoms: Weakness, Other Exacerbated by: Denies Relieved by: Denies Similar symptoms previously: No Recently seen / treated by doctor: No - Related Data Allergies/Adverse Reactions: lisinopril [Lisinopril] Allergy (Severe, Verified 09/26/17 16:35) Edema phenytoin sodium extended [From Dilantin] Allergy (Severe, Verified 09/26/17 16: 35) Unknown reaction risperidone [From Risperdal] Allergy (Intermediate, Verified 09/26/17 16:35) Hives venlafaxine HCl [From Effexor] Allergy (Intermediate, Verified 09/26/17 16:35) Hives Past Medical History - Social History Smoking Status: Never Smoker Cigarette use (# per day): No Chew tobacco use (# tins/day): No Smoking Education Provided: No Family History: CAD, CVA, DM, Hypertension, Malignancy - Past Medical History Cardiac Medical History: Reports: Hx Hypercholesterolemia, Hx Hypertension Denies: Hx Heart Attack Pulmonary Medical History: Reports: Hx Asthma, Hx COPD, Hx Pneumonia Denies: Hx Tuberculosis Neurological Medical History: Reports: Hx Seizures - 18-19 YEARS AGO. Denies: Hx Cerebrovascular Accident Endocrine Medical History: Reports: Hx Diabetes Mellitus Type 2 Renal/ Medical History: Denies: Hx Peritoneal Dialysis GI Medical History: Reports: Hx Gastroesophageal Reflux Disease. Denies: Hx Hepatitis, Hx Hiatal Hernia, Hx Ulcer Musculoskeletal Medical History: Reports Hx Arthritis, Reports Hx Fibromyalgia Psychiatric Medical History: Reports: Hx Depression, Hx Post Traumatic Stress Disorder, Hx Schizophrenia Infectious Medical History: Denies: Hx Hepatitis Past Surgical History: Reports: Hx Section, Hx Cholecystectomy, Hx Orthopedic Surgery - Toe. Denies: Hx Mastectomy, Hx Open Heart Surgery, Hx Pacemaker - Immunizations Hx Diphtheria, Pertussis, Tetanus Vaccination: Yes Review of Systems - Review of Systems Notes: REVIEW OF SYSTEMS: CONSTITUTIONAL : Denies fever, chills, or sweats. Denies recent illness. EENT: Denies eye, ear, throat, or mouth pain or symptoms. Denies nasal or sinus congestion or discharge. Denies throat, tongue, or mouth swelling or difficulty swallowing. CARDIOVASCULAR: Denies chest pain. Denies palpitations or racing or irregular heart beat. Denies ankle edema. RESPIRATORY: Denies cough, cold, or chest congestion. Denies shortness of breath, difficulty breathing, or wheezing. GASTROINTESTINAL: Denies abdominal pain or distention. Denies nausea, vomiting , or diarrhea. Denies blood in vomitus, stools, or per rectum. Denies black, tarry stools. Denies constipation. GENITOURINARY: Denies difficulty urinating, painful urination, burning, frequency, blood in urine, or discharge. FEMALE GENITOURINARY: Denies vaginal bleeding, heavy or abnormal periods, irregular periods. Denies vaginal discharge or odor. MUSCULOSKELETAL: Denies back or neck pain or stiffness. Denies joint pain or swelling. SKIN: Denies rash, lesions or sores. HEMATOLOGIC : Denies easy bruising or bleeding. LYMPHATIC: Denies swollen, enlarged glands. NEUROLOGICAL: Per EMS slurred speech PSYCHIATRIC: Denies anxiety or stress. Denies depression, suicidal ideation, or homicidal ideation. ALL OTHER SYSTEMS REVIEWED AND NEGATIVE. PHYSICAL EXAMINATION: GENERAL: Well-appearing, well-nourished and in no acute distress. HEAD: Atraumatic, normocephalic. EYES: Pupils equal round and reactive to light, extraocular movements intact, conjunctiva are normal. ENT: Nares patent, oropharynx clear without exudates. Moist mucous membranes. NECK: Normal range of motion, supple without lymphadenopathy LUNGS: Breath sounds clear to auscultation bilaterally and equal. No wheezes rales or rhonchi. HEART: Regular rate and rhythm without murmurs ABDOMEN: Soft, nontender, nondistended abdomen. No guarding, no rebound. No masses appreciated. Female : deferred Musculoskeletal: Normal range of motion, no pitting or edema. No cyanosis. NEUROLOGICAL: Patient initially refuses to talk PSYCH: Normal mood, normal affect. SKIN: Warm, Dry, normal turgor, no rashes or lesions noted. Dictation was performed using [employer] voice recognition software Physical Exam - Vital signs Vitals: Pulse Ox 97 02/24/18 16:17 Course - Re-evaluation Re-evalutation: 02/24/18 16:39 [facility] regarding [facility] results from patients transfer for cva , all imaging there noted so signs of CVA. 02/24/18 17:57 Patient symptoms have improved significantly, I again believe this may be more medication related rather than an actual stroke 02/24/18 18:03 MRI pending to rule out CVA 02/24/18 20:06 Patient's MRI was negative, she states she feels better wishes to go home, I do not believe the patient had a CVA at all After performing a Medical Screening Examination, I estimate there is LOW risk for ACUTE GLAUCOMA, TEMPORAL ARTERITIS, MENINGITIS, INCRANIAL HEMORRHAGE, or ISCHEMIC STROKE thus I consider the discharge disposition reasonable. I have reevaluated this patient multiple times and no significant life threatening changes are noted. The patient and I have discussed the diagnosis and risks, and we agree with discharging home with close follow-up with the understanding that symptoms and presentations can change. We also discussed returning to the Emergency Department immediately if new or worsening symptoms occur. We have discussed the symptoms which are most concerning (e.g., changing or worsening symptoms, new numbness or weakness, vomiting, fever) that necessitate immediate return. - Vital Signs Vital signs: Temp Pulse Resp BP Pulse Ox 52 L 11 L 129/66 H 99 02/24/18 17:56 02/24/18 17:56 02/24/18 17:56 02/24/18 17:56 - Laboratory Result Diagrams: 02/24/18 17:10 02/24/18 17:10 Laboratory results interpreted by me: 02/24/18 17:10 Hgb 11.2 L Hct 33.5 L RDW 14.9 H Discharge - Discharge Clinical Impression: Medication reaction Qualifiers: Encounter type: initial encounter Qualified Code(s): T50.905A - Adverse effect of unspecified drugs, medicaments and biological substances, initial encounter Condition: Stable Disposition: HOME, SELF-CARE Additional Instructions: Follow up with your physician tomorrow for further care or return to the ED IMMEDIATELY if symptoms worsen or new concerns occur. If you cannot afford to follow up with your primary care physician a list of low cost clinics have been provided at the end of your discharge papers as well. Referrals: RODGER MOROCHO MD [Primary Care Provider] - Follow up as needed
[2018-02-24 17:26] LABS: ABSOLUTE EOSINOPHILS # (AUTO) 0.2 10^3/uL (0.0-0.6); ABSOLUTE LYMPHOCYTES (AUTO) 1.5 10^3/uL (0.5-4.7); ABSOLUTE MONOCYTES (AUTO) 0.6 10^3/uL (0.1-1.4); ABSOLUTE NEUT (AUTO) 5.1 10^3/uL (1.7-8.2); BASOPHILS % (AUTO) 0.4 % (0-2); EOSINOPHILS % (AUTO) 2.4 % (0-6); HEMATOCRIT 33.5 % (36.0-47.0); HEMOGLOBIN 11.2 g/dL (12.0-15.5); INTERNATIONAL RATION (INR) 0.86; LYMPHOCYTES % (AUTO) 20.4 % (13-45); MEAN CORPUSCULAR HEMOGLOBIN 27.8 pg (27.0-33.4); MEAN CORPUSCULAR HGB CONC 33.4 g/dL (32.0-36.0); MEAN CORPUSCULAR VOLUME 83 fl (80-97); MONOCYTES % (AUTO) 7.8 % (3-13); PLATELET COUNT 243 10^3/uL (150-450); RED BLOOD COUNT 4.02 10^6/uL (3.72-5.28); RED CELL DISTRIBUTION WIDTH 14.9 % (11.5-14.0); TOTAL CELLS COUNTED % (AUTO) 100 %; WHITE BLOOD COUNT 7.3 10^3/uL (4.0-10.5)
[2018-02-24 17:30] LABS: PROTHROMBIN TIME 12.2 SEC (11.4-15.4)
[2018-02-24 17:53] LABS: CREATINE KINASE MB 1.15 ng/mL (<4.55)
[2018-02-24 17:56] LABS: TROPONIN I < 0.012 ng/mL
--- NOTE | 2018-02-24 19:52 | RADIOLOGY REPORT (SQ) ---
EXAM DESCRIPTION: MRI HEAD COMBO COMPLETED DATE/TIME: 02/24/2018 7:32 pm REASON FOR STUDY: stroke rule out COMPARISON: 02/07/2018 TECHNIQUE: Multiplanar imaging includes noncontrasted T1, T2, FLAIR, diffusion with ADC map and post gadolinium contrast T1 sequences. Images stored on PACS. CONTRAST TYPE AND DOSE: Not reported on scanned paperwork RENAL FUNCTION: GFR greater than 60. LIMITATIONS: None. FINDINGS: ANATOMY: No anomalies. Normal vascular flow voids. Pituitary fossa normal. CSF SPACES: Normal in size and contour. No hemorrhage. CEREBRUM: Sulci and gyri normal in size and contour. Normal white matter signal on FLAIR imaging. No evidence of hemorrhage, mass, or extraaxial fluid collection. No abnormal enhancement post contrast. POSTERIOR FOSSA: No signal alteration. No hemorrhage. No edema, masses, or mass effect. Internal twyla tory canals, cerebellopontine angles, mastoids normal. No enhancing lesions. No abnormal enhancement post contrast. DIFFUSION IMAGING: Negative for acute or subacute infarction. ORBITS: No masses. Globes normal. PARANASAL SINUSES: No fluid levels. Mucosa normal. OTHER: No other significant finding. IMPRESSION: NORMAL MRI OF THE BRAIN WITHOUT AND WITH INTRAVENOUS GADOLINIUM CONTRAST. EVIDENCE OF ACUTE STROKE: NO. TECHNICAL DOCUMENTATION: JOB ID: [id number] [employer]- All Rights Reserved Reading location - IP/workstation name: [email or web address]
[2018-02-24 21:02] LABS: ALANINE AMINOTRANSFERASE 19 U/L (9-52); ALBUMIN 3.7 g/dL (3.5-5.0); ALKALINE PHOSPHATASE 112 U/L (38-126); ANION GAP 11 (5-19); ASPARTATE AMINO TRANSFERASE 21 U/L (14-36); BILIRUBIN,DIRECT 0.3 mg/dL (0.0-0.4); BILIRUBIN,TOTAL 0.4 mg/dL (0.2-1.3); BLOOD UREA NITROGEN 13 mg/dL (7-20); CALCIUM 9.2 mg/dL (8.4-10.2); CARBON DIOXIDE 30 mmol/L (22-30); CHLORIDE 108 mmol/L (98-107); CREATINE KINASE 137 U/L (30-135); GLUCOSE 87 mg/dL (75-110); POTASSIUM 4.3 mmol/L (3.6-5.0); SODIUM 148.7 mmol/L (137-145); TOTAL PROTEIN 6.9 g/dL (6.3-8.2)
[2018-02-24 21:22] VITALS: BP 149/74
--- NOTE | 2018-02-24 22:31 | EKG REPORT ---
SEVERITY:- NORMAL ECG - SINUS RHYTHM : Confirmed by: Doris Yeboah MD 24-Feb-2018 22:30:16
== END 2018-02-24 21:21 | disposition home or self-care (01) ==
LOC: ER 16:05
DX: R47.9 Unspecified speech disturbances (principal); T50.905A Adverse effect of unspecified drugs, medicaments and biological substances, initial encounter; R53.1 Weakness; I10 Essential (primary) hypertension; J44.9 Chronic obstructive pulmonary disease, unspecified; E11.9 Type 2 diabetes mellitus without complications; Z88.8 Allergy status to other drugs, medicaments and biological substances
CPT/HCPCS: 36415; 70450; 70553; 71045; 80053; 82550; 82553; 84484; 85025; 85610; 85730; 93005; 93010; 99285

== ENCOUNTER → 2018-03-10 | Outpatient (CLI) | payer MEDICARE, MEDICAID ==
--- NOTE | 2018-03-10 14:25 | RADIOLOGY REPORT (SQ) ---
EXAM DESCRIPTION: U/S RETROPERITON (RENAL/AORTA) COMPLETED DATE/TIME: 03/10/2018 1:11 pm REASON FOR STUDY: R31.29 OTHER MICROSCOPIC HEMATURIA R31.29 OTHER MICROSCOPIC HEMATURIA COMPARISON: 03/16/2014. TECHNIQUE: Dynamic and static grayscale images acquired of the kidneys and bladder and recorded on P ACS. Additional selected color Doppler and spectral images recorded. LIMITATIONS: None. FINDINGS: RIGHT KIDNEY: 9.0 cm. Normal echogenicity. No solid or suspicious masses. No hydronephrosi s. No calcifications. LEFT KIDNEY: 9.0 cm. Normal echogenicity. No solid or suspicious masses. No hydronephrosis. No calci fications. BLADDER: No masses. OTHER FINDINGS: No other significant finding. IMPRESSION: NORMAL RENAL AND BLADDER ULTRASOUND. TECHNICAL DOCUMENTATION: JOB ID: [id number] [employer]- All Rights Reserved Reading location - IP/workstation name: [email or web address]
== END ==
LOC: RAD 12:49
PROVIDERS: ATTEND Urology
DX: R31.29 Other microscopic hematuria (principal)
CPT/HCPCS: 76770

== ENCOUNTER 2018-04-24 00:07 | Emergency (ER) | payer MEDICARE, MEDICAID ==
[2018-04-24] MEDS ORDERED: IPRATROPIUM/ALBUTEROL 0.5-2.5 MG/3 ML AMPUL NEB ONE (00:41)
--- NOTE | 2018-04-24 00:53 | RADIOLOGY REPORT (SQ) ---
EXAM DESCRIPTION: Single view chest CLINICAL HISTORY: 67 years Female sob COMPARISON: 02/24/2018. FINDINGS: The cardiomediastinal silhouette appears stable. No consolidating infiltrates or pleural effusions. No pneumothorax. Atelectasis in the lung bases. IMPRESSION: Small amount of basilar atelectasis Stable cardiac enlargement
--- NOTE | 2018-04-24 01:06 | ER Document Report ---
ED Medical Screen (RME) - General Chief Complaint: Breathing Difficulty Stated Complaint: BREATHING DIFFICULTY Time Seen by Provider: 04/24/18 01:01 Mode of Arrival: Wheelchair Information source: Patient Notes: Patient is a 67-year-old female who presents with multiple complaints today. Patient's primary complaint is shortness of breath and upper abdominal pain/ chest pain. Patient reports history of GERD however she states this feels different. Patient reports she cannot take a full breath. Patient reports that today she has had nausea with vomiting but denies any diarrhea. Exam: No swelling noted in the oropharynx, patient swallowing her saliva without difficulty. Patient speaking in short and choppy sentences. No wheezing noted on auscultation however patient unable to take a deep breath for adequate assessment. I have greeted and performed a rapid initial assessment of this patient. A comprehensive ED assessment and evaluation of the patient, analysis of test results and completion of the medical decision making process will be conducted by additional ED providers. Dictation of this chart was performed using voice recognition software; therefore, there may be some unintended grammatical errors. TRAVEL OUTSIDE OF THE [place] IN LAST 30 DAYS: No - Related Data Allergies/Adverse Reactions: lisinopril [Lisinopril] Allergy (Severe, Verified 09/26/17 16:35) Edema phenytoin sodium extended [From Dilantin] Allergy (Severe, Verified 09/26/17 16: 35) Unknown reaction risperidone [From Risperdal] Allergy (Intermediate, Verified 09/26/17 16:35) Hives venlafaxine HCl [From Effexor] Allergy (Intermediate, Verified 09/26/17 16:35) Hives Past Medical History - Past Medical History Cardiac Medical History: Reports: Hx Hypercholesterolemia, Hx Hypertension Denies: Hx Heart Attack Pulmonary Medical History: Reports: Hx Asthma, Hx COPD, Hx Pneumonia Denies: Hx Tuberculosis Neurological Medical History: Reports: Hx Seizures - 18-19 YEARS AGO. Denies: Hx Cerebrovascular Accident Endocrine Medical History: Reports: Hx Diabetes Mellitus Type 2 Renal/ Medical History: Denies: Hx Peritoneal Dialysis GI Medical History: Reports: Hx Gastroesophageal Reflux Disease. Denies: Hx Hepatitis, Hx Hiatal Hernia, Hx Ulcer Musculoskeltal Medical History: Reports Hx Arthritis, Reports Hx Fibromyalgia Psychiatric Medical History: Reports: Hx Depression, Hx Post Traumatic Stress Disorder, Hx Schizophrenia Infectious Medical History: Denies: Hx Hepatitis Past Surgical History: Reports: Hx Section, Hx Cholecystectomy, Hx Orthopedic Surgery - Toe. Denies: Hx Mastectomy, Hx Open Heart Surgery, Hx Pacemaker - Immunizations Hx Diphtheria, Pertussis, Tetanus Vaccination: Yes Physical Exam - Vital signs Vitals: Temp Pulse BP Pulse Ox 98.6 F 88 162/88 H 99 04/24/18 00:04/24/18 00:04/24/18 00:04/24/18 00:23 Course - Vital Signs Vital signs: Temp Pulse Resp BP Pulse Ox 98.6 F 88 162/88 H 99 04/24/18 00:04/24/18 00:04/24/18 00:23 04/24/18 00:23 Doctor's Discharge - Discharge Referrals: DONATO BOOTH II, MD [Primary Care Provider] - Follow up as needed
[2018-04-24 02:09] LABS: ABSOLUTE BASOPHILS # (AUTO) 0.1 10^3/uL (0.0-0.2); ABSOLUTE EOSINOPHILS # (AUTO) 0.1 10^3/uL (0.0-0.6); ABSOLUTE LYMPHOCYTES (AUTO) 2.2 10^3/uL (0.5-4.7); ABSOLUTE MONOCYTES (AUTO) 0.7 10^3/uL (0.1-1.4); ABSOLUTE NEUT (AUTO) 5.7 10^3/uL (1.7-8.2); BASOPHILS % (AUTO) 1.1 % (0-2); EOSINOPHILS % (AUTO) 1.7 % (0-6); HEMATOCRIT 37.4 % (36.0-47.0); HEMOGLOBIN 12.6 g/dL (12.0-15.5); MEAN CORPUSCULAR HEMOGLOBIN 27.7 pg (27.0-33.4); MEAN CORPUSCULAR HGB CONC 33.7 g/dL (32.0-36.0); MEAN CORPUSCULAR VOLUME 82 fl (80-97); PLATELET COUNT 301 10^3/uL (150-450); RED BLOOD COUNT 4.54 10^6/uL (3.72-5.28); RED CELL DISTRIBUTION WIDTH 15.6 % (11.5-14.0); SEGMENTED NEUTROPHILS % (AUTO) 64.2 % (42-78); TOTAL CELLS COUNTED % (AUTO) 100 %; WHITE BLOOD COUNT 8.9 10^3/uL (4.0-10.5)
[2018-04-24 02:26] LABS: ALANINE AMINOTRANSFERASE 20 U/L (9-52); ALBUMIN 4.5 g/dL (3.5-5.0); ALKALINE PHOSPHATASE 139 U/L (38-126); ANION GAP 9 (5-19); ASPARTATE AMINO TRANSFERASE 40 U/L (14-36); BILIRUBIN,DIRECT 0.5 mg/dL (0.0-0.4); BILIRUBIN,TOTAL 0.6 mg/dL (0.2-1.3); BLOOD UREA NITROGEN 15 mg/dL (7-20); CALCIUM 9.3 mg/dL (8.4-10.2); CARBON DIOXIDE 29 mmol/L (22-30); CHLORIDE 105 mmol/L (98-107); CREATINE KINASE 287 U/L (30-135); GLUCOSE 91 mg/dL (75-110); LIPASE 66.8 U/L (23-300); SODIUM 142.7 mmol/L (137-145); TOTAL PROTEIN 8.1 g/dL (6.3-8.2)
[2018-04-24 02:28] LABS: VENOUS BLOOD BASE EXCESS 2.2 mmol/L; VENOUS BLOOD HCO3 26.4 mmol/L (20-32); VENOUS BLOOD PCO2 39.7 mmHg (35-63); VENOUS BLOOD PH 7.44 (7.30-7.42)
[2018-04-24 02:38] LABS: CREATINE KINASE MB 1.61 ng/mL (<4.55)
[2018-04-24 02:45] LABS: TROPONIN I < 0.012 ng/mL
[2018-04-24] MEDS ORDERED: METHYLPREDNISOLONE INJ 125 MG/2 ML SDV IV ONE (02:47)
[2018-04-24] MEDS ORDERED: MAGNESIUM SULFATE/D5W 1 GM/100 ML RTUPB IV ONE (02:47)
--- NOTE | 2018-04-24 02:53 | ER Document Report ---
ED General - General Chief Complaint: Breathing Difficulty Stated Complaint: BREATHING DIFFICULTY Time Seen by Provider: 04/24/18 01:01 Mode of Arrival: Wheelchair TRAVEL OUTSIDE OF THE [place] IN LAST 30 DAYS: No - HPI Notes: Patient is a 67-year-old female with a history of type 2 diabetes, hypertension , previous CVA, COPD/asthma, mental health disease who presents to the ED complaining of shallow breathing and shortness of breath intermittently chronically. Patient states that her most recent exacerbation began over this past week. Patient states that she does have tightness in her lungs which was improved by a nebulizer treatment at [facility]. Patient denies any previous history of coronary artery disease, [place]. Patient states that she is still eating and drinking without any difficulties. She is urinating normally and having normal bowel movements. Denies any headache, fever, neck pain, URI, sore throat, chest pain, palpitations, syncope, abdominal pain, nausea/vomiting/ diarrhea, urinary retention, dysuria, hematuria, back pain, loss of control of bowel or bladder, numbness/tingling, muscle paralysis/weakness, or rash. - Related Data Allergies/Adverse Reactions: lisinopril [Lisinopril] Allergy (Severe, Verified 09/26/17 16:35) Edema phenytoin sodium extended [From Dilantin] Allergy (Severe, Verified 09/26/17 16: 35) Unknown reaction risperidone [From Risperdal] Allergy (Intermediate, Verified 09/26/17 16:35) Hives venlafaxine HCl [From Effexor] Allergy (Intermediate, Verified 09/26/17 16:35) Hives Past Medical History - General Information source: Patient - Social History Smoking Status: Unknown if Ever Smoked Family History: CAD, CVA, DM, Hypertension, Malignancy - Past Medical History Cardiac Medical History: Reports: Hx Hypercholesterolemia, Hx Hypertension Denies: Hx Heart Attack Pulmonary Medical History: Reports: Hx Asthma, Hx COPD, Hx Pneumonia Denies: Hx Tuberculosis Neurological Medical History: Reports: Hx Seizures - 18-19 YEARS AGO. Denies: Hx Cerebrovascular Accident Endocrine Medical History: Reports: Hx Diabetes Mellitus Type 2 Renal/ Medical History: Denies: Hx Peritoneal Dialysis GI Medical History: Reports: Hx Gastroesophageal Reflux Disease. Denies: Hx Hepatitis, Hx Hiatal Hernia, Hx Ulcer Musculoskeletal Medical History: Reports Hx Arthritis, Reports Hx Fibromyalgia Psychiatric Medical History: Reports: Hx Depression, Hx Post Traumatic Stress Disorder, Hx Schizophrenia Infectious Medical History: Denies: Hx Hepatitis Past Surgical History: Reports: Hx Section, Hx Cholecystectomy, Hx Orthopedic Surgery - Toe. Denies: Hx Mastectomy, Hx Open Heart Surgery, Hx Pacemaker - Immunizations Hx Diphtheria, Pertussis, Tetanus Vaccination: Yes Review of Systems - Review of Systems -: Yes All other systems reviewed and negative Physical Exam - Vital signs Vitals: Temp Pulse BP Pulse Ox 98.6 F 88 162/88 H 99 04/24/18 00:23 04/24/18 00:23 04/24/18 00:23 04/24/18 00:23 - Notes Notes: PHYSICAL EXAMINATION: GENERAL: Well-appearing, well-nourished and in no acute distress. Speaks in 4 word sentences approx. HEAD: Atraumatic, normocephalic. EYES: Pupils equal round and reactive to light, extraocular movements intact, sclera anicteric, conjunctiva are normal. ENT: Nares patent and without discharge. oropharynx clear without exudates. No tonsilar hypertrophy or erythema. Moist mucous membranes. No angioedema or airway compromise. NECK: Normal range of motion, supple without lymphadenopathy. No rigidity/ meningismus. LUNGS: Dec breath sounds b/l. No retractions. HEART: Regular rate and rhythm without murmurs, rubs, gallops. ABDOMEN: Soft, nontender, nondistended abdomen. No guarding, no rebound. No masses appreciated. Normal bowel sounds present. No CVA tenderness bilaterally. Musculoskeletal: FROM to passive/active. Strength 5+/5. Genesis neg. No asymmetry to LE's. Extremities: No cyanosis, clubbing, or edema b/l. Peripheral pulses 2+. Capillary refill less than 3 seconds. NEUROLOGICAL: Normal speech, normal gait. PSYCH: Normal mood, normal affect. SKIN: Warm, Dry, normal turgor, no rashes or lesions noted. Course - Re-evaluation Re-evalutation: 04/24/18 04:00 Reevaluation of patient: Patient states that she is feeling much better and no longer has any dyspnea, shortness of breath s/p breathing treatment. Patient would still like the magnesium, but declines the steroid. Patient is agreeable to the second troponin. 04/24/18 07:03 Patient is an afebrile, well-hydrated 67-year-old female who presents to the ED with dyspnea, suspect secondary to her asthma/copd. Vitals are acceptable without any significant tachycardia, tachypnea, or hypoxia. PE is otherwise unremarkable. Patient is nontoxic-appearing and is tolerating p.o. without any difficulties. Pt is currently asymptomatic. Pt reports feeling much better after the medicine and neb treatment. CBC, CMP, EKG/cardiac enzymes 2, chest x -ray are all unremarkable for any acute pathology. Patient has a heart score of 4, Wells score of 0. I do not suspect a significant cardiac event at this time as her symptoms favor respiratory etiology. Patient does not have any chest pain, dyspnea, or shortness of breath. Patient's presentation and symptomatology creates low suspicion for ACS, PE, pneumothorax, pericarditis, dissection, respiratory compromise, severe dehydration, sepsis, meningitis, or other systemic emergent condition at this time. Patient is aware that this condition can change from initial presentation and she needs to monitor symptoms closely and seek medical attention for any acute changes. Pt is feeling better and would like to go home. Pt does not want to stay with risks/ benefits reviewed. Recommend conservative measures for symptoms. Recheck with your PCM in 1-2 days. Consider consult with Cardiology. Return to the ED with any worsening/concerning symptoms otherwise as reviewed in discharge. Patient is in agreement. - Vital Signs Vital signs: Temp Pulse Resp BP Pulse Ox 98.6 F 88 162/88 H 99 04/24/18 00:23 04/24/18 00:23 04/24/18 00:23 04/24/18 00:23 - Laboratory Result Diagrams: 04/24/18 01:55 04/24/18 01:55 Laboratory results interpreted by me: 04/24/18 04/24/18 04/24/18 01:55 01:55 01:55 RDW 15.6 H VBG pH 7.44 H Direct Bilirubin 0.5 H AST 40 H Alkaline Phosphatase 139 H Creatine Kinase 287 H Discharge - Discharge Clinical Impression: Dyspnea Qualifiers: Dyspnea type: unspecified Qualified Code(s): R06.00 - Dyspnea, unspecified Condition: Stable Disposition: HOME, SELF-CARE Additional Instructions: Maintain adequate fluid and food intake Take home medications as directed Low sodium/fat diet Exercise as able Monitor blood pressure daily and keep a log Monitor symptoms for any acute changes, do not hesitate to return if needed* Recheck with your PCM in 1-2 days Consider a follow-up with cardiology Return to the ED with any worsening symptoms and/or development of fever, headache, chest pain, palpitations, syncope, shortness of breath, trouble breathing, abdominal pain, n/v/d, blood in stool/urine, loss of control of bowel /bladder, urinary retention, muscle weakness/paralysis, numbness/tingling, or other worsening symptoms that are concerning to you. Forms: Elevated Blood Pressure Referrals: LUTHER TRUONG MD [ACTIVE STAFF] - Follow up as needed
[2018-04-24 08:33] VITALS: BP 141/57
--- NOTE | 2018-04-24 08:54 | EKG REPORT ---
SEVERITY:- BORDERLINE ECG - SINUS RHYTHM BORDERLINE T ABNORMALITIES, INFERIOR LEADS : Confirmed by: Doris Yeboah MD 24-Apr-2018 08:54:19
== END 2018-04-24 08:35 | disposition home or self-care (01) ==
LOC: ER 00:07
DX: R06.00 Dyspnea, unspecified (principal); E11.9 Type 2 diabetes mellitus without complications; I10 Essential (primary) hypertension; J44.9 Chronic obstructive pulmonary disease, unspecified; J45.909 Unspecified asthma, uncomplicated; Z86.73 Personal history of transient ischemic attack (TIA), and cerebral infarction without residual deficits; Z90.49 Acquired absence of other specified parts of digestive tract
CPT/HCPCS: 93005; 94640; 99285; 96365; 36415; 82553; 82550; 83690; 85025; 80053; 84484; 82803; 83880; 71045; 93010; J3475; A9270; J2930; J7620

== ENCOUNTER 2018-06-13 14:42 | Emergency (ER) | payer MEDICARE, MEDICAID ==
--- NOTE | 2018-06-13 15:29 | ER Document Report ---
ED Medical Screen (RME) - General Chief Complaint: Shortness Of Breath Stated Complaint: RIGHT BACK PAIN Time Seen by Provider: 06/13/18 15:12 Notes: Patient is a 67-year-old female that presents to the emergency department for chief complaint of right rib pain, cough and shortness of breath. ROS: Other than noted above, the 12 point review of systems was reviewed with the patient and were negative, all pertinent findings are included in the HPI. PHYSICAL EXAMINATION: Vital signs reviewed. GENERAL: Well-appearing, well-nourished and in no acute distress. HEAD: Atraumatic, normocephalic. EYES: Pupils equal round extraocular movements intact, conjunctiva are normal. ENT: Nares patent NECK: Normal range of motion CV: Heart regular rate and rhythm LUNGS: No respiratory distress Musculoskeletal: Normal range of motion NEUROLOGICAL: Normal speech PSYCH: Normal mood, normal affect. MDM: Patient seen and examined for rapid initial assessment. Vital signs reviewed. A comprehensive ED assessment and evaluation of the patient, analysis of test results and completion of the medical decision making process will be conducted by additional ED providers. *Note is created using voice recognition software and may contain spelling, syntax or grammatical errors. TRAVEL OUTSIDE OF THE [place] IN LAST 30 DAYS: No - Related Data Allergies/Adverse Reactions: lisinopril [Lisinopril] Allergy (Severe, Verified 06/13/18 14:43) Edema phenytoin sodium extended [From Dilantin] Allergy (Severe, Verified 06/13/18 14: 43) Unknown reaction risperidone [From Risperdal] Allergy (Intermediate, Verified 06/13/18 14:43) Hives venlafaxine HCl [From Effexor] Allergy (Intermediate, Verified 06/13/18 14:43) Hives Past Medical History - Social History Frequency of alcohol use: None Drug Abuse: None - Past Medical History Cardiac Medical History: Reports: Hx Hypercholesterolemia, Hx Hypertension Denies: Hx Heart Attack Pulmonary Medical History: Reports: Hx Asthma, Hx COPD, Hx Pneumonia Denies: Hx Tuberculosis Neurological Medical History: Reports: Hx Seizures - 18-19 YEARS AGO. Denies: Hx Cerebrovascular Accident Endocrine Medical History: Reports: Hx Diabetes Mellitus Type 2 Renal/ Medical History: Denies: Hx Peritoneal Dialysis GI Medical History: Reports: Hx Gastroesophageal Reflux Disease. Denies: Hx Hepatitis, Hx Hiatal Hernia, Hx Ulcer Musculoskeltal Medical History: Reports Hx Arthritis, Reports Hx Fibromyalgia Psychiatric Medical History: Reports: Hx Depression, Hx Post Traumatic Stress Disorder, Hx Schizophrenia Infectious Medical History: Denies: Hx Hepatitis Past Surgical History: Reports: Hx Section - x2, Hx Cholecystectomy, Hx Orthopedic Surgery - left great toe implant. Denies: Hx Mastectomy, Hx Open Heart Surgery, Hx Pacemaker - Immunizations Hx Diphtheria, Pertussis, Tetanus Vaccination: Yes Physical Exam - Vital signs Vitals: Temp Pulse Resp BP Pulse Ox 98.8 F 75 17 144/67 H 99 06/13/18 14:46 06/13/18 14:46 06/13/18 14:46 06/13/18 14:46 06/13/18 14:46 Course - Vital Signs Vital signs: Temp Pulse Resp BP Pulse Ox 98.8 F 75 17 144/67 H 99 06/13/18 14:46 06/13/18 14:46 06/13/18 14:46 06/13/18 14:46 06/13/18 14:46 Doctor's Discharge - Discharge Referrals: RODGER MOROCHO MD [Primary Care Provider] - Follow up as needed
[2018-06-13 16:18] LABS: ABSOLUTE BASOPHILS # (AUTO) 0.1 10^3/uL (0.0-0.2); ABSOLUTE EOSINOPHILS # (AUTO) 0.1 10^3/uL (0.0-0.6); ABSOLUTE LYMPHOCYTES (AUTO) 1.3 10^3/uL (0.5-4.7); ABSOLUTE MONOCYTES (AUTO) 0.7 10^3/uL (0.1-1.4); ABSOLUTE NEUT (AUTO) 5.4 10^3/uL (1.7-8.2); BASOPHILS % (AUTO) 0.8 % (0-2); EOSINOPHILS % (AUTO) 1.6 % (0-6); HEMATOCRIT 34.1 % (36.0-47.0); HEMOGLOBIN 11.4 g/dL (12.0-15.5); LYMPHOCYTES % (AUTO) 17.3 % (13-45); MEAN CORPUSCULAR HEMOGLOBIN 27.6 pg (27.0-33.4); MEAN CORPUSCULAR HGB CONC 33.4 g/dL (32.0-36.0); MEAN CORPUSCULAR VOLUME 83 fl (80-97); MONOCYTES % (AUTO) 8.7 % (3-13); PLATELET COUNT 263 10^3/uL (150-450); RED BLOOD COUNT 4.12 10^6/uL (3.72-5.28); RED CELL DISTRIBUTION WIDTH 15.4 % (11.5-14.0); SEGMENTED NEUTROPHILS % (AUTO) 71.6 % (42-78); TOTAL CELLS COUNTED % (AUTO) 100 %; WHITE BLOOD COUNT 7.6 10^3/uL (4.0-10.5)
[2018-06-13] MEDS ORDERED: KETOROLAC TROMETHAMINE INJ/PF 30 MG/1 ML SDV IV ONE (16:24)
[2018-06-13] MEDS ORDERED: ALBUTEROL SULFATE 0.083% NEB 2.5 MG/3 ML AMPUL NEB ONE (16:24)
--- NOTE | 2018-06-13 16:38 | ER Document Report ---
ED General - General Chief Complaint: Shortness Of Breath Stated Complaint: RIGHT BACK PAIN Time Seen by Provider: 06/13/18 15:12 Notes: 67-year-old female to the emergency department complaining of right flank pain. No significant shortness of breath. Patient states that it feels like she is having a muscle spasm. No fever, chills, sweats. No change in urine. No blood in her urine. Does not have a gallbladder. Denies any chest pain. Symptoms have been on and off for a couple of days. Does not really want to be here as she says she has a rastafari service to get to here in a little bit but she wants to go TRAVEL OUTSIDE OF THE [place] IN LAST 30 DAYS: No - HPI Onset: Yesterday Onset/Duration: Gradual Quality of pain: Achy Severity: Moderate Pain Level: 3 Associated symptoms: None - Related Data Allergies/Adverse Reactions: lisinopril [Lisinopril] Allergy (Severe, Verified 06/13/18 14:43) Edema phenytoin sodium extended [From Dilantin] Allergy (Severe, Verified 06/13/18 14: 43) Unknown reaction risperidone [From Risperdal] Allergy (Intermediate, Verified 06/13/18 14:43) Hives venlafaxine HCl [From Effexor] Allergy (Intermediate, Verified 06/13/18 14:43) Hives Past Medical History - General Information source: Patient - Social History Smoking Status: Never Smoker Frequency of alcohol use: None Drug Abuse: None Lives with: Family Family History: CAD, CVA, DM, Hypertension, Malignancy Patient has suicidal ideation: No Patient has homicidal ideation: No - Past Medical History Cardiac Medical History: Reports: Hx Hypercholesterolemia, Hx Hypertension Denies: Hx Heart Attack Pulmonary Medical History: Reports: Hx Asthma, Hx COPD, Hx Pneumonia Denies: Hx Tuberculosis Neurological Medical History: Reports: Hx Seizures - 18-19 YEARS AGO. Denies: Hx Cerebrovascular Accident Endocrine Medical History: Reports: Hx Diabetes Mellitus Type 2 Renal/ Medical History: Denies: Hx Peritoneal Dialysis GI Medical History: Reports: Hx Gastroesophageal Reflux Disease. Denies: Hx Hepatitis, Hx Hiatal Hernia, Hx Ulcer Musculoskeletal Medical History: Reports Hx Arthritis, Reports Hx Fibromyalgia Psychiatric Medical History: Reports: Hx Depression, Hx Post Traumatic Stress Disorder, Hx Schizophrenia Infectious Medical History: Denies: Hx Hepatitis Past Surgical History: Reports: Hx Section - x2, Hx Cholecystectomy, Hx Orthopedic Surgery - left great toe implant. Denies: Hx Mastectomy, Hx Open Heart Surgery, Hx Pacemaker - Immunizations Hx Diphtheria, Pertussis, Tetanus Vaccination: Yes Review of Systems - Review of Systems Notes: Constitutional: denies: Chills, Diaphoresis, Fever, Malaise, Weakness EENT: denies: Eye discharge, Blurred vision, Tearing, Double vision, Nose congestion, Nose discharge, Throat swelling, Mouth pain Cardiovascular: denies: Palpitations, Heart racing, Orthopnea, Dyspnea, Chest pain Respiratory: denies: Cough, Hurts to breathe, Wheezing, Shortness of breath Gastrointestinal: denies: Abdominal pain, Diarrhea, Nausea, Vomiting, Black stools, bright red blood in stool Genitourinary: denies: Burning, Dysuria, Discharge, Frequency, Flank pain, Hematuria Musculoskeletal: denies: Joint pain, Joint swelling, Muscle pain, Muscle stiffness,. Does complain of some right posterior chest wall and flank pain. Hematologic/Lymphatic: denies: Anemia, Easy bleeding, Easy bruising, Blood clots Neurological/Psychological: denies: Confusion, Dementia, Depression, Loss of consciousness Skin: No lesions, no masses, no skin breakdown, no abscesses Physical Exam - Vital signs Vitals: Temp Pulse Resp BP Pulse Ox 98.8 F 75 17 144/67 H 99 06/13/18 14:46 06/13/18 14:46 06/13/18 14:46 06/13/18 14:46 06/13/18 14:46 Interpretation: Normal - General General appearance: Appears well, Alert - HEENT Head: Normocephalic, Atraumatic Eyes: Normal Pupils: PERRL - Respiratory Respiratory status: No respiratory distress Chest status: Nontender Breath sounds: Normal Chest palpation: Normal - Cardiovascular Rhythm: Regular Heart sounds: Normal auscultation Murmur: No - Abdominal Inspection: Normal Distension: No distension Bowel sounds: Normal Tenderness: Nontender Organomegaly: No organomegaly - Back Back: Normal, Nontender - Extremities General upper extremity: Normal inspection, Nontender, Normal color, Normal ROM , Normal temperature General lower extremity: Normal inspection, Nontender, Normal color, Normal ROM , Normal temperature, Normal weight bearing. No: Genesis's sign - Neurological Neuro grossly intact: Yes Cognition: Normal Orientation: AAOx4 Alec Coma Scale Eye Opening: Spontaneous [place] Coma Scale Verbal: Oriented [place] Coma Scale Motor: Obeys Commands [place] Coma Scale Total: 15 Speech: Normal Motor strength normal: LUE, RUE, LLE, RLE Sensory: Normal - Psychological Associated symptoms: Normal affect, Normal mood - Skin Skin Temperature: Warm Skin Moisture: Dry Skin Color: Normal Course - Re-evaluation Re-evalutation: 06/13/18 17:57 Patient feeling a bit better after the Toradol. Slightly elevated d-dimer. With the pain being in the right posterior chest and having some mild tachypnea with elevated d-dimer we will get a angiogram at this time. 06/13/18 18:36 Laboratory 06/13/18 06/13/18 06/13/18 16:06 16:06 16:06 WBC 7.6 RBC 4.12 Hgb 11.4 L Hct 34.1 L MCV 83 MCH 27.6 MCHC 33.4 RDW 15.4 H Plt Count 263 Seg Neutrophils % 71.6 Lymphocytes % 17.3 Monocytes % 8.7 Eosinophils % 1.6 Basophils % 0.8 Absolute Neutrophils 5.4 Absolute Lymphocytes 1.3 Absolute Monocytes 0.7 Absolute Eosinophils 0.1 Absolute Basophils 0.1 D-Dimer Sodium Cancelled Potassium Cancelled Chloride Cancelled Carbon Dioxide Cancelled Anion Gap Cancelled BUN Cancelled Creatinine Cancelled Est GFR ( Amer) Cancelled Est GFR (Non-Af Amer) Cancelled Glucose Cancelled Calcium Cancelled Total Bilirubin Cancelled Direct Bilirubin Cancelled Neonat Total Bilirubin Cancelled Neonat Direct Bilirubin Cancelled Neonat Indirect Bili Cancelled AST Cancelled ALT Cancelled Alkaline Phosphatase Cancelled Creatine Kinase Cancelled Troponin I < 0.012 Total Protein Cancelled Albumin Cancelled Lipase 06/13/18 06/13/18 06/13/18 16:06 16:47 17:15 WBC RBC Hgb Hct MCV MCH MCHC RDW Plt Count Seg Neutrophils % Lymphocytes % Monocytes % Eosinophils % Basophils % Absolute Neutrophils Absolute Lymphocytes Absolute Monocytes Absolute Eosinophils Absolute Basophils D-Dimer 0.75 H Sodium 147.1 H Potassium 3.8 Chloride 105 Carbon Dioxide 30 Anion Gap 12 BUN 14 Creatinine 0.82 Est GFR ( Amer) > 60 Est GFR (Non-Af Amer) > 60 Glucose 100 Calcium 9.5 Total Bilirubin 0.6 Direct Bilirubin 0.3 Neonat Total Bilirubin Not Reportable Neonat Direct Bilirubin Not Reportable Neonat Indirect Bili Not Reportable AST 25 ALT 23 Alkaline Phosphatase 138 H Creatine Kinase 191 H Troponin I Total Protein 7.4 Albumin 4.2 Lipase 55.8 Chest X-Ray 06/13/18 15:29 IMPRESSION: NO ACUTE RADIOGRAPHIC FINDING IN THE CHEST. Chest/Abdomen CTA 06/13/18 17:32 IMPRESSION: No emboli visualized in the main pulmonary arteries or the segmental branches. No masses, consolidation, or pneumothorax. Small bilateral pleural effusions. Similar subpleural interstitial changes - small nodularity and bilateral lower lobe pleural calcifications. No obvious pulmonary embolism seen. Labs are fairly unremarkable. Have slightly elevated alkaline phosphatase. Are some slight abnormality seen with in the chest from the CT scan. Small bilateral effusions and some subpleural interstitial nodularities bilaterally in the lower lobes with some pleural calcifications have been seen. Patient will need follow-up with pulmonology. 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 I find nothing further at this time to explain her symptoms. Patient advised to follow-up with her regular doctor and activated sludge operator. Return for any worsening symptoms or concerns. - Vital Signs Vital signs: Temp Pulse Resp BP Pulse Ox 98.8 F 75 19 157/72 H 97 06/13/18 14:46 06/13/18 14:46 06/13/18 17:01 06/13/18 17:01 06/13/18 17:01 - Laboratory Result Diagrams: 06/13/18 16:06 06/13/18 17:15 Laboratory results interpreted by me: 06/13/18 06/13/18 06/13/18 16:06 16:47 17:15 Hgb 11.4 L Hct 34.1 L RDW 15.4 H D-Dimer 0.75 H Sodium 147.1 H Alkaline Phosphatase 138 H Creatine Kinase 191 H - EKG Interpretation by Hi EKG shows normal: Sinus rhythm, Lynch, Intervals, QRS Complexes, ST-T Waves Discharge - Discharge Clinical Impression: Right-sided chest wall pain Condition: Good Disposition: HOME, SELF-CARE Instructions: Anti-Inflammatory Medication ([facility]), Chest Wall Pain ([facility]) Additional Instructions: No significant findings were seen today with the exception of some abnormal findings in the lung. It would be advisable that you follow-up with a activated sludge operator to have this reevaluated. In the event that your symptoms return or get worse please return immediately for repeat evaluation. Prescriptions: Ibuprofen [Motrin 600 Mg Tablet] 600 mg PO TID PRN 5 Days #15 tablet PRN Reason: Referrals: RODGER MOROCHO MD [Primary Care Provider] - Follow up in 3-5 days AMRIT JONES MD [ACTIVE STAFF] - Follow up in 1 week
--- NOTE | 2018-06-13 16:40 | RADIOLOGY REPORT (SQ) ---
EXAM DESCRIPTION: CHEST SINGLE VIEW COMPLETED DATE/TIME: 06/13/2018 4:16 pm REASON FOR STUDY: cough, right rib pain COMPARISON: Chest films 04/24/2018, 02/24/2018, 09/26/2017 EXAM PARAMETERS: NUMBER OF VIEWS: One view. TECHNIQUE: Single frontal radiographic view of the chest acquired. RADIATION DOSE: NA LIMITATIONS: None. FINDINGS: LUNGS AND PLEURA: No opacities, masses or pneumothorax. No pleural effusion. MEDIASTINUM AND HILAR STRUCTURES: No masses. Contour normal. HEART AND VASCULAR STRUCTURES: Heart normal in size. Normal vasculature. BONES: No acute findings. HARDWARE: None in the chest. OTHER: No other significant finding. IMPRESSION: NO ACUTE RADIOGRAPHIC FINDING IN THE CHEST. TECHNICAL DOCUMENTATION: JOB ID: [id number] [employer]- All Rights Reserved Reading location - IP/workstation name: [email or web address]
[2018-06-13 17:45] LABS: ALANINE AMINOTRANSFERASE 23 U/L (9-52); ALBUMIN 4.2 g/dL (3.5-5.0); ALKALINE PHOSPHATASE 138 U/L (38-126); ANION GAP 12 (5-19); ASPARTATE AMINO TRANSFERASE 25 U/L (14-36); BILIRUBIN,DIRECT 0.3 mg/dL (0.0-0.4); BILIRUBIN,TOTAL 0.6 mg/dL (0.2-1.3); BLOOD UREA NITROGEN 14 mg/dL (7-20); CALCIUM 9.5 mg/dL (8.4-10.2); CARBON DIOXIDE 30 mmol/L (22-30); CHLORIDE 105 mmol/L (98-107); CREATINE KINASE 191 U/L (30-135); GLUCOSE 100 mg/dL (75-110); POTASSIUM 3.8 mmol/L (3.6-5.0); SODIUM 147.1 mmol/L (137-145); TOTAL PROTEIN 7.4 g/dL (6.3-8.2)
--- NOTE | 2018-06-13 18:31 | RADIOLOGY REPORT (SQ) ---
EXAM DESCRIPTION: CTA CHEST COMPLETED DATE/TIME: 06/13/2018 6:09 pm REASON FOR STUDY: Right, tachypnea and elevated d-dimer COMPARISON: 04/22/2017 TECHNIQUE: CT scan of the chest performed using helical scanning technique with dynamic intravenous contrast injection. Images reviewed with lung, soft tissue and bone windows. Reconstructed coronal and sagittal MPR images reviewed. Additional 3 dimensional post-processing performed to develop Maximal Intensity Projection images (ND P). All images stored on PACS. All CT scanners at this facility use dose modulation, iterative reconstruction, and/or weight based d osing when appropriate to reduce radiation dose to as low as reasonably achievable (ALARA). [facility]: Dose Right [facility]: CareDose [facility]: Dose Right [facility]: Teradose 4D [facility]: GBS CONTRAST TYPE AND DOSE: contrast/concentration: Isovue 350.00 mg/ml; Total Contrast Delivered: 76.0 ml; Total Saline Delivered: 108.0 ml Contrast bolus optimized for the pulmonary arteries. Not diagnostic for the aorta. RENAL FUNCTION: GFR > 60. RADIATION DOSE: CT Rad equipment meets quality standard of care and radiation dose reduction techniq ues were employed. CTDIvol: 16.8 - 33.1 mGy. DLP: 596 mGy-cm. . LIMITATIONS: None. FINDINGS: LUNGS AND PLEURA: No masses, consolidation, or pneumothorax. Small bilateral pleural effu sions. Similar subpleural interstitial changes - small nodularity and bilateral lower lobe pleural c alcifications. AORTA AND GREAT VESSELS: No aneurysm. Contrast bolus not optimized for the aorta. HEART: No pericardial effusion. Mild coronary artery calcifications. PULMONARY ARTERIES: No emboli visualized in the main pulmonary arteries or the segmental branches. HILAR AND MEDIASTINAL STRUCTURES: No identified masses or abnormal nodes. HARDWARE: None in the chest. UPPER ABDOMEN: No significant findings. Limited exam. THYROID AND OTHER SOFT TISSUES: Similar small thyroid cystic nodules. No adenopathy. BONES: No acute finding. 3D MIPS: Confirm above findings. OTHER: No other significant finding. IMPRESSION: No emboli visualized in the main pulmonary arteries or the segmental branches. No masses, consolidation, or pneumothorax. Small bilateral pleural effusions. Similar subpleural in terstitial changes - small nodularity and bilateral lower lobe pleural calcifications. COMMENT: Quality ID # [id number]: Final reports with documentation of one or more dose reduction techniques (e.g., Automated exposure control, adjustment of the mA and/or kV according to patient size, use of iterative reconstruction technique) TECHNICAL DOCUMENTATION: JOB ID: [id number] [place]-72 2010 [employer]- All Rights Reserved Reading location - IP/workstation name: [email or web address]
[2018-06-13 19:00] VITALS: BP 156/83
[2018-06-13 19:09] LABS: APPEARANCE,URINE CLEAR; BILIRUBIN,URINE NEGATIVE (NEGATIVE); COLOR,URINE COLORLESS; GLUCOSE, URINE NEGATIVE (NEGATIVE); KETONES,URINE NEGATIVE (NEGATIVE); LEUKOCYTE ESTERASE,URINE NEGATIVE (NEGATIVE); NITRITE,URINE NEGATIVE (NEGATIVE); PROTEIN,URINE NEGATIVE (NEGATIVE); URINE SPECIFIC GRAVITY 1.014; UROBILINOGEN,URINE NEGATIVE mg/dL (<2.0)
--- NOTE | 2018-06-14 07:25 | EKG REPORT ---
SEVERITY:- NORMAL ECG - SINUS RHYTHM : Confirmed by: Pedrito Moon 14-Jun-2018 07:24:43
== END 2018-06-13 19:02 | disposition home or self-care (01) ==
LOC: ER 14:42
DX: R07.89 Other chest pain (principal); J90 Pleural effusion, not elsewhere classified; J44.9 Chronic obstructive pulmonary disease, unspecified; R91.8 Other nonspecific abnormal finding of lung field; R74.8 Abnormal levels of other serum enzymes; R06.82 Tachypnea, not elsewhere classified; R79.1 Abnormal coagulation profile; R10.9 Unspecified abdominal pain; I10 Essential (primary) hypertension; E11.9 Type 2 diabetes mellitus without complications; Z88.8 Allergy status to other drugs, medicaments and biological substances; Z82.49 Family history of ischemic heart disease and other diseases of the circulatory system; Z87.01 Personal history of pneumonia (recurrent)
CPT/HCPCS: 93005; 94640; 99285; 96374; 36415; 82550; 83690; 85025; 80053; 81001; 84484; 85379; 71045; 71275; 93010; J1885; A9270

== ENCOUNTER 2018-09-04 20:38 | Emergency (ER) | payer MEDICARE, MEDICAID ==
[2018-09-04 22:02] LABS: ABSOLUTE EOSINOPHILS # (AUTO) 0.1 10^3/uL (0.0-0.6); ABSOLUTE LYMPHOCYTES (AUTO) 1.3 10^3/uL (0.5-4.7); ABSOLUTE MONOCYTES (AUTO) 0.5 10^3/uL (0.1-1.4); BASOPHILS % (AUTO) 0.5 % (0-2); EOSINOPHILS % (AUTO) 1.5 % (0-6); HEMATOCRIT 39.2 % (36.0-47.0); HEMOGLOBIN 13.2 g/dL (12.0-15.5); LYMPHOCYTES % (AUTO) 13.2 % (13-45); MEAN CORPUSCULAR HGB CONC 33.7 g/dL (32.0-36.0); MEAN CORPUSCULAR VOLUME 83 fl (80-97); MONOCYTES % (AUTO) 5.4 % (3-13); PLATELET COUNT 290 10^3/uL (150-450); RED BLOOD COUNT 4.72 10^6/uL (3.72-5.28); RED CELL DISTRIBUTION WIDTH 16.6 % (11.5-14.0); SEGMENTED NEUTROPHILS % (AUTO) 79.4 % (42-78); TOTAL CELLS COUNTED % (AUTO) 100 %; WHITE BLOOD COUNT 10.1 10^3/uL (4.0-10.5)
[2018-09-04 22:05] LABS: APPEARANCE,URINE CLEAR; BILIRUBIN,URINE NEGATIVE (NEGATIVE); COLOR,URINE YELLOW; GLUCOSE, URINE NEGATIVE (NEGATIVE); KETONES,URINE NEGATIVE (NEGATIVE); LEUKOCYTE ESTERASE,URINE NEGATIVE (NEGATIVE); NITRITE,URINE NEGATIVE (NEGATIVE); PROTEIN,URINE NEGATIVE (NEGATIVE); URINE SPECIFIC GRAVITY 1.013
--- NOTE | 2018-09-04 22:48 | ER Document Report ---
ED General - General Chief Complaint: Heart flutter on/off Stated Complaint: SHORTNESS OF BREATH,RIGHT SIDE PAIN,HEART FLUTTER Time Seen by Provider: 09/04/18 22:46 Primary Care Provider: RODGER MOROCHO MD [Primary Care Provider] - 09/06/18 Notes: Patient is a 68-year-old female who presents with complaint of pain over the right back. No abdominal pain. She said this pain several times over the last year. 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 She is followed by Dr. Spivey for this. She supposed to follow-up with him in September for repeat x-ray to reevaluate these tumors. She was seen here in June had a CT PE study which did not show any other concerning findings. She says that she is felt very fatigued over the last few months she feels that is worsening. 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 She says she is constantly moving and busy and does not rest. Patient second complaint is that she occasionally feels her heart "skip a beat". She does have an approximate 4 times over the past week. Happened last few days. No associated chest pain. TRAVEL OUTSIDE OF THE [place] IN LAST 30 DAYS: No - Related Data Allergies/Adverse Reactions: lisinopril [Lisinopril] Allergy (Severe, Verified 06/13/18 14:43) Edema phenytoin sodium extended [From Dilantin] Allergy (Severe, Verified 06/13/18 14:43) Unknown reaction risperidone [From Risperdal] Allergy (Intermediate, Verified 06/13/18 14:43) Hives venlafaxine HCl [From Effexor] Allergy (Intermediate, Verified 06/13/18 14:43) Hives Past Medical History - Social History Smoking Status: Never Smoker Frequency of alcohol use: None Drug Abuse: None Family History: CAD, CVA, DM, Hypertension, Malignancy Patient has suicidal ideation: No Patient has homicidal ideation: No - Past Medical History Cardiac Medical History: Reports: Hx Hypercholesterolemia, Hx Hypertension Denies: Hx Heart Attack Pulmonary Medical History: Reports: Hx Asthma, Hx COPD, Hx Pneumonia Denies: Hx Tuberculosis Neurological Medical History: Reports: Hx Seizures - 18-19 YEARS AGO. Denies: Hx Cerebrovascular Accident Endocrine Medical History: Reports: Hx Diabetes Mellitus Type 2 Renal/ Medical History: Denies: Hx Peritoneal Dialysis GI Medical History: Reports: Hx Gastroesophageal Reflux Disease. Denies: Hx Hepatitis, Hx Hiatal Hernia, Hx Ulcer Musculoskeletal Medical History: Reports Hx Arthritis, Reports Hx Fibromyalgia Psychiatric Medical History: Reports: Hx Depression, Hx Post Traumatic Stress Disorder, Hx Schizophrenia Infectious Medical History: Denies: Hx Hepatitis Past Surgical History: Reports: Hx Section - x2, Hx Cholecystectomy, Hx Orthopedic Surgery - left great toe implant. Denies: Hx Mastectomy, Hx Open Heart Surgery, Hx Pacemaker - Immunizations Hx Diphtheria, Pertussis, Tetanus Vaccination: Yes Review of Systems - Review of Systems Notes: My Normal Review Basic REVIEW OF SYSTEMS: CONSTITUTIONAL : Denies fever, chills, or sweats. Denies recent illness. EENT: Denies eye, ear, throat, or mouth pain or symptoms. Denies nasal or sinus congestion. CARDIOVASCULAR: Denies chest pain. Occasional sensation of skipped heartbeat RESPIRATORY: Denies cough, cold, or chest congestion. Denies shortness of breath, difficulty breathing, or wheezing. GASTROINTESTINAL: Denies abdominal pain. Denies nausea, vomiting, or diarrhea. GENITOURINARY: Denies difficulty urinating, painful urination, burning, frequency, or blood in urine. MUSCULOSKELETAL: Right sided back pain. SKIN: Denies rash or skin lesions. NEUROLOGICAL: Denies altered mental status or loss of consciousness. Denies headache. Denies weakness or paralysis or loss of use of either side. Denies problems with gait or speech. Denies sensory or motor loss. Physical Exam - Vital signs Vitals: Temp Pulse Resp BP Pulse Ox 99.5 F 87 20 186/78 H 98 09/04/18 20:55 09/04/18 20:55 09/04/18 20:55 09/04/18 20:55 09/04/18 20:55 - Notes Notes: General Appearance: Well nourished, alert, cooperative, no acute distress, no obvious discomfort. Well-appearing. Vitals: reviewed, See vital signs table. Head: no swelling or tenderness to the head Eyes: PERRL, EOMI, Conjuctiva clear Mouth: No decreasd moisture Lungs: No wheezing, No rales, No rhonci, No accessory muscle use, good air e xchange bilaterally. Heart: Normal rate, Regular rythm, No murmur, no rub Abdomen: Normal BS, soft, No rigidity, No abdominal tenderness, No guarding, no rebound, no abdominal masses, no organomegaly Back: Some pain to palpation over the right upper lumbar and lower thoracic paraspinal musculature. Extremities: strength 5/5 in all extremities, good pulses in all extremities, no swelling or tenderness in the extremities, no edema. Skin: warm, dry, appropriate color, no rash Neuro: speech clear, oriented x 3, normal affect, responds appropriately to questions. Course - Re-evaluation Re-evalutation: 09/05/18 00:25 On exam the patient's back pain seems to be actually related to the paraspinal musculature of the back itself. She has tenderness to palpation of her lower thoracic paraspinal musculature on the right. She is a reproducible palpation. She is concerned it could be her gallbladder because in the past she is been told she has gallstones; however, her pain is not affected by eating whatsoever. Also this pain has been a chronic recurring thing for many months. She does have a history of tumors in her lungs is followed by digital tech. I did look up her previous CT scan from June and she actually has calcifications and some nodules. I did do a chest x-ray and there is no concerning findings on a chest x-ray today. She complains of some palpitations. She describes these as a sensation of a skipped beat. Said it happened approximately 4 times just over a week ago. She has not had anything like this today or yesterday. She denies any chest pain. Heart enzymes and EKG are negative. She looks well. She complains of fatigue which she says is been worsening over several months. 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 She said that she is constantly doing something throughout the day and never has time to really rest. I informed her that at her age she really does take time to rest and that she needs to cut back some on what she does so that she does not overwork herself. I encouraged her to follow-up closely with her doctor this week for reevaluation. I encouraged her return to ER immediately if she has fevers, worsening pain, vomiting, difficulty breathing, chest pain, or she feels unwell. Patient agrees with plan and will be discharged home. Dictation of this chart was performed using voice recognition software; therefore, there may be some unintended grammatical errors. - Vital Signs Vital signs: Temp Pulse Resp BP Pulse Ox 98.9 F 87 19 148/90 H 100 09/05/18 00:42 09/04/18 20:55 09/05/18 00:01 09/05/18 00:01 09/05/18 00:01 - Laboratory Result Diagrams: 09/04/18 21:52 09/04/18 22:55 Laboratory results interpreted by me: 09/04/18 09/04/18 09/04/18 21:52 21:52 22:55 RDW 16.6 H Seg Neutrophils % 79.4 H Chloride 110 H Alkaline Phosphatase 143 H Urine Urobilinogen 4.0 H - EKG Interpretation by Me Additional EKG results interpreted by me: 09/04/18 22:47 EKG is reviewed and interpreted by me. EKG shows sinus rhythm with rate of [address] segment elevation or depression. No ischemic T wave inversions. DC interval, QRS duration, QT intervals are within normal range. Old EKG for comparison is from June 13, 2018. Discharge - Discharge Clinical Impression: Palpitations Back pain Qualifiers: Back pain location: thoracic back pain Chronicity: chronic Back pain lateral ity: right Qualified Code(s): M54.6 - Pain in thoracic spine Fatigue Qualifiers: Fatigue type: unspecified Qualified Code(s): R53.83 - Other fatigue Condition: Good Disposition: HOME, SELF-CARE Additional Instructions: Please cut back in the amount of activity throughout the day. It is still okay to do some activities throughout the day, but please consider taking more time throughout the day to rest as we do not want you to overwork herself. Please continue take your pain medicine as prescribed for your back. Please follow-up with your doctor in 2-3 days for reevaluation. Return to the ER immediately if you develop chest pain, difficulty breathing, fevers, vomiting, weakness in your legs, numbness in her legs, difficulty urinating, or if you feel that you are worsening in any way. Forms: Return to Work Referrals: RODGER MOROCHO MD [Primary Care Provider] - 09/06/18
[2018-09-04 23:14] LABS: ALANINE AMINOTRANSFERASE 27 U/L (9-52); ALBUMIN 4.2 g/dL (3.5-5.0); ALKALINE PHOSPHATASE 143 U/L (38-126); ANION GAP 9 (5-19); ASPARTATE AMINO TRANSFERASE 20 U/L (14-36); BILIRUBIN,DIRECT 0.1 mg/dL (0.0-0.4); BILIRUBIN,TOTAL 0.3 mg/dL (0.2-1.3); BLOOD UREA NITROGEN 16 mg/dL (7-20); CALCIUM 9.1 mg/dL (8.4-10.2); CARBON DIOXIDE 26 mmol/L (22-30); CHLORIDE 110 mmol/L (98-107); CREATINE KINASE 121 U/L (30-135); GLUCOSE 97 mg/dL (75-110); POTASSIUM 3.9 mmol/L (3.6-5.0); SODIUM 144.6 mmol/L (137-145); TOTAL PROTEIN 6.9 g/dL (6.3-8.2)
[2018-09-04 23:26] LABS: CREATINE KINASE MB 1.31 ng/mL (<4.55)
[2018-09-04 23:33] LABS: TROPONIN I < 0.012 ng/mL
--- NOTE | 2018-09-04 23:41 | RADIOLOGY REPORT (SQ) ---
EXAM DESCRIPTION: XR CHEST 1 VIEW COMPLETED DATE/TME: 09/04/2018 23:16 CLINICAL HISTORY: 68 years, Female, right sided pain COMPARISON: 04/24/2018 chest x-ray NUMBER OF VIEWS: 1 TECHNIQUE: Portable chest LIMITATIONS: None. FINDINGS: The heart size is normal. Osteopenia. Lungs are clear. No pneumothorax IMPRESSION: No acute cardiopulmonary process copyright 2010 [employer]- All Rights Reserved
[2018-09-04] MEDS ORDERED: NORMAL SALINE 1000 ML 1,000 ML IV ONE (23:52)
[2018-09-05 00:30] VITALS: BP 148/90
--- NOTE | 2018-09-05 21:48 | EKG REPORT ---
SEVERITY:- BORDERLINE ECG - SINUS RHYTHM LVH BY VOLTAGE : Confirmed by: Pedrito Moon 05-Sep-2018 21:46:55
== END 2018-09-05 00:42 | disposition home or self-care (01) ==
LOC: ER 20:38
DX: R00.2 Palpitations (principal); M54.6 Pain in thoracic spine; R53.83 Other fatigue; R06.02 Shortness of breath; E78.00 Pure hypercholesterolemia, unspecified; I10 Essential (primary) hypertension; E11.9 Type 2 diabetes mellitus without complications; Z90.49 Acquired absence of other specified parts of digestive tract
CPT/HCPCS: 36415; 71045; 80053; 81001; 82550; 82553; 83690; 84484; 85025; 93005; 93010; 99285

== ENCOUNTER → 2018-10-12 | Outpatient (CLI) | payer MEDICARE, MEDICAID ==
--- NOTE | 2018-10-12 16:34 | RADIOLOGY REPORT (SQ) ---
EXAM DESCRIPTION: CT ABD/PELVIS WITH IV ONLY COMPLETED DATE/TIME: 10/12/2018 3:11 pm REASON FOR STUDY: POSTMENOPAUSAL BLEEDING (N95.0), OTHER SPECIFIED NONINFLAMMATORY DISORDERS N95.0 POSTMENOPAUSAL BLEEDING N85.8 OTHER SPECIFIED NONINFLAMMATORY DISORDERS OF UTERUS COMPARISON: 05/27/2014. TECHNIQUE: CT scan of the abdomen and pelvis performed using helical scanning technique with dynamic intravenous contrast injection. No oral contrast. Images reviewed with lung, soft tissue, and bone windows. Reconstructed coronal and sagittal MPR images reviewed. Delayed images for evaluation of the urinary system also acquired. All images stored on PACS. All CT scanners at this facility use dose modulation, iterative reconstruction, and/or weight based d osing when appropriate to reduce radiation dose to as low as reasonably achievable (ALARA). [facility]: Dose Right [facility]: CareDose [facility]: Dose Right [facility]: Teradose 4D [facility]: Pressy CONTRAST TYPE AND DOSE: contrast/concentration: Isovue 350.00 mg/ml; Total Contrast Delivered: 94.0 ml; Total Saline Delivered: 71.0 ml RENAL FUNCTION: Creatinine 0.9. RADIATION DOSE: CT Rad equipment meets quality standard of care and radiation dose reduction techniq ues were employed. CTDIvol: 9.3 - 10.4 mGy. DLP: 1020 mGy-cm.. LIMITATIONS: None. FINDINGS: LOWER CHEST: Small left pleural effusion. No nodules or infiltrates. LIVER: Normal size. No masses. No dilated ducts. SPLEEN: Normal size. No focal lesions. PANCREAS: No masses. No significant calcifications. No adjacent inflammation or peripancreatic fluid collections. Pancreatic duct not dilated. GALLBLADDER: Surgically absent. ADRENAL GLANDS: No significant masses or asymmetry. RIGHT KIDNEY AND URETER: No solid masses. No significant calcifications. No hydronephrosis or hyd roureter. LEFT KIDNEY AND URETER: No solid masses. No significant calcifications. No hydronephrosis or hydr oureter. AORTA AND VESSELS: No aneurysm. No dissection. Renal arteries, SMA, celiac without stenosis. RETROPERITONEUM: No retroperitoneal adenopathy, hemorrhage or masses. BOWEL AND PERITONEAL CAVITY: No masses or inflammatory changes. No free fluid or peritoneal masses. APPENDIX: Normal. PELVIS: 2.5 cm homogeneous mass involving the anterior uterus, similar to the prior study. No free f luid. Normal bladder. ABDOMINAL WALL: No masses. No hernias. BONES: No significant or acute findings. OTHER: No other significant finding. IMPRESSION: 1. 2.5 CM HOMOGENEOUS MASS INVOLVING THE ANTERIOR UTERUS MOST CONSISTENT WITH UTERINE FIBROID AND UNC HANGED SINCE THE PRIOR STUDY. 2. SMALL LEFT PLEURAL EFFUSION. 3. NO OTHER SIGNIFICANT OR ACUTE FINDING IN THE ABDOMEN OR PELVIS ON CT SCAN WITH IV CONTRAST. TECHNICAL DOCUMENTATION: JOB ID: [id number] Quality ID # [id number]: Final reports with documentation of one or more dose reduction techniques (e.g., Au tomated exposure control, adjustment of the mA and/or kV according to patient size, use of iterative reconstruction technique) 2010 [employer]- All Rights Reserved Reading location - IP/workstation name: [email or web address]
== END ==
LOC: RAD 14:06
PROVIDERS: ATTEND Student in an Organized Health Care Education/Training Program
DX: N95.0 Postmenopausal bleeding (principal); N85.8 Other specified noninflammatory disorders of uterus
CPT/HCPCS: 74177; 82565

== ENCOUNTER → 2019-01-13 | Outpatient (CLI) | payer MEDICARE, MEDICAID ==
--- NOTE | 2019-01-13 14:38 | RADIOLOGY REPORT (SQ) ---
EXAM DESCRIPTION: MRI LUMBAR SPINE WITHOUT COMPLETED DATE/TIME: 01/13/2019 12:33 pm REASON FOR STUDY: (M54.30)SCIATICA, UNSPECIFIED SIDE M54.30 SCIATICA, UNSPECIFIED SIDE COMPARISON: MRI lumbar spine 12/21/2017 CT abdomen pelvis 10/12/2018 TECHNIQUE: Sagittal and Axial imaging includes T1, T2, STIR and gradient echo sequences. Coronal T2/ HASTE imaging. LIMITATIONS: None. FINDINGS: VISUALIZED UPPER ABDOMEN: Limited evaluation. No acute or suspicious findings suggested. SEGMENTATION: No transitional anatomy. The lowest well-developed disc space is labeled L5-S1. ALIGNMENT: Anatomic. VERTEBRAE: Intact. BONE MARROW: Normal. No marrow replacement or reactive changes. DISC SIGNAL: Normal. No significant abnormal signal or loss of height. POSTERIOR ELEMENTS: Generally intact. No pars defect evident. There is bulky diffuse bilateral fac et hypertrophy and diffuse ligamentum flavum thickening throughout the lower lumbar spine. HARDWARE: None in the spine. CORD AND CONUS: Normal in size and signal intensity. Conus at the L1 level level. SOFT TISSUES: No aortic aneurysm seen. No bulky retroperitoneal adenopathy or mass. No paraspinal mas s or fluid. T10-11: At the upper edge of the field of view. Bulky bilateral facet hypertrophy is present with m ild bilateral foraminal narrowing. No central stenosis. T11-12: Mild bilateral facet hypertrophy. No central or foraminal stenosis. T12-L1: Mild bilateral facet hypertrophy. No central or foraminal stenosis. L1-L2: Mild bilateral facet hypertrophy. No central or foraminal stenosis. L2-L3: Mild posterior disc bulging, bulky bilateral facet and ligament hypertrophy cause borderline c entral canal narrowing best shown on axial T2 image 11. No significant foraminal stenosis. L3-L4: [id number] central canal stenosis results from broad diffuse posterior disc bulge and ve ry bulky bilateral facet and ligament hypertrophy. Flattening of the thecal sac into a triangular sh ape with partial effacement of the CSF around the lumbar nerve roots, best shown on axial T2 image 18 . Mild bilateral foraminal narrowing is present without exiting L3 nerve root impingement. L4-L5: Broad diffuse posterior disc bulge and very bulky bilateral facet and ligament hypertrophy cau ses mild central canal narrowing best shown on axial T2 image 24. Mild bilateral inferior foraminal narrowing without exiting L4 nerve root impingement. L5-S1: Mild bilateral facet hypertrophy. SACRUM: Visualized upper sacrum intact. OTHER: No other significant findings. IMPRESSION: Diffuse facet arthropathy and ligamentum flavum thickening with central canal narrowing at L2-3, L3-4, and L4-5 TECHNICAL DOCUMENTATION: JOB ID: [id number] [employer]- All Rights Reserved Reading location - IP/workstation name: [email or web address]
== END ==
LOC: RAD 11:55
PROVIDERS: ATTEND Physician Assistant
DX: M54.30 Sciatica, unspecified side (principal)
CPT/HCPCS: 72148

== ENCOUNTER 2019-04-03 20:26 | Emergency (ER) | payer MEDICARE, MEDICAID ==
--- NOTE | 2019-04-03 21:03 | ER Document Report ---
ED Medical Screen (RME) - General Chief Complaint: Dizziness Stated Complaint: DIZZINESS,BALANCE OFF Time Seen by Provider: 04/03/19 20:56 Primary Care Provider: CARLOS HOSKINS PA [Primary Care Provider] - Follow up as needed Mode of Arrival: Ambulatory Information source: Patient Notes: 68-year-old female presents to ED for complaint of lightheadedness feeling off c entered walking with unsteady gait and feeling like she has a extra weight on her neck for the last 3 to 4 days. She states is been getting worse. Patient is alert oriented respirations regular and unlabored walks with a cane. She states she has a history of high blood pressure cholesterol asthma pneumonia strokes migraine seizures multiple fractures IBS and diabetes. She states she does not smoke drink or use any kind of street drugs. She is answering all questions appropriately. I have greeted and performed a rapid initial assessment of this patient. A comprehensive ED assessment and evaluation of the patient, analysis of test results and completion of medical decision making process will be conducted by an additional ED providers. TRAVEL OUTSIDE OF THE [place] IN LAST 30 DAYS: No - Related Data Allergies/Adverse Reactions: lisinopril [Lisinopril] Allergy (Severe, Verified 06/13/18 14:43) Edema phenytoin sodium extended [From Dilantin] Allergy (Severe, Verified 06/13/18 14:43) Unknown reaction risperidone [From Risperdal] Allergy (Intermediate, Verified 06/13/18 14:43) Hives venlafaxine HCl [From Effexor] Allergy (Intermediate, Verified 06/13/18 14:43) Hives Past Medical History - Past Medical History Cardiac Medical History: Reports: Hx Hypercholesterolemia, Hx Hypertension Denies: Hx Heart Attack Pulmonary Medical History: Reports: Hx Asthma, Hx COPD, Hx Pneumonia Denies: Hx Tuberculosis Neurological Medical History: Reports: Hx Seizures - 18-19 YEARS AGO. Denies: Hx Cerebrovascular Accident Endocrine Medical History: Reports: Hx Diabetes Mellitus Type 2 Renal/ Medical History: Denies: Hx Peritoneal Dialysis GI Medical History: Reports: Hx Gastroesophageal Reflux Disease. Denies: Hx Hepatitis, Hx Hiatal Hernia, Hx Ulcer Musculoskeltal Medical History: Reports Hx Arthritis, Reports Hx Fibromyalgia Psychiatric Medical History: Reports: Hx Depression, Hx Post Traumatic Stress Disorder, Hx Schizophrenia Infectious Medical History: Denies: Hx Hepatitis Past Surgical History: Reports: Hx Section - x2, Hx Cholecystectomy, Hx Orthopedic Surgery - left great toe implant. Denies: Hx Mastectomy, Hx Open Heart Surgery, Hx Pacemaker - Immunizations Hx Diphtheria, Pertussis, Tetanus Vaccination: Yes Physical Exam - Vital signs Vitals: Temp Pulse Resp BP Pulse Ox 97.8 F 74 18 178/71 H 98 04/03/19 20:38 04/03/19 20:38 04/03/19 20:38 04/03/19 20:38 04/03/19 20:38 Course - Vital Signs Vital signs: Temp Pulse Resp BP Pulse Ox 97.8 F 74 18 178/71 H 98 04/03/19 20:38 04/03/19 20:38 04/03/19 20:38 04/03/19 20:38 04/03/19 20:38 Doctor's Discharge - Discharge Referrals: CARLOS HOSKINS PA [Primary Care Provider] - Follow up as needed
--- NOTE | 2019-04-03 21:54 | ER Document Report ---
ED General - General Chief Complaint: Dizziness Stated Complaint: DIZZINESS,BALANCE OFF Time Seen by Provider: 04/03/19 20:56 Primary Care Provider: CARLOS HOSKINS PA [NO LOCAL MD] - Follow up as needed Mode of Arrival: Ambulatory Notes: Patient is a 68-year-old female that comes to the emergency department for chief complaint of unsteady gait and lightheadedness. She states that 4 days ago she started feeling frequently lightheaded, however she states that today she noticed that when she got up and tried to walk that she felt like she was constantly trying not to fall to the side or backwards. She states she started using her cane which she normally does not need all of the time. She states this has not gone away since this morning and she came to be evaluated because she is scared she is going to fall. She denies spinning sensation, nausea, vomiting, headache, focal numbness or weakness, chest pain, shortness of breath. She states she gets lightheaded intermittently when she stands but otherwise she does not have lightheadedness. 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 TRAVEL OUTSIDE OF THE [place] IN LAST 30 DAYS: No - Related Data Allergies/Adverse Reactions: lisinopril [Lisinopril] Allergy (Severe, Verified 06/13/18 14:43) Edema phenytoin sodium extended [From Dilantin] Allergy (Severe, Verified 06/13/18 14:43) Unknown reaction risperidone [From Risperdal] Allergy (Intermediate, Verified 06/13/18 14:43) Hives venlafaxine HCl [From Effexor] Allergy (Intermediate, Verified 06/13/18 14:43) Hives Past Medical History - General Information source: Patient - Social History Smoking Status: Never Smoker Frequency of alcohol use: None Drug Abuse: None Lives with: Family Family History: CAD, CVA, DM, Hypertension, Malignancy Patient has suicidal ideation: No Patient has homicidal ideation: No - Past Medical History Cardiac Medical History: Reports: Hx Hypercholesterolemia, Hx Hypertension Denies: Hx Heart Attack Pulmonary Medical History: Reports: Hx Asthma, Hx COPD, Hx Pneumonia Denies: Hx Tuberculosis Neurological Medical History: Reports: Hx Seizures - 18-19 YEARS AGO. Denies: Hx Cerebrovascular Accident Endocrine Medical History: Reports: Hx Diabetes Mellitus Type 2 Renal/ Medical History: Denies: Hx Peritoneal Dialysis GI Medical History: Reports: Hx Gastroesophageal Reflux Disease. Denies: Hx Hepatitis, Hx Hiatal Hernia, Hx Ulcer Musculoskeletal Medical History: Reports Hx Arthritis, Reports Hx Fibromyalgia Psychiatric Medical History: Reports: Hx Depression, Hx Post Traumatic Stress Disorder, Hx Schizophrenia Infectious Medical History: Denies: Hx Hepatitis Past Surgical History: Reports: Hx Section - x2, Hx Cholecystectomy, Hx Orthopedic Surgery - left great toe implant. Denies: Hx Mastectomy, Hx Open Heart Surgery, Hx Pacemaker - Immunizations Hx Diphtheria, Pertussis, Tetanus Vaccination: Yes Review of Systems - Review of Systems Constitutional: No symptoms reported EENT: No symptoms reported Cardiovascular: See HPI Respiratory: No symptoms reported Gastrointestinal: No symptoms reported Genitourinary: No symptoms reported Female Genitourinary: No symptoms reported Musculoskeletal: No symptoms reported Skin: No symptoms reported Hematologic/Lymphatic: No symptoms reported Neurological/Psychological: See HPI Physical Exam - Vital signs Vitals: Temp Pulse Resp BP Pulse Ox 97.8 F 74 18 178/71 H 98 04/03/19 20:38 04/03/19 20:38 04/03/19 20:38 04/03/19 20:38 04/03/19 20:38 - Notes Notes: GENERAL: Alert, interacts well. No acute distress. HEAD: Normocephalic, atraumatic. EYES: Pupils equal, round, and reactive to light. Extraocular movements intact. ENT: Oral mucosa moist, tongue midline. Oropharynx unremarkable. Airway patent. NECK: Full range of motion. Supple. Trachea midline. LUNGS: Clear to auscultation bilaterally, no wheezes, rales, or rhonchi. No respiratory distress. HEART: Regular rate and rhythm. No murmur ABDOMEN: Soft, non-tender. Non-distended. Bowel sounds present in all 4 quadrants. GENITOURINARY: Deferred EXTREMITIES: Moves all 4 extremities spontaneously. No edema, normal radial and dorsalis pedis pulses bilaterally. No cyanosis. BACK: no cervical, thoracic, lumbar midline tenderness. No saddle anesthesia, normal distal neurovascular exam. Moves all extremities in full range of motion. NEUROLOGICAL: Alert and oriented x3. Normal speech. Ambulates without ataxia using a cane. Cranial nerves II through XII grossly intact. PSYCH: Speaks anxiously, appears to have some anxiety SKIN: Warm, dry, normal turgor. No rashes or lesions noted. Course - Re-evaluation Re-evalutation: Patient initially anxious talking about her symptoms. Otherwise she is very well-appearing. She has no neurological deficits on exam. Mildly hypertensive. CT of the head unremarkable, chest x-ray unremarkable, EKG unremarkable. CBC, chemistry, troponin all unremarkable. Urinalysis unremarkable. I discussed with patient her results. I did get her up out of bed, she did this without assistance, she ambulated around the room without any ataxia. She also denied any dizziness when doing so. She states she feels much better now and s he is requesting to leave. Patient appeared to need some degree of reassurance, regardless based on her work-up and her evaluation I do not suspect CVA or ACS. Patient remained asymptomatic at time of discharge. I did discuss close follow- up and return precautions, patient states satisfaction agreement. - Vital Signs Vital signs: Temp Pulse Resp BP Pulse Ox 97.8 F 71 19 129/58 H 99 04/03/19 20:38 04/03/19 21:35 04/04/19 00:02 04/04/19 00:02 04/03/19 23:00 - Laboratory Result Diagrams: 04/03/19 22:44 04/03/19 22:44 Laboratory results interpreted by me: 04/03/19 04/03/19 04/03/19 22:44 22:44 22:52 Hgb 11.0 L Hct 32.9 L RDW 15.6 H Creatine Kinase 147 H Urine Ascorbic Acid 40 H - EKG Interpretation by Me Additional EKG results interpreted by me: EKG shows sinus rhythm rate of 61, QTC of 423, normal axis. No T wave inversions or ST segment changes in consecutive leads. Discharge - Discharge Clinical Impression: Lightheadedness, Unsteady gait Condition: Stable Disposition: HOME, SELF-CARE Additional Instructions: Your work-up is reassuring at this time including the images of your brain, the blood test, the urine test, the heart evaluation. Your physical examination is reassuring as well. The exact cause of the increasing lightheadedness is uncertain at this time, I do recommend that you follow-up closely with cardiology for additional evaluation of the lightheadedness even though the cause is not obvious. Come back if you worsen including weakness or numbness on one side of your body, headache, chest pain, vomiting, or any other concerning or worsening symptoms. Referrals: CARLOS HOSKINS PA [NO LOCAL MD] - Follow up as needed
--- NOTE | 2019-04-03 22:07 | RADIOLOGY REPORT (SQ) ---
Chest 2 view on 04/03/2019 at 9:36 PM CLINICAL INDICATION: Lightheadedness, loss of balance COMPARISON: 09/04/2018 FINDINGS: The lungs are clear. Cardiac, hilar and mediastinal contours are within normal limits. Pulmonary vascularity is within normal limits. No bony abnormality is noted. IMPRESSION: No active disease.
[2019-04-03 22:53] LABS: ABSOLUTE BASOPHILS # (AUTO) 0.1 10^3/uL (0.0-0.2); ABSOLUTE EOSINOPHILS # (AUTO) 0.1 10^3/uL (0.0-0.6); ABSOLUTE MONOCYTES (AUTO) 0.5 10^3/uL (0.1-1.4); BASOPHILS % (AUTO) 0.8 % (0-2); EOSINOPHILS % (AUTO) 1.8 % (0-6); HEMATOCRIT 32.9 % (36.0-47.0); LYMPHOCYTES % (AUTO) 26.1 % (13-45); MEAN CORPUSCULAR HEMOGLOBIN 27.4 pg (27.0-33.4); MEAN CORPUSCULAR HGB CONC 33.5 g/dL (32.0-36.0); MEAN CORPUSCULAR VOLUME 82 fl (80-97); MONOCYTES % (AUTO) 6.7 % (3-13); PLATELET COUNT 252 10^3/uL (150-450); RED BLOOD COUNT 4.02 10^6/uL (3.72-5.28); RED CELL DISTRIBUTION WIDTH 15.6 % (11.5-14.0); SEGMENTED NEUTROPHILS % (AUTO) 64.6 % (42-78); TOTAL CELLS COUNTED % (AUTO) 100 %; WHITE BLOOD COUNT 7.8 10^3/uL (4.0-10.5)
[2019-04-03 23:05] LABS: APPEARANCE,URINE CLEAR; BILIRUBIN,URINE NEGATIVE (NEGATIVE); COLOR,URINE YELLOW; GLUCOSE, URINE NEGATIVE (NEGATIVE); KETONES,URINE NEGATIVE (NEGATIVE); LEUKOCYTE ESTERASE,URINE NEGATIVE (NEGATIVE); NITRITE,URINE NEGATIVE (NEGATIVE); PROTEIN,URINE NEGATIVE (NEGATIVE); URINE SPECIFIC GRAVITY 1.015; UROBILINOGEN,URINE NEGATIVE mg/dL (<2.0)
[2019-04-03 23:06] LABS: ALBUMIN 4.1 g/dL (3.5-5.0); ALKALINE PHOSPHATASE 117 U/L (38-126); ANION GAP 9 (5-19); ASPARTATE AMINO TRANSFERASE 25 U/L (14-36); BILIRUBIN,DIRECT 0.2 mg/dL (0.0-0.4); BILIRUBIN,TOTAL 0.4 mg/dL (0.2-1.3); BLOOD UREA NITROGEN 17 mg/dL (7-20); CALCIUM 9.2 mg/dL (8.4-10.2); CARBON DIOXIDE 25 mmol/L (22-30); CHLORIDE 107 mmol/L (98-107); CREATINE KINASE 147 U/L (30-135); GLUCOSE 85 mg/dL (75-110); POTASSIUM 3.9 mmol/L (3.6-5.0)
[2019-04-03 23:17] LABS: CREATINE KINASE MB 1.48 ng/mL (<4.55)
[2019-04-03 23:19] LABS: TROPONIN I < 0.012 ng/mL
--- NOTE | 2019-04-03 23:40 | RADIOLOGY REPORT (SQ) ---
EXAM DESCRIPTION: CT HEAD WITHOUT IV CONTRAST COMPLETED DATE/TME: 04/03/2019 21:52 CLINICAL HISTORY: altered gait, imbalance COMPARISON: 02/24/2018 TECHNIQUE: Axial CT of the head obtained from the skull apex to the skull base without contrast. FINDINGS: No acute intracranial hemorrhage identified. No mass, mass effect, shift of the midline, abnormal extra-axial fluid collection or CT evidence of acute ischemic change identified. The ventricular system and sulcal spaces are age appropriate. Scattered areas of hypodensity throughout the supratentorial white matter are nonspecific and may be related to chronic small vessel ischemic change. The visualized paranasal sinuses and the mastoids are clear. Hyperostosis frontalis interna. No skull fracture identified. Visualized orbits and globes are unremarkable. Atherosclerotic calcification of the intracranial internal carotid arteries. DLP: 963.96 mGy-cm IMPRESSION: 1. No acute intracranial abnormality by CT criteria. This exam was performed according to our departmental dose-optimization program, which includes automated exposure control, adjustment of the mA and/or kV according to patient size and/or use of iterative reconstruction technique.
[2019-04-04 00:05] VITALS: BP 129/58
--- NOTE | 2019-04-05 14:23 | EKG REPORT ---
SEVERITY:- NORMAL ECG - SINUS RHYTHM : Confirmed by: Pedrito Moon 05-Apr-2019 14:22:04
== END 2019-04-04 01:07 | disposition home or self-care (01) ==
LOC: ER 20:26
DX: R42 Dizziness and giddiness (principal); R26.9 Unspecified abnormalities of gait and mobility; E78.00 Pure hypercholesterolemia, unspecified; I10 Essential (primary) hypertension; E11.9 Type 2 diabetes mellitus without complications; J44.9 Chronic obstructive pulmonary disease, unspecified; Z90.49 Acquired absence of other specified parts of digestive tract
CPT/HCPCS: 36415; 70450; 71046; 80053; 81001; 82550; 82553; 84484; 85025; 93005; 93010; 99284

== ENCOUNTER 2019-06-10 19:34 | Emergency (ER) | payer MEDICARE, MEDICAID ==
--- NOTE | 2019-06-10 20:09 | ER Document Report ---
ED Medical Screen (RME) - General Chief Complaint: Back Pain Stated Complaint: BACK PAIN Time Seen by Provider: 06/10/19 20:02 Primary Care Provider: RODGER MOROCHO MD [Primary Care Provider] - Follow up as needed Information source: Patient Notes: Patient presents with right thoracic back pain for the past 10 days. Patient reports some nausea and vomiting as well. Patient denies any cough or cold symptoms. Patient denies any urinary symptoms. Patient does take hydrocodone 10 mg 3 times a day for chronic back pain. Patient states this feels different from her usual chronic back pain. I have greeted and performed a rapid initial assessment of this patient. A comprehensive ED assessment and evaluation of the patient, analysis of test results and completion of the medical decision making process will be conducted by additional ED providers. TRAVEL OUTSIDE OF THE [place] IN LAST 30 DAYS: No - Related Data Allergies/Adverse Reactions: lisinopril [Lisinopril] Allergy (Severe, Verified 06/13/18 14:43) Edema phenytoin sodium extended [From Dilantin] Allergy (Severe, Verified 06/13/18 14:43) Unknown reaction risperidone [From Risperdal] Allergy (Intermediate, Verified 06/13/18 14:43) Hives venlafaxine HCl [From Effexor] Allergy (Intermediate, Verified 06/13/18 14:43) Hives Past Medical History - Past Medical History Cardiac Medical History: Reports: Hx Hypercholesterolemia, Hx Hypertension Denies: Hx Heart Attack Pulmonary Medical History: Reports: Hx Asthma, Hx COPD, Hx Pneumonia Denies: Hx Tuberculosis Neurological Medical History: Reports: Hx Seizures - 18-19 YEARS AGO. Denies: Hx Cerebrovascular Accident Endocrine Medical History: Reports: Hx Diabetes Mellitus Type 2 Renal/ Medical History: Denies: Hx Peritoneal Dialysis GI Medical History: Reports: Hx Gastroesophageal Reflux Disease. Denies: Hx Hepatitis, Hx Hiatal Hernia, Hx Ulcer Musculoskeltal Medical History: Reports Hx Arthritis, Reports Hx Fibromyalgia Psychiatric Medical History: Reports: Hx Depression, Hx Post Traumatic Stress Disorder, Hx Schizophrenia Infectious Medical History: Denies: Hx Hepatitis Past Surgical History: Reports: Hx Section - x2, Hx Cholecystectomy, Hx Orthopedic Surgery - left great toe implant. Denies: Hx Mastectomy, Hx Open Heart Surgery, Hx Pacemaker - Immunizations Hx Diphtheria, Pertussis, Tetanus Vaccination: Yes Physical Exam - Vital signs Vitals: Temp Pulse Resp BP Pulse Ox 98.7 F 72 16 141/70 H 98 06/10/19 19:56 06/10/19 19:56 06/10/19 19:56 06/10/19 19:56 06/10/19 19:56 - Back Back: Tender - Right thoracic back tenderness. No: CVA tenderness Course - Vital Signs Vital signs: Temp Pulse Resp BP Pulse Ox 98.7 F 72 16 141/70 H 98 06/10/19 19:56 06/10/19 19:56 06/10/19 19:56 06/10/19 19:56 06/10/19 19:56 Doctor's Discharge - Discharge Referrals: RODGER MOROCHO MD [Primary Care Provider] - Follow up as needed
--- NOTE | 2019-06-10 20:50 | RADIOLOGY REPORT (SQ) ---
XR CHEST 2 VIEWS CLINICAL STATEMENT: r thoracic back pain COMPARISON: 04/03/2019 FINDINGS: Cardiomediastinal silhouette is within normal limits. There is no focal lung consolidation or pleural effusion. No evidence of pulmonary edema or pneumothorax. IMPRESSION: No acute cardiopulmonary disease.
[2019-06-10] MEDS ORDERED: FENTANYL CITRATE INJ/PF 100 MCG/2 ML AMPUL IV ONE (21:14)
[2019-06-10 21:19] LABS: ABSOLUTE BASOPHILS # (AUTO) 0.1 10^3/uL (0.0-0.2); ABSOLUTE EOSINOPHILS # (AUTO) 0.1 10^3/uL (0.0-0.6); ABSOLUTE LYMPHOCYTES (AUTO) 1.8 10^3/uL (0.5-4.7); ABSOLUTE MONOCYTES (AUTO) 0.8 10^3/uL (0.1-1.4); ABSOLUTE NEUT (AUTO) 6.4 10^3/uL (1.7-8.2); BASOPHILS % (AUTO) 0.6 % (0-2); EOSINOPHILS % (AUTO) 1.2 % (0-6); HEMATOCRIT 35.8 % (36.0-47.0); LYMPHOCYTES % (AUTO) 19.5 % (13-45); MEAN CORPUSCULAR HEMOGLOBIN 27.7 pg (27.0-33.4); MEAN CORPUSCULAR HGB CONC 33.4 g/dL (32.0-36.0); MEAN CORPUSCULAR VOLUME 83 fl (80-97); MONOCYTES % (AUTO) 8.7 % (3-13); PLATELET COUNT 268 10^3/uL (150-450); RED BLOOD COUNT 4.32 10^6/uL (3.72-5.28); RED CELL DISTRIBUTION WIDTH 15.4 % (11.5-14.0); TOTAL CELLS COUNTED % (AUTO) 100 %; WHITE BLOOD COUNT 9.1 10^3/uL (4.0-10.5)
[2019-06-10 21:26] LABS: APPEARANCE,URINE CLEAR; BILIRUBIN,URINE NEGATIVE (NEGATIVE); COLOR,URINE YELLOW; GLUCOSE, URINE NEGATIVE (NEGATIVE); KETONES,URINE NEGATIVE (NEGATIVE); PROTEIN,URINE NEGATIVE (NEGATIVE); URINE SPECIFIC GRAVITY 1.015; UROBILINOGEN,URINE NEGATIVE mg/dL (<2.0)
[2019-06-10 21:39] LABS: ALBUMIN 4.7 g/dL (3.5-5.0); ALKALINE PHOSPHATASE 127 U/L (38-126); ANION GAP 13 (5-19); ASPARTATE AMINO TRANSFERASE 22 U/L (14-36); BILIRUBIN,DIRECT 0.1 mg/dL (0.0-0.4); BILIRUBIN,TOTAL 0.6 mg/dL (0.2-1.3); BLOOD UREA NITROGEN 17 mg/dL (7-20); CALCIUM 9.9 mg/dL (8.4-10.2); CARBON DIOXIDE 26 mmol/L (22-30); CHLORIDE 106 mmol/L (98-107); GLUCOSE 97 mg/dL (75-110); TOTAL PROTEIN 8.1 g/dL (6.3-8.2)
[2019-06-10] MEDS ORDERED: NORMAL SALINE 1000 ML 1,000 ML IV ONE (22:47)
[2019-06-10] MEDS ORDERED: KETOROLAC TROMETHAMINE INJ/PF 30 MG/1 ML SDV IV ONE (22:47)
--- NOTE | 2019-06-10 22:53 | ER Document Report ---
ED General - General Chief Complaint: Back Pain Stated Complaint: BACK PAIN Time Seen by Provider: 06/10/19 20:02 Primary Care Provider: RODGER MOROCHO MD [Primary Care Provider] - Follow up as needed Information source: Patient Notes: Ms. Blackwood is a 68-year-old female w/ PMH hypertension, hyperlipidemia, GERD, diabetes, seizure disorder with last seizure more than 20 years ago, nephrolithiasis with last stone approximately 4 years ago, chronic back pain, CVA without any residual deficits presenting to the ED for right-sided thoracic back pain. Patient states she has had this pain for the past 7 to 10 days. She denies any falls, trauma, or lifting any heavy object. She feels that it could be related to a kidney stone. She denies any fever, chills, increased urinary frequency foul-smelling urine, or abdominal pain. She does endorse ongoing nausea for which she has been using Zofran with some relief. No episodes of vomiting or diarrhea. No chest pain, cough or shortness of breath. TRAVEL OUTSIDE OF THE [place] IN LAST 30 DAYS: No - Related Data Allergies/Adverse Reactions: lisinopril [Lisinopril] Allergy (Severe, Verified 06/13/18 14:43) Edema phenytoin sodium extended [From Dilantin] Allergy (Severe, Verified 06/13/18 14:43) Unknown reaction risperidone [From Risperdal] Allergy (Intermediate, Verified 06/13/18 14:43) Hives venlafaxine HCl [From Effexor] Allergy (Intermediate, Verified 06/13/18 14:43) Hives Past Medical History - General Information source: Patient - Social History Smoking Status: Unknown if Ever Smoked Family History: CAD, CVA, DM, Hypertension, Malignancy Patient has suicidal ideation: No Patient has homicidal ideation: No - Past Medical History Cardiac Medical History: Reports: Hx Hypercholesterolemia, Hx Hypertension Denies: Hx Heart Attack Pulmonary Medical History: Reports: Hx Asthma, Hx COPD, Hx Pneumonia Denies: Hx Tuberculosis Neurological Medical History: Reports: Hx Seizures - 18-19 YEARS AGO. Denies: Hx Cerebrovascular Accident Endocrine Medical History: Reports: Hx Diabetes Mellitus Type 2 Renal/ Medical History: Denies: Hx Peritoneal Dialysis GI Medical History: Reports: Hx Gastroesophageal Reflux Disease. Denies: Hx Hepatitis, Hx Hiatal Hernia, Hx Ulcer Musculoskeletal Medical History: Reports Hx Arthritis, Reports Hx Fibromyalgia Psychiatric Medical History: Reports: Hx Depression, Hx Post Traumatic Stress Disorder, Hx Schizophrenia Infectious Medical History: Denies: Hx Hepatitis Past Surgical History: Reports: Hx Section - x2, Hx Cholecystectomy, Hx Orthopedic Surgery - left great toe implant. Denies: Hx Mastectomy, Hx Open Heart Surgery, Hx Pacemaker - Immunizations Hx Diphtheria, Pertussis, Tetanus Vaccination: Yes Review of Systems - Review of Systems Constitutional: See HPI EENT: No symptoms reported Cardiovascular: No symptoms reported Respiratory: No symptoms reported Gastrointestinal: See HPI Genitourinary: See HPI Female Genitourinary: See HPI Musculoskeletal: No symptoms reported Skin: No symptoms reported Hematologic/Lymphatic: No symptoms reported Neurological/Psychological: No symptoms reported Physical Exam - Vital signs Vitals: Temp Pulse Resp BP Pulse Ox 98.7 F 72 16 141/70 H 98 06/10/19 19:56 06/10/19 19:56 06/10/19 19:56 06/10/19 19:56 06/10/19 19:56 Interpretation: Hypertensive - General General appearance: Appears well, Alert - HEENT Head: Normocephalic, Atraumatic Eyes: Normal Pupils: PERRL - Respiratory Respiratory status: No respiratory distress Chest status: Nontender Breath sounds: Normal Chest palpation: Normal - Cardiovascular Rhythm: Regular Heart sounds: Normal auscultation Murmur: No - Abdominal Inspection: Normal Distension: No distension Bowel sounds: Normal Tenderness: Nontender Organomegaly: No organomegaly - Back Back: Normal, Nontender - Unable to re-create the pain with palpation or indirect percussion over the costophrenic angle. Patient states that the pain is deeper.. No: Deformity/step-off, CVA tenderness, Vertebra tenderness, Scoliosis - Extremities General upper extremity: Normal inspection, Nontender, Normal color, Normal ROM, Normal temperature General lower extremity: Normal inspection, Nontender, Normal color, Normal ROM, Normal temperature, Normal weight bearing. No: Genesis's sign - Neurological Neuro grossly intact: Yes Cognition: Normal Orientation: AAOx4 Alec Coma Scale Eye Opening: Spontaneous [place] Coma Scale Verbal: Oriented [place] Coma Scale Motor: Obeys Commands [place] Coma Scale Total: 15 Speech: Normal Motor strength normal: LUE, RUE, LLE, RLE Sensory: Normal - Psychological Associated symptoms: Normal affect, Normal mood - Skin Skin Temperature: Warm Skin Moisture: Dry Skin Color: Normal Course - Re-evaluation Re-evalutation: Patient is generally well-appearing and nontoxic. Initial vitals notable for mildly elevated blood pressure. Differential diagnosis includes nephrolithiasis, pyelonephritis, UTI, muscular strain 06/10/19 22:52 She was already given fentanyl from triage. Labs already resulted by the time I evaluated her. CBC and CMP within normal limits. UA does show evidence of a small amount of blood consistent with possible diagnosis of nephrolithiasis. Chest x-ray is otherwise unremarkable. Will obtain CT noncontrast to assess for possible nephrolithiasis. Patient ordered for Toradol as well as IV fluids. 06/11/19 01:53 Patient feels somewhat improved after Toradol. CT does not show any acute process. She does have bilateral punctate nephrolithiasis. Patient also has diverticulosis without diverticulitis. Patient instructed to stay well-hydrated drink plenty of fluids. Recommended she take 800 mg of ibuprofen as needed. Given return precautions. - Vital Signs Vital signs: Temp Pulse Resp BP Pulse Ox 97.5 F 75 19 142/70 H 96 06/11/19 00:14 06/11/19 00:14 06/11/19 00:14 06/11/19 00:14 06/11/19 00:14 - Laboratory Result Diagrams: 06/10/19 20:55 06/10/19 20:55 Laboratory results interpreted by me: 06/10/19 06/10/19 06/10/19 20:19 20:55 20:55 Hct 35.8 L RDW 15.4 H Est GFR (MDRD) Non-Af 53 L Alkaline Phosphatase 127 H Urine Blood SMALL H Discharge - Discharge Clinical Impression: Bilateral nephrolithiasis, Right flank pain Condition: Good Disposition: HOME, SELF-CARE Instructions: Kidney Stone ([facility]) Additional Instructions: It is important that you you make sure that you drink plenty of water throughout the day and stay well-hydrated. I would also recommend you take 800 mg of ibuprofen every 6-8 hours as needed for pain control. If you have breakthrough pain in between, you can use Tylenol. Follow-up with your primary care doctor as needed. If you develop fever, unable to keep down food or drink, or any other concerning symptoms, return to the ED for further evaluation. Referrals: RODGER MOROCHO MD [Primary Care Provider] - Follow up as needed
--- NOTE | 2019-06-11 00:41 | RADIOLOGY REPORT (SQ) ---
EXAM DESCRIPTION: CT ABDOMEN PELVIS WITHOUT IV CONTRAST COMPLETED DATE/TME: 06/10/2019 22:48 CLINICAL HISTORY: R FLANK PAIN COMPARISON: None Available. TECHNIQUE: CT of the abdomen and pelvis without IV contrast. Evaluation of the solid organs and vasculature is suboptimal due to lack of IV contrast. FINDINGS: Lung Bases: The visualized lung bases are clear. Bones: Degenerative change of the spine. Abdomen: Liver: The liver has normal size and density. Gallbladder: Prior cholecystectomy. Spleen, Pancreas, and Adrenal Glands: The spleen, pancreas, and adrenal glands are unremarkable. Kidneys: The kidneys have normal size without evidence of hydronephrosis. No obstructing ureteral calculi. Punctate nonobstructing nephrolithiasis. Vasculature: Aortoiliac atherosclerosis. IVC is unremarkable. Stomach: Small hiatal hernia. Other: No free intraperitoneal air. No free fluid or lymphadenopathy. Pelvis: Bladder: Urinary bladder is unremarkable. Bowel: No dilated loops of large or small bowel. Scattered diverticula colon. Moderate amount stool throughout the colon. Appendix: Normal appendix. Pelvis: Uterus is not enlarged. IMPRESSION: 1. No acute inflammatory or obstructive process identified. 2. Nonobstructing bilateral punctate nephrolithiasis. 3. Diverticulosis without evidence of acute diverticulitis. 4. Small hiatal hernia. This exam was performed according to our departmental dose-optimization program, which includes automated exposure control, adjustment of the mA and/or kV according to patient size and/or use of iterative reconstruction technique.
[2019-06-11 02:12] VITALS: BP 129/64
== END 2019-06-11 02:12 | disposition home or self-care (01) ==
LOC: ER 19:34
DX: N20.0 Calculus of kidney (principal); R10.9 Unspecified abdominal pain; M54.6 Pain in thoracic spine; R11.0 Nausea; R31.9 Hematuria, unspecified; K57.30 Diverticulosis of large intestine without perforation or abscess without bleeding; I10 Essential (primary) hypertension; E11.9 Type 2 diabetes mellitus without complications; J44.9 Chronic obstructive pulmonary disease, unspecified; Z90.49 Acquired absence of other specified parts of digestive tract; Z87.19 Personal history of other diseases of the digestive system; Z88.8 Allergy status to other drugs, medicaments and biological substances
CPT/HCPCS: 36415; 83690; 85025; 80053; 81001; 71046; 74176; J3010; J1885; J7030

== ENCOUNTER 2019-07-10 03:25 | Emergency (ER) | payer MEDICARE, MEDICAID ==
[2019-07-10] MEDS ORDERED: ACETAMINOPHEN 325 MG TABLET PO ONE (04:29)
[2019-07-10] MEDS ORDERED: KETOROLAC TROMETHAMINE 60 MG/2 ML SDV IM ONE (04:29)
[2019-07-10] MEDS ORDERED: CYCLOBENZAPRINE HCL 10 MG TABLET PO ONE (04:29)
--- NOTE | 2019-07-10 05:42 | ER Document Report ---
ED Extremity Problem, Lower - General Chief Complaint: Leg Pain Stated Complaint: RIGHT LEG PAIN Time Seen by Provider: 07/10/19 04:28 Primary Care Provider: RODGER MOROCHO MD [Primary Care Provider] - Follow up as needed Notes: Ms. Blackwood is a 69 yo f w/ PMH hypertension, diabetes, asthma, fibromyalgia, IBS, previous CVA, diastolic heart failure, GERD presenting to the ED for back and leg pain. Patient states that when she woke up this evening, she had significant right lower back pain radiating down to her butt and all the way down to her toes. She denies any falls or trauma. She denies any difficulty urinating, fever or chills, chest pain, or abdominal pain. No nausea, vomiting or diarrhea. Patient states that she has been urinating into her depends as her pain is too severe to ambulate. She does endorse chronic lower back pain. She denies any numbness or tingling in the saddle region. TRAVEL OUTSIDE OF THE [place] IN LAST 30 DAYS: No - Related Data Allergies/Adverse Reactions: lisinopril [Lisinopril] Allergy (Severe, Verified 06/13/18 14:43) Edema phenytoin sodium extended [From Dilantin] Allergy (Severe, Verified 06/13/18 1 4:43) Unknown reaction risperidone [From Risperdal] Allergy (Intermediate, Verified 06/13/18 14:43) Hives venlafaxine HCl [From Effexor] Allergy (Intermediate, Verified 06/13/18 14:43) Hives Past Medical History - Social History Smoking Status: Unknown if Ever Smoked Family History: CAD, CVA, DM, Hypertension, Malignancy Patient has suicidal ideation: No Patient has homicidal ideation: No - Past Medical History Cardiac Medical History: Reports: Hx Hypercholesterolemia, Hx Hypertension Denies: Hx Heart Attack Pulmonary Medical History: Reports: Hx Asthma, Hx COPD, Hx Pneumonia Denies: Hx Tuberculosis Neurological Medical History: Reports: Hx Seizures - 18-19 YEARS AGO. Denies: Hx Cerebrovascular Accident Endocrine Medical History: Reports: Hx Diabetes Mellitus Type 2 Renal/ Medical History: Denies: Hx Peritoneal Dialysis GI Medical History: Reports: Hx Gastroesophageal Reflux Disease. Denies: Hx Hepatitis, Hx Hiatal Hernia, Hx Ulcer Musculoskeletal Medical History: Reports Hx Arthritis, Reports Hx Fibromyalgia Psychiatric Medical History: Reports: Hx Depression, Hx Post Traumatic Stress Disorder, Hx Schizophrenia Infectious Medical History: Denies: Hx Hepatitis Past Surgical History: Reports: Hx Section - x2, Hx Cholecystectomy, Hx Orthopedic Surgery - left great toe implant. Denies: Hx Mastectomy, Hx Open Heart Surgery, Hx Pacemaker - Immunizations Hx Diphtheria, Pertussis, Tetanus Vaccination: Yes Review of Systems - Review of Systems Constitutional: See HPI EENT: No symptoms reported Cardiovascular: No symptoms reported Respiratory: No symptoms reported Gastrointestinal: No symptoms reported Genitourinary: No symptoms reported Female Genitourinary: No symptoms reported Musculoskeletal: See HPI Skin: No symptoms reported Hematologic/Lymphatic: No symptoms reported Neurological/Psychological: No symptoms reported Physical Exam - Vital signs Vitals: Temp Pulse Resp BP Pulse Ox 97.6 F 63 19 148/71 H 98 07/10/19 03:40 07/10/19 03:40 07/10/19 03:40 07/10/19 03:40 07/10/19 03:40 Interpretation: Hypertensive - General General appearance: Appears well, Alert - HEENT Head: Normocephalic, Atraumatic Eyes: Normal Pupils: PERRL - Respiratory Respiratory status: No respiratory distress Chest status: Nontender Breath sounds: Normal Chest palpation: Normal - Cardiovascular Rhythm: Regular Heart sounds: Normal auscultation Murmur: No - Abdominal Inspection: Normal Distension: No distension Bowel sounds: Normal Tenderness: Nontender Organomegaly: No organomegaly - Back Back: Normal, Other - Tenderness to palpation over the right upper quadrant of the buttock with radiation of pain down the right leg. - Extremities General upper extremity: Normal inspection, Nontender, Normal color, Normal ROM, Normal temperature General lower extremity: Normal inspection, Nontender, Normal color, Normal ROM, Normal temperature, Normal weight bearing, Other - Patient is able to lift bilateral lower extremities without any difficulty.. No: Genesis's sign - Neurological Neuro grossly intact: Yes Cognition: Normal Orientation: AAOx4 [place] Coma Scale Eye Opening: Spontaneous Alec Coma Scale Verbal: Oriented [place] Coma Scale Motor: Obeys Commands Alec Coma Scale Total: 15 Speech: Normal Motor strength normal: LUE, RUE, LLE, RLE Sensory: Normal - Psychological Associated symptoms: Normal affect, Normal mood - Skin Skin Temperature: Warm Skin Moisture: Dry Skin Color: Normal Course - Re-evaluation Re-evalutation: Patient is generally well-appearing and nontoxic. Initial vitals notable for mildly elevated blood pressure. Differential diagnosis includes chronic back pain, sciatica, fracture (unlikely), cord compression (highly unlikely) Most likely, this is sciatica. Patient has reproducible pain over the sciatic nerve. Patient ordered for Toradol IM, Tylenol p.o. as well as Flexeril. 07/10/19 06:47 Patient was able to ambulate with some assistance. However pain is improved. Patient recommended to continue using ibuprofen 800 mg and/or Tylenol 650 as needed for pain control. Patient recommended to perform range of motion exercises and follow-up with her primary care doctor. Recommended she get an outpatient referral for physical therapy. - Vital Signs Vital signs: Temp Pulse Resp BP Pulse Ox 97.6 F 63 19 148/71 H 98 07/10/19 03:40 07/10/19 03:40 07/10/19 03:40 07/10/19 03:40 07/10/19 03:40 Discharge - Discharge Clinical Impression: Sciatica, right side Back pain Qualifiers: Back pain location: low back pain Chronicity: chronic Back pain laterality: right Sciatica presence: with sciatica Sciatica laterality: sciatica of right side Qualified Code(s): M54.41 - Lumbago with sciatica, right side Condition: Good Disposition: SNF-Other Instructions: Sciatica ([facility]), Stretching Exercises for the Back ([facility]) Additional Instructions: I would recommend that you use ibuprofen 800 mg every 8 hours as needed for your leg and back pain. You can also use Tylenol 650 mg every 6-8 hours as needed in addition to the ibuprofen. I would recommend that he perform range of motion exercises while in bed. A might be helpful for you to follow-up with your primary care doctor and request a referral to physical therapy as sciatica is a chronic problem. Referrals: RODGER MOROCHO MD [Primary Care Provider] - Follow up as needed
[2019-07-10 06:56] VITALS: BP 116/70
== END 2019-07-10 07:43 ==
LOC: ER 03:25
DX: M54.41 Lumbago with sciatica, right side (principal); M79.604 Pain in right leg; E11.9 Type 2 diabetes mellitus without complications; I50.30 Unspecified diastolic (congestive) heart failure; I11.0 Hypertensive heart disease with heart failure; J44.9 Chronic obstructive pulmonary disease, unspecified
CPT/HCPCS: 99283; 96372; A9270 ×2; J1885

== ENCOUNTER 2020-03-10 23:21 | Emergency (ER) | payer MEDICARE, MEDICAID ==
--- NOTE | 2020-03-10 23:29 | ER Document Report ---
ED General - General Stated Complaint: ABDOMINAL PAIN Time Seen by Provider: 03/10/20 23:27 Primary Care Provider: CARLOS HOSKINS PA [Primary Care Provider] - Follow up as needed Notes: Patient is a 69-year-old female who comes emergency department for chief complaint of abdominal pain, vomiting, diarrhea. She states that at 1 PM she took Symproic for constipation for the first time, she just received this from her primary provider, she states that over the evening she started vomiting multiple times in a row, she states she passed a lot of stool but then continued to have multiple stools and now they are "just oozing out of me". She denies fever, hematemesis, hematochezia. She has had cholecystectomy, has a history of hypertension, hyperlipidemia, type 2 diabetes, PTSD, schizophrenia. TRAVEL OUTSIDE OF THE [place] IN LAST 30 DAYS: No - Related Data Allergies/Adverse Reactions: lisinopril [Lisinopril] Allergy (Severe, Verified 06/13/18 14:43) Edema phenytoin sodium extended [From Dilantin] Allergy (Severe, Verified 06/13/18 14:43) Unknown reaction risperidone [From Risperdal] Allergy (Intermediate, Verified 06/13/18 14:43) Hives venlafaxine HCl [From Effexor] Allergy (Intermediate, Verified 06/13/18 14:43) Hives Past Medical History - General Information source: Patient - Social History Smoking Status: Never Smoker Frequency of alcohol use: None Drug Abuse: None Lives with: Family Family History: CAD, CVA, DM, Hypertension, Malignancy - Past Medical History Cardiac Medical History: Reports: Hx Hypercholesterolemia, Hx Hypertension Denies: Hx Heart Attack Pulmonary Medical History: Reports: Hx Asthma, Hx COPD, Hx Pneumonia Denies: Hx Tuberculosis Neurological Medical History: Reports: Hx Seizures - 18-19 YEARS AGO. Denies: Hx Cerebrovascular Accident Endocrine Medical History: Reports: Hx Diabetes Mellitus Type 2 Renal/ Medical History: Denies: Hx Peritoneal Dialysis GI Medical History: Reports: Hx Gastroesophageal Reflux Disease. Denies: Hx Hepatitis, Hx Hiatal Hernia, Hx Ulcer Musculoskeletal Medical History: Reports Hx Arthritis, Reports Hx Fibromyalgia Psychiatric Medical History: Reports: Hx Depression, Hx Post Traumatic Stress Disorder, Hx Schizophrenia Infectious Medical History: Denies: Hx Hepatitis Past Surgical History: Reports: Hx Section - x2, Hx Cholecystectomy, Hx Orthopedic Surgery - left great toe implant. Denies: Hx Mastectomy, Hx Open Heart Surgery, Hx Pacemaker - Immunizations Hx Diphtheria, Pertussis, Tetanus Vaccination: Yes Review of Systems - Review of Systems Constitutional: No symptoms reported EENT: No symptoms reported Cardiovascular: No symptoms reported Respiratory: No symptoms reported Gastrointestinal: See HPI Genitourinary: No symptoms reported Female Genitourinary: No symptoms reported Musculoskeletal: No symptoms reported Skin: No symptoms reported Hematologic/Lymphatic: No symptoms reported Neurological/Psychological: No symptoms reported Physical Exam - Vital signs Vitals: BP 142/58 H 03/10/20 23:36 - Notes Notes: GENERAL: Patient appears uncomfortable and restless HEAD: Normocephalic, atraumatic. EYES: Pupils equal, round, and reactive to light. Extraocular movements intact. ENT: Oral mucosa moist, tongue midline. Oropharynx unremarkable. Airway patent. NECK: Full range of motion. Supple. Trachea midline. No lymphadenopathy. LUNGS: Clear to auscultation bilaterally, no wheezes, rales, or rhonchi. No respiratory distress. Non-tender chest wall. HEART: Regular rate and rhythm. No murmur ABDOMEN: Generalized abdominal tenderness, nonspecific, no guarding. Vertical lower midline scar. Bowel sounds present. No significant distention noted. EXTREMITIES: Moves all 4 extremities spontaneously. No edema, normal radial and dorsalis pedis pulses bilaterally. No cyanosis. BACK: no cervical, thoracic, lumbar midline tenderness. No saddle anesthesia, normal distal neurovascular exam. Moves all extremities in full range of motion. NEUROLOGICAL: Alert and oriented x3. Normal speech. Cranial nerves II through XII grossly intact. Strength 5/5 in all extremities. PSYCH: Restless, makes poor eye contact SKIN: Warm, dry, normal turgor. No rashes or lesions noted. Course - Re-evaluation Re-evalutation: Patient is not a clear historian, I did find in her medications her new stool softener and she did tell me that she just took it before she started having her symptoms tonight. Patient with generalized abdominal tenderness, nonspecific, no guarding. CBC shows leukocytosis with elevation of neutrophils, chemistry nonspecific, urinalysis unremarkable. KUB unremarkable. Patient is still complaining of some discomfort on reevaluation. Because of her age, leukocytosis, symptoms decision was made to perform CAT scan to rule out acute emergent etiology. CAT scan unremarkable other than trace free fluid, fibroid, hiatal hernia. I did discuss this with patient. Patient states she feels much better, she was given p.o. medications and p.o. fluids, she tolerated this without any difficulty. I discussed the case and CAT scan with Dr. Vences. I suspect patient had significant side effects from her medication and encouraged her to s top this, discussed follow-up and return precautions. Patient states appreciation and agreement. Stable and well-appearing at time of discharge. - Vital Signs Vital signs: Temp Pulse Resp BP Pulse Ox 98.1 F 168/57 H 99 03/10/20 23:44 03/11/20 06:01 03/11/20 06:37 - Laboratory Result Diagrams: 03/11/20 01:30 03/11/20 01:30 Laboratory results interpreted by me: 03/11/20 03/11/20 03/11/20 01:30 01:30 03:05 WBC 17.3 H RDW 14.8 H Lymph % (Auto) 5.1 L Absolute Neuts (auto) 15.5 H Seg Neutrophils % 89.9 H Glucose 149 H Alkaline Phosphatase 175 H Urine Ascorbic Acid 20 H Discharge - Discharge Clinical Impression: Nausea vomiting and diarrhea, Medication side effects Abdominal pain Qualifiers: Abdominal location: generalized Qualified Code(s): R10.84 - Generalized abdominal pain Condition: Stable Disposition: HOME, SELF-CARE Additional Instructions: Your work-up you have been treated for abdominal pain, vomiting, diarrhea. Based on your work-up and evaluation I suspect your symptoms are from a sensitivity and side effects from the medication Symproic. I recommend that you stop this medication and do not take it in the future. Take Zofran if needed for nausea, drink plenty fluids, start with bland diet. Follow-up with your primary care for additional management. Return if you worsen including returned or severe pain, uncontrolled vomiting, fever, or any other concerning symptoms. Prescriptions: Ondansetron [Zofran Odt 4 mg Tablet] 1 - 2 tab PO Q4H PRN #15 tab.rapdis PRN Reason: For Nausea/Vomiting Referrals: CARLOS HOSKINS PA [Primary Care Provider] - Follow up as needed
[2020-03-10] MEDS ORDERED: ONDANSETRON HCL INJ/PF 4 MG/2 ML SDV IV ONE (23:37)
[2020-03-10] MEDS ORDERED: MORPHINE SULFATE 10 MG/ML INJ IV ONE (23:37)
--- NOTE | 2020-03-11 01:08 | RADIOLOGY REPORT (SQ) ---
EXAM DESCRIPTION: XR ABDOMEN 1 VIEW (KUB) COMPLETED DATE/TME: 03/10/2020 23:39 CLINICAL HISTORY: 69 years, Female, mid abd pain, vomiting COMPARISON: None. NUMBER OF VIEWS: TECHNIQUE: LIMITATIONS: None. FINDINGS: No evidence of bowel obstruction. There are postoperative changes in the lower lumbar spine. There are several calcified phleboliths in the pelvis. IMPRESSION: No acute finding. copyright 2010 [employer]- All Rights Reserved
[2020-03-11 01:57] LABS: ABSOLUTE LYMPHOCYTES (AUTO) 0.9 10^3/uL (0.5-4.7); ABSOLUTE MONOCYTES (AUTO) 0.8 10^3/uL (0.1-1.4); ABSOLUTE NEUT (AUTO) 15.5 10^3/uL (1.7-8.2); BASOPHILS % (AUTO) 0.2 % (0-2); EOSINOPHILS % (AUTO) 0.1 % (0-6); HEMATOCRIT 40.1 % (36.0-47.0); HEMOGLOBIN 13.5 g/dL (12.0-15.5); LYMPHOCYTES % (AUTO) 5.1 % (13-45); MEAN CORPUSCULAR HEMOGLOBIN 28.7 pg (27.0-33.4); MEAN CORPUSCULAR HGB CONC 33.6 g/dL (32.0-36.0); MEAN CORPUSCULAR VOLUME 85 fl (80-97); MONOCYTES % (AUTO) 4.7 % (3-13); PLATELET COUNT 259 10^3/uL (150-450); RED BLOOD COUNT 4.71 10^6/uL (3.72-5.28); RED CELL DISTRIBUTION WIDTH 14.8 % (11.5-14.0); SEGMENTED NEUTROPHILS % (AUTO) 89.9 % (42-78); TOTAL CELLS COUNTED % (AUTO) 100 %; WHITE BLOOD COUNT 17.3 10^3/uL (4.0-10.5)
[2020-03-11 02:02] LABS: ALBUMIN 4.8 g/dL (3.5-5.0); ALKALINE PHOSPHATASE 175 U/L (38-126); ANION GAP 12 (5-19); ASPARTATE AMINO TRANSFERASE 24 U/L (14-36); BILIRUBIN,TOTAL 0.5 mg/dL (0.2-1.3); BLOOD UREA NITROGEN 14 mg/dL (7-20); CARBON DIOXIDE 25 mmol/L (22-30); CHLORIDE 106 mmol/L (98-107); GLUCOSE 149 mg/dL (75-110); POTASSIUM 3.7 mmol/L (3.6-5.0); TOTAL PROTEIN 8.1 g/dL (6.3-8.2)
[2020-03-11 03:22] LABS: APPEARANCE,URINE CLEAR; BILIRUBIN,URINE NEGATIVE (NEGATIVE); COLOR,URINE YELLOW; GLUCOSE, URINE NEGATIVE (NEGATIVE); KETONES,URINE NEGATIVE (NEGATIVE); LEUKOCYTE ESTERASE,URINE NEGATIVE (NEGATIVE); NITRITE,URINE NEGATIVE (NEGATIVE); PROTEIN,URINE NEGATIVE (NEGATIVE); URINE SPECIFIC GRAVITY 1.012; UROBILINOGEN,URINE NEGATIVE mg/dL (<2.0)
--- NOTE | 2020-03-11 03:41 | RADIOLOGY REPORT (SQ) ---
CT abdomen and pelvis with contrast on 03/11/2020 at 3:12 AM CLINICAL INDICATION: Generalized abdominal pain, vomiting, diarrhea TECHNIQUE: Multiple axial images are obtained throughout the abdomen and pelvis following the administration of IV contrast, 99 mL of Omnipaque 350contrast was administered intravenously without complication. This exam was performed according to our departmental dose-optimization program, which includes automated exposure control, adjustment of the mA and/or kV according to patient size and/or use of iterative reconstruction technique. Total DLP is 1293.47 mGy*cm. COMPARISON: 06/10/2019 FINDINGS: Abdomen: There is minimal atelectasis or scarring in the left lower lung. The lung bases are otherwise clear. The patient is status post cholecystectomy. There is mild right renal cortical scarring. Solid abdominal organs are otherwise unremarkable. There is a small hiatal hernia. There is no abdominal adenopathy. There is no free air in the abdomen. Trace free fluid is noted in the left paracolic gutter. The abdominal portion of the GI tract is unremarkable. Pelvis: There is a lobulated contour involving the right aspect of the uterus likely representing a uterine fibroid. Pelvic organs otherwise appear unremarkable by CT. No free fluid is noted in the pelvis. There is no pelvic adenopathy. Pelvic portion of the GI tract including the appendix is unremarkable. Degenerative and postsurgical changes are noted in the spine. IMPRESSION: 1. Small hiatal hernia. 2. Very small amount of free fluid in the abdomen. 3. Probable uterine fibroid.
[2020-03-11] MEDS ORDERED: PROMETHAZINE HCL 25 MG TABLET ONE (05:33)
[2020-03-11] MEDS ORDERED: SUCRALFATE 1 GM TABLET ONE (05:33)
[2020-03-11] MEDS ORDERED: OXYCODONE-ACETAMINOPHEN 5-325 MG TABLET ONE (05:34)
[2020-03-11 06:47] VITALS: BP 168/57
== END 2020-03-11 06:47 | disposition home or self-care (01) ==
LOC: ER 23:21
DX: R11.2 Nausea with vomiting, unspecified (principal); R19.7 Diarrhea, unspecified; T50.905A Adverse effect of unspecified drugs, medicaments and biological substances, initial encounter; K59.00 Constipation, unspecified; K44.9 Diaphragmatic hernia without obstruction or gangrene; R10.84 Generalized abdominal pain; R10.817 Generalized abdominal tenderness; I10 Essential (primary) hypertension; D72.828 Other elevated white blood cell count; E11.9 Type 2 diabetes mellitus without complications; J44.9 Chronic obstructive pulmonary disease, unspecified; Z87.19 Personal history of other diseases of the digestive system; Z88.8 Allergy status to other drugs, medicaments and biological substances
CPT/HCPCS: 99285; 96374; 96375; 36415; 83690; 85025; 80053; 81001; 74018; 74177; J2270; J2405

== ENCOUNTER 2020-06-01 13:37 | Emergency (ER) | payer MEDICARE, MEDICAID ==
[2020-06-01] MEDS ORDERED: IPRATROPIUM/ALBUTEROL 0.5-2.5 MG/3 ML AMPUL NEB ONE (14:47)
--- NOTE | 2020-06-01 14:48 | ER Document Report ---
ED General - General Chief Complaint: Shortness Of Breath Stated Complaint: COUGH/SORE THROAT Time Seen by Provider: 06/01/20 14:19 Primary Care Provider: CARLOS HOSKINS PA [Primary Care Provider] - Follow up as needed Mode of Arrival: Ambulatory Information source: Patient Notes: This is a 69-year-old female presenting to the emergency department today with complaints of scratchy throat, wheezing, shortness of breath, headache, muscle aches, sweats and coughing up blood tinged sputum. She also reports she has had a few episodes of chest pain over the last few days. She denies any known fever. She did go to her her primary care provider earlier this week for the same concerns in the did a flu and Covid test. She states these tests have not resulted yet. She has an appointment with her primary care provider in 3 days. She reports having a history of sleep apnea and asthma, states she has not had any asthma flareups in the last 3 years. She states she has never smoked. She reports that her symptoms have worsened over the last couple of days which is why she decided to come to the emergency department. TRAVEL OUTSIDE OF THE [place] IN LAST 30 DAYS: No - Related Data Allergies/Adverse Reactions: lisinopril [Lisinopril] Allergy (Severe, Verified 06/13/18 14:43) Edema phenytoin sodium extended [From Dilantin] Allergy (Severe, Verified 06/13/18 14:43) Unknown reaction risperidone [From Risperdal] Allergy (Intermediate, Verified 06/13/18 14:43) Hives venlafaxine HCl [From Effexor] Allergy (Intermediate, Verified 06/13/18 14:43) Hives Home Medications: Amlodipine, Atorvastatin, Gabapentin, Omeprazole, Vitamin B12, Oxycodone, Tizanidine Past Medical History - General Information source: Patient - Social History Smoking Status: Unknown if Ever Smoked Family History: CAD, CVA, DM, Hypertension, Malignancy - Past Medical History Cardiac Medical History: Reports: Hx Hypercholesterolemia, Hx Hypertension Denies: Hx Heart Attack Pulmonary Medical History: Reports: Hx Asthma, Hx COPD, Hx Pneumonia Denies: Hx Tuberculosis Neurological Medical History: Reports: Hx Seizures - 18-19 YEARS AGO. Denies: Hx Cerebrovascular Accident Endocrine Medical History: Reports: Hx Diabetes Mellitus Type 2 Renal/ Medical History: Denies: Hx Peritoneal Dialysis GI Medical History: Reports: Hx Gastroesophageal Reflux Disease. Denies: Hx Hepatitis, Hx Hiatal Hernia, Hx Ulcer Musculoskeletal Medical History: Reports Hx Arthritis, Reports Hx Fibromyalgia Psychiatric Medical History: Reports: Hx Depression, Hx Post Traumatic Stress Disorder, Hx Schizophrenia Infectious Medical History: Denies: Hx Hepatitis Past Surgical History: Reports: Hx Section - x2, Hx Cholecystectomy, Hx Orthopedic Surgery - left great toe implant. Denies: Hx Mastectomy, Hx Open Heart Surgery, Hx Pacemaker - Immunizations Hx Diphtheria, Pertussis, Tetanus Vaccination: Yes Physical Exam - Vital signs Vitals: Temp Pulse Resp BP Pulse Ox 98.9 F 72 18 142/52 H 100 06/01/20 13:51 06/01/20 13:51 06/01/20 13:51 06/01/20 13:51 06/01/20 13:51 - Notes Notes: PHYSICAL EXAMINATION: GENERAL: Well-appearing, well-nourished and in no acute distress. HEAD: Atraumatic, normocephalic. EYES: Pupils equal round and reactive to light, extraocular movements intact, conjunctiva are normal. ENT: Nares patent, oropharynx clear without exudates. Moist mucous membranes. NECK: Normal range of motion, supple without lymphadenopathy LUNGS: Slight expiratory wheezes noted. No increased work of breathing. HEART: Regular rate and rhythm without murmurs ABDOMEN: Soft, nontender, nondistended abdomen. No guarding, no rebound. No masses appreciated. Female : deferred Musculoskeletal: Normal range of motion, no pitting or edema. No cyanosis. NEUROLOGICAL: Cranial nerves grossly intact. Normal speech, normal gait. Normal sensory, motor exams PSYCH: Normal mood, normal affect. SKIN: Warm, Dry, normal turgor, no rashes or lesions noted. Course - Re-evaluation Re-evalutation: Expiratory wheezes have cleared after breathing treatment. Work-up today was reassuring. Patient has no evidence of hypoxia, tachypnea or tachycardia. She is appropriate for discharge. She feels comfortable with this plan. COVID-19 test is pending. Strict ED return precautions discussed, patient verbalized understanding and agreement with same. - Vital Signs Vital signs: Temp Pulse Resp BP Pulse Ox 97.9 F 71 16 147/66 H 95 06/01/20 18:51 06/01/20 18:51 06/01/20 18:51 06/01/20 18:51 06/01/20 18:51 - Laboratory Result Diagrams: 06/01/20 17:49 06/01/20 15:26 Laboratory results interpreted by me: 06/01/20 06/01/20 06/01/20 15:26 15:26 17:49 Hct 35.4 L RDW 14.4 H Alkaline Phosphatase 153 H NT-Pro-B Natriuret Pep 162 H - Diagnostic Test Radiology reviewed: Image reviewed, Reports reviewed - EKG Interpretation by Me EKG shows normal: Sinus rhythm - rate 61, [place], Intervals, QRS Complexes, ST-T Waves Discharge - Discharge Clinical Impression: Person under investigation for COVID-19 Upper respiratory infection Qualifiers: URI type: unspecified URI Qualified Code(s): J06.9 - Acute upper respiratory infection, unspecified Condition: Stable Disposition: HOME, SELF-CARE Additional Instructions: Your lab work and flu test were normal. Chest x-ray showed no evidence of pneumonia. If you were prescribed medications during today's visit please take them exactly as prescribed. Push fluids. Get plenty of rest. Tylenol or Motrin for fever and body aches. Good handwashing and stay away from others. Return to the emergency department with any new or worsening symptoms such as difficulty breathing, or any other worsening symptoms. Prescriptions: Benzonatate [Tessalon Perles 100 mg Capsule] 1 - 2 tab PO Q8HP PRN #30 capsule PRN Reason: Doxycycline Hyclate [Vibramycin 100 mg Tablet] 100 mg PO BID #14 tablet Referrals: CARLOS HOSKINS PA [Primary Care Provider] - Follow up as needed
--- NOTE | 2020-06-01 15:48 | RADIOLOGY REPORT (SQ) ---
EXAM DESCRIPTION: CHEST SINGLE VIEW IMAGES COMPLETED DATE/TIME: 06/01/2020 3:39 pm REASON FOR STUDY: cough/shortness of breath COMPARISON: 06/10/2019 EXAM PARAMETERS: NUMBER OF VIEWS: One view. TECHNIQUE: Single frontal radiographic view of the chest acquired. RADIATION DOSE: NA LIMITATIONS: None. FINDINGS: LUNGS AND PLEURA: No opacities, masses or pneumothorax. No pleural effusion. MEDIASTINUM AND HILAR STRUCTURES: No masses. Contour normal. HEART AND VASCULAR STRUCTURES: Heart normal in size. Normal vasculature. BONES: No acute findings. HARDWARE: None in the chest. OTHER: No other significant finding. IMPRESSION: NO ACUTE RADIOGRAPHIC FINDING IN THE CHEST. TECHNICAL DOCUMENTATION: JOB ID: [id number] 2010 [employer]- All Rights Reserved Reading location - IP/workstation name: [email or web address]
[2020-06-01 16:06] LABS: ALBUMIN 4.3 g/dL (3.5-5.0); ALKALINE PHOSPHATASE 153 U/L (38-126); ANION GAP 9 (5-19); ASPARTATE AMINO TRANSFERASE 26 U/L (14-36); BILIRUBIN,DIRECT 0.1 mg/dL (0.0-0.4); BILIRUBIN,TOTAL 0.6 mg/dL (0.2-1.3); BLOOD UREA NITROGEN 15 mg/dL (7-20); CALCIUM 9.7 mg/dL (8.4-10.2); CARBON DIOXIDE 27 mmol/L (22-30); CHLORIDE 104 mmol/L (98-107); GLUCOSE 90 mg/dL (75-110); POTASSIUM 4.3 mmol/L (3.6-5.0)
[2020-06-01 16:10] LABS: A TYPE INFLUENZA AG NEGATIVE (NEGATIVE); B INFLUENZA AG NEGATIVE (NEGATIVE)
[2020-06-01 16:18] LABS: NT PRO BNP 162 pg/mL (<125)
[2020-06-01 16:19] LABS: TROPONIN I < 0.012 ng/mL
[2020-06-01 18:03] LABS: ABSOLUTE EOSINOPHILS # (AUTO) 0.1 10^3/uL (0.0-0.6); ABSOLUTE LYMPHOCYTES (AUTO) 1.1 10^3/uL (0.5-4.7); ABSOLUTE MONOCYTES (AUTO) 0.7 10^3/uL (0.1-1.4); ABSOLUTE NEUT (AUTO) 4.3 10^3/uL (1.7-8.2); BASOPHILS % (AUTO) 0.7 % (0-2); EOSINOPHILS % (AUTO) 1.5 % (0-6); HEMATOCRIT 35.4 % (36.0-47.0); HEMOGLOBIN 12.3 g/dL (12.0-15.5); LYMPHOCYTES % (AUTO) 18.3 % (13-45); MEAN CORPUSCULAR HEMOGLOBIN 28.4 pg (27.0-33.4); MEAN CORPUSCULAR HGB CONC 34.9 g/dL (32.0-36.0); MEAN CORPUSCULAR VOLUME 82 fl (80-97); MONOCYTES % (AUTO) 11.3 % (3-13); PLATELET COUNT 225 10^3/uL (150-450); RED BLOOD COUNT 4.34 10^6/uL (3.72-5.28); RED CELL DISTRIBUTION WIDTH 14.4 % (11.5-14.0); SEGMENTED NEUTROPHILS % (AUTO) 68.2 % (42-78); TOTAL CELLS COUNTED % (AUTO) 100 %; WHITE BLOOD COUNT 6.3 10^3/uL (4.0-10.5)
[2020-06-01 18:53] VITALS: BP 147/66
--- NOTE | 2020-06-01 18:59 | EKG REPORT ---
SEVERITY:- NORMAL ECG - SINUS RHYTHM : Confirmed by: Srinath Kwon MD 01-Jun-2020 18:58:41
== END 2020-06-01 18:53 | disposition home or self-care (01) ==
LOC: ER 13:37
DX: J06.9 Acute upper respiratory infection, unspecified (principal); J44.9 Chronic obstructive pulmonary disease, unspecified; R06.02 Shortness of breath; R51.9 Headache, unspecified; M79.10 Myalgia, unspecified site; R61 Generalized hyperhidrosis; R04.2 Hemoptysis; R09.89 Other specified symptoms and signs involving the circulatory and respiratory systems; R07.9 Chest pain, unspecified; E78.00 Pure hypercholesterolemia, unspecified; I10 Essential (primary) hypertension; F32.9 Major depressive disorder, single episode, unspecified; K21.9 Gastro-esophageal reflux disease without esophagitis; Z79.899 Other long term (current) drug therapy; Z79.891 Long term (current) use of opiate analgesic; Z87.01 Personal history of pneumonia (recurrent); Z88.8 Allergy status to other drugs, medicaments and biological substances; Z20.828 Contact with and (suspected) exposure to other viral communicable diseases
CPT/HCPCS: 36415; 71045; 80053; 83880; 84484; 85025; 87804; 93005; 93010; 99285

== ENCOUNTER 2020-06-06 17:21 | Observation (INO) | payer MEDICARE, MEDICAID ==
[2020-06-06 17:54] LABS: ABSOLUTE EOSINOPHILS # (AUTO) 0.2 10^3/uL (0.0-0.6); ABSOLUTE LYMPHOCYTES (AUTO) 1.9 10^3/uL (0.5-4.7); ABSOLUTE MONOCYTES (AUTO) 0.6 10^3/uL (0.1-1.4); BASOPHILS % (AUTO) 0.6 % (0-2); EOSINOPHILS % (AUTO) 2.3 % (0-6); HEMATOCRIT 35.6 % (36.0-47.0); LYMPHOCYTES % (AUTO) 24.2 % (13-45); MEAN CORPUSCULAR HEMOGLOBIN 28.2 pg (27.0-33.4); MEAN CORPUSCULAR HGB CONC 33.8 g/dL (32.0-36.0); MEAN CORPUSCULAR VOLUME 83 fl (80-97); MONOCYTES % (AUTO) 7.5 % (3-13); PLATELET COUNT 300 10^3/uL (150-450); RED BLOOD COUNT 4.26 10^6/uL (3.72-5.28); RED CELL DISTRIBUTION WIDTH 15.2 % (11.5-14.0); SEGMENTED NEUTROPHILS % (AUTO) 65.4 % (42-78); TOTAL CELLS COUNTED % (AUTO) 100 %; WHITE BLOOD COUNT 7.7 10^3/uL (4.0-10.5)
--- NOTE | 2020-06-06 18:05 | RADIOLOGY REPORT (SQ) ---
EXAM DESCRIPTION: CHEST SINGLE VIEW IMAGES COMPLETED DATE/TIME: 06/06/2020 5:55 pm REASON FOR STUDY: chest pain COMPARISON: 06/01/2020 EXAM PARAMETERS: NUMBER OF VIEWS: One view. TECHNIQUE: Single frontal radiographic view of the chest acquired. RADIATION DOSE: NA LIMITATIONS: None. FINDINGS: LUNGS AND PLEURA: No opacities, masses or pneumothorax. No pleural effusion. MEDIASTINUM AND HILAR STRUCTURES: No masses. Contour normal. HEART AND VASCULAR STRUCTURES: Heart normal in size. Normal vasculature. BONES: No acute findings. HARDWARE: None in the chest. OTHER: No other significant finding. IMPRESSION: NO ACUTE RADIOGRAPHIC FINDING IN THE CHEST. TECHNICAL DOCUMENTATION: JOB ID: [id number] 2010 [employer]- All Rights Reserved Reading location - IP/workstation name: [email or web address]
[2020-06-06 18:26] LABS: CREATINE KINASE MB 1.98 ng/mL (<4.55)
[2020-06-06 18:27] LABS: TROPONIN I < 0.012 ng/mL
[2020-06-06 18:40] LABS: ALBUMIN 4.3 g/dL (3.5-5.0); ALKALINE PHOSPHATASE 144 U/L (38-126); ANION GAP 10 (5-19); ASPARTATE AMINO TRANSFERASE 28 U/L (14-36); BILIRUBIN,DIRECT 0.2 mg/dL (0.0-0.4); BILIRUBIN,TOTAL 0.7 mg/dL (0.2-1.3); BLOOD UREA NITROGEN 18 mg/dL (7-20); CALCIUM 9.5 mg/dL (8.4-10.2); CARBON DIOXIDE 26 mmol/L (22-30); CHLORIDE 104 mmol/L (98-107); CREATINE KINASE 171 U/L (30-135); GLUCOSE 98 mg/dL (75-110); POTASSIUM 4.4 mmol/L (3.6-5.0); TOTAL PROTEIN 7.1 g/dL (6.3-8.2)
[2020-06-06] MEDS ORDERED: MORPHINE SULFATE 10 MG/ML INJ IV ONE (20:35)
--- NOTE | 2020-06-06 21:27 | ER Document Report ---
ED General - General Chief Complaint: Chest Pain Stated Complaint: CHEST PAIN Primary Care Provider: CARLOS HOSKINS PA [Primary Care Provider] - Follow up as needed Notes: 69-year-old female with hypertension hyperlipidemia presents with few days of sharp bilateral nonradiating intermittent chest pain that was partially relieved by nitroglycerin prior to arrival given by EMS. Patient also endorses an intermittent cough with small streaks of blood and intermittent bilateral leg swelling of unknown duration. Patient denies known cardiac history, states she had cardiology evaluation and stress test in 2019. Patient denies recent travel/trauma/surgery/immobilization, cancer history, weight loss, fever, trauma, syncope, dizziness, back pain, smoking history, alcohol or drug use TRAVEL OUTSIDE OF THE [place] IN LAST 30 DAYS: No - Related Data Allergies/Adverse Reactions: lisinopril [Lisinopril] Allergy (Severe, Verified 06/06/20 18:07) Edema phenytoin sodium extended [From Dilantin] Allergy (Severe, Verified 06/06/20 18:07) Unknown reaction risperidone [From Risperdal] Allergy (Intermediate, Verified 06/06/20 18:07) Hives venlafaxine HCl [From Effexor] Allergy (Intermediate, Verified 06/06/20 18:07) Hives naldemedine [From Symproic] Allergy (Verified 06/06/20 18:07) Past Medical History - General Information source: Patient - Social History Smoking Status: Never Smoker Family History: CAD, CVA, DM, Hypertension, Malignancy - Past Medical History Cardiac Medical History: Reports: Hx Hypercholesterolemia, Hx Hypertension Denies: Hx Heart Attack Pulmonary Medical History: Reports: Hx Asthma, Hx COPD, Hx Pneumonia Denies: Hx Tuberculosis Neurological Medical History: Reports: Hx Seizures - 18-19 YEARS AGO. Denies: Hx Cerebrovascular Accident Endocrine Medical History: Reports: Hx Diabetes Mellitus Type 2 Renal/ Medical History: Denies: Hx Peritoneal Dialysis GI Medical History: Reports: Hx Gastroesophageal Reflux Disease. Denies: Hx Hepatitis, Hx Hiatal Hernia, Hx Ulcer Musculoskeletal Medical History: Reports Hx Arthritis, Reports Hx Fibromyalgia Psychiatric Medical History: Reports: Hx Depression, Hx Post Traumatic Stress Disorder, Hx Schizophrenia Infectious Medical History: Denies: Hx Hepatitis Past Surgical History: Reports: Hx Section - x2, Hx Cholecystectomy, Hx Orthopedic Surgery - left great toe implant. Denies: Hx Mastectomy, Hx Open Heart Surgery, Hx Pacemaker - Immunizations Hx Diphtheria, Pertussis, Tetanus Vaccination: Yes Review of Systems - Review of Systems Notes: REVIEW OF SYSTEMS: CONSTITUTIONAL : Denies fever, chills, or sweats. EENT: Denies recent cold/sinus symptoms, denies throat pain CARDIOVASCULAR: + chest pain, +RADHA RESPIRATORY: + cough, denies shortness of breath. GASTROINTESTINAL: Denies abdominal pain, nausea/vomiting. GENITOURINARY: Denies difficulty urinating, painful urination. FEMALE GENITOURINARY: Denies abnormal vaginal bleeding, vaginal discharge. MUSCULOSKELETAL: Denies neck pain, back pain. SKIN: Denies rash or skin lesions. HEMATOLOGIC : Denies easy bruising or bleeding. LYMPHATIC: Denies swollen, enlarged glands. NEUROLOGICAL: Denies headache, denies change in gait. PSYCHIATRIC: Denies anxiety or stress or depression. Physical Exam - Vital signs Vitals: Temp Resp BP Pulse Ox 98.0 F 22 H 121/55 L 95 06/06/20 17:27 06/06/20 17:27 06/06/20 17:27 06/06/20 17:27 - Notes Notes: PHYSICAL EXAMINATION: GENERAL: Well-appearing, well-nourished, uncomfortable but nontoxic appearing middle-aged woman lying in stretcher in no acute distress. HEAD: Atraumatic, normocephalic. EYES: Pupils equal round and appropriate constriction, sclera anicteric, conjunctiva are normal. ENT: nares patent, moist mucous membranes. NECK: Normal range of motion, supple without lymphadenopathy LUNGS: Breath sounds clear to auscultation bilaterally and equal. No wheezes rales or rhonchi. HEART/CHEST: Regular rate and rhythm without murmurs, no chest tenderness ABDOMEN: Soft, nontender, no guarding, no masses, no CVAT EXTREMITIES: Normal range of motion, trace right lower extremity edema, no calf tenderness NEUROLOGICAL: Awake, alert, conversing appropriately, moves all extremities spontaneously. PSYCH: Normal mood, normal affect. SKIN: Warm, Dry, normal turgor, no rashes or lesions noted. Course - Re-evaluation Re-evalutation: 06/06/20 21:30 Patient with chest pain, rule out PE, rule out ACS. Mild assist but no signs of infectious etiology, no TB risk factors, will assess on CTA chest. Presentation not consistent with aortic dissection, no need to rule out at this time. patient dimer mildly positive, ordered CTA, barring PE with massive clot burden will admit patient to medicine for ACS rule out and or PE management as per results of CTA. Patient's vitals have remained stable, no respiratory distress, will continue to monitor. 06/06/20 23:01 No PE on CTA. Patient accepted to observation by Dr. Fong Heart score 5. Given aspirin prior to arrival. - Vital Signs Vital signs: Temp Pulse Resp BP Pulse Ox 98.0 F 15 138/66 H 100 06/06/20 17:27 06/06/20 21:01 06/06/20 21:01 06/06/20 21:01 - Laboratory Result Diagrams: 06/06/20 17:34 06/06/20 17:34 Laboratory results interpreted by me: 06/06/20 06/06/20 06/06/20 17:34 17:34 17:34 Hct 35.6 L RDW 15.2 H D-Dimer 0.84 H Alkaline Phosphatase 144 H Creatine Kinase 171 H - EKG Interpretation by Me Additional EKG results interpreted by me: 06/06/20 21:33 Sinus rhythm, no significant ST elevations or depressions, equivocal inferior T wave abnormalities Discharge - Discharge Clinical Impression: Essential hypertension Chest pain Qualifiers: Chest pain type: unspecified Qualified Code(s): R07.9 - Chest pain, unspecified Hyperlipidemia Qualifiers: Hyperlipidemia type: unspecified Qualified Code(s): E78.5 - Hyperlipidemia, unspecified Disposition: ADMITTED OBSERVATION Admitting Provider: Ajit Unit Admitted: Telemetry Referrals: CARLOS HOSKINS PA [Primary Care Provider] - Follow up as needed
--- NOTE | 2020-06-06 22:25 | RADIOLOGY REPORT (SQ) ---
CT CHEST ANGIOGRAPHY WITHOUT THEN WITH IV CONTRAST HISTORY: Shortness of breath. COMPARISON: None. TECHNIQUE: CT angiogram of the chest with IV contrast. 3-D MIP images were obtained in coronal and sagittal reconstructions. This exam was performed according to our departmental dose-optimization program, which includes automated exposure control, adjustment of the mA and/or kV according to patient size and/or use of iterative reconstruction technique. FINDINGS: No filling defects are identified in the pulmonary trunk, main left and right pulmonary arteries, or the segmental branches. The thyroid gland is normal. No mediastinal or hilar adenopathy. The heart size is normal without pericardial effusion. The thoracic aorta is normal caliber. No consolidation, pleural effusion, or pneumothorax is identified. The visualized upper abdomen demonstrates no acute findings. No acute osseous findings are seen. IMPRESSION: No acute pulmonary embolism.
[2020-06-06] MEDS ORDERED: ONDANSETRON HCL INJ/PF 4 MG/2 ML SDV IV PRN (22:45)
[2020-06-06] MEDS ORDERED: ACETAMINOPHEN 650 MG SUPP.RECT PR PRN (22:45)
[2020-06-06] MEDS ORDERED: TIZANIDINE HCL 4 MG TABLET PO PRN (22:51)
[2020-06-06] MEDS ORDERED: ATORVASTATIN CALCIUM 40 MG TABLET PO SCH (23:00)
--- NOTE | 2020-06-06 23:02 | PDOC H&P ---
History of Present Illness Admission Date/PCP: ADRIAN REBOLLEDO Patient complains of: Chest pain History of Present Illness: KORY GALLO is a 69 year old female history of hypertension, hyperlipidemia who now presents to the ED complaining of progressively worsening episodic chest pain. She describes the pain as left-sided, sharp, 8/10 intensity, aggravated by exertion. She also reports that she has some shortness of breath with exertion but denies orthopnea, PND or leg swelling. She states that she was seen her PCP a day ago and they are planning to do CT scan but they were not able to get IV access and it was not done. States that she took 4 tablets of aspirin and was given nitroglycerin during transfer via EMS which improved her chest pain. She denies cough, fever, chills, nausea, vomiting or diarrhea. She denies any recent long distance travel or immobilization. She reports that she was tested for COVID-19 a week and was negative. Past Medical History Cardiac Medical History: Reports: Hyperlipidema, Hypertension Denies: Myocardial Infarction Pulmonary Medical History: Reports: Asthma, Chronic Obstructive Pulmonary Disease (COPD), Pneumonia Denies: Tuberculosis Neurological Medical History: Reports: Seizures - 18-19 YEARS AGO Endocrine Medical History: Reports: Diabetes Mellitus Type 2 GI Medical History: Reports: Gastroesophageal Reflux Disease Denies: Hepatitis, Hiatal Hernia Musculoskeltal Medical History: Reports: Arthritis, Fibromyalgia Psychiatric Medical History: Reports: Depression, Post Traumatic Stress Disorder Hematology: Reports: Anemia Denies: Sickle Cell Disease Past Surgical History Past Surgical History: Reports: Section - x2, Cholecystectomy, Orthopedic Surgery - left great toe implant Denies: Amputation, Mastectomy, Pacemaker Social History Information Source: Patient Smoking Status: Never Smoker Frequency of Alcohol Use: None Hx Recreational Drug Use: No Drugs: None Hx Prescription Drug Abuse: No - Advance Directive Resuscitation Status: Full Code Family History Family History: CAD, CVA, DM, Hypertension, Malignancy Parental Family History Reviewed: Yes Children Family History Reviewed: Yes Sibling(s) Family History Reviewed.: Yes Medication/Allergy Home Medications: Amlodipine Besylate [Norvasc 5 mg Tablet] 5 mg PO DAILY 02/16/18 Aspirin [Ecotrin 325 mg EC Tablet] 325 mg PO DAILY 02/16/18 Cephalexin Monohydrate [Keflex 500 mg Capsule] 500 mg PO Q12 02/16/18 Duloxetine HCl [Cymbalta] 60 mg PO DAILY 02/16/18 Gabapentin [Neurontin 400 mg Capsule] 400 mg PO TID 02/16/18 Hydrocodone/Acetaminophen [[place] 5-325 mg Tablet] 1 tab PO Q8 02/16/18 Metoprolol Succinate [Toprol Xl 50 mg Tab.sr] 50 mg PO QHS 02/16/18 Montelukast Sodium [Singulair 10 mg Tablet] 10 mg PO DAILY 02/16/18 Omeprazole 20 mg PO QHS 02/16/18 Pravastatin Sodium [Pravachol] 40 mg PO QHS 02/16/18 Prazosin HCl [Minipress] 2 mg PO QHS 02/16/18 Tizanidine HCl [Zanaflex] 2 mg PO Q8 02/16/18 Ibuprofen [Motrin 600 Mg Tablet] 600 mg PO TID PRN 5 Days #15 tablet 06/13/18 Ondansetron [Zofran Odt 4 mg Tablet] 1 - 2 tab PO Q4H PRN #15 tab.rapdis 03/11/20 Benzonatate [Tessalon Perles 100 mg Capsule] 1 - 2 tab PO Q8HP PRN #30 capsule 06/01/20 Doxycycline Hyclate [Vibramycin 100 mg Tablet] 100 mg PO BID #14 tablet 06/01/20 Allergies/Adverse Reactions: lisinopril [Lisinopril] Allergy (Severe, Verified 06/06/20 18:07) Edema phenytoin sodium extended [From Dilantin] Allergy (Severe, Verified 06/06/20 18:07) Unknown reaction risperidone [From Risperdal] Allergy (Intermediate, Verified 06/06/20 18:07) Hives venlafaxine HCl [From Effexor] Allergy (Intermediate, Verified 06/06/20 18:07) Hives naldemedine [From Symproic] Allergy (Verified 06/06/20 18:07) Review of Systems Constitutional: ABSENT: chills, fever(s), headache(s), weight gain, weight loss Eyes: ABSENT: visual disturbances Ears: ABSENT: hearing changes Nose, Mouth, and Throat: ABSENT: as per HPI, headache(s), mouth pain, sore throat, vertigo, other Cardiovascular: PRESENT: as per HPI Respiratory: PRESENT: as per HPI Gastrointestinal: ABSENT: abdominal pain, constipation, diarrhea, hematemesis, hematochezia, nausea, vomiting Genitourinary: ABSENT: dysuria, hematuria Musculoskeletal: ABSENT: joint swelling Integumentary: ABSENT: rash, wounds Neurological: ABSENT: abnormal gait, abnormal speech, confusion, dizziness, focal weakness, syncope Psychiatric: ABSENT: anxiety, depression, homidical ideation, suicidal ideation Endocrine: ABSENT: cold intolerance, heat intolerance, polydipsia, polyuria Hematologic/Lymphatic: ABSENT: easy bleeding, easy bruising Physical Exam Vital Signs: Temp Pulse Resp BP Pulse Ox 98.0 F 15 138/66 H 100 06/06/20 17:27 06/06/20 21:01 06/06/20 21:01 06/06/20 21:01 Intake & Output 06/05/20 06/06/20 06/07/20 06:59 06:59 06:59 Weight 86.183 kg Additional comments: GENERAL APPEARANCE: Alert and oriented x3, no acute distress HEENT: Normocephalic and atraumatic. No scleral icterus. Dry oral mucosa NECK: Supple. No lymphadenopathy or tenderness. No carotid bruit. No JVD CHEST: Symmetric. Nontender to palpation. LUNGS: Clear with good air entry bilaterally HEART: Regular rate and rhythm with normal S1 and S2. No murmurs, gallops, or ru bs. ABDOMEN: Flat, soft, active bowel sounds, no direct or rebound tenderness. No organomegaly detected. EXTREMITIES: No cyanosis, clubbing, or edema. MUSCULOSKELETAL: No deformity, atrophy or swelling noted PSYCHIATRIC: The patient is awake, alert, and oriented x3. Recent and remote memory is intact. Appropriate mood and affect. SKIN: Warm, dry, and well perfused. No lesions or rashes are noted. NEUROLOGIC: No focal sensory or motor deficits are noted. Results Laboratory Results: 06/06/20 17:34 06/06/20 17:34 06/06/20 06/06/20 17:34 17:34 WBC 7.7 RBC 4.26 Hgb 12.0 Hct 35.6 L MCV 83 MCH 28.2 MCHC 33.8 RDW 15.2 H Plt Count 300 Seg Neutrophils % 65.4 Sodium 140.2 Potassium 4.4 Chloride 104 Carbon Dioxide 26 Anion Gap 10 BUN 18 Creatinine 0.69 Est GFR ( Amer) > 60 Glucose 98 Calcium 9.5 Total Bilirubin 0.7 AST 28 Alkaline Phosphatase 144 H Total Protein 7.1 Albumin 4.3 06/06/20 06/06/20 06/06/20 17:34 17:34 20:45 Creatine Kinase 171 H CK-MB (CK-2) 1.98 Troponin I < 0.012 < 0.012 Impressions: Chest X-Ray 06/06/20 17:40 IMPRESSION: NO ACUTE RADIOGRAPHIC FINDING IN THE CHEST. Chest/Abdomen CTA 06/06/20 21:03 IMPRESSION: No acute pulmonary embolism. Assessment and Plan - Diagnosis (1) Chest pain Qualifiers: Chest pain type: unspecified Qualified Code(s): R07.9 - Chest pain, unspecified Is this a current diagnosis for this admission?: Yes Plan: Patient presents with exertional chest pain Pain was relieved once she was given aspirin and nitroglycerin by EMS Initial cardiac enzyme was negative D-dimer was elevated and CTA chest obtained subsequently showed no PE EKG shows T wave inversion on inferior leads but compared to previous study no change noted Continue aspirin, atorvastatin Sublingual nitroglycerin as needed Ordered lipid panel Will trend cardiac enzymes and EKG If negative, stress test (2) Hyperlipidemia Qualifiers: Hyperlipidemia type: unspecified Qualified Code(s): E78.5 - Hyperlipidemia, unspecified Is this a current diagnosis for this admission?: Yes Plan: Continue atorvastatin Will get lipid panel in the a.m. (3) Diabetes mellitus Qualifiers: Diabetes mellitus type: type 2 Is this a current diagnosis for this admission?: Yes Plan: Patient reports that she was previously on insulin Currently not on any medication Being managed by lifestyle modification including dietary change Will obtain A1c (4) Essential hypertension Is this a current diagnosis for this admission?: Yes Plan: Blood pressure well controlled Continue home dose amlodipine - Time Time Spent with patient: 35 or more minutes Total Critical Time (Minutes): 35 Medications reviewed and adjusted accordingly: Yes Anticipated Discharge Disposition: Home, Self Care Anticipated Discharge Timeframe: within 48 hours - Inpatient Certification Based on my medical assessment, after consideration of the patient's comorbidities, presenting symptoms, or acuity I expect that the services needed warrant INPATIENT care.: Yes I certify that my determination is in accordance with my understanding of Medicare's requirements for reasonable and necessary INPATIENT services [42 CFR 412.3e].: Yes Medical Necessity: Need Close Monitoring Due to Risk of Patient Decompensation, Need For Continuous Telemetry Monitoring Post Hospital Care: D/C or Transfer Summary
[2020-06-07] MEDS ORDERED: ACETAMINOPHEN 325 MG TABLET ONE (01:42)
[2020-06-07] MEDS: ACETAMINOPHEN 325 MG TABLET PO PRN ×2 (01:45→08:37)
[2020-06-07 05:07] LABS: CHOLESTEROL 133.54 mg/dL (0-200); TRIGLYCERIDES 96 mg/dL (<150)
[2020-06-07 05:18] LABS: DIRECT LDL 70 mg/dL (<100)
[2020-06-07] MEDS ORDERED: PANTOPRAZOLE SODIUM 40 MG TABLET.DR PO SCH (06:00)
--- NOTE | 2020-06-07 06:56 | EKG REPORT ---
SEVERITY:- BORDERLINE ECG - SINUS RHYTHM LVH BY VOLTAGE BORDERLINE T ABNORMALITIES, INFERIOR LEADS : Confirmed by: Sandro Dunbar MD 07-Jun-2020 06:55:34
--- NOTE | 2020-06-07 06:56 | EKG REPORT ---
SEVERITY:- NORMAL ECG - SINUS RHYTHM : Confirmed by: Sandro Dunbar MD 07-Jun-2020 06:55:22
[2020-06-07] MEDS ORDERED: AMLODIPINE BESYLATE 5 MG TABLET PO SCH (10:00)
[2020-06-07] MEDS ORDERED: ASPIRIN 81 MG TABLET, CHEWABLE PO SCH (10:00)
[2020-06-07] MEDS ORDERED: ENOXAPARIN SODIUM INJ 40 MG/0.4 ML DISP.SYRIN SUBCUT SCH (10:00)
[2020-06-07 11:44] VITALS: BP 135/59
--- NOTE | 2020-06-07 12:08 | PDOC DISCHARGE SUMMARY ---
Impression - Admit/DC Date/PCP Admission Date/Primary Care Provider: 06/06/20 23:09 ADRIAN REBOLLEDO Discharge Date: 06/07/20 - Discharge Diagnosis (1) Chest pain Is this a current diagnosis for this admission?: Yes (2) Essential hypertension Is this a current diagnosis for this admission?: Yes (3) Hyperlipidemia Is this a current diagnosis for this admission?: Yes (4) Diabetes mellitus Is this a current diagnosis for this admission?: Yes - Additional Information Resuscitation Status: Full Code Discharge Diet: Cardiac Referrals: CARLOS HOSKINS PA [Primary Care Provider] - Follow up as needed ABENA HANCOCK MD [NO LOCAL MD] - (STRESS TEST ) Home Medications: Amlodipine Besylate [Norvasc 5 mg Tablet] 5 mg PO DAILY 02/16/18 Aspirin [Ecotrin 325 mg EC Tablet] 325 mg PO DAILY 02/16/18 Cephalexin Monohydrate [Keflex 500 mg Capsule] 500 mg PO Q12 02/16/18 Duloxetine HCl [Cymbalta] 60 mg PO DAILY 02/16/18 Gabapentin [Neurontin 400 mg Capsule] 400 mg PO TID 02/16/18 Hydrocodone/Acetaminophen [[place] 5-325 mg Tablet] 1 tab PO Q8 02/16/18 Metoprolol Succinate [Toprol Xl 50 mg Tab.sr] 50 mg PO QHS 02/16/18 Montelukast Sodium [Singulair 10 mg Tablet] 10 mg PO DAILY 02/16/18 Omeprazole 20 mg PO QHS 02/16/18 Pravastatin Sodium [Pravachol] 40 mg PO QHS 02/16/18 Prazosin HCl [Minipress] 2 mg PO QHS 02/16/18 Tizanidine HCl [Zanaflex] 2 mg PO Q8 02/16/18 Ibuprofen [Motrin 600 Mg Tablet] 600 mg PO TID PRN 5 Days #15 tablet 06/13/18 Ondansetron [Zofran Odt 4 mg Tablet] 1 - 2 tab PO Q4H PRN #15 tab.rapdis 03/11/20 Benzonatate [Tessalon Perles 100 mg Capsule] 1 - 2 tab PO Q8HP PRN #30 capsule 06/01/20 Doxycycline Hyclate [Vibramycin 100 mg Tablet] 100 mg PO BID #14 tablet 11/01/20 History of Present Illiness History of Present Illness: According to admitting provider: KORY GALLO is a 69 year old female history of hypertension, hyperlipidemia who now presents to the ED complaining of progressively worsening episodic chest pain. She describes the pain as left-sided, sharp, 8/10 intensity, aggravated by exertion. She also reports that she has some shortness of breath with exertion but denies orthopnea, PND or leg swelling. She states that she was seen her PCP a day ago and they are planning to do CT scan but they were not able to get IV access and it was not done. States that she took 4 tablets of aspirin and was given nitroglycerin during transfer via EMS which improved her chest pain. She denies cough, fever, chills, nausea, vomiting or diarrhea. She denies any recent long distance travel or immobilization. She reports that she was tested for COVID-19 a week and was negative. Hospital Course Hospital Course: Patient was admitted to the hospital for evaluation of chest pain. Patient has been dealing with chest pain for quite some time now but recently worsened in the past week. Chest pain is actually quite typical in nature and possibly angina. Troponin was measured and negative 3 times ruling out [place]. Her EKG did show some nonspecific T wave inversions which seem to have improved on subsequent EKG. There is logical concern for angina as the etiology especially with relieved with nitro. She also did have a CTA chest which was negative for PE and was essentially normal. Lipid panel was completely normal as well. Patient chest pain is currently resolved. I had an extensive conversation with patient about her condition and she informs me that she sees visual designer Dr. Hancock at [place]. She also states she had a left heart cath 2 years ago which did not require any intervention and she was not told that she had any obstructive disease. I have explained to her that she was certainly need to have ischemic reevaluation either with left heart cath or may be stress test. Patient would like to go home if possible follow-up outpatient. Given that we cannot perform these during the weekend, and her condition is stable and nonemergent and her chest pain has resolved, I am in agreement with patient being discharged home. Our floor engineering secretary will make an appointment for patient with Dr. Hancock on Tuesday for evaluation for stress/LHC. Patient has sublingual nitro at home and I have encouraged her to use it as needed for chest pain. She has been advised to continue taking her daily aspirin. Physical Exam Vital Signs: Temp Pulse Resp BP Pulse Ox 97.6 F 70 16 135/59 H 98 06/07/20 11:10 06/07/20 11:10 06/07/20 11:10 06/07/20 11:10 06/07/20 11:10 Intake & Output 06/06/20 06/07/20 06/08/20 06:59 06:59 06:59 Intake Total 240 Balance 240 Weight 82.7 kg General appearance: PRESENT: no acute distress, cooperative Neck exam: ABSENT: JVD Respiratory exam: PRESENT: clear to auscultation princess, unlabored. ABSENT: tachypnea, wheezes Cardiovascular exam: PRESENT: RRR, +S1, +S2. ABSENT: diastolic murmur, systolic murmur, tachycardia GI/Abdominal exam: PRESENT: soft. ABSENT: rebound, rigid, tenderness Neurological exam: PRESENT: alert, awake, oriented to person, oriented to place, oriented to time Results Laboratory Results: WBC 7.7 10^3/uL (4.0-10.5) 06/06/20 17:34 RBC 4.26 10^6/uL (3.72-5.28) 06/06/20 17:34 Hgb 12.0 g/dL (12.0-15.5) 06/06/20 17:34 Hct 35.6 % (36.0-47.0) L 06/06/20 17:34 MCV 83 fl (80-97) 06/06/20 17:34 MCH 28.2 pg (27.0-33.4) 06/06/20 17:34 MCHC 33.8 g/dL (32.0-36.0) 06/06/20 17:34 RDW 15.2 % (11.5-14.0) H 06/06/20 17:34 Plt Count 300 10^3/uL (150-450) 06/06/20 17:34 Lymph % (Auto) 24.2 % (13-45) 06/06/20 17:34 [place] % (Auto) 7.5 % (3-13) 06/06/20 17:34 Eos % (Auto) 2.3 % (0-6) 06/06/20 17:34 Baso % (Auto) 0.6 % (0-2) 06/06/20 17:34 Absolute Neuts (auto) 5.0 10^3/uL (1.7-8.2) 06/06/20 17:34 Absolute Lymphs (auto) 1.9 10^3/uL (0.5-4.7) 06/06/20 17:34 Absolute Monos (auto) 0.6 10^3/uL (0.1-1.4) 06/06/20 17:34 Absolute Eos (auto) 0.2 10^3/uL (0.0-0.6) 06/06/20 17:34 Absolute Basos (auto) 0.0 10^3/uL (0.0-0.2) 06/06/20 17:34 Seg Neutrophils % 65.4 % (42-78) 06/06/20 17:34 D-Dimer 0.84 ug/mL (0.00-0.50) H 06/06/20 17:34 Sodium 140.2 mmol/L (137-145) 06/06/20 17:34 Potassium 4.4 mmol/L (3.6-5.0) 06/06/20 17:34 Chloride 104 mmol/L (98-107) 06/06/20 17:34 Carbon Dioxide 26 mmol/L (22-30) 06/06/20 17:34 Anion Gap 10 (5-19) 06/06/20 17:34 BUN 18 mg/dL (7-20) 06/06/20 17:34 Creatinine 0.69 mg/dL (0.52-1.25) 06/06/20 17:34 Est GFR ( Amer) > 60 (>60) 06/06/20 17:34 Est GFR (MDRD) Non-Af > 60 (>60) 06/06/20 17:34 Glucose 98 mg/dL (75-110) 06/06/20 17:34 Hemoglobin A1c % 4.9 % (4.7-6.0) 06/07/20 04:38 Calcium 9.5 mg/dL (8.4-10.2) 06/06/20 17:34 Total Bilirubin 0.7 mg/dL (0.2-1.3) 06/06/20 17:34 Direct Bilirubin 0.2 mg/dL (0.0-0.4) 06/06/20 17:34 Neonat Total Bilirubin Not Reportable 06/06/20 17:34 Neonat Direct Bilirubin Not Reportable 06/06/20 17:34 Neonat Indirect Bili Not Reportable 06/06/20 17:34 AST 28 U/L (14-36) 06/06/20 17:34 ALT 14 U/L (<35) 06/06/20 17:34 Alkaline Phosphatase 144 U/L (38-126) H 06/06/20 17:34 Creatine Kinase 171 U/L (30-135) H 06/06/20 17:34 CK-MB (CK-2) 1.98 ng/mL (<4.55) 06/06/20 17:34 Troponin I < 0.012 ng/mL 06/07/20 04:38 Total Protein 7.1 g/dL (6.3-8.2) 06/06/20 17:34 Albumin 4.3 g/dL (3.5-5.0) 06/06/20 17:34 Triglycerides 96 mg/dL (<150) 06/07/20 04:38 Cholesterol 133.54 mg/dL (0-200) 06/07/20 04:38 LDL Cholesterol Direct 70 mg/dL (<100) 06/07/20 04:38 VLDL Cholesterol 19.0 mg/dL (10-31) 06/07/20 04:38 HDL Cholesterol 48 mg/dL (>40) 06/07/20 04:38 06/06/20 06/06/20 06/07/20 17:34 20:45 04:38 CK-MB (CK-2) 1.98 Troponin I < 0.012 < 0.012 < 0.012 Impressions: Chest X-Ray 06/06/20 17:40 IMPRESSION: NO ACUTE RADIOGRAPHIC FINDING IN THE CHEST. Chest/Abdomen CTA 06/06/20 21:03 IMPRESSION: No acute pulmonary embolism. Plan Time Spent: Less than 30 Minutes Stroke Is this a Stroke Patient?: No Acute Heart Failure Is this a Heart Failure Patient?: No
== END 2020-06-07 13:27 | disposition home or self-care (01) ==
LOC: ER 17:21 → EH 23:09 → 4W 06-07 00:58
PROVIDERS: ADMIT Student in an Organized Health Care Education/Training Program; ATTEND Internal Medicine
DX: R07.9 Chest pain, unspecified (principal); I10 Essential (primary) hypertension; E11.9 Type 2 diabetes mellitus without complications; E78.5 Hyperlipidemia, unspecified; R06.02 Shortness of breath; J44.9 Chronic obstructive pulmonary disease, unspecified; R04.2 Hemoptysis; K21.9 Gastro-esophageal reflux disease without esophagitis; M79.89 Other specified soft tissue disorders; M19.90 Unspecified osteoarthritis, unspecified site; Z79.899 Other long term (current) drug therapy; Z79.82 Long term (current) use of aspirin; Z82.49 Family history of ischemic heart disease and other diseases of the circulatory system; Z79.891 Long term (current) use of opiate analgesic
CPT/HCPCS: 99285; 96374; 36415 ×2; 82553; 82550; 85025; 80053; 84484 ×2; 83036; 85379; 80061; 71045; 71275; 93005 ×2; 93010 ×2; G0378 ×2; A9270 ×6; J2270; J1650; J3490